=== PATIENT | female | born 1980 | race Caucasian/White ===

== ENCOUNTER 2020-04-29 17:32 | Outpatient (CLI) | payer BC, SELFPAY ==
--- NOTE | ~2020-04-29 | MM_ITS ---
EXAMINATION: MM screening [facility] BI w eduin HISTORY: Screening TECHNIQUE: Craniocaudal and mediolateral oblique 3-D tomosynthesis images were obtained and synthetic 2-D images were generated. CAD analysis was submitted and interpreted. COMPARISON: No prior mammogram is available for comparison at this institution. BREAST PARENCHYMAL COMPOSITION: The breasts are heterogeneously dense, which may obscure small masses . FINDINGS: There are bilateral asymmetries laterally in the right breast on CC view and superiorly on the left breast on MLO view. There are no suspicious calcifications. IMPRESSION: 1. Bilateral breast asymmetries. 2. Additional mammographic views and possible breast ultrasound are recommended. BI-RADS Category 0: Incomplete: Needs additional imaging evaluation. Reviewed, dictated and finalized at location A. IMPRESSION: 1. Bilateral breast asymmetries. 2. Additional mammographic views and possible breast ultrasound are recommended . BI-RADS Category 0: Incomplete: Needs additional imaging evaluation.
== END 2020-04-29 17:33 | disposition home or self-care (01) ==
LOC: ANHIMG 17:36
PROVIDERS: PCP Emergency Medicine; Visit Provider Obstetrics & Gynecology
DX: Z12.31 Encounter for screening mammogram for malignant neoplasm of breast (principal); R92.8 Other abnormal and inconclusive findings on diagnostic imaging of breast
CPT/HCPCS: 77063; 77067

== ENCOUNTER 2020-05-26 13:15 | Outpatient (CLI) | payer BC, SELFPAY ==
--- NOTE | ~2020-05-26 | MM_ITS ---
EXAMINATION: MM diagnostic [facility] BI w eduin HISTORY: Bilateral mammographic asymmetries reported on 04/29/2020 screening mammogram TECHNIQUE: Additional 3-D tomosynthesis images of both breasts were performed and synthetic 2-D image s were generated. CAD analysis was submitted and interpreted. COMPARISON: 04/29/2020 bilateral digital screening mammogram FINDINGS: No reproducible mass or architectural distortion, malignant calcification, skin thickening or retraction of either breast is evident. IMPRESSION: 1. No mammographic evidence of malignancy 2. Routine mammographic screening is recommended. BI-RADS Category 1: Negative Reviewed, dictated and finalized at location A.
== END 2020-05-26 13:16 | disposition home or self-care (01) ==
LOC: ANHIMG 13:17
PROVIDERS: PCP Emergency Medicine; Visit Provider Obstetrics & Gynecology
DX: R92.8 Other abnormal and inconclusive findings on diagnostic imaging of breast (principal)
CPT/HCPCS: 77062; 77066; G0279

== ENCOUNTER 2021-05-18 15:33 | Outpatient (CLI) | payer BC, SELFPAY ==
--- NOTE | ~2021-05-18 | MM_ITS ---
EXAMINATION: MM screening [facility] BI w ed[facility] HISTORY: Screening TECHNIQUE: Craniocaudal and mediolateral oblique 3-D tomosynthesis images were obtained and synthetic 2-D images were generated. CAD analysis was submitted and interpreted. COMPARISON: Comparison to multiple prior studies sequentially, with oldest reviewed study dated 04/29. BREAST PARENCHYMAL COMPOSITION: The breasts are heterogeneously dense, which may obscure small masses . FINDINGS: There is no evidence of suspicious mass, calcification, or architectural distortion to sugg est malignancy in either breast. There has been no suspicious interval change. IMPRESSION: 1. No mammographic evidence of malignancy. 2. Recommend routine screening mammography in one year. BI-RADS Category 1: Negative Reviewed, dictated and finalized at location A.
== END 2021-05-18 15:34 | disposition home or self-care (01) ==
LOC: ANHIMG 15:39
PROVIDERS: PCP Emergency Medicine; Visit Provider Obstetrics & Gynecology
DX: Z12.31 Encounter for screening mammogram for malignant neoplasm of breast (principal)
CPT/HCPCS: 77063; 77067

== ENCOUNTER 2022-03-12 15:51 | Emergency (ER) | payer BC, SELFPAY ==
[2022-03-12 16:03] VITALS: BP 136/99; PULSE 91; RESP 20; TEMP 37; O2SAT 98
--- NOTE | 2022-03-12 16:35 | ED.SKABFB ---
HPI - Skin/Abscess/Foreign Bdy General Chief complaint: Skin/Abscess/Foreign Body Stated complaint: rodriguez on breast Time Seen by Provider: 03/12/22 16:36 History of Present Illness HPI narrative: Elvia Muir is a 41 yo female with a PMH of anxiety, comes to [facility] with second-degree rodriguez on her breasts from 6 days ago. Blisters have since popped but is painful and she has difficulty getting granulation of her tissue because she has not kept them covered all the time. She has been using Neosporin and lidocaine patches but she is concerned that she is not taking her well enough and may be infected Related Data Home Medications Medication Instructions Recorded Confirmed norethindrone 1 mg-ethinyl 1 tablet PO DAILY 10/26/19 03/12/22 estradiol 20 mcg (24)-iron 75 mg (4) tablet (Blisovi 24 Fe) Allergies Allergy/AdvReac Type Severity Reaction Status Date / Time Estrogens Allergy Mild unknown Verified 03/12/22 16:08 Review of Systems Review of Systems: CONSTITUTIONAL: Denies fever, chills, sweats. EYES: Denies visual changes, redness, discharge. ENT: Denies rhinorrhea, congestion, sore throat, otalgia. CARDIOVASCULAR: Denies chest pain, palpitations, edema. RESPIRATORY: Denies dyspnea, wheezing, cough GASTROINTESTINAL: Denies abdominal pain, nausea, vomiting, diarrhea. GENITOURINARY: Denies dysuria, hematuria, abnormal discharge SKIN: Denies rash or itching. Has 2 large areas of secondary rodriguez on the top of each breast, NEUROLOGIC: Denies numbness, or focal weakness. PSYCHIATRIC: Denies anxiety or depression. [facility] Past Medical History Medical History (Updated 03/12/22 @ 17:01 by Laura Humphries CNP) Abnormal deposits of lipid HTN (hypertension) Hyperglycemia Family History Family History Other Family history of lung cancer Social History Social History Smoking status: Never smoker Alcohol intake: current Comments At time of signature, I agree with nursing past medical, surgical, social and family history. There is no relevant family history pertinent to the presenting complaint. Exam Narrative: GENERAL: This is a well-nourished, well-developed patient, in mild distress. HEAD: normocephalic, atraumatic. EYES: Sclera clear/white. Vision is grossly intact. EARS: External ears normal, Hearing grossly intact. NOSE: External nose normal without nasal discharge, nares without redness, no rhinorrhea. THROAT: Mucous membranes moist, NECK: Neck supple, non-tender CARDIOVASCULAR: Regular rate and rhythm without murmurs, gallops, or rubs. RESPIRATORY: Clear to not done SKIN: warm, intact with 2 areas approximately 3 x 5 of second-degree burn with no blister and newly granulating tissue NEURO: awake, alert, and oriented to person, place and time. There were no obvious focal neurologic abnormalities. Steady gait EXTREMITIES: Normal range of motion. BACK: Nontender without deformity Course Course Emergency Course: Patient comes with secondary rodriguez of her breasts from 6 days ago Discussed care with Neosporin and Telfa dressings daily Discussed protecting these areas from sun exposure Level of Care: Express Care Visit Vital Signs Vital signs: Vital Signs Temperature 98.6 F 03/12/22 16:03 Pulse Rate 91 03/12/22 16:03 Respiratory Rate 20 03/12/22 16:03 Blood Pressure 136/99 H 03/12/22 16:03 Pulse Oximetry 98 03/12/22 16:03 Oxygen Delivery Room Air 03/12/22 16:03 Temperature 98.6 F 03/12/22 16:03 Pulse Rate 91 03/12/22 16:03 Respiratory Rate 20 03/12/22 16:03 Blood Pressure 136/99 H 03/12/22 16:03 Pulse Oximetry 98 03/12/22 16:03 Oxygen Delivery Room Air 03/12/22 16:03 MDM - Skin/Abscess/Foreign Bdy Differential Diagnosis Differential diagnosis: Likely abscess of skin or subcutaneous tissue, cellulitis, contact dermatitis and
== END 2022-03-12 17:08 | disposition home or self-care (01) ==
PROVIDERS: Emergency Provider Nurse Practitioner; PCP Emergency Medicine
DX: L55.1 Sunburn of second degree (principal); I10 Essential (primary) hypertension
CPT/HCPCS: 99212; G0463

== ENCOUNTER 2022-06-29 16:31 | Outpatient (CLI) | payer BC, SELFPAY ==
--- NOTE | ~2022-06-29 | MM_ITS ---
EXAMINATION: MM screening [facility] BI w [facility] HISTORY: Screening mammogram TECHNIQUE: Craniocaudal and mediolateral oblique 3-D tomosynthesis images were obtained and synthetic 2-D images were generated. CAD analysis was submitted and interpreted. COMPARISON: 05/18/2021, 05/26/2020, 04/29/2020 BREAST PARENCHYMAL COMPOSITION: The breasts are heterogeneously dense, which may obscure small masses . FINDINGS: No suspicious mass, calcification, or architectural distortion are identified in either jorge ast to suggest malignancy. There has been no suspicious interval change. IMPRESSION: 1. No mammographic evidence of malignancy. 2. Recommend routine screening mammography in one year. BI-RADS Category 1: Negative Reviewed, dictated and finalized at location A.
== END 2022-06-29 16:32 | disposition home or self-care (01) ==
PROVIDERS: PCP Emergency Medicine; Visit Provider Obstetrics & Gynecology
DX: Z12.31 Encounter for screening mammogram for malignant neoplasm of breast (principal)
CPT/HCPCS: 77063; 77067

== ENCOUNTER 2022-08-10 01:29 | Day surgery (SDC) | payer BC, SELFPAY ==
[2022-07-28 08:26] VITALS: BMI 23.3
--- NOTE | 2022-07-28 08:32 | PC.NURSE ---
Report to the Outpatient Waiting Room, entrance under the green pavilion located off [facility], at time 1000 on date 08/10/22. Planned Procedure Time: 1200. Time changes happen often and if your time is changed the preop area will call you the afternoon before. - You and your visitor will be asked to self-screen and do not enter if you have any COVID symptoms. - Only one visitor is requested with a max of two and NO children visitors are allowed at this time. - The patient visitor may be requested to leave or wait in car when not with patient due to distancing restrictions. - A mask is optional within the hospital. Patients may have clear liquids (water, carbonated beverages, clear teas, apple juice) until 3 hours prior to surgery with a maximum of 20 ounces. - No food from midnight until time of surgery Take the following medications with a SIP of water the morning of surgery: VALIUM IF NEEDED Medications to discontinue per physician: NAPROXEN Date to take last dose: PER PT-WAS INSTRUCTED TO STOP 1 WEEK PRIOR TO SURGERY HAS NOT STARTED FOLIC ACID SUPPLEMENT - WILL WAIT UNTIL AFTER SURGERY Please no make-up, nail kazakh, hairspray, perfume, deodorant, or body powder the day of surgery. No jewelry (including any body piercings) or valuables the day of surgery, leave them at home. Please take a shower or bath the night before, or the morning of, surgery with an antibacterial soap. Wear comfortable, loose fitting clothing. - Jewelry must be removed prior to entering the operating room. Rings and piercings that are not removed may be cut off. - The hospital will not accept responsibility for valuables. - Please leave all valuables, including medications, at home the day of surgery. If you are going home after surgery, a licensed stacker driver must drive you home. - NO public transportation without another adult if you receive anesthesia. - We recommend that an adult stay with you for 24 hours following discharge. - We also recommend that you do not drive, make important decision, drink alcoholic beverages, or take any drugs that were not prescribed by your health care provider for at least 24 hours after your discharge time. Follow any additional instructions given to you from your surgeon. If you or anyone in your household have experienced Covid symptoms in the past week, please notify your surgeon or the nurse liaison at the phone number below for possible testing. Telephone instructions given to ОЛЕГ PARIKH and asked if any additional questions and then verbalized understanding. Patient advised to call surgeon office or pre surgery nurse liaison [phone] if any additional questions.
[2022-08-10] VITALS (9 sets, daily range): BP systolic 100–134; BP diastolic 62–93; PULSE 62–85; RESP 10–16; TEMP 36.2–36.6; O2SAT 100
--- NOTE | ~2022-08-10 | XR_ITS ---
EXAMINATION: XR fluoroscopy no charge DATE: 08/10/2022 13:00 ELECTRICIAN STATION ASSISTANT INDICATION: LUMBAR STENOSIS RELIEF . TECHNIQUE: 1 fluoroscopic images of the lateral lumbar spine were obtained during lumbar stenosis rel ated performed by the surgeon. I was not present in the operating room. Fluoroscopy exposure time was 0.6 seconds. Air Kerma 0.2136 mGy. DAP 0.0042 mGym2. COMPARISON: 12/09/2021. FINDINGS: Retractors overlying the posterior soft tissues. A probe identifies the space between the fourth and fifth lumbar spinous processes, tip overlying the inferior articulating facets of L4. IMPRESSION: Fluoroscopic documentation of lumbar stenosis related. Please refer to the operative note for complet e procedural details . Reviewed, dictated and finalized at location K. TRICIAN STATION ASSISTANT IMPRESSION: Fluoroscopic documentation of lumbar stenosis related. Please refer to the oper ative note for complete procedural details .
[2022-08-10] MEDS: LACTATED RINGERS 1,000 ML 30 ML IV CONT (10:59)
--- NOTE | 2022-08-10 11:53 | P.PNAN_ITS ---
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 Patient Data Age: 41 Gender: F Height: 1.68 m Weight: 63.7 kg Last Vital Signs Temp 36.5 C 08/10/22 11:02 Pulse 85 08/10/22 11:02 Resp 16 08/10/22 11:02 BP 123/89 08/10/22 11:02 Pulse Ox 100 08/10/22 11:02 O2 Del Method Room Air 08/10/22 11:02 Allergies Allergy/AdvReac Type Severity Reaction Status Date / Time Estrogens AdvReac Mild Migraine Verified 08/10/22 10:41 Home Medications Medication Instructions Recorded Confirmed Type norethindrone 1 mg-ethinyl 1 tablet PO DAILY 10/26/19 08/10/22 History estradiol 20 mcg (24)-iron 75 mg (4) tablet (Blisovi 24 Fe) naproxen 500 mg tablet See Rx Instructions .Route 05/14/22 08/10/22 Rx .COMPLEX #90 tabs diazepam 5 mg tablet 5 mg PO BID PRN anxiety #30 tabs 06/15/22 08/10/22 Rx folic acid 400 mcg tablet 0.4 mg PO DAILY #30 tabs 07/16/22 07/28/22 Rx Patient hx anesthesia problems: none Family hx anesthesia problems: none Results Review: All pre-operative results and documents have been reviewed as part of the pre- operative evaluation. [facility] Past Medical History Medical History Abnormal deposits of lipid HTN (hypertension) Hyperglycemia Family History Family History Other Family history of lung cancer Social History Social History Smoking packs per day: 0.5 Smoking cigarettes per day: 10.0 Years smoked: 10 Smoking pack-years: 5.00 Smoking status: Former smoker Tobacco type: cigarettes Smoking end date: 09/05/07 Alcohol intake: current Drinks per week: 14 Alcohol use details: WINE Substance use: never Substance use type: does not use Living arrangements: with family Spiritual care concerns: No Anes - Eval Final PreProcedure Day of Procedure 08/10/22 11:53 Patient weight: normal Heart: regular rate and rhythm Lungs: clear to auscultation Airway: Mallampati scale class II Neurological: alert and oriented Last oral intake: >/= 8 hours ASA classification: II Emergent: no Anesthetic plan: proceed Anesthesia type and monitoring: general ETT and standard monitoring Results Review: All pre-operative results and documents have been reviewed as part of the pre- operative evaluation. Informed Consent: The patient's anesthetic plan and its attendant risks and benefits were discussed with the patient/family/POA. Questions were solicited and answers provided to the satisfaction of the patient/family/POA.
--- NOTE | 2022-08-10 12:03 | WPDHPUPDATE1 ---
History and Physical Update Update Date/Time: 08/10/22 12:03 History and Physical has been reviewed, including an updated exam of the patient. There are NO changes in the patient's condition. Risks, benefits, and alternatives have been discussed and questions answered. Patient agrees to proceed with procedure.
[2022-08-10] MEDS: ceFAZolin 2 GM/D5W 50 ML 2 GM/50 ML BAG IVPB (12:47)
[2022-08-10] MEDS: LIDO 1%/EPINEPHRINE/PF 1:200,000 30 ML VIAL 10 ML XX (13:24)
--- NOTE | 2022-08-10 14:49 | SUR.PHASEI ---
1448: Simple mask removed.
[2022-08-10] MEDS: oxyCODONE HCL (*CRX) 5 MG TAB IR PO (15:21)
--- NOTE | 2022-08-31 21:05 | PM.DS ---
DS: Admitting Diagnosis Discharge Date 08/10/22 Admitting Diagnosis Right L4-5 lateral recess stenosis. DS: Discharge Diagnosis Discharge Diagnosis Plan Elvia is a 42-year-old female with back and leg pain on the right that presents for a right L4-5 hemilaminectomy. DS: Summary Hospital Course Hospital Course: Elvia was taken the operating room on the day of admission with the aforementioned operation was performed without complication. The patient was able to be discharged the same day as the operation. At the time of her discharge she was eating, ambulating, emptying her bladder and her pain was under control by mouth pain medicine. Her wounds remained clean, dry and intact. She was afebrile with stable vital signs. She was therefore allowed to be discharged home. Time Spent with Patient Time attestation: Total time spent providing and/or coordinating discharge services: Discharge Plan Discharge Patient Disposition: Home, Self-Care Discharge Instructions: INSTRUCTIONS AFTER YOUR LUMBAR LAMINECTOMY Incisions closed with: Surgical glue (let it peel off on its own). Keep the incision dry for the first three days after surgery. Never apply ointments or lotions to the incision. The incision should be checked daily. Notify the office if there is drainage, redness, or if you have fever with a temperature of over 100 degrees. After the third postop day, it is okay to shower. Let soap and water run over your incision. No soaking in a tub, hot tub, or pool for at least one month. You are encouraged to walk as much as comfortable, with assistance as needed. For example, it may be beneficial to walk short distances hourly during the waking hours and gradually increase walking during your recovery period. Fatigue can be common. Avoid any bending, heavy lifting, twisting movements. You have an punti-zz-kmu-pound lift restriction until further advised by your physician (A gallon of milk weighs eight pounds). Make frequent position changes, avoiding long periods of sitting. Try not to sit more than 30 minutes at a time. You may engage in sexual activity in two weeks as tolerated. No housework, especially vacuuming, making beds, or doing laundry until seen in the office. You may walk stairs carefully. Minimize car rides for two weeks. Driving can usually be resumed within two weeks; however, you may not drive at that time if still taking pain medications. Once you are discharged from the hospital, please call the office to set up your postop appointment. The physician may order pain medication and/or muscle relaxers. As time goes by, you should require less of these. Always take your medication as ordered, and only if needed. If you take more than prescribed, it will not be refilled early. If you feel you require narcotic medication refill, kindly give the office a 72-hour notice. No refills are given over the weekend. Anti-inflammatory meds (like Ibuprofen, Aleve, Advil, Motrin) may be used if approved by your surgeon. Over the counter Tylenol products may be used but use caution mixing Tylenol with your pain medication. The common pain pills include Acetaminophen as an ingredient, you could cause liver damage if taking too much. Tylenol and Acetaminophen are the same drug. Resume your usual diet. Constipation is a common problem postop, especially when taking narcotic pain medications. You may use any over the counter laxative, or stool softener, following the bottle directions. Use of nicotine products should be stopped completely. Smoking can slow the healing process significantly. It can also increase the chance for developing postop pneumonias and other complications. Please avoid use of all nicotine products for the health of your spine. FOR AN EMERGENCY AFTER HOURS OR ON A WEEKEND, PLEASE CALL THE MEDICAL EXCHANGE AT Call the office for: Appointment set up. Fever greater than 101 degrees. Increased p
--- NOTE | 2022-09-01 13:26 | P.OP_ITS ---
Procedure Note - Detailed Date of Procedure 09/01/22 Pre-op Diagnosis right L4-5 lateral recessed stenosis Post-op Diagnosis Same Procedure Performed Right L4-5 hemilaminectomy Surgeon Dwain Canales MD Anesthesia General Indications Elvia is 42-year-old female with a right L5 radiculopathy related L4-5 and lateral recess stenosis presents for hemilaminectomy. Description of Procedure the patient was taken to the operating room in the supine position, was sedated, intubated and placed under general anesthesia in routine fashion. She was then turned into the prone position on a Nilson frame. The area of operation on her back was examined, marked for incision, prepped and draped in routine sterile fashion. Incision was marked over the L4 and L5 spinous processes in the midline. This area was injected with 0.5% lidocaine with [id number] epinephrine. Intravenous antibiotics given prior to incision. Incision was made with a 10 blade scalpel down to the lumbodorsal fascia. A subperiosteal dissection of the muscle and soft tissue away from the spinous process lamina at L4-5 was performed with a subperiosteal elevator and Bovie cautery on the right. A verifying x-rays obtained to verify the level operation. At the L4-5 level on the right a Midas Prabhjot drill was used to perform a hemilaminectomy and medial facetectomy. Under microscopy yellow ligament was lifted and removed piecemeal using Kerrison punches. In the lateral recess a cu rved curette was used to define a plane and a lift overgrown ligament. Kerrison punches were used to remove overgrown ligament and bone in the lateral recess exposing the traversing L5 nerve root towards the foramen. Decompression in the lateral recess was confirmed by placing a dental instrument above and below the nerve root and out the foramen. The wound was then copiously irrigated with bacitracin irrigation all bleeding was stopped with bipolar and Bovie cautery and Gelfoam thrombin powder. Wound was then closed in layers with 2-0 Vicryl sutures in the lumbodorsal fascia and Glenroy's layer. 3-0 Vicryl buried interrupted sutures were placed in the dermis and the skin was closed with a running 4-0 Monocryl subcuticular stitch and dressed with Dermabond. The patient was then allowed wake up in the sitting the hybrid room in stable condition. There no immediate complications of this operation. On held Kari and knees. Blood loss was 25 cc. The patient was neurologically at her baseline postoperatively. CPT codes: 93855 Estimated Blood Loss 25 IV Fluids 1,000 Complications None Condition Stable Disposition PACU [facility] Billing Surgery - Charge Forward: Surgery Billing
== END 2022-08-10 16:06 | disposition home or self-care (01) ==
PROVIDERS: PCP Emergency Medicine; Visit Provider Neurological Surgery
PROC: (CPT 63030; principal; 2022-08-10 12:00)
DX: M48.061 Spinal stenosis, lumbar region without neurogenic claudication (principal); M43.16 Spondylolisthesis, lumbar region; Z87.891 Personal history of nicotine dependence
CPT/HCPCS: 63047; 36415; 86850; 86900; 86901; 99199; A9270; J0330; J0690; J1100; J1170; J2250; J2405; J2704; J3010; J7120

== ENCOUNTER → 2023-01-18 15:42 | Outpatient (CLI) | payer BC, SELFPAY ==
--- NOTE | ~2023-01-18 | CT_ITS ---
CT Scan of the Chest without Contrast: Clinical Indication: Smoking history, personal history of nicotine dependence Technique: Contiguous sections were acquired throughout the chest without intravenous contrast. Dose reduction technique was used on this scan by utilizing automated exposure control and iterative recon struction technique. The dose-length product (DLP) was 66.31 mGy-cm. Findings: There is no evidence of any significant mediastinal, hilar or axillary lymphadenopathy. Small calcifi ed mediastinal and right hilar lymph nodes are present. The mediastinal soft tissues appear normal. There is no evidence of pleural or pericardial effusion. Large calcified right upper lobe granuloma is present. Additional smaller calcified right lower lobe granuloma is present. No other pulmonary abnormality seen. Images through the upper abdomen reveal no abnormalities. Impression: No acute abnormality. No suspicious pulmonary nodule. Evidence of prior granulomatous disease. Reviewed, dictated and finalized at [facility]. Impression: No acute abnormality. No suspicious pulmonary nodule. Evidence of prior granulomatous disease.
== END ==
PROVIDERS: PCP Emergency Medicine; Visit Provider Emergency Medicine
DX: Z87.891 Personal history of nicotine dependence (principal)
CPT/HCPCS: 71250

== ENCOUNTER → 2023-06-21 15:46 | Outpatient (CLI) | payer BC, SELFPAY ==
--- NOTE | ~2023-06-21 | US_ITS ---
EXAMINATION: US thyroid DATE: 06/21/2023 16:01 INDICATION: Nontoxic single thyroid nodule. TECHNIQUE: Multiple ultrasound images of the thyroid were obtained. COMPARISON: None. FINDINGS: The right thyroid lobe measures 5.4 x 1.1 x 1.4 cm. The left thyroid lobe measures 4.1 x 1.4 x 1.4 c m. There is heterogeneous thyroid echogenicity. No discrete nodules identified. Normal vascular flow is present. IMPRESSION: 1. No thyroid nodule. Reviewed, dictated and finalized at location E. IMPRESSION: 1. No thyroid nodule.
== END ==
PROVIDERS: PCP Emergency Medicine; Visit Provider Emergency Medicine
DX: E04.1 Nontoxic single thyroid nodule (principal)
CPT/HCPCS: 76536

== ENCOUNTER 2023-08-09 15:45 | Outpatient (CLI) | payer BC, SELFPAY ==
--- NOTE | ~2023-08-09 | MM_ITS ---
EXAMINATION: MM screening [facility] BI w [facility] HISTORY: Screening mammogram TECHNIQUE: Craniocaudal and mediolateral oblique 3-D tomosynthesis images were obtained and synthetic 2-D images were generated. CAD analysis was submitted and interpreted. COMPARISON: 06/29/2022, 05/18/2021, 05/26/2020 BREAST PARENCHYMAL COMPOSITION: The breasts are heterogeneously dense, which may obscure small masses . FINDINGS: No suspicious mass, calcification, or architectural distortion are identified in either jorge ast to suggest malignancy. There has been no suspicious interval change. IMPRESSION: 1. No mammographic evidence of malignancy. 2. Recommend routine screening mammography in one year. BI-RADS Category 1: Negative Reviewed, dictated and finalized at location A. ET COMMISSIONER
== END 2023-08-09 15:46 | disposition home or self-care (01) ==
PROVIDERS: PCP Emergency Medicine; Visit Provider Obstetrics & Gynecology
DX: Z12.31 Encounter for screening mammogram for malignant neoplasm of breast (principal)
CPT/HCPCS: 77063; 77067

== ENCOUNTER 2024-03-09 15:44 | Outpatient (CLI) | payer BC, SELFPAY ==
--- NOTE | ~2024-03-09 | XR_ITS ---
EXAMINATION: XR wrist RT 2V DATE: 03/09/2024 16:02 INDICATION: Right wrist pain. TECHNIQUE: 2 views of right wrist were obtained. COMPARISON: None. FINDINGS: Bone alignment is normal. No fracture. There is moderate osteoarthritis of first carpometac arpal joint. IMPRESSION: 1. Moderate osteoarthritis of first carpometacarpal joint. Reviewed, dictated and finalized at location A.
--- NOTE | ~2024-03-09 | XR_ITS ---
EXAMINATION: XR hand RT 2V DATE: 03/09/2024 16:02 INDICATION: Right hand pain. TECHNIQUE: 2 views of right hand were obtained. COMPARISON: None. FINDINGS: Bone alignment is normal. No fracture. There is moderate osteoarthritis of first carpometac arpal joint. IMPRESSION: 1. Moderate osteoarthritis of first carpometacarpal joint. Reviewed, dictated and finalized at location A.
== END 2024-03-09 15:45 ==
PROVIDERS: PCP Emergency Medicine; Visit Provider Emergency Medicine
DX: M18.11 Unilateral primary osteoarthritis of first carpometacarpal joint, right hand (principal)
CPT/HCPCS: 73100; 73120

== ENCOUNTER 2024-06-16 10:01 | Outpatient (CLI) | payer BC, SELFPAY ==
--- NOTE | ~2024-06-16 | MR_ITS ---
EXAMINATION: MR lumbar spine wo con DATE: 06/16/2024 10:55 INDICATION: Spondylolisthesis, lumbar region. Low back pain. TECHNIQUE: Magnetic resonance imaging (MRI) of the lumbar spine was performed without intravenous con trast. Sequences included sagittal T2-weighted FSE, sagittal T2-weighted FS FSE, sagittal T1-weighted FSE, and axial T2-weighted FSE. COMPARISON: Lumbar spine MRI 12/09/2021 FINDINGS: There is 17 degrees dextroscoliosis of thoracolumbar spine. There is 4 mm anterolisthesis o f L4 on L5. There is focal kyphosis at L4-L5. Vertebral body heights are normal. There is moderately decreased disc height at L4-L5. The distal spinal cord signal intensity is normal. The conus medullar is is at T12-L1. The following disc levels are specifically discussed: L1-L2: The disc does not extend beyond the endplate margin. There is moderate bilateral facet joint o steoarthritis. There is no neural foraminal stenosis. There is no central canal stenosis. L2-L3: The disc does not extend beyond the endplate margin. There is mild bilateral facet joint osteo arthritis. There is no neural foraminal stenosis. There is no central canal stenosis. L3-L4: The disc does not extend beyond the endplate margin. There is severe bilateral facet joint ost eoarthritis. There is no neural foraminal stenosis. There is no central canal stenosis. L4-L5: The disc is bulging and has an annular fissure. There is severe right and moderate left facet joint osteoarthritis. There is moderate right and mild left neural foraminal stenosis. There is mild central canal stenosis. L5-S1: The disc is bulging. There is mild bilateral facet joint osteoarthritis. There is mild left ne ural foraminal stenosis. There is mild central canal stenosis. IMPRESSION: 1. Moderate spondylosis at L4-L5, stable from 12/09/2021. 2. Thoracolumbar dextroscoliosis. Reviewed, dictated and finalized at location A.
== END 2024-06-16 10:02 | disposition home or self-care (01) ==
PROVIDERS: PCP Neurological Surgery; Visit Provider Neurological Surgery
DX: M47.816 Spondylosis without myelopathy or radiculopathy, lumbar region (principal); M41.9 Scoliosis, unspecified
CPT/HCPCS: 72148

== ENCOUNTER 2024-09-06 15:45 | Outpatient (CLI) | payer BC, SELFPAY ==
--- NOTE | ~2024-09-06 | MM_ITS ---
EXAMINATION: MM screening [facility] BI w [facility] HISTORY: Screening mammogram TECHNIQUE: Craniocaudal and mediolateral oblique 3-D tomosynthesis images were obtained and synthetic 2-D images were generated. CAD analysis was submitted and interpreted. COMPARISON: 08/09/2023, 06/29/2022, 05/18/2021 BREAST PARENCHYMAL COMPOSITION:Not Dense. There are scattered areas of fibroglandular density. FINDINGS: No suspicious mass, calcification, or architectural distortion are identified in either jorge ast to suggest malignancy. There has been no suspicious interval change. IMPRESSION: No mammographic evidence of malignancy. Recommend routine screening mammography in one year. BI-RADS Category 1: Negative Reviewed, dictated and finalized at location . 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
== END 2024-09-06 15:46 | disposition home or self-care (01) ==
LOC: ANHIMG 15:46
PROVIDERS: PCP Emergency Medicine; Visit Provider Obstetrics & Gynecology
DX: Z12.31 Encounter for screening mammogram for malignant neoplasm of breast (principal)
CPT/HCPCS: 77063; 77067

== ENCOUNTER 2024-11-21 15:41 | Outpatient (CLI) | payer BC, SELFPAY ==
--- NOTE | ~2024-11-21 | XR_ITS ---
HISTORY: M79.672 - Pain in left foot COMPARISON: None TECHNIQUE: 2 views of the left foot were performed. FINDINGS: No acute fracture or dislocation is appreciated. No significant degenerative disease is noted. The base of the fifth metatarsal is intact. No calcaneal spur is noted. No significant soft tissue swelling is present. IMPRESSION: No acute fracture or dislocation. Reviewed, dictated and finalized at location A.
== END 2024-11-21 15:42 | disposition home or self-care (01) ==
PROVIDERS: PCP Emergency Medicine; Visit Provider Emergency Medicine
DX: M79.672 Pain in left foot (principal)
CPT/HCPCS: 73620

== ENCOUNTER 2025-03-01 09:48 | Emergency (ER) | payer BC, SELFPAY ==
[2025-03-01] VITALS (9 sets, daily range): BP systolic 152; BP diastolic 98; PULSE 81–111; RESP 15–21; TEMP 36.6; O2SAT 97–100
--- NOTE | 2025-03-01 10:03 | PC.NURSE ---
Pt. reports vomiting x1 month after her doctor increased her GLP-1 shot to 10. Pt. last shot x2 weeks ago. She is not taking it anymore. She is concerned that she is dehydrated d/t vomiting after any food or fluid intake. No abd. pain with palpation. Denies diarrhea or fever.
[2025-03-01 10:28] LABS: Basophils Absolute Auto 0.1 K/mm3 (0.0-0.1); Basophils Percent Auto 0.5 % (0.2-1.2); Eosinophils Absolute Auto 0.1 K/mm3 (0-0.3); Eosinophils Percent Auto 0.5 % (0-4.4); Hematocrit 37.5 % (37.0-47.0); Hemoglobin 12.7 g/dL (12.0-15.0); Immature Granulocyte Absolute 0.04 K/mm3 (0.00-0.031); Immature Granulocyte Percent A 0.4 % (0-0.5); Lymphocytes Absolute Auto 1.34 K/mm3 (0.9-3.2); Lymphocytes Percent Auto 12.9 % (18.3-44.2); Mean Corpuscular HGB Conc 33.9 g/dl (32-36); Mean Corpuscular Hemoglobin 31.8 pg (26-34); Mean Corpuscular Volume 93.8 fl (80-100); Mean Platelet Volume 10.6 fl (7.4-10.4); Monocytes Absolute Auto 0.8 K/mm3 (0.1-0.6); Monocytes Percent Auto 7.6 % (2.6-8.5); Neutrophils Absolute Auto 8.1 K/mm3 (1.3-6.7); Neutrophils Percent Auto 78.1 % (45.5-73.1); Platelet Count Result 409 k/mm3 (150-375); Red Cell Distribution Width 11.6 % (11.5-14.5); White Blood Count 10.4 K/mm3 (4.5-10.0)
--- NOTE | 2025-03-01 11:00 | ED.NAVMDI ---
HPI - Nausea/Vomiting/Diarrhea General Chief complaint: Nausea/Vomiting/Diarrhea Stated complaint: n/v after glp-1 shot Time Seen by Provider: 03/01/25 10:07 History of Present Illness HPI Narrative: Patient is a 44-year-old female who presents to the ER with complaints of nausea and decreased p.o. intake since increasing her GLP 1 dose. She reports she started taking the medication in September. Patient reports she has never had any side effects until she increased her dose to 10 mg. Now patient endorses nausea, dizziness and decreased p.o. intake. She has concerns for dehydration. Patient reports she had a small bowel movement yesterday which is not normal for her. She reports she has been urinating at least every 6 hours and denies urinary symptoms. Patient endorses a history of herniated discs at L4 and L5, otherwise denies any medical history. Related Data Home Medications ?Medication ?Instructions ?Recorded ?Confirmed ?Last Taken ?Type norethindrone 1 mg-ethinyl 1 tablet PO DAILY 10/26/19 06/27/24 08/09/22 History estradiol 20 mcg (24)-iron 75 mg (4) tablet (Blisovi 24 Fe) Allergies Allergy/AdvReac Type Severity Reaction Status Date / Time Estrogens AdvReac Mild Migraine Verified 03/01/25 10:06 Review of Systems Review of Systems: All systems reviewed & are unremarkable except as noted in HPI and below PMFSH Past Medical History Medical History Mass of finger of right hand Ganglion cyst of dorsum of right wrist Thoracic outlet syndrome Abnormal deposits of lipid Hyperglycemia HTN (hypertension) Surgical History Surgical History Status post lumbar surgery Family History Family History Other Family history of lung cancer Social History Social History Smoking packs per day: 0.5 Smoking cigarettes per day: 10.0 Years smoked: 10 Smoking pack-years: 5.00 Smoking status: Former smoker Tobacco type: cigarettes Smoking end date: 09/05/07 Alcohol intake: current Drinks per week: 14 Alcohol use details: WINE Substance use: never Substance use type: does not use Current Housing: Decline to Answer Concerned About Future Housing: Decline to Answer Difficulty Paying Gas/Electric Bills: Decline to Answer Difficulty Paying for Meds: Decline to Answer Currently Unemployed: Decline to Answer Education: Decline to Answer Difficulty w/ Childcare or Family Care: Decline to Answer Living arrangements: with family Spiritual care concerns: No Exam Narrative: GENERAL: Well appearing, well-nourished, non-toxic, in no acute distress. HEAD: Normocephalic, atraumatic. NECK: Supple. No adenopathy, no masses. RESPIRATORY: Airway patent, respirations nonlabored. Clear to auscultation bilaterally, no rales, rhonchi, wheezing. CARDIOVASCULAR: Regular rate and rhythm without murmurs, rubs, or gallops. Peripheral pulses 2+ and equal bilaterally. ABDOMINAL: Soft, nontender, nondistended, no hepatosplenomegaly. Normoactive BS. MUSCULOSKELETAL: Moves all extremities. Strength/ROM intact without gross deformities. SKIN: Warm, dry, normal color. No rashes. NEURO: A&O X3. Speech clear. Cranial nerves II-XII intact. No ataxic movements. PSYCHIATRIC: Appropriate mood and affect. Normal interaction. Course Vital Signs Vital signs: Vital Signs Temperature 36.6 C 03/01/25 09:58 Pulse Rate 111 H 03/01/25 09:58 Respiratory Rate 16 03/01/25 09:58 Blood Pressure 152/98 H 03/01/25 09:58 Pulse Oximetry 100 03/01/25 09:58 Oxygen Delivery Room Air 03/01/25 09:58 Temperature 36.6 C 03/01/25 09:58 Pulse Rate 84 03/01/25 15:30 Respiratory Rate 21 H 03/01/25 15:30 Blood Pressure 152/98 H 03/01/25 09:58 Pulse Oximetry 97 03/01/25 12:28 Oxygen Delivery Room Air 03/01/25 09:58 MDM - Nausea/Vomiting/Diarrhea MDM Narrative Medical decision making narrative: Patient is a 44-year-old female who presents to the ER with complaints of nausea and decreased p.o. intake since increasing her GLP 1 dose. She reports she started taking the medication in September. Patient reports she has never had any side effects until she increased her dose to 10 mg. Now patient endorses nausea, dizziness and decreased p.o. intake. She has concerns for dehydration. Patient reports she had a small bowel movement yesterday which is not normal for her. She reports she has been urinating at least every 6 hours and denies urinary symptoms. Patient endorses a history of herniated discs at L4 and L5, otherwise denies any medical history. Labs Ordered: CBC, CMP, ethanol, blood cultures, PTT, INR, CRP, CK, lactic acid, UA, troponin Imaging Ordered: None necessary Medications Ordered: Ceftriaxone 1 g IV, 1 L normal saline IV bolus x2, Zofran 4 mg IV, 20 mEq potassium IV, potassium chloride p.o. Results: Patient's CBC indicates a white blood cell count 10.4, red blood cell count of 4.0, platelet count is 409. Patient's CMP indicates a sodium of 130, potassium 2.1, chloride of 88, anion gap of 15, BUN of 4, creatinine of 1.15, GFR of 51, glucose 147, AST 51, an ALT of 53. Her lipase was within normal limits. Her CK was 28. Her troponin was less than 0.012. Patient's CRP was 4.0. Her urinalysis indicates a UTI. It was recommended pt be admitted to the hospital for further treatment and evaluation. Patient has chosen to refuse further care. Risks of an incomplete evaluation and treatment were discussed with the patient, including potential for or permanent disability. Patient seems to understand these risks, but still desires to refuse further care. Patient recommended to follow up with PCP in the next possible interval. Specifically, patient was told they can return to the ED at any time to resume care. She will be discharged home with a prescription for Augmentin to treat her UTI. Differential Diagnosis Differential diagnosis: Likely gastroenteritis, drug-induced nausea and vomiting and dehydration Lab Data Attestation: I reviewed the patient's lab results. 03/01/25 10:22 03/01/25 10:22 Labs: Lab Results 03/01/25 03/01/25 03/01/25 Range/Units 10:22 11:45 11:54 WBC 10.4 H (4.5-10.0) K/mm3 RBC 4.00 L (4.2-5.4) M/mm3 Hgb 12.7 (12.0-15.0) g/dL Hct 37.5 (37.0-47.0) % MCV 93.8 (80-100) fl MCH 31.8 (26-34) pg MCHC 33.9 (32-36) g/dl RDW 11.6 (11.5-14.5) % Plt Count 409 H (150-375) k/mm3 MPV 10.6 H (7.4-10.4) fl Immature Gran % (Auto) 0.4 (0-0.5) % Neut % (Auto) 78.1 H (45.5-73.1) % Lymph % (Auto) 12.9 L (18.3-44.2) % [place] % (Auto) 7.6 (2.6-8.5) % Eos % (Auto) 0.5 (0-4.4) % Baso % (Auto) 0.5 (0.2-1.2) % Lymph # (Auto) 1.34 (0.9-3.2) K/mm3 [place] # (Auto) 0.8 H (0.1-0.6) K/mm3 Eos # (Auto) 0.1 (0-0.3) K/mm3 Baso # (Auto) 0.1 (0.0-0.1) K/mm3 Abs Immat Gran (auto) 0.04 H (0.00-0.031) K/mm3 Absolute Neuts (auto) 8.1 H (1.3-6.7) K/mm3 Absolute Nucleated RBC 0.000 (0.0-0.012) K/mm3 Nucleated RBC % 0.0 (0.0-0.2) % Sodium 130 L (137-145) mmol/L Potassium 2.1 L* (3.4-5.0) mmol/L Chloride 88 L (98-107) mmol/L Carbon Dioxide 27 (22-30) mmol/L Anion Gap 15 H (4-12) mmol/L BUN 4 L (7-17) mg/dL Creatinine 1.15 H (0.7-1.0) mg/dL Estim Creat Clear Calc 47 ml/min Estimated GFR 51 L (59 - ) Glucose 147 H (65-110) mg/dL Calcium 9.3 (8.4-10.2) mg/dL Total Bilirubin 0.7 (0.2-1.3) mg/dL AST 51 H (14-36) U/L ALT 53 H (6-35) U/L Alkaline Phosphatase 83 (38-126) U/L Total Creatine Kinase 28 L (30-135) U/L Troponin I < 0.012 (0.000-0.034) ng/mL C-Reactive Protein 4.0 H (<1.0) mg/dL Total Protein 7.4 (6.3-8.2) g/dL Albumin 3.9 (3.5-5.1) g/dL Lipase 86 (23-300) U/L Urine Color (Yellow) Urine Appearance (Clear) Urine pH (5.0-9.0) Ur Specific [place] (1.001-1.035) Urine Protein (Negative) mg/dL Urine Glucose (UA) (Negative) mg/dL Urine Ketones (Negative) mg/dL Ur Blood (Man) (Negative) Urine Nitrate (Negative) Urine Bilirubin (Negative) Urine Urobilinogen (<2.0) mg/dL Leukocyte Esterase Rfl (Negative) LYDIA/UL Urine RBC (0-2) /hpf Urine WBC (0-3) /hpf Ur Squamous Epith Cells (Few) /hpf Urine Bacteria /hpf Urine Casts POC Urine HCG, Qual Negative (Negative) Ethyl Alcohol Pending 03/01/25 Range/Units 12:53 WBC (4.5-10.0) K/mm3 RBC (4.2-5.4) M/mm3 Hgb (12.0-15.0) g/dL Hct (37.0-47.0) % MCV (80-100) fl MCH (26-34) pg MCHC (32-36) g/dl RDW (11.5-14.5) % Plt Count (150-375) k/mm3 MPV (7.4-10.4) fl Immature Gran % (Auto) (0-0.5) % Neut % (Auto) (45.5-73.1) % Lymph % (Auto) (18.3-44.2) % Lau[place] % (Auto) (2.6-8.5) % Eos % (Auto) (0-4.4) % Baso % (Auto) (0.2-1.2) % Lymph # (Auto) (0.9-3.2) K/mm3 [place] # (Auto) (0.1-0.6) K/mm3 Eos # (Auto) (0-0.3) K/mm3 Baso # (Auto) (0.0-0.1) K/mm3 Abs Immat Gran (auto) (0.00-0.031) K/mm3 Absolute Neuts (auto) (1.3-6.7) K/mm3 Absolute Nucleated RBC (0.0-0.012) K/mm3 Nucleated RBC % (0.0-0.2) % Sodium (137-145) mmol/L Potassium (3.4-5.0) mmol/L Chloride (98-107) mmol/L Carbon Dioxide (22-30) mmol/L Anion Gap (4-12) mmol/L BUN (7-17) mg/dL Creatinine (0.7-1.0) mg/dL Estim Creat Clear Calc ml/min Estimated GFR (59 - ) Glucose (65-110) mg/dL Calcium (8.4-10.2) mg/dL Total Bilirubin (0.2-1.3) mg/dL AST (14-36) U/L ALT (6-35) U/L Alkaline Phosphatase (38-126) U/L Total Creatine Kinase (30-135) U/L Troponin I (0.000-0.034) ng/mL C-Reactive Protein (<1.0) mg/dL Total Protein (6.3-8.2) g/dL Albumin (3.5-5.1) g/dL Lipase (23-300) U/L Urine Color Yellow (Yellow) Urine Appearance Cloudy H (Clear) Urine pH 8.0 (5.0-9.0) Ur Specific [place] 1.009 (1.001-1.035) Urine Protein Trace (Negative) mg/dL Urine Glucose (UA) Negative (Negative) mg/dL Urine Ketones Trace H (Negative) mg/dL Ur Blood (Man) Negative (Negative) Urine Nitrate Negative (Negative) Urine Bilirubin Negative (Negative) Urine Urobilinogen 1.0 (<2.0) mg/dL Leukocyte Esterase Rfl 3+ H (Negative) LYDIA/UL Urine RBC 3-5 H (0-2) /hpf Urine WBC >100 H (0-3) /hpf Ur Squamous Epith Cells Many H (Few) /hpf Urine Bacteria 2+ H /hpf Urine Casts 3-5 POC Urine HCG, Qual (Negative) Ethyl Alcohol Discharge Plan Discharge Clinical Impression: Acute hypokalemia, Acute dehydration, Urinary tract infection, Acute hyponatremia Patient Disposition: Left Against Medical Advice Condition: Guarded Prognosis Patient Language: Macanese Prescriptions: No Action norethindrone-e.estradiol-iron [Blisovi 24 Fe] 1 mg-20 mcg (24)/75 mg (4) tablet 1 tablet PO DAILY fluticasone propionate 50 mcg/actuation spray,suspension See Rx Instructions .ROUTE .COMPLEX Qty: 48 0RF Dose Instruction: SHAKE LIQUID AND USE 2 SPRAYS IN EACH NOSTRIL EVERY 12 HOURS Rx Instructions: SHAKE LIQUID AND USE 2 SPRAYS IN EACH NOSTRIL EVERY 12 HOURS hydrochlorothiazide 12.5 mg capsule See Rx Instructions .ROUTE .COMPLEX Qty: 180 3RF Dose Instruction: TAKE 2 CAPSULES BY MOUTH EVERY DAY Rx Instructions: TAKE 2 CAPSULES BY MOUTH EVERY DAY diazepam 5 mg tablet 5 mg PO BID PRN (Reason: anxiety) Qty: 30 2RF naproxen 500 mg tablet See Rx Instructions .ROUTE .COMPLEX Qty: 30 2RF Dose Instruction: TAKE 1 TABLET BY MOUTH DAILY Rx Instructions: TAKE 1 TABLET BY MOUTH DAILY ondansetron HCl 4 mg tablet 4 mg PO Q6H PRN (Reason: nausea and vomiting) Qty: 30 0RF Zepbound 7.5 mg/0.5 mL pen injector 7.5 mg subcut WEEKLY Qty: 2 0RF Follow-up/Referrals: Satya Fournier MD [Primary Care Provider] -
[2025-03-01 11:18] LABS: Alanine Aminotransferase 53 U/L (6-35); Albumin Level 3.9 g/dL (3.5-5.1); Alkaline Phosphatase 83 U/L (38-126); Aspartate Amino Transferase 51 U/L (14-36); Calcium 9.3 mg/dL (8.4-10.2); Carbon Dioxide 27 mmol/L (22-30); Chloride 88 mmol/L (98-107); Estimated CRCL calculation 47 ml/min; Estimated Glomerular Filt Rate 51; Glucose 147 mg/dL (65-110)
[2025-03-01 11:19] LABS: Anion Gap 15 mmol/L (4-12); Bilirubin,Total 0.7 mg/dL (0.2-1.3); Blood Urea Nitrogen 4 mg/dL (7-17); Lipase 86 U/L (23-300); Potassium 2.1 mmol/L (3.4-5.0); Sodium 130 mmol/L (137-145); Total Protein 7.4 g/dL (6.3-8.2)
--- NOTE | 2025-03-01 11:24 | ECG_ITS ---
Test Date: 2025-03-01 11:34:10 Measurements Intervals [place] Rate: 95 P: 66 FL: 162 QRS: 261 QRSD: 90 T: 30 QT: 393 QTc: 496 Interpretive Statements SINUS RHYTHM RIGHT AXIS DEVIATION POSSIBLE LEFT ATRIAL ENLARGEMENT POSSIBLE RIGHT VENTRICULAR CONDUCTION DELAY [RSR (QR) IN V1/V2] ANTEROLATERAL INFARCT, AGE INDETERMINATE INFERIOR INFARCT, AGE INDETERMINATE ABNORMAL ECG No previous ECG available for comparison Electronically Signed On 03-01-2025 12:08:39 CDT by Case Deng D.O.
[2025-03-01] MEDS: SODIUM CHLORIDE 0.9% IV 1,000 ML 999 ML IV CONT ×2 (11:46→14:45)
[2025-03-01 11:56] LABS: BEDSIDEPREGUCG Negative (Negative)
[2025-03-01] MEDS: KCL 20 MEQ/D5/0.45% SOD CHL 1,000 ML 125 ML IV CONT (12:00)
[2025-03-01 12:42] LABS: Troponin I < 0.012 ng/mL (0.000-0.034)
[2025-03-01 13:03] LABS: Add Urine Microscopic? YES; Appearance Urine Cloudy (Clear); Bacteria Urine 2+ /hpf; Bilirubin Urine Negative (Negative); Blood Urine Negative (Negative); Color Urine Yellow (Yellow); Glucose Urine UA Negative (Negative); Ketones Urine Trace mg/dL (Negative); Leukocyte Esterase Ur 3+ LEU/UL (Negative); Nitrate Urine Negative (Negative); Protein Urine Trace mg/dL (Negative); Specific Grav Ur 1.009 (1.001-1.035); Squamous Epithelial Cell Urine Many /hpf (Few); WBC Urine >100 /hpf (0-3)
[2025-03-01] MEDS: POTASSIUM CHLORIDE 20 MEQ ER TABLET 40 MEQ PO (14:54)
[2025-03-01] MEDS: AMOXICILLIN/CLAVULANATE K 875-125 MG TAB 1 TABLET PO (14:54)
--- NOTE | 2025-03-01 14:59 | PC.NURSE ---
Pt refused blood stick for Blood cultures and additional blood work to be drawn at this time.
--- NOTE | 2025-03-01 15:15 | PC.NURSE ---
Called lab at [facility], aware of additional blood add ons.
[2025-03-01 15:29] LABS: Creatine Kinase 28 U/L (30-135)
[2025-03-01 15:43] LABS: Ethanol < 10 mg/dL (<10)
== END 2025-03-01 16:03 | disposition left against medical advice (07) ==
PROVIDERS: Emergency Provider Registered Nurse; PCP Emergency Medicine
DX: E87.6 Hypokalemia (principal); E86.0 Dehydration; N39.0 Urinary tract infection, site not specified; E87.1 Hypo-osmolality and hyponatremia; I10 Essential (primary) hypertension; Z87.891 Personal history of nicotine dependence
CPT/HCPCS: 36415; 80053; 81001; 81025; 82077; 82550; 83690; 84484; 85025; 86140; 93005; 96361; 96365; 96366; 96368; 99284; A9270; J0696; J3480; J7030

== ENCOUNTER 2025-03-19 13:09 | Inpatient (IN) | payer BC, SELFPAY ==
[2025-03-19] VITALS (7 sets, daily range): BP systolic 109–149; BP diastolic 76–112; PULSE 87–108; RESP 16–20; TEMP 36.1; O2SAT 99–100; BMI 19.8
--- NOTE | ~2025-03-19 | MR_ITS ---
MRI of the brain Clinical History: Short-term memory issues, confusion Technique: Axial and sagittal T1-weighted images were acquired. These were followed by axial T2-weigh noemi, diffusion weighted, gradient, and FLAIR images. Following intravenous administration of 11 cc Mu ltiHance gadolinium, T1-weighted fat-sat imaging was performed in the axial, coronal, and sagittal pl anes. Findings: There is no acute infarct, intracranial hemorrhage or mass lesion. No significant signal ab normality seen in the brain parenchyma. Ventricles and subarachnoid spaces are mildly dilated. Orbits are unremarkable. Paranasal sinuses and mastoid air cells are clear. Major intracranial flow voids are intact. Sagittal midline structures are intact. No abnormal postcontrast enhancement identified. IMPRESSION: Mild generalized atrophy, otherwise unremarkable exam. Reviewed, dictated and finalized at [facility].
--- NOTE | ~2025-03-19 | XR_ITS ---
XR chest 2V Ordering provider: Tiago Gomez MD History: 44 years Female with . weakness . Comparison: None. FINDINGS: MEDIASTINUM: The cardiac silhouette is not enlarged. LUNGS: No infiltrates, effusions or pneumothorax. Calcified granuloma in the right midzone with calci fication in the right hilum. OTHER: No free air under the diaphragm. IMPRESSION: No acute cardiopulmonary pathology Reviewed, dictated and finalized at location A.
--- NOTE | ~2025-03-19 | MR_ITS ---
MRI of the cervical spine Clinical History: Weakness Technique: Axial T2-weighted and gradient images, and sagittal T1-weighted, T2-weighted, and STIR gabriela ges were acquired. Following intravenous administration of 11 cc MultiHance gadolinium, T1-weighted f at-sat imaging was performed in the axial and sagittal planes. Findings: There is no fracture or subluxation of the cervical spine. Vertebral bodies maintain alignm ent. No bone marrow signal abnormality no disc bulge or herniation seen at the cervical spine. No spi nal canal stenosis or cord compression identified. No neural foraminal narrowing evident. No abnormal signal seen in the spinal cord. Paravertebral soft tissues are unremarkable. No abnormal postcontrast enhancement seen. Impression: Normal exam. Reviewed, dictated and finalized at location . Impression: Normal exam.
--- NOTE | ~2025-03-19 | MR_ITS ---
MRI of the thoracic spine Clinical History: Weakness Technique: Axial T2-weighted and gradient images, and sagittal T1-weighted, T2-weighted, and STIR gabriela ges were acquired. Following intravenous administration of 11 cc MultiHance gadolinium, T1-weighted f at-sat imaging was performed in the axial and sagittal planes. Findings: There is no fracture or subluxation of the thoracic spine. Vertebral bodies maintain normal height and line. No bone marrow signal reality seen. No disc bulge or herniation seen at any thoracic level. No spinal canal stenosis, cord compression, o r neural foraminal narrowing seen in the thoracic spine. No abnormal signal seen in the spinal cord. No epidural mass or collection. Paravertebral soft tissues are unremarkable. No abnormal postcontrast enhancement. IMPRESSION: Normal exam. Reviewed, dictated and finalized at location . IMPRESSION: Normal exam.
--- NOTE | ~2025-03-19 | MR_ITS ---
MRI of the lumbar spine Clinical History: Weakness Technique: Axial T2-weighted and gradient images, and sagittal T1-weighted, T2-weighted, and STIR gabriela ges were acquired. Following intravenous administration of 11 cc MultiHance gadolinium, T1-weighted f at-sat imaging was performed in the axial and sagittal planes. Findings: There is no fracture the lumbar spine. There is 6 mm anterolisthesis of L4 over L5. Bone ma rrow signals are unremarkable. At L1-L2, L2-L3, L3-L4, there is no disc bulge or herniation. There are mild to moderate facet joint degenerative changes at these levels. No spinal canal stenosis or neural foraminal narrowing at these levels. At L4-L5, there is moderate degenerative distended. There is mild diffuse disc bulge with severe face t arthropathy. No central canal stenosis. There is moderate to advanced right neural foraminal narrow ing. Left neural foramen preserved. At L5-S1, there is minimal disc bulge. No spinal canal stenosis or neural foraminal narrowing. Paravertebral soft tissues are unremarkable. No abnormal postcontrast enhancement. Impression: Moderate degenerative spondylosis at L4-L5, with right neural foraminal narrowing and 6 mm anterolist hesis at this level. Reviewed, dictated and finalized at location . Impression: Moderate degenerative spondylosis at L4-L5, with right neural foraminal narrowi ng and 6 mm anterolisthesis at this level.
--- OUTSIDE RECORDS SUMMARY | 2025-03-19 13:17 | XMS_ITS | Data Portability ---
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 period more managable. bought a [employer] [facility] on [facility]. 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 no clear evidence of abnormalities today. will do a trial of some overactive bladder meds as she gets up at least 3 times per night and voids over 8 times a day currently. Will add some estrogen cream to perineal area yo see if a possible recurring tear may be the cause of the dyspareunia/ skin pain with urination. Not available 04/30/2024 17:27:48 Plan of Treatment Reminders Order Date Submit Date Provider Last Modified By Organization Details Last Modified Time Details Appointments ANNUAL 30 2024 03:30P M Moises Braden MD Not available Not available Not available Lab urinalysi s, dipstick 2023 024 In-Office Order, Internal Use Only DO Not Attach Compendium DO Not Attach Compendium, Do Not Delete/merge, [id number] 04/30/2024 16:21:06 cytology report, thin prep, smear or scraping, cervical or vaginal 2023 024 [facility], [address], [address], [place], [address], 05/09/2024 07:15:03 cytology report, thin prep, smear or scraping, cervical or vaginal 2022 023 [facility], [address], [address], [place], [address], 04/26/2023 16:13:33 cytology report, thin prep, smear or scraping, cervical or vaginal 2021 022 [facility], [address], [address], [place], [address], 04/16/2022 16:11:57 cytology report, thin prep, smear or scraping, cervical or vaginal 2020 021 [facility], [address], [address], [place], [address], 04/08/2021 16:12:56 unlisted lab - igp, rfx aptima HPV ascu 2019 020 [facility], [address], [address], [place], [address], 04/07/2020 16:11:00 Referral None recorded. Procedures None recorded. Surgeries None recorded. Imaging MAMMO, screening , digital, bilateral 2023 024 [facility], [address], [place], [address], 07/16/2024 15:13:11 MAMMO, screening , digital, bilateral 2022 023 [facility], [address] [place] [address] [address], [place], [address], 05/13/2023 12:19:06 MAMMO, screening , digital, bilateral 2021 022 [facility], [address] [place] [address] [address], [place], [address], 04/27/2022 09:43:04 MAMMO, screening , digital, bilateral 2020 021 [facility], [address] [place] [address] [address], [place], [address], 04/22/2021 09:32:32 MAMMO, screening , digital, bilateral 2019 020 [facility] Not available 05/02/2020 09:40:57 Medication Orders estradiol 0.01% (0.1 mg/gram) vaginal cream 2023 024 [id number], [address] [place], [address], 04/30/2024 17:27:51 oxybutyni n chloride ER 10 mg tablet,ex tended release 24 hr 2023 024 [facility]25[facility], [address] [place], [address], 05/28/2024 13:44:17 Blisovi 24 Fe 1 mg-20 mcg (24)/75 mg (4) tablet 2023 024 [facility]25[facility], [address] [place], [address], 04/30/2024 16:21:07 Blisovi 24 Fe 1 mg-20 mcg (24)/75 mg (4) tablet 2022 023 [facility], [address] [place], [address], 04/21/2023 16:34:48 Blisovi 24 Fe 1 mg-20 mcg (24)/75 mg (4) tablet 2021 022 [facility] [address] [place], [address], 04/12/2022 17:12:31 Blisovi 24 Fe 1 mg-20 mcg (24)/75 mg (4) tablet 2019 020 [facility], [address] [place], [address], 04/03/2020 16:46:02 Patient TargetsNo targets recorded. Patient Instructions Encounter Date Encounter Id Patient Instructions Last Modified By Organization Details Last Modified Time 04/03/2020 [id number] learning about breast cancer screening er Not available 04/03/2020 16:44:46 04/06/2021 [id number] learning about breast cancer screening gturner Not available 04/06/2021 16:39:49 04/12/2022 [id number] learning about breast cancer screening er Not available 04/12/2022 17:01:43 04/21/2023 [id number] learning about breast cancer screening gter Not available 04/21/2023 16:34:46 04/30/2024 [id number] learning about breast cancer screening gter Not available 04/30/2024 16:21:03 Reason for Referral None Reported. Results Created Date Observation Date Name Description Value Unit Range Abnormal Flag Note LastModifiedBy Organization Detail LastModifiedTime 04/03/20 20 04/07/2020 pap, IG + refle x HR HPV diagnosis: Commen t NEGAT MIKE FOR INTRA EPITH ELIAL LESIO N OR JAISON LEAL . Not Available [facility] ([facility]) [address], [place], [address], 04/07/2020 16:11:00 04/03/20 20 04/07/2020 pap, IG + refle x HR HPV specimen adequacy: Jaycee murillo Satis facto ry for evalu ation . Endoc ervic al and/o r squam ous metap lasti c cells (endo cervi mary compo nent) are prese nt. Not Available [facility] ([facility]) [address] [place], [address], 04/07/2020 16:11:00 04/03/20 20 04/07/2020 pap, IG + refle x HR HPV clinician provided ICD10: Jaycee murillo Z01.4 19 Not Available [facility] ([facility]) [address] [place], [address], 04/07/2020 16:11:00 04/03/20 20 04/07/2020 pap, IG + refle x HR HPV performed by: Jaycee Field in, Cytot suni murillo (ASCP ) Not Available [facility] ([facility]) [address] [place], [address], 04/07/2020 16:11:00 04/03/20 20 04/07/2020 pap, IG + refle x HR HPV . . Not Available [facility] ([facility]) [address] [place], [address], 04/07/2020 16:11:00 04/03/20 20 04/07/2020 pap, IG + refle x HR HPV note: Jaycee murillo The Pap smear is a scree sorin test desig mary to aid in the detec tion of rudy ligna nt and malig nant condi tions of the uteri ne cervi x. It is not a diagn ostic proce dure and shoul d not be used as the sole means of detec ting cervi mary cance r. Both false -posi tive and false -nega tive repor ts do occur . Not Available [facility] ([facility]) [address] [place], [address], 04/07/2020 16:11:00 04/03/20 20 04/07/2020 pap, IG + refle x HR HPV test methodology: Commen t This liqui d based ThinP rep(R ) pap test was taylor hernandez with the use of an image guide becky valente. Not Available [facility] ([facility]) [address], [place], [address], 04/07/2020 16:11:00 04/03/20 20 04/07/2020 pap, IG + refle x HR HPV . Commen t The HPV DNA refle x crite nimisha were not met with this speci men resul t there fore, no HPV testi ng was perfo rmed. Not Available [facility] ([facility]) [address], [place], [address], 04/07/2020 16:11:00 04/06/20 21 04/08/2021 IGP, RFX APTIM A HPV ASCU diagnosis: Commen t NEGAT MIKE FOR INTRA EPITH ELIAL AR August OR JAISON LEAL . Not Available [facility] ([facility]) [address], [place], [address], 04/08/2021 16:12:56 04/06/20 21 04/08/2021 IGP, RFX APTIM A HPV ASCU specimen adequacy: Commen t Satis facto ry for evalu ation . Endoc ervic al and/o r squam ous metap lasti c cells (endo cervi mary compo nent) are prese nt. Not Available [facility] ([facility]) [address], [place], [address], 04/08/2021 16:12:56 04/06/20 21 04/08/2021 IGP, RFX APTIM A HPV ASCU clinician provided ICD10: Commnilson t Z01.4 19 Not Available [facility] ([facility]) [address] [place], [address], 04/08/2021 16:12:56 04/06/20 21 04/08/2021 IGP, RFX APTIM A HPV ASCU performed by: Adrián Sy (ASCP ) Not Available [facility] ([facility]) [address] [place], [address], 04/08/2021 16:12:56 04/06/20 21 04/08/2021 IGP, RFX APTIM A HPV ASCU . . Not Available [facility] ([facility]) [address] [place], [address], 04/08/2021 16:12:56 04/06/20 21 04/08/2021 IGP, RFX APTIM A HPV ASCU note: Jaycee murillo The Pap smear is a scree sorin test desig mary to aid in the detec tion of rudy ligna nt and malig nant condi tions of the uteri ne cervi x. It is not a diagn ostic proce dure and shoul d not be used as the sole means of detec ting cervi mary cance r. Both false -posi tive and false -nega tive repor ts do occur . Not Available [facility] ([facility]) [address] [place], [address], 04/08/2021 16:12:56 04/06/20 21 04/08/2021 IGP, RFX APTIM A HPV ASCU test methodology: Jaycee murillo This liqui d based ThinP rep(R ) pap test was scree mary with the use of an image guide d syste m. Not Available [facility] ([facility]) [address] [place], [address], 04/08/2021 16:12:56 04/06/20 21 04/08/2021 IGP, RFX APTIM A HPV ASCU . Jaycee murillo The HPV DNA refle x crite nimisha were not met with this speci men resul t there fore, no HPV testi ng was perfo rmed. Not Available [facility] ([facility]) [address], [place], [address], 04/08/2021 16:12:56 04/12/20 22 04/15/2022 IGP, RFX APTIM A HPV ASCU diagnosis: Jaycee murillo abnormal EPITH ELIAL CELL ABNOR MALIT Y. ATYPI MARY SQUAM OUS CELLS OF UNDET ERMIN ED SIGNI FICAN CE (ASC- US). Not Available [facility] ([facility]) [address], [place], [address], 04/16/2022 16:11:57 04/12/20 22 04/15/2022 IGP, RFX APTIM A HPV ASCU specimen adequacy: Jaycee murillo Satis facto ry for evalu ation . Endoc ervic al and/o r squam ous metap lasti c cells (endo cervi mary compo nent) are prese nt. Not Available [facility] ([facility]) [address], [place], [address], 04/16/2022 16:11:57 04/12/20 22 04/15/2022 IGP, RFX APTIM A HPV ASCU clinician provided ICD10: Jaycee murillo Z01.4 19 Not Available [facility] ([facility]) [address] [place], [address], 04/16/2022 16:11:57 04/12/20 22 04/15/2022 IGP, RFX APTIM A HPV ASCU performed by: Jaycee Lee eh, Cytot echno logis t (ASCP ) Not Available [facility] ([facility]) [address] [place], [address], 04/16/2022 16:11:57 04/12/20 22 04/15/2022 IGP, RFX APTIM A HPV ASCU electronical ly signed by: Jaycee Toney MD, Patho logis t Not Available [facility] ([facility]) [address], [place], [address], 04/16/2022 16:11:57 04/12/20 22 04/15/2022 IGP, RFX APTIM A HPV ASCU . . Not Available [facility] ([facility]) [address], [place], [address], 04/16/2022 16:11:57 04/12/20 22 04/15/2022 IGP, RFX APTIM A HPV ASCU pathologist provided ICD10: Jaycee t R87.6 10 Not Available [facility] ([facility]) [address], [place], [address], 04/16/2022 16:11:57 04/12/20 22 04/15/2022 IGP, RFX APTIM A HPV ASCU note: Commen t The Pap smear is a scree sorin test deswashington mary to aid in the detec tion of rudy ligna nt and malig nant condi tions of the uteri ne cervi x. It is not a diagn ostic proce dure and shoul d not be used as the sole means of detec ting cervi mary cance r. Both false -posi tive and false -nega tive repor ts do occur . Not Available [facility] ([facility]) [address], [place], [address], 04/16/2022 16:11:57 04/12/20 22 04/15/2022 IGP, RFX APTIM A HPV ASCU test methodology: Commen t This liqui d based ThinP rep(R ) pap test was scree mary with the use of an image guide becky valente. Not Available [facility] ([facility]) [address], [place], [address], 04/16/2022 16:11:57 04/12/20 22 04/15/2022 IGP, RFX APTIM A HPV ASCU . Commen t See below for HPV testi ng resul ts. Not Available [facility] ([facility]) [address], [place], [address], 04/16/2022 16:11:57 04/12/20 22 04/16/2022 IGP, RFX APTIM A HPV ASCU HPV aptima Negati ve negati ve This nucle ic acid ampli ficat ion test detec ts fourt een high- risk HPV types (16,1 8,31, 33,35 ,39,4 5,51, 52,56 ,58,5 9,66, 68) witho ut diffe renti ation . Not Available [facility] ([facility]) [address] [facility], [place], [address], 04/16/2022 16:11:57 04/21/20 23 04/26/2023 IGP, RFX APTIM A HPV ASCU diagnosis: Commen t NEGAT MIKE FOR INTRA EPITH ELIAL AR August OR JAISON LEAL . Not Available [facility] ([facility]) [address] [facility], [place], [address], 04/26/2023 16:13:33 04/21/20 23 04/26/2023 IGP, RFX APTIM A HPV ASCU specimen adequacy: Commen t Satis facto ry for evalu ation . Endoc ervic al and/o r squam ous metap lasti c cells (endo cervi mary compo nent) are prese nt. Not Available [facility] ([facility]) [address] [facility], [place], [address], 04/26/2023 16:13:33 04/21/20 23 04/26/2023 IGP, RFX APTIM A HPV ASCU clinician provided ICD10: Commen t Z01.4 19 Not Available [facility] ([facility]) [address], [place], [address], 04/26/2023 16:13:33 04/21/20 23 04/26/2023 IGP, RFX APTIM A HPV ASCU performed by: Jaycee ambrocio Cytochidi murillo (ASCP ) Not Available [facility] ([facility]) [address] [place], [address], 04/26/2023 16:13:33 04/21/20 23 04/26/2023 IGP, RFX APTIM A HPV ASCU . . Not Available [facility] ([facility]) [address] [facility], [place], [address], 04/26/2023 16:13:33 04/21/20 23 04/26/2023 IGP, RFX APTIM A HPV ASCU note: Jaycee murillo The Pap smear is a scree sorin test desig mary to aid in the detec tion of rudy ligna nt and malig nant condi tions of the uteri ne cervi x. It is not a diagn ostic proce dure and shoul d not be used as the sole means of detec ting cervi mary cance r. Both false -posi tive and false -nega tive repor ts do occur . Not Available [facility] ([facility]) [address] [place], [address], 04/26/2023 16:13:33 04/21/20 23 04/26/2023 IGP, RFX APTIM A HPV ASCU test methodology: Jaycee murillo This liqui d based ThinP rep(R ) pap test was scree mary with the use of an image guide d syste m. Not Available [facility] ([facility]) [address] [place], [address], 04/26/2023 16:13:33 04/21/20 23 04/26/2023 IGP, RFX APTIM A HPV ASCU . Jaycee murillo The HPV DNA refle x crite nimisha were not met with this speci men resul t there fore, no HPV testi ng was perfo rmed. Not Available [facility] ([facility]) [address] [place], [address], 04/26/2023 16:13:33 04/30/20 24 05/04/2024 IGP, RFX APTIM A HPV ASCU diagnosis: JAYCEE Murillo abnormal EPITH ELIAL CELL ABNOR MALIT Y. ATYPI MARY SQUAM OUS CELLS OF UNDET ERMIN ED SIGNI FICAN CE (ASC- US). Not Available [facility] ([facility]) [address] [facility], [place], [address], 05/09/2024 07:15:03 04/30/20 24 05/04/2024 IGP, RFX APTIM A HPV ASCU specimen adequacy: JAYCEE Murillo Satis facto ry for evalu ation . Endoc ervic al and/o r squam ous metap lasti c cells (endo cervi mary compo nent) are prese nt. Not Available [facility] ([facility]) [address] [place], [address], 05/09/2024 07:15:03 04/30/20 24 05/04/2024 IGP, RFX APTIM A HPV ASCU clinician provided ICD10: JAYCEE Murillo Z01.4 19 Not Available [facility] ([facility]) [address] [facility], [place], [address], 05/09/2024 07:15:03 04/30/20 24 05/04/2024 IGP, RFX APTIM A HPV ASCU performed by: JAYCEE Del Valle ams, Cytot suni arguelles t (ASCP ) Not Available [facility] ([facility]) [address] [place], [address], 05/09/2024 07:15:03 04/30/20 24 05/04/2024 IGP, RFX APTIM A HPV ASCU electronical ly signed by: JAYCEE Toney MD, Patho logis t Not Available [facility] ([facility]) [address] [place], [address], 05/09/2024 07:15:03 04/30/20 24 05/04/2024 IGP, RFX APTIM A HPV ASCU . . Not Available [facility] ([facility]) [address] [place], [address], 05/09/2024 07:15:03 04/30/20 24 05/04/2024 IGP, RFX APTIM A HPV ASCU pathologist provided ICD10: JAYCEE Murillo R87.6 10 Not Available [facility] ([facility]) [address] [address] [facility], [place], [address], 05/09/2024 07:15:03 04/30/20 24 05/04/2024 IGP, RFX APTIM A HPV ASCU note: JAYCEE T The Pap smear is a scree sorin test desig mary to aid in the detec tion of rudy ligna nt and malig nant condi tions of the uteri ne cervi x. It is not a diagn ostic proce dure and shoul d not be used as the sole means of detec ting cervi mary cance r. Both false -posi tive and false -nega tive repor ts do occur . Not Available [facility] ([facility]) [address] [place], [address], 05/09/2024 07:15:03 04/30/20 24 05/04/2024 IGP, RFX APTIM A HPV ASCU test methodology: JAYCEE T This liqui d based ThinP rep(R ) pap test was scree mray with the use of an image guide d systshoaib m. Not Available [facility] ([facility]) [address] [place], [address], 05/09/2024 07:15:03 04/30/20 24 05/04/2024 IGP, RFX APTIM A HPV ASCU . JAYCEE T See below for HPV testi ng resul ts. Not Available [facility] ([facility]) [address] [place], [address], 05/09/2024 07:15:03 04/30/20 24 05/08/2024 HPV APTIM A HPV aptima Negati ve negati ve This nucle ic acid ampli ficat ion test detec ts fourt een high- risk HPV types (16,1 8,31, 33,35 ,39,4 5,51, 52,56 ,58,5 9,66, 68) witho ut diffe renti ation . Not Available [facility] ([facility]) [address] [address] [facility], [place], [address], 05/09/2024 07:15:04 04/30/20 24 04/30/2024 urina lysis , dipst ick Leukocytes Negati ve Not Available In-Office Order Internal Use Only DO Not Attach Compendium DO Not Attach Compendium, Do Not Delete/merge, 04/30/2024 16:16:42 04/30/2004/30/2024 urina lysis , dipst ick Nitrite negati ve Not Available In-Office Order Internal Use Only DO Not Attach Compendium DO Not Attach Compendium, Do Not Delete/merge, 04/30/2024 16:16:42 04/30/20 24 04/30/2024 urina lysis , dipst ick Urobilinogen .2 Not Available In-Of fice Order Internal Use Only DO Not Attach Compendium DO Not Attach Compendium, Do Not Delete/merge, 04/30/2024 16:16:42 04/30/20 24 04/30/2024 urina lysis , dipst ick Protein Negati ve Not Available In-Office Order Internal Use Only DO Not Attach Compendium DO Not Attach Compendium, Do Not Delete/merge, 04/30/2024 16:16:42 04/30/20 24 04/30/2024 urina lysis , dipst ick pH 5.5 Not Available In-Office Order Internal Use Only DO Not Attach Compendium DO Not Attach Compendium, Do Not Delete/merge, 04/30/2024 16:16:42 04/30/2004/30/2024 urina lysis , dipst ick Blood Negati ve Not Available In-Office Order Internal Use Only DO Not Attach Compendium DO Not Attach Compendium, Do Not Delete/merge, [facility] 04/30/2024 16:16:42 04/30/20 24 04/30/2024 urina lysis , dipst ick Specific [place] 1.025 Not Available In-Off ice Order Internal Use Only DO Not Attach Compendium DO Not Attach Compendium, Do Not Delete/merge, [facility] 04/30/2024 16:16:42 04/30/20 24 04/30/2024 urina lysis , dipst ick Ketone Negati ve Not Available In-Office Order Internal Use Only DO Not Attach Compendium DO Not Attach Compendium, Do Not Delete/merge, [facility] 04/30/2024 16:16:42 04/30/20 24 04/30/2024 urina lysis , dipst ick Bilirubin Negati ve Not Available In-Office Order Internal Use Only DO Not Attach Compendium DO Not Attach Compendium, Do Not Delete/merge, [facility] 04/30/2024 16:16:42 04/30/20 24 04/30/2024 urina lysis , dipst ick Glucose Negati ve Not Available In-Office Order Internal Use Only DO Not Attach Compendium DO Not Attach Compendium, Do Not Delete/merge, [facility] 04/30/2024 16:16:42 05/01/20 20 04/29/2020 MAMMO , scree sorin, digit al, bilat eral No observ ation record ed. arr Not Available 2019 10:18:11 05/26/20 20 05/26/2020 MAMMO , scree sorin, digit al, bilat eral No observ ation record ed. [address], [address], 05/26/2020 16:30:35 06/04/20 20 05/26/2020 MAMMO , diagn ostic , digit al, bilat eral No observ ation record ed. [facility] ([facility]mitting) [address] [place] [address], [id number], 06/04/2020 16:41:53 05/19/20 21 05/18/2021 MAMMO , scree sorin, digit al, bilat eral No observ ation record ed. [facility] [address], [place], [address], 05/19/2021 10:59:06 06/30/20 22 06/29/2022 MAMMO , scree sorin, digit al, bilat eral No observ ation record ed. [facility] [address], [place], [address], 06/30/2022 17:19:38 08/11/20 23 08/09/2023 MAMMO , scree sorin, digit al, bilat eral No observ ation record ed. [facility] [address], [place], [address], 08/25/2023 16:11:57 Result Notes None recorded. Problems No Known Problems Procedures Surgical History Date Name Laterality Status Provider Name and Address Organization Details Recorded Time 4 Date of Last Pap Smear completed Lashell Coreas RN [facility] 05/09/2024 09:34:44 3 Most Recent Mammogram completed PRABHA Roca [facility] 08/11/2023 15:02:15 Imaging Results None recorded. Procedure Notes None recorded. Medical Equipment None Reported. Allergies No known drug allergies Medications Name Sig Start Date Stop Date Status Note LastModified by Organization Details LastModified Time clindamycin HCl 300 mg capsule 04/03 completed Not Available Not Available Not Available oxybutynin chloride ER 10 mg tablet,exte nded release 24 hr TAKE 1 TABLET BY MOUTH EVERY DAY 05/28 completed per pt case Not Available Not Available Not Available azithromyci n 250 mg tablet 04/21 completed Not Available Not Available Not Available Lidocaine Viscous 2 % mucosal solution 04/03 completed Not Available Not Available Not Available fluconazole 150 mg tablet TAKE 1 TABLET BY MOUTH active Not Available Not Available No t Available hydrocodone 5 mg-acetamin ophen 325 mg tablet TAKE 1 TABLET BY MOUTH EVERY 6 HOURS NEEDED FOR PAIN active Not Available Not Available No t Available meloxicam 15 mg tablet TAKE 1 TABLET BY MOUTH DAILY FOR 15 DAYS active Not Available Not Available No t Available penicillin V potassium 500 mg tablet 04/03 completed Not Available Not Available Not Available valacyclovi r 500 mg tablet TAKE 1 TABLET BY MOUTH TWICE A DAY FOR 5 DAYS active Not Available Not Available No t Available folic acid 400 mcg tablet TAKE 1 TABLET BY MOUTH DAILY active Not Available Not Available No t Available sulfamethox azole 800 mg-trimetho prim 160 mg tablet 04/03 completed Not Available Not Available Not Available Microgestin FE 20 (28) 1 mg-20 mcg (21)/75 mg (7) tablet TAKE 1 TABLET BY MOUTH EVERY DAY 04/03 completed Not Available Not Available Not Available amoxicillin 875 mg tablet TAKE 1 TABLET BY MOUTH TWICE DAILY active Not Available Not Available No t Available cephalexin 500 mg capsule 04/03 completed Not Available Not Available Not Available hydrochloro thiazide 12.5 mg capsule TAKE 2 CAPSULES BY MOUTH EVERY DAY active Not Available Not Available No t Available gabapentin 300 mg capsule TAKE 1 CAPSULE BY MOUTH IN THE EVENING active Not Available Not Available No t Available sertraline 25 mg tablet 04/03 completed Not Available Not Available Not Available gabapentin 100 mg capsule 04/03 completed Not Available Not Available Not Available estradiol 0.01% (0.1 mg/gram) vaginal cream INSERT 1 G BY VAGINAL ROUTE. active Not Available Not Available No t Available methylpredn isolone 4 mg tablets in a dose pack 04/03 completed Not Available Not Available Not Available cefdinir 300 mg capsule 04/03 completed Not Available Not Available Not Available fluticasone propionate 50 mcg/actuati on nasal spray,suspe nsion SHAKE LIQUID AND USE 2 SPRAYS IN EACH NOSTRIL EVERY 12 HOURS active Not Available Not Available No t Available naproxen 500 mg tablet TAKE 1 TABLET BY MOUTH DAILY active Not Available Not Available No t Available diazepam 5 mg tablet TAKE 1 TABLET BY MOUTH TWICE DAILY NEEDED FOR ANXIETY active Not Available Not Available No t Available Microgestin 20 (21) 1 mg-20 mcg tablet 04/03 completed Not Available Not Available Not Available nitrofurant oin monohydrate /macrocryst als 100 mg capsule TAKE 1 CAPSULE BY MOUTH EVERY 12 HOURS FOR 7 DAYS active Not Available Not Available No t Available duloxetine 30 mg capsule,del ayed release 04/03 completed Not Available Not Available Not Available duloxetine 60 mg capsule,del ayed release 04/03 completed Not Available Not Available Not Available Virtussin AC 10 mg-100 mg/5 mL oral liquid 04/03 completed Not Available Not Available Not Available Blisovi 24 Fe 1 mg-20 mcg (24)/75 mg (4) tablet TAKE 1 TABLET BY MOUTH EVERY DAY *START A NEW PACK ON DAY 25 OF CYCLE EACH MONTH* 2023 active Not Available Not Available Not Avai lable Flucelvax Quad (PF) 60 mcg (15 mcg x 4)/0.5 mL IM syringe 04/03 completed Not Available Not Available Not Available ID NOW COVID-19 Test Kit DIRECTED active Not Available Not Available No t Available COVID-19 At-Home Test kit FOLLOW INSTRUCTI ONS INCLUDED WITH THE PACKAGE. active Not Available Not Available No t Available Vitals Date Recorded Body weight Systolic And Diastolic Provider Name and Address Organization Details Last Updated DateTime 04/03/2020 85586.63 g 122/74 mm[Hg] PRABHA Roca [facility] 04/03/2020 16:31:10 Date Recorded Body weight Systolic And Diastolic Provider Name and Address Organization Details Last Updated DateTime 04/06/2021 38458.14 g 118/70 mm[Hg] Marlin Devlin Jeannine [facility] 04/06/2021 16:35:17 Date Recorded Body height Body mass index (BMI) Body weight Systolic And Diastolic Provider Name and Address Organization Details Last Updated DateTime 04/12/2022 167.64 cm 23.6 kg/m2 64671.63 g 114/70 mm[Hg] Marlin Devlin Jeannine [facility] 04/12/2022 16:53:44 Date Recorded Body height Body mass index (BMI) Body weight Systolic And Diastolic Provider Name and Address Organization Details Last Updated DateTime 04/21/2023 167.64 cm 24.5 kg/m2 26962.04 g 134/90 mm[Hg] Marlin Devlin [facility] 04/21/2023 16:26:17 Date Recorded Body height Body mass index (BMI) Body weight Systolic And Diastolic Provider Name and Address Organization Details Last Updated DateTime 04/30/2024 167.64 cm 26.1 kg/m2 37233.96 g 129/88 mm[Hg] PRABHA Roca [place] [facility] 04/30/2024 16:15:12 Social History Question Answer Notes LastModified by Organizat ion Details LastModified Time Tobacco Smoking Status Former Smoker Quit 2008 PRABHA Roca null, [place] - [facility] 04/12/2022 16:55:50 In The 14 Days Before Symptom Onset, Have You Had Close Contact With A Laboratory-confir med COVID-19 While That Case Was Ill? No Information not available 04/12/2022 In The 14 Days Before Symptom Onset, Have You Had Close Contact With A Person Who Is Under Investigation For COVID-19 While That Person Was Ill? No Information not available 04/12/2022 Have You Been To An Area Known To Be High Risk For COVID-19? No Information not available 04/12/2022 What Was The Date Of Your Most Recent Tobacco Screening? 04/30/2024 Information not available 04/30/2024 How Many Children Do You Have? 0 [id number] Information not available 07/08/2020 What Is Your Current Pack Years? [id number] ars Information not available 04/12/2022 What Is Your Relationship Status? [id number] Information not available 07/08/2020 At What Age Did You Start Smoking Tobacco? 17 Information not available 04/12/2022 Has Tobacco Cessation Counseling Been Provided? No Information not available 04/12/2022 How Many Years Have You Smoked Tobacco? 11 Information not available 04/12/2022 Sex: Female Functional Status Question Answer Note LastModified by Organization D etails LastModified Time Do you or have you ever used any other forms of tobacco or nicotine? No Information not available 04/06/2021 Mental Status None recorded. Family History Nothing Reported. Medical History No medical history recorded. Gynecological History Statement/Question Response Abnormal Pap Yes Sexually Active? N Menses Monthly N STIs/STDs Y Date of Last Pap Smear 04/30/2024 Sexual Problems? N Current Control Method BCPs Most Recent Mammogram 08/09/2023 LMP Definite Obstetrics History GPAL:G 0 P 0 0 0 0 Immunizations Vaccine Type Date Status Note Provider Nam shoaib and Address Organization Details Recorded Time Influenza, MDCK, quadrivalent, PF 9 completed Marlin Devlin RMA [place], [place] [facility] 04/21/2023 16:18:20 COVID-19, mRNA, LNP-S, PF, 30 mcg/0.3 mL dose 1 completed Marlin Devlin [place] [facility] 04/21/2023 16:18:20 COVID-19, mRNA, LNP-S, PF, 30 mcg/0.3 mL dose 1 completed Marlin Devlin [place] [facility] 04/21/2023 16:18:20 COVID-19, mRNA, LNP-S, PF, 30 mcg/0.3 mL dose 1 completed Marlin Devlin [place] [facility] 04/21/2023 16:18:20 COVID-19, mRNA, LNP-S, PF, 30 mcg/0.3 mL dose, sarabjit-sucrose 2 completed Marlin Devlin [place] [facility] 04/21/2023 16:18:20 COVID-19, mRNA, LNP-S, bivalent, PF, 30 mcg/0.3 mL dose 2 completed Marlin Delvin [place] [facility] 04/21/2023 16:18:21 Tdap 1 completed Marlin Devlin [place] [facility] 04/21/2023 16:18:21 Influenza, split virus, trivalent, preservative 3 completed Marlin Devlin [place] [facility] 04/21/2023 16:18:21 Influenza, split virus, quadrivalent, PF 2 completed Marlin Devlin [place] [facility] 04/21/2023 16:18:21 Influenza, split virus, quadrivalent, PF 0 completed Marlin Devlin, RMA null, [facility] 04/21/2023 16:18:21 Influenza, split virus, quadrivalent, PF 1 completed Marlin Devlin RMA null, [place] [facility] 04/21/2023 16:18:21 Past Encounters Encounter ID Performer Location Encounter Start Date Encounter Closed Date Diagnosis/Indication Diagnosis SNOMED-CT Code Diagnosis ICD10 Code Diagnosis Note [id number] MD Arnoldo Lauren ([place] [address]) [address] [facility] [place] [address] 12/12/2014 16:16:27 12/12/2014 17:49:00 Gynecologic examination [id number] MD Arnoldo Lauren ([place] [address]) [address] [facility] [place] [address] 12/16/2015 16:28:40 12/17/2015 10:26:51 Gynecologic examination 60092650 Z01.617 [id number] MD Arnoldo Lauren ([place] [address]) [address] [facility] [place] [address] 12/21/2016 16:26:54 12/22/2016 14:52:14 Gynecologic examination 73490238 Z01.737 [id number] MD Arnoldo Lauren ([place] [address]) [address] [facility] [place] [address] 04/18/2017 16:40:21 04/19/2017 10:41:34 Irregular periods 77421880 N92.6 [id number] MD Arnoldo Lauren ([place] [address]) [address] [facility] [place] [address] 12/22/2017 16:36:22 12/23/2017 13:01:57 Gynecologic examination 81400703 Z01.744 [id number] MD Arnoldo Lauren 14 OB [address] [facility] [place] [address] 12/28/2018 16:16:37 12/29/2018 09:45:59 Gynecologic examination 49069900 Z01.936 [id number] MD Arnoldo Lauren 14 OB [address] [facility] [place] [address] 04/03/2020 16:15:05 04/04/2020 11:11:52 Gynecologic examination 18703810 Z01.419 Screening for malignant neoplasm of breast 405301938 Z12.39 Contracept ion care management 317154838 Z30.9 [id number] MD Arnoldo Lauren 14 OB [address] [facility] [place] [address] 04/06/2021 16:12:11 04/07/2021 07:16:51 Gynecologic examination 42748577 Z01.419 Screening for malignant neoplasm of breast 487760412 Z12.39 [id number] MD Arnoldo Lauren 14 OB [address] [facility] [place] [address] 04/12/2022 16:13:00 04/13/2022 07:44:38 Gynecologic examination 72098570 Z01.419 Screening for malignant neoplasm of breast 043093656 Z12.39 Contracept ion care management 964518586 Z30.9 [id number] MD Arnoldo Lauren 14 OB [address] [facility] [place] [address] 04/21/2023 16:04:58 04/26/2023 14:40:54 Contraception care management 242802100 Z30.9 Gynecologi c examination 76823587 Z01.419 Screening for malignant neoplasm of breast 416901160 Z12.39 [id number] MD Arnoldo Lauren 14 OB [address] [facility] [place] [address] 04/30/2024 15:56:41 05/01/2024 11:24:32 Contraception care management 275850138 Z30.9 At [facility] risk of urinary tract infection 272425668 Z91.89 Gynecologi c examination 56366257 Z01.419 Screening for malignant neoplasm of breast 565873839 Z12.39 Overactive urinary bladder 712989429 N32.81 Dyspareunia 73689836 N94 .10 Health Concerns Section Related Observation LastModified by Organization Detai ls LastModified Time None Recorded Concern Status LastModified by Organization Details LastModified Time None Recorded Advance Directives Directive None Recorded Payers Insurance Date Sequence Insurance Name Policy Number Policy Shukla Covered Member ID Shukla Member ID Guarantor Name 03/31/2023 1 [place] [id number] Elvia Kramer Wood [id number] Elvia Muir 09/03/2024 1 [place] [id number] Elvia Muir [id number] Elvia Muir Notes Date Note Type Note Provider Name and Address Organization Details Recorded Time 04/03/2020 text/html Annual GYNReport ed bypatient.Menstrual cycle:Normal menses Urinary symptoms:No hematuria; No incontinence Vulva:No genital lesion Vagina:Normal vaginal discharge Breast:No breast pain; No breast lump; No nipple discharge Current Contraception:Oral contraceptives Sexual complaints:No sexual complaints; No pain during intercourse; Normal libido Menopausal Symptoms:No menopausal symptoms; Normal vaginal lubrication Psychological symptoms:No depression; No anxiety; No PMDD Moises Braden MD Attn: [address] [place] [id number] [place] [address] 04/03/2020 16:46:14 04/06/2021 text/html Annual GYNReport ed bypatient.Menstrual cycle:Normal menses Urinary symptoms:No hematuria; No incontinence Vulva:No genital lesion Vagina:Normal vaginal discharge Breast:No breast pain; No breast lump; No nipple discharge Current Contraception:Oral contraceptives Sexual complaints:No sexual complaints; No pain during intercourse; Normal libido Menopausal Symptoms:No menopausal symptoms; Normal vaginal lubrication Psychological symptoms:No depression; No anxiety; No PMDD Moises Braden MD Attn: [address] [place], [address], [facility] 04/06/2021 16:49:56 04/12/2022 text/html Annual GYNReport ed bypatient.Menstrual cycle:no period with continuous pills Urinary symptoms:No hematuria; No incontinence Vulva:No genital lesion Vagina:Normal vaginal discharge Breast:No breast pain; No breast lump; No nipple discharge Current Contraception:Oral contraceptives Sexual complaints:No sexual complaints; No pain during intercourse; Normal libido Menopausal Symptoms:No menopausal symptoms; Normal vaginal lubrication Psychological symptoms:No depression; No anxiety; No PMDD Moises Braden MD Attn: [address] [place], [address], [facility] 04/12/2022 17:13:12 04/21/2023 text/html Annual GYNReport ed bypatient.Menstrual cycle:no period with continuous pills Urinary symptoms:No hematuria; No incontinence Vulva:No genital lesion Vagina:Normal vaginal discharge Breast:No breast pain; No breast lump; No nipple discharge Current Contraception:Oral contraceptives Sexual complaints:No sexual complaints; No pain during intercourse; Normal libido Menopausal Symptoms:No menopausal symptoms; Normal vaginal lubrication Psychological symptoms:No depression; No anxiety; No PMDD L4-L5 back surgery since we saw her last, worked great!doing well with OCPs [employer] last year was a hit![place] this year, I recommended Maddi Braden MD Attn: [address] [place], [address], [facility] 04/21/2023 16:49:12 04/30/2024 text/html Annual GYNReport ed bypatient.Menstrual cycle:no period with continuous pills Urinary symptoms:No hematuria; No incontinence Vulva:No genital lesion Vagina:Normal vaginal discharge Breast:No breast pain; No breast lump; No nipple discharge Current Contraception:Oral contraceptives Sexual complaints:No sexual complaints; No pain during intercourse; Normal libido Menopausal Symptoms:No menopausal symptoms; Normal vaginal lubrication Psychological symptoms:No depression; No anxiety; No PMDD Here with today. Long talk centered around several points: 1) she estimates she has takenan AZO pill more or less daily for 20 years because of UTI symptoms.( urgency, and pain near urethra when voiding) Urine completely negative in office today. 2) pain with intercourse. Near clitoral mckee/urethra with initial penetration.long time of [poor lubrication / libido issues On OCPs, discussed pros and cons in the perimenopausal time frame. ( have regulated and shrunk her periods nicely, was worried could inhibit her libido.) Moises Braden MD Attn: [address] [place], [address], [facility] 04/30/2024 17:28:14 OBGyn Episode No OBEpisode recorded.
--- OUTSIDE RECORDS SUMMARY | 2025-03-19 13:17 | XMS_ITS | Encounter Summary ---
Author Organization [facility] Address [address] [place] [address] Care Team Providers Care Pyrotechnist Name Role Phone Satya Fournier MD Primary Care Provider [phone] Encounter Details Date Type Department Care Team (Late st Contact Info) Description 03/18/2025 Results Follow-Up [facility] [place] [address] Shelly Toney FNP [address] [place] [address] VITAMIN B1 THIAMINE Social History Tobacco Use Types Packs/Day Years Used Date Smoking Tobacco: Never Smokeless Tobacco: Never Alcohol Use Standard Drinks/Week Comments Yes 0 (1 standard drink = 0.6 oz pur e alcohol) Comments No Sex and Gender Information Value Date Recorded Sex Assigned at Female 03/12/2025 3:36 PM CDT Legal Sex Female 3:29 PM CDT Gender Identity Not on file Sexual Orientation Not on file documented as of this encounter Plan of Treatment Not on file documented as of this encounter Visit Diagnoses Not on filedocumented in this encounter Care Teams Pyrotechnist Relationship Specialty Start Date End Date Satya Fournier MD [address] [place] [address] PCP - General INTERNAL MEDICINE 03/12/25 documented as of this encounter
--- OUTSIDE RECORDS SUMMARY | 2025-03-19 13:17 | XMS_ITS | Clinical Summary ---
Author Organization [facility] Address [address] [place] [address] Phone Care Team Providers Care Coin Purse Assembler Name Role Phone Satya Fournier MD Primary Care Provider [phone] Allergies No known active allergies Medications naproxen (NAPROSYN) 500 MG Tablet Take 500 mg by mouth 2 times daily as needed. 0 07/04/2019 Active BLISOVI 24 FE 1-20 MG-MCG(24) Tablet Take 1 Tab by mouth daily. 07/28/2019 Active Active Problems Problem Noted Date Diagnosed Date Foraminal stenosis of lumbar region 07/24/2019 Lumbar facet arthropathy 07/24/2019 Lumbar radiculopathy 07/24/2019 Social History Tobacco Use Types Packs/Day Years Used Date Smoking Tobacco: Never Assessed Comments Unknown Sex and Gender Information Value Date Recorded Sex Assigned at Not on file Legal Sex Female 4:14 PM BLUEPRINT TRIMMER Gender Identity Not on file Sexual Orientation Not on file Last Filed Vital Signs Vital Sign Reading Time Taken Comments Blood Pressure 142/95 10/08/2019 3:30 PM BLUEPRINT TRIMMER Pulse 98 10/08/2019 3:30 PM BLUEPRINT TRIMMER Temperature 36.8 C (98.3 F) 10/08/2019 3:30 PM BLUEPRINT TRIMMER Respiratory Rate - - Oxygen Saturation 98% 10/08/2019 3:30 PM BLUEPRINT TRIMMER Inhaled Oxygen Concentration - - Weight - - Height - - Body Mass Index - - Plan of Treatment Health Maintenance Due Date Last Done Comments Hepatitis C Virus (HCV) Screening 1979 TdaP Immunization 1979 Hepatitis B Immunization (1 of 3 - 19+ 3-dose series) 1998 Pap Smear 2000 Cervical Cancer Screening (CCS) 2009 HPV/Cotest 2009 Discussion re Starting/Frequency of Mammograms 2019 Influenza Immunization (#1) 05/06/202405/06, 07/27/2013 SARS-COV-2 Immunization ( season) 2024 06/06/2021, 11/21/2020, 10/31/2020 Colonoscopy 2024 Colorectal Cancer Screening 2024 Respiratory Syncytial Virus (RSV) Immunization (Adult) (1 - 1-dose 75+ series) 2054 Meningococcal Immunization (ACWY) Aged Out No longer eligible b ased on patient's age to complete this topic Pneumococcal Immunization Combined Aged Out No longer eligible b ased on patient's age to complete this topic Rotavirus Immunization Aged Out No lo nger eligible based on patient's age to complete this topic Insurance [place] [address] Care Teams Coin Purse Assembler Relationship Specialty Start Date End Date Satya Fournier MD [address] [place] [address] PCP - General Internal Medicine 07/11/19
--- OUTSIDE RECORDS SUMMARY | 2025-03-19 13:17 | XMS_ITS | Clinical Summary ---
Author Organization [facility] Address [address] [place] [id number] Care Team Providers Care Ornamental Bronze Worker Name Role Phone Satya Fournier MD Primary Care Provider [phone] Allergies No known active allergies Medications potassium chloride CR (K-TAB) 20 MEQ tablet Take 1 tablet (20 mEq total) by mouth daily for 4 days. 4 tablet 03/12/2025 Encounters Date Type Department Care Team Description 03/18/2025 Results Follow-Up [facility] [place] [address] Shelly Toney FNP VITAMIN B1 THIAMINE 03/12/2025 4:05 PM CDT - 03/12/2025 6:53 PM CDT Emergency [facility] [place] [address] Joseph Fulton PA Generalized Weakness Discharge Disposition: Home or Self Care (Routine Discharge) 03/12/2025 Travel from Last 3 Months Social History Tobacco Use Types Packs/Day Years Used Date Smoking Tobacco: Never Smokeless Tobacco: Never Tobacco Cessation:Counseling Given: Not Answered Alcohol Use Standard Drinks/Week Comments Yes 0 (1 standard drink = 0.6 oz pur e alcohol) Comments No Sex and Gender Information Value Date Recorded Sex Assigned at Female 03/12/2025 3:36 PM CDT Legal Sex Female 3:29 PM CDT Gender Identity Not on file Sexual Orientation Not on file Last Filed Vital Signs Vital Sign Reading Time Taken Comments Blood Pressure 131/99 03/12/2025 6:39 PM CDT Pulse 95 03/12/2025 6:39 PM CDT Temperature 36.6 C (97.8 F) 03/12/2025 3:39 PM CDT Respiratory Rate 18 03/12/2025 6:39 PM CDT Oxygen Saturation 100% 03/12/2025 6:39 PM CDT Inhaled Oxygen Concentration - - Weight 51.3 kg (113 lb) 03/12/2025 3:39 PM CDT Height 167.6 cm (5' 6) 03/12/2025 3:39 PM CDT Body Mass Index 18.24 03/12/2025 3:39 PM CDT Plan of Treatment Health Maintenance Due Date Last Done Comments Cervical Cancer Screening Pap Smear (Age 30 to 64) Every 3 Years 1979 Colorectal Cancer Screening Colonoscopy (10 Years) 1979 Annual Physical 1982 Hepatitis C 1997 Hepatitis B Vaccines (1 of 3 - 19+ 3-dose series) 1998 Cervical Cancer Screening Pap with HPV Testing (Age 30 to 64) Every 5 Years 2009 Cervical Cancer Screening with HPV 2009 Mammogram Screening 2019 DTaP, Tdap and Td Vaccines (2 - Td or Tdap) 05/20/2031 05/20/2021 COVID-19 Vaccine Completed 05/09/2024, , 05/29/2022, Additional history exists HPV Vaccines Aged Out No longer eligi ble based on patient's age to complete this topic Meningococcal B Vaccine Aged Out No l onger eligible based on patient's age to complete this topic Meningococcal Vaccine Aged Out No fernanda chris eligible based on patient's age to complete this topic Pneumococcal Vaccine: Pediatrics (0 to 5 Years) and At-Risk Patients (6 to 49 Years) Aged Out No longer eligible based on patient's age to complete this topic RSV Immunizations Under 20 Months Aged Out No longer eligible based on patient's age to complete this topic Procedures Procedure Name Priority Date/Time Associated Diagnosis Comments ECG 12-LEAD STAT 03/12/2025 4:34 PM CDT MAGNESIUM Routine 03/12/2025 4:17 PM CDT VITAMIN B1 THIAMINE STAT 03/12/2025 4 :17 PM CDT ETHANOL STAT 03/12/2025 4:17 PM CDT COMPREHENSIVE METABOLIC PANEL STAT 03/12/2025 4:17 PM CDT CBC W/DIFF AUTOMATED STAT 03/12/2025 4:17 PM CDT DRUG SCREEN RAPID STAT 03/12/2025 4:0 1 PM CDT URINALYSIS, AUTO, COMPLETE STAT 03/12/2025 4:01 PM CDT POCT GLUCOSE - DOCKED DEVICE Routine 03/12/2025 3:39 PM CDT from Last 3 Months Results * ECG 12 lead (03/12/2025 4:34 PM CDT) 03/12/2025 4:34 PM CDT Narrative [facility] RAD - 03/13/2025 8:23 AM CDT [place] [address] Test Date: 2025-03-12 Pat Name: PAOLA PARIKH Department: 41 Room: [facility] 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: Female 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 : 1980 Requested By: JOSEPH FULTON Order Number: [id number] Reading MD: Charlie Steven Measurements Intervals [place] Rate: 104 P: 71 IN: 170 QRS: 261 QRSD: 77 T: 71 QT: 342 QTc: 451 Interpretive Statements SINUS TACHYCARDIA POSSIBLE RIGHT VENTRICULAR HYPERTROPHY [SOME/ALL OF: PROMINENT R IN V1, LATE TRANSITION, RAD, KIRIT, SSS] INFERIOR MYOCARDIAL INFARCTION , PROBABLY OLD [40+ ms Q WAVE AND/OR ST/T ABNORMALITY IN II/aVF] ANTEROSEPTAL MYOCARDIAL INFARCTION , PROBABLY OLD [40+ ms Q WAVE IN V1-V4] No previous ECG available for comparison Procedure Note Charlie Steven MD - 03/13/[address] Test Date: 2025-03-12 Pat Name: PAOLA PARIKH Department: 41 Room: [facility] 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: Female 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: [phone] : 1980 Requested By: JOSEPH FULTON Order Number: [id number] Reading MD: Charlie Steven Measurements Intervals [place] Rate: 104 P: 71 IN: 170 QRS: 261 QRSD: 77 T: 71 QT: 342 QTc: 451 Interpretive Statements SINUS TACHYCARDIA POSSIBLE RIGHT VENTRICULAR HYPERTROPHY [SOME/ALL OF: PROMINENT R IN V1,LATE TRANSITION, RAD, KIRIT, SSS] INFERIOR MYOCARDIAL INFARCTION , PROBABLY OLD [40+ ms Q WAVE AND/OR ST/T ABNORMALITY IN II/aVF] ANTEROSEPTAL MYOCARDIAL INFARCTION , PROBABLY OLD [40+ ms Q WAVE INV1-V4] No previous ECG available for comparison us Joseph TOWNSEND ECG ORDERABLES Final Resu lt [facility] RAD * (ABNORMAL) COMPREHENSIVE METABOLIC PANEL (03/12/2025 4:17 PM CDT) GLUCOSE 148(H) 70 - 99 MG/DL 03/12/2025 5:15 PM CDT [facility] BUN 3(L) 7 - 18 MG/DL 03/12/2025 5:15 PM CDT [facility] CREATININE S/P/B 1.02 0.55 - 1.02 MG/DL 03/12/2025 5:15 PM CDT [facility] SODIUM S/P/B 135(L) 136 - 145 MMOL/L 03/12/2025 5:15 PM CDT [facility] POTASSIUM S/P/B 3.0(LL) 3.5 - 5.1 MMOL/L 03/12/2025 5:15 PM CDT [facility] Comment: Critical Result(s) Called at: 17:13:58 on 03/12/2025 by: CARMEN HARRISON to and read back by:freeman zazueta CHLORIDE S/P/B 102 97 - 115 MMOL/L 03/12/2025 5:15 PM CDT [facility] CO2 23.4 21 - 32 MMOL/L 03/12/2025 5:15 PM CDT [facility] CALCIUM S/P/B 9.3 8.5 - 10.1 MG/DL 03/12/2025 5:15 PM CDT [facility] BILIRUBIN TOTAL S/P/B 0.4 0.2 - 1.2 MG/DL 03/12/2025 5:15 PM CDT [facility] Comment: THIS ASSAY IS NOT RECOMMENDED FOR PATIENTS UNDERGOING TREATMENT WITH ELTROMBOPAG DUE TO THE POTENTIAL FOR FALSELY ELEVATED RESULTS. TOTAL PROTEIN S/P/B 7.4 6.4 - 8.2 G/DL 03/12/2025 5:15 PM CDT [facility] ALBUMIN S/P/B 3.2(L) 3.4 - 5.0 G/DL 03/12/2025 5:15 PM CDT [facility] AST 26 15 - 37 U/L 03/12/2025 5:15 PM CDT [facility] ALT 30 14 - 55 U/L 03/12/2025 5:15 PM CDT [facility] ALKALINE PHOSPHATASE S/P/B 88 50 - 136 U/L 03/12/2025 5:15 PM CDT [facility] ANION GAP 9.6 2 - 10 MMOL/L 03/12/2025 5:15 PM CDT [facility] BUN CREATININE RATIO 2.9(L) 6 - 26 03/12/2025 5:15 PM CDT [facility] A/G RATIO 0.8(L) 1.0 - 2.0 RATIO 03/12/2025 5:15 PM CDT [facility] GFR ESTIMATE 69(L) >90 ML/MIN/1.7 3 M2 03/12/2025 5:15 PM CDT [facility] Comment: NOTE: eGFR is not calculated for patients <18 years of age or gender unknown. This is an estimated GFR calculation using the new CKD EPI creatinine equation without race and so does not require a correction factor for race. This estimated GFR should not be used for calculating drug doses. 03/12/2025 4:17 PM CDT us [facility] Final Resu lt [facility] [address] [place] [address], * (ABNORMAL) CBC W/DIFF AUTOMATED (03/12/2025 4:17 PM CDT) WBC 5.95 4.5 - 11.0 x10'3/uL 03/12/2025 4:47 PM CDT [facility] RBC 3.85(L) 4.20 - 5.40 x10'6/uL 03/12/2025 4:47 PM CDT [facility] HGB 12.5 12.0 - 16.0 G/DL 03/12/2025 4:47 PM CDT [facility] HCT 35.8(L) 38.0 - 48.0 % 03/12/2025 4:47 PM CDT [facility] MCV 93.0 81.0 - 99.0 FL 03/12/2025 4:47 PM CDT [facility] MCH 32.5(H) 27.0 - 31.0 PG 03/12/2025 4:47 PM CDT [facility] MCHC 34.9 32.0 - 36.0 G/DL 03/12/2025 4:47 PM CDT [facility] RDW 12.4 11.5 - 14.5 % 03/12/2025 4:47 PM CDT [facility] PLT 548(H) 130 - 400 x10'3/uL 03/12/2025 4:47 PM CDT [facility] MPV 9.5 9.3 - 12.2 FL 03/12/2025 4:47 PM CDT [facility] DIFFERENTIAL TYPE AUTOMATED DIFFERENTIAL 03/12/2025 4:47 PM CDT [facility] NEUTROPHILS % 62.9 % 03/12/2025 4:47 PM CDT [facility] LYMPHOCYTES % 30.4 % 03/12/2025 4:47 PM CDT [facility] MONOCYTES % 4.9 % 03/12/2025 4:47 PM CDT [facility] EOSINOPHILS 0.7 % 03/12/2025 4:47 PM CDT [facility] BASOPHILS 0.8 % 03/12/2025 4:47 PM CDT [facility] IMMATURE GRANS % 0.3 % 03/12/20 4:47 PM CDT [facility] ABS. NEUTROPHILS 3.74 1.80 - 7.70 x10'3/uL 03/12/2025 4:47 PM CDT [facility] ABS. LYMPHOCYTES 1.81 1.00 - 4.80 x10'3/uL 03/12/2025 4:47 PM CDT [facility] ABS. MONOCYTES 0.29 0.24 - 0.86 x10'3/uL 03/12/2025 4:47 PM CDT [facility] ABS. EOSINOPHILS 0.04 0.04 - 0.36 x10'3/uL 03/12/2025 4:47 PM CDT [facility] ABS. BASOPHILS 0.05 0.01 - 0.08 x10'3/uL 03/12/2025 4:47 PM CDT [facility] ABS. IMMATURE GRANULOCYTES 0.02 0.00 - 0.49 x10'3/uL 03/12/2025 4:47 PM CDT [facility] 03/12/2025 4:17 PM CDT [facility] Final Resu lt [facility] [address] [place] [address], * (ABNORMAL) VITAMIN B1 THIAMINE (03/12/2025 4:17 PM CDT) VITAMIN B1 S/P/B <6(L) 8 - 30 nmol/L 03/18/2025 2:51 PM CDT [facility] Comment: Vitamin supplementation within 24 hours prior to blood draw may affect the accuracy of the results. This test was developed and its analytical performance characteristics have been determined by [employer] [place], [place]. It has not been cleared or approved by the U.S. Food and Drug Administration. This assay has been validated pursuant to the CLIA regulations and is used for clinical purposes. Test Performed by [facility] [place], [address] [place], [place] Maximino Clark M.D., Ph.D., Director of Laboratories , CLIA [id number] 03/12/2025 4:17 PM CDT [facility] Final Resu lt [facility] [address] [place] [address], [place] [phone] * MAGNESIUM (03/12/2025 4:17 PM CDT) MAGNESIUM 1.8 1.8 - 2.4 MG/DL 03/12/2025 5:55 PM CDT [facility] 03/12/2025 4:17 PM CDT [facility] Final Resu lt Performing Organization Address City/[facility]/ZIP Co de Phone Number [facility] [address] [place] [address], [place] [phone] * (ABNORMAL) ETHANOL (03/12/2025 4:17 PM CDT) ALCOHOL S/P/B 0.244(H) <0.003 G/DL 03/12/2025 5:15 PM CDT [facility] 03/12/2025 4:17 PM CDT [facility] Final Resu lt Performing Organization Address City/[facility]/ZIP Co de Phone Number [facility] [address] [place] [address], [place] [phone] * DRUG SCREEN RAPID (03/12/2025 4:01 PM CDT) AMPHETAMINE (U) NEGATIVE NEGATIVE 4:28 PM CDT [facility] BARBITURATES SCREEN (U) NEGATIVE NEGATIVE 03/12/2025 4:28 PM CDT [facility] BENZODIAZEPINES SCREEN (U) NEGATIVE NEGATIVE 03/12/2025 4:28 PM CDT [facility] CANNABINOIDS SCREEN (U) NEGATIVE NEGATIVE 03/12/2025 4:28 PM CDT [facility] COCAINE METABOLITES (U) NEGATIVE NEGATIVE 03/12/2025 4:28 PM CDT [facility] METHADONE (U) NEGATIVE NEGATIVE 03/12/2025 4:28 PM CDT [facility] OPIATE SCREEN (U) NEGATIVE NEGATIVE 025 4:28 PM CDT [facility] PHENCYCLIDINE PCP (U) NEGATIVE NEGATIVE 03/12/2025 4:28 PM CDT [facility] Comment: NOTE: RESULTS OF THIS DRUG SCREEN SHOULD BE USED FOR MEDICAL PURPOSES ONLY AND NOT FOR LEGAL OR EMPLOYMENT PURPOSES. POSITIVE RESULTS ARE NOT CONFIRMED. MEDICATIONS CONTAINING EPHEDRINE MAY CAUSE FALSE POSITIVE AMPHETAMINE CALL [phone], LAB, TO REQUEST CONFIRMATION TESTING. IF CREATININE IS <40 mg/dL. RECOLLECTION IS SUGGESTED. AMPHETAMINE- 500 NG/ML BARBITURATE- 200 NG/ML BENZODIAZEPINES- 200 NG/ML THC- 50 NG/ML COCAINE- 150 NG/ML METHADONE- 300 NG/ML OPIATE- 300 MG/ML PCP- 25 NG/ML CREATININE (U) 47.6 28 - 217 MG/DL 03/12/2025 4:28 PM CDT [facility] URINE SPECIMEN / Unknown 03/12/2025 4:01 PM CDT us Joseph TOWNSEND URINE ORDERABLES Final Res ult [facility] [address] [place] [address], [place] [phone] * URINALYSIS, AUTO, COMPLETE (03/12/2025 4:01 PM CDT) SPECIMEN TYPE URINE CLEAN CATCH 03/12/2025 4:02 PM CDT [facility] COLOR (U) LIGHT YELLOW 03/12/2025 4:20 PM CDT [facility] TRANSPARENCY CLEAR 03/12/2025 4:20 PM CDT [facility] SPECIFIC GRAVITY (U) 1.005 1.001 - 1.030 03/12/2025 4:20 PM CDT [facility] U PH 6.0 5.0 - 9.0 03/12/2025 4:20 PM CDT [facility] LEUKOCYTES (U) NEGATIVE NEGATIVE 03/12/2025 4:20 PM CDT [facility] NITRITES NEGATIVE NEGATIVE 03/12/2025 4:20 PM CDT [facility] PROTEIN RANDOM (U) NEGATIVE <30 MG/DL 03/12/2025 4:20 PM CDT [facility] GLUCOSE (U) NORMAL NORMAL MG/DL 03/12/2025 4:20 PM CDT [facility] KETONES MG/DL (U) NEGATIVE NEGATIVE MG/DL 03/12/2025 4:20 PM CDT [facility] UROBILINOGEN NORMAL NORMAL MG/DL 03/12/2025 4:20 PM CDT [facility] BILIRUBIN (U) NEGATIVE NEGATIVE MG/DL 03/12/2025 4:20 PM CDT [facility] BLOOD (U) NEGATIVE NEGATIVE 03/12/2025 4:20 PM CDT [facility] WBC/HPF 1 <6 /HPF 03/12/2025 4:20 PM CDT [facility] RBC/HPF <1 <6 /HPF 03/12/2025 4:20 PM CDT [facility] SQUAMOUS EPITHELIALS RARE /HPF 03/12/2025 4:20 PM CDT [facility] URINE SPECIMEN OBTAINED BY CLEAN CATCH PROCEDURE / Unknown 03/12/2025 4:01 PM CDT Joseph TOWNSEND URINE ORDERABLES Final Res ult Performing Organization Address City/[facility]/ZIP Co de Phone Number [facility] [address] [place] [address], [place] [phone] * (ABNORMAL) POCT glucose (03/12/2025 3:39 PM CDT) [facility] Signature GLUCOSE POC 136(H) 70 - 99 mg/dL 03/12/2025 3:40 PM CDT [facility] 03/12/2025 3:39 PM CDT Attending Physician Emergency MD POCT ORDERABLES - DEVICE Final Result Performing Organization Address City/[facility] Co de Phone Number [facility] [address] [place] [address], [place] [phone] from Last 3 Months Insurance [facility] Care Teams Ornamental Bronze Worker Relationship Specialty Start Date End Date Satya Fournier MD [address] [place] [address] PCP - General INTERNAL MEDICINE 03/12/25
--- NOTE | 2025-03-19 13:51 | ECG_ITS ---
Test Date: 2025-03-19 14:02:15 Measurements Intervals [place] Rate: 96 P: 45 RI: 148 QRS: -89 QRSD: 89 T: 29 QT: 366 QTc: 465 Interpretive Statements SINUS RHYTHM INFERIOR MYOCARDIAL INFARCTION , PROBABLY OLD [40+ ms Q WAVE AND/OR ST/T ABNORMALITY IN II/aVF] ANTEROSEPTAL MYOCARDIAL INFARCTION , PROBABLY OLD [40+ ms Q WAVE IN V1-V4] Compared to ECG 03/01/2025 11:34:10 Myocardial infarct finding still present Electronically Signed On 03-20-2025 12:31:44 CDT by Jone Martins M.D.
--- OUTSIDE RECORDS SUMMARY | 2025-03-19 14:17 | XMS_ITS | Encounter Summary ---
Author Organization [facility] Address [address] [place] [id number] Care Team Providers Care Manager Material Name Role Phone Satya Fournier MD Primary Care Provider [phone] Encounter Details Date Type Department Care Team (Late st Contact Info) Description 03/18/2025 Results Follow-Up [facility] [place] [address] Shelly Toney FNP [address] [place] [address] VITAMIN B1 THIAMINE Social History Tobacco Use [...] on filedocumented in this encounter Care Teams Manager Material Relationship Specialty Start Date End Date Satya Fournier MD [address] [place] [address] PCP - General INTERNAL MEDICINE 03/12/25 documented as of this encounter
--- OUTSIDE RECORDS SUMMARY | 2025-03-19 14:17 | XMS_ITS | Clinical Summary ---
Author Organization [facility] Address [address] [place] [id number] Care Team Providers Care Mid Level Java Developer Name Role Phone Satya Fournier MD Primary Care Provider [phone] Allergies No known active allergies Medications potassium chloride CR (K-TAB) 20 MEQ tablet Take 1 tablet (20 mEq total) by mouth daily for 4 days. 4 tablet 03/12/2025 Encounters Date Type Department Care Team Description 03/18/2025 Results Follow-Up [facility] [place] [address] Shelly Toney FNP VITAMIN B1 THIAMINE 03/12/2025 4:05 PM CDT - 03/12/2025 6:[address] 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 ([facility] RAD * (ABNORMAL) COMPREHENSIVE METABOLIC PANEL (03/12/2025 4:17 PM CDT) GLUCOSE 148(H) 70 - 99 MG/DL 03/12/2025 5:15 PM CDT [facility] BUN 3(L) 7 - 18 MG/DL 03/12/2025 5:15 PM CDT [facility] CREATININE S/P/B 1.02 0.55 - 1.02 MG/DL 03/12/2025 5:15 PM CDT [facility] SODIUM S/P/B 135(L) 136 - 145 MMOL/L 03/12/2025 5:15 PM CDT [facility] POTASSIUM S/P/B 3.0(LL) 3.5 - 5.1 MMOL/L 03/12/2025 5:15 PM CDT [facility] Comment: Critical Result(s) Called at: 17:13:58 on 03/12/2025 by: CARMEN HARRISON to and read back by:freeman zazueta CHLORIDE S/P/B 102 97 - 115 MMOL/L 03/12/2025 5:15 PM CDT [facility] CO2 23.4 21 - 32 MMOL/L 03/12/2025 5:15 PM CDT [facility] CALCIUM S/P/B 9.3 8.5 - 10.1 MG/DL 03/12/2025 5:15 PM CDT [facility] BILIRUBIN TOTAL S/P/B 0.4 0.2 - 1.2 MG/DL 03/12/2025 5:15 PM CDT [facility] Comment: THIS ASSAY IS NOT RECOMMENDED FOR PATIENTS UNDERGOING TREATMENT WITH ELTROMBOPAG DUE TO THE POTENTIAL FOR FALSELY ELEVATED RESULTS. TOTAL PROTEIN S/P/B 7.4 6.4 - 8.2 G/DL 03/12/2025 5:15 PM CDT [facility] ALBUMIN S/P/B 3.2(L) 3.4 - 5.0 G/DL 03/12/2025 5:15 PM CDT [facility] AST 26 15 - 37 U/L 03/12/2025 5:15 PM CDT [facility] ALT 30 14 - 55 U/L 03/12/2025 5:15 PM CDT [facility] ALKALINE PHOSPHATASE S/P/B 88 50 - 136 U/L 03/12/2025 5:15 PM CDT [facility] ANION GAP 9.6 2 - 10 MMOL/L 03/12/2025 5:15 PM CDT [facility] BUN CREATININE RATIO 2.9(L) 6 - 26 03/12/2025 5:15 PM CDT [facility] A/G RATIO 0.8(L) 1.0 - 2.0 RATIO 03/12/2025 5:15 PM CDT [facility] GFR ESTIMATE 69(L) >90 ML/MIN/1.7 3 M2 03/12/2025 5:15 PM CDT [facility] Comment: NOTE: eGFR is [...] us [facility] Final Resu lt [facility] [address] [place] [address], * (ABNORMAL) CBC W/DIFF AUTOMATED (03/12/2025 4:17 PM CDT) WBC 5.95 4.5 - 11.0 x10'3/uL 03/12/2025 4:47 PM CDT [facility] RBC 3.85(L) 4.20 - 5.40 x10'6/uL 03/12/2025 4:47 PM CDT [facility] HGB 12.5 12.0 - 16.0 G/DL 03/12/2025 4:47 PM CDT [facility] HCT 35.8(L) 38.0 - 48.0 % 03/12/2025 4:47 PM CDT [facility] MCV 93.0 81.0 - 99.0 FL 03/12/2025 4:47 PM CDT [facility] MCH 32.5(H) 27.0 - 31.0 PG 03/12/2025 4:47 PM CDT [facility] MCHC 34.9 32.0 - 36.0 G/DL 03/12/2025 4:47 PM CDT [facility] RDW 12.4 11.5 - 14.5 % 03/12/2025 4:47 PM CDT [facility] PLT 548(H) 130 - 400 x10'3/uL 03/12/2025 4:47 PM CDT [facility] MPV 9.5 9.3 - 12.2 FL 03/12/2025 4:47 PM CDT [facility] DIFFERENTIAL TYPE AUTOMATED DIFFERENTIAL 03/12/2025 4:47 PM CDT [facility] NEUTROPHILS % 62.9 % 03/12/2025 4:47 PM CDT [facility] LYMPHOCYTES % 30.4 % 03/12/2025 4:47 PM CDT [facility] MONOCYTES % 4.9 % 03/12/2025 4:47 PM CDT [facility] EOSINOPHILS 0.7 % 03/12/2025 4:47 PM CDT [facility] BASOPHILS 0.8 % 03/12/2025 4:47 PM CDT [facility] IMMATURE GRANS % 0.3 % 03/12/20 4:47 PM CDT [facility] ABS. NEUTROPHILS 3.74 1.80 - 7.70 x10'3/uL 03/12/2025 4:47 PM CDT [facility] ABS. LYMPHOCYTES 1.81 1.00 - 4.80 x10'3/uL 03/12/2025 4:47 PM CDT [facility] ABS. MONOCYTES 0.29 0.24 - 0.86 x10'3/uL 03/12/2025 4:47 PM CDT [facility] ABS. EOSINOPHILS 0.04 0.04 - 0.36 x10'3/uL 03/12/2025 4:47 PM CDT [facility] ABS. BASOPHILS 0.05 0.01 - 0.08 x10'3/uL 03/12/2025 4:47 PM CDT [facility] ABS. IMMATURE GRANULOCYTES 0.02 0.00 - 0.49 x10'3/uL 03/12/2025 4:47 PM CDT [facility] 03/12/2025 4:17 PM CDT [facility] Final Resu lt [facility] [address] [place] [address], * (ABNORMAL) VITAMIN B1 THIAMINE (03/12/2025 4:17 PM CDT) VITAMIN B1 S/P/B <6(L) 8 - 30 nmol/L 03/18/2025 2:51 PM CDT [facility] Comment: Vitamin supplementation within 24 hours prior to blood draw may affect the accuracy of the results. This test was developed and its analytical performance characteristics have been determined by [employer] [place], [place]. It has not been cleared or approved by the U.S. Food and Drug Administration. This assay has been validated pursuant to the CLIA regulations and is used for clinical purposes. Test Performed by [facility], [employer] [address] [place], [address] [place], [place] Maximino Clark M.D., Ph.D., Director of Laboratories , CLIA [id number] 03/12/2025 4:17 PM CDT [facility] Final Resu lt [facility] [address] [place] [address], [place] [phone] * MAGNESIUM (03/12/2025 4:17 PM CDT) MAGNESIUM 1.8 1.8 - 2.4 MG/DL 03/12/2025 5:55 PM CDT [facility] 03/12/2025 4:17 PM CDT Joseph [facility] Final Resu lt Performing Organization Address City/[facility]/ZIP Co de Phone Number [facility] [address] [place] [address], [place] [phone] * (ABNORMAL) ETHANOL (03/12/2025 4:17 PM CDT) ALCOHOL S/P/B 0.244(H) <0.003 G/DL 03/12/2025 5:15 PM CDT [facility] 03/12/2025 4:17 PM CDT Joseph [facility] Final Resu lt Performing Organization Address City/[facility]/ZIP Co de Phone Number [facility] [address] [place] [address], [place] [phone] * DRUG SCREEN RAPID (03/12/2025 4:01 PM CDT) AMPHETAMINE (U) NEGATIVE NEGATIVE 4:28 PM CDT [facility] BARBITURATES SCREEN (U) NEGATIVE NEGATIVE 03/12/2025 4:28 PM CDT [facility] BENZODIAZEPINES SCREEN (U) NEGATIVE NEGATIVE 03/12/2025 4:28 PM CDT [facility] CANNABINOIDS SCREEN (U) NEGATIVE NEGATIVE 03/12/2025 4:28 PM CDT [facility] COCAINE METABOLITES (U) NEGATIVE NEGATIVE 03/12/2025 4:28 PM CDT [facility] METHADONE (U) NEGATIVE NEGATIVE 03/12/2025 4:28 PM CDT [facility] OPIATE SCREEN (U) NEGATIVE NEGATIVE 025 4:28 PM CDT [facility] PHENCYCLIDINE PCP (U) NEGATIVE NEGATIVE 03/12/2025 4:28 PM CDT [facility] Comment: NOTE: RESULTS OF THIS DRUG SCREEN SHOULD BE USED FOR MEDICAL PURPOSES ONLY AND NOT FOR LEGAL OR EMPLOYMENT PURPOSES. POSITIVE RESULTS ARE NOT CONFIRMED. MEDICATIONS CONTAINING EPHEDRINE MAY CAUSE FALSE POSITIVE AMPHETAMINE CALL [phone], LAB, TO REQUEST CONFIRMATION TESTING. IF CREATININE IS <40 mg/dL. RECOLLECTION IS SUGGESTED. AMPHETAMINE- 500 NG/ML BARBITURATE- 200 NG/ML BENZODIAZEPINES- 200 NG/ML THC- 50 NG/ML COCAINE- 150 NG/ML METHADONE- 300 NG/ML OPIATE- 300 MG/ML PCP- 25 NG/ML CREATININE (U) 47.6 28 - 217 MG/DL 03/12/2025 4:28 PM CDT [facility] URINE SPECIMEN / Unknown 03/12/2025 4:01 PM CDT us Joseph TOWNSEND URINE ORDERABLES Final Res ult [facility] [address] [place] [address], [place] [phone] * URINALYSIS, AUTO, COMPLETE (03/12/2025 4:01 PM CDT) SPECIMEN TYPE URINE CLEAN CATCH 03/12/2025 4:02 PM CDT [facility] COLOR (U) LIGHT YELLOW 03/12/2025 4:20 PM CDT [facility] TRANSPARENCY CLEAR 03/12/2025 4:20 PM CDT [facility] SPECIFIC GRAVITY (U) 1.005 1.001 - 1.030 03/12/2025 4:20 PM CDT [facility] U PH 6.0 5.0 - 9.0 03/12/2025 4:20 PM CDT [facility] LEUKOCYTES (U) NEGATIVE NEGATIVE 03/12/2025 4:20 PM CDT [facility] NITRITES NEGATIVE NEGATIVE 03/12/2025 4:20 PM CDT [facility] PROTEIN RANDOM (U) NEGATIVE <30 MG/DL 03/12/2025 4:20 PM CDT [facility] GLUCOSE (U) NORMAL NORMAL MG/DL 03/12/2025 4:20 PM CDT [facility] KETONES MG/DL (U) NEGATIVE NEGATIVE MG/DL 03/12/2025 4:20 PM CDT [facility] UROBILINOGEN NORMAL NORMAL MG/DL 03/12/2025 4:20 PM CDT [facility] BILIRUBIN (U) NEGATIVE NEGATIVE MG/DL 03/12/2025 4:20 PM CDT [facility] BLOOD (U) NEGATIVE NEGATIVE 03/12/2025 4:20 PM CDT [facility] WBC/HPF 1 <6 /HPF 03/12/2025 4:20 PM CDT [facility] RBC/HPF <1 <6 /HPF 03/12/2025 4:20 PM CDT [facility] SQUAMOUS EPITHELIALS RARE /HPF 03/12/2025 4:20 PM CDT [facility] URINE SPECIMEN OBTAINED BY CLEAN CATCH PROCEDURE / Unknown 03/12/2025 4:01 PM CDT Joseph TOWNSEND URINE ORDERABLES Final Res ult Performing Organization Address City/[facility]/ZIP Co de Phone Number [facility] [address] [place] [address], [place] [phone] * (ABNORMAL) POCT glucose (03/12/2025 3:39 PM CDT) [facility] Signature GLUCOSE POC 136(H) 70 - 99 mg/dL 03/12/2025 3:40 PM CDT [facility] 03/12/2025 3:39 PM CDT Attending Physician Emergency MD POCT ORDERABLES - DEVICE Final Result Performing Organization Address City/[facility] Co de Phone Number [facility] [address] [place] [address], [place] [phone] from Last 3 Months Insurance [facility] Care Teams 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
--- OUTSIDE RECORDS SUMMARY | 2025-03-19 14:17 | XMS_ITS | Clinical Summary ---
Author Organization [facility] Address [address] [place] [address] Phone Care Team Providers Care Chip Person Name Role Phone Satya Fournier MD Primary Care Provider [phone] Allergies No known active allergies Medications naproxen [...] on file Legal Sex Female 4:14 PM DIRECTOR NETWORK DEVELOPMENT Gender Identity Not on file Sexual Orientation Not on file Last Filed Vital Signs Vital Sign Reading Time Taken Comments Blood Pressure 142/95 10/08/2019 3:30 PM DIRECTOR NETWORK DEVELOPMENT Pulse 98 10/08/2019 3:30 PM DIRECTOR NETWORK DEVELOPMENT Temperature 36.8 C (98.3 F) 10/08/2019 3:30 PM DIRECTOR NETWORK DEVELOPMENT Respiratory Rate - - Oxygen Saturation 98% 10/08/2019 3:30 PM DIRECTOR NETWORK DEVELOPMENT Inhaled Oxygen Concentration - - Weight - [...] patient's age to complete this topic [place] [address] [place] [address] Care Teams Chip Person Relationship Specialty Start Date End Date Satya Fournier MD [address] [place] [address] PCP - General Internal Medicine 07/11/19
[2025-03-19 14:23] LABS: Hematocrit 30.3 % (37.0-47.0); Hemoglobin 9.7 g/dL (12.0-15.0); Immature Granulocyte Percent A 0.5 % (0-0.5); Lymphocytes Absolute Auto 1.65 K/mm3 (0.9-3.2); Mean Corpuscular HGB Conc 32.0 g/dl (32-36); Mean Corpuscular Hemoglobin 32.0 pg (26-34); Mean Corpuscular Volume 100.0 fl (80-100); Nucleated Red Blood Cells Absolute Auto 0.000 K/mm3 (0.0-0.012); Nucleated Red Blood Cells Perc 0.0 % (0.0-0.2); Platelet Count Result 344 k/mm3 (150-375); Red Blood Count 3.03 M/mm3 (4.2-5.4); White Blood Count 11.5 K/mm3 (4.5-10.0)
--- NOTE | 2025-03-19 14:33 | ED_ITS ---
HPI - General Adult General Chief complaint: Weakness Stated complaint: Weakness, multiple medical Time Seen by Provider: 03/19/25 13:50 History of Present Illness HPI narrative: Patient is a 44-year-old female who presents ER with weakness. Progressive over last 2 months especially over last month. She has had multiple falls. No LOC. Has stopped her semaglutide that had been causing her without hypokalemia. No fevers or chills. No chest pain. Recently had a loose stool but was not having daily diarrhea. Unable to see her PCP until next month. Patient reports weight loss of 45 lb over last couple months. Related Data Home Medications ?Medication ?Instructions ?Recorded ?Confirmed ?Last Taken ?Type norethindrone 1 mg-ethinyl 1 tablet PO DAILY 10/26/19 06/27/24 08/09/22 History estradiol 20 mcg (24)-iron 75 mg (4) tablet (Blisovi 24 Fe) Allergies Allergy/AdvReac Type Severity Reaction Status Date / Time Estrogens AdvReac Mild Migraine Verified 03/01/25 10:06 Review of Systems 2 Review of Systems: All systems reviewed & are unremarkable except as noted in HPI and below Constitutional: Constitutional: Reports no additional constitutional complaints ENT: Reports system reviewed and no additional complaints, except as documented Cardiovascular: Cardiovascular: Reports no additional cardiovascular complaints Respiratory: Respiratory: Reports no additional respiratory complaints Gastrointestinal: Gastrointestinal: Reports no additional gastrointestinal complaints Musculoskeletal: Musculoskeletal: Reports no additional musculoskeletal complaints [facility] Past Medical History Medical History Anxiety Mass of finger of right hand Ganglion cyst of dorsum of right wrist Thoracic outlet syndrome Abnormal deposits of lipid Hyperglycemia HTN (hypertension) Surgical History Surgical History History of tonsillectomy Status post lumbar surgery Family History Family History Other Family history of lung cancer Social History Social History Smoking packs per day: 0.5 Smoking cigarettes per day: 10.0 Years smoked: 10 Smoking pack-years: 5.00 Smoking status: Former smoker Tobacco type: cigarettes Smoking end date: 09/05/07 Alcohol intake: current Drinks per week: 14 Alcohol use details: WINE Substance use: never Substance use type: does not use Current Housing: Decline to Answer Concerned About Future Housing: Decline to Answer Difficulty Paying Gas/Electric Bills: Decline to Answer Difficulty Paying for Meds: Decline to Answer Currently Unemployed: Decline to Answer Education: Decline to Answer Difficulty w/ Childcare or Family Care: Decline to Answer Living arrangements: with family Spiritual care concerns: No Exam 2 Narrative: GENERAL: Well-appearing, well-nourished, and in no acute distress. HEAD: Normocephalic, atraumatic. ENT: Mucous membranes moist. CHEST: Clear to auscultation. No respiratory distress. HEART: Regular rate and rhythm. Normal peripheral pulses. ABDOMEN: Soft, nontender, nondistended. Hemoccult-positive stool without gross blood. EXTREMITIES: Normal range of motion. No edema. SKIN: Warm, dry, no rash. Bruising of the knees bilaterally as well as right antecubital fossa. NEURO: Alert and oriented x3. PSYCH: Normal mood and affect. Course Course Emergency Course: 1709: Patient with anemia, 3 point drop in the last 3 weeks. Hemoccult positive. reports she has had darker stools and he has been having to help her due to her profound weakness. Plaque positive. Discussed with GI. Admit with clear liquids and NPO at midnight. Endoscopy for further evaluation. Discussed gastric ulceration versus malignancy versus hemorrhagic gastritis. Accepted by the hospitalist service. Vital Signs Vital signs: Vital Signs Pulse Rate 108 H 03/19/25 13:12 Respiratory Rate 16 03/19/25 13:12 Blood Pressure 109/81 03/19/25 13:12 Pulse Oximetry 100 03/19/25 13:12 Pulse Rate 96 03/19/25 18:30 Respiratory Rate 16 03/19/25 18:30 Blood Pressure 137/108 H 03/19/25 18:30 Pulse Oximetry 99 03/19/25 18:30 Oxygen Delivery Room Air 03/19/25 16:30 Medical Decision Making Vital Signs Vital Signs: Vital Signs Pulse Rate 108 H 03/19/25 13:12 Respiratory Rate 16 03/19/25 13:12 Blood Pressure 109/81 03/19/25 13:12 Pulse Oximetry 100 03/19/25 13:12 Pulse Rate 96 03/19/25 18:30 Respiratory Rate 16 03/19/25 18:30 Blood Pressure 137/108 H 03/19/25 18:30 Pulse Oximetry 99 03/19/25 18:30 Oxygen Delivery Room Air 03/19/25 16:30 Lab Data 03/19/25 14:14 03/19/25 14:14 Labs: Lab Results 03/19/25 03/19/25 03/19/25 Range/Units 14:14 14:48 16:24 WBC 11.5 H (4.5-10.0) K/mm3 RBC 3.03 L (4.2-5.4) M/mm3 Hgb 9.7 L D (12.0-15.0) g/dL Hct 30.3 L (37.0-47.0) % MCV 100.0 (80-100) fl MCH 32.0 (26-34) pg MCHC 32.0 (32-36) g/dl RDW 13.4 (11.5-14.5) % Plt Count 344 (150-375) k/mm3 MPV 9.7 (7.4-10.4) fl Immature Gran % (Auto) 0.5 (0-0.5) % Neut % (Auto) 77.8 H (45.5-73.1) % Lymph % (Auto) 14.4 L (18.3-44.2) % [place] % (Auto) 5.3 (2.6-8.5) % Eos % (Auto) 1.7 (0-4.4) % Baso % (Auto) 0.3 (0.2-1.2) % Lymph # (Auto) 1.65 (0.9-3.2) K/mm3 [place] # (Auto) 0.6 (0.1-0.6) K/mm3 Eos # (Auto) 0.2 (0-0.3) K/mm3 Baso # (Auto) 0.0 (0.0-0.1) K/mm3 Abs Immat Gran (auto) 0.06 H (0.00-0.031) K/mm3 Absolute Neuts (auto) 8.9 H (1.3-6.7) K/mm3 Absolute Nucleated RBC 0.000 (0.0-0.012) K/mm3 Nucleated RBC % 0.0 (0.0-0.2) % Sodium 135 L (137-145) mmol/L Potassium 3.7 (3.4-5.0) mmol/L Chloride 105 (98-107) mmol/L Carbon Dioxide 18 L (22-30) mmol/L Anion Gap 12 (4-12) mmol/L BUN 8 (7-17) mg/dL Creatinine 0.95 (0.7-1.0) mg/dL Estim Creat Clear Calc Not Reportable Estimated GFR > 60 (59 - ) Glucose 93 (65-110) mg/dL Calcium 8.7 (8.4-10.2) mg/dL Magnesium 1.3 L (1.6-2.3) mg/dL Total Bilirubin 0.6 (0.2-1.3) mg/dL AST 36 (14-36) U/L ALT 20 (6-35) U/L Alkaline Phosphatase 56 (38-126) U/L Ammonia < 9 L (9-30) umol/L Troponin I < 0.012 (0.000-0.034) ng/mL Total Protein 7.0 (6.3-8.2) g/dL Albumin 3.4 L (3.5-5.1) g/dL Urine Color Yellow (Yellow) Urine Appearance Clear (Clear) Urine pH 6.5 (5.0-9.0) Ur Specific [place] 1.009 (1.001-1.035) Urine Protein Negative (Negative) mg/dL Urine Glucose (UA) Negative (Negative) mg/dL Urine Ketones Negative (Negative) mg/dL Ur Blood (Man) Negative (Negative) Urine Nitrate Negative (Negative) Urine Bilirubin Negative (Negative) Urine Urobilinogen 0.2 (<2.0) mg/dL Leukocyte Esterase Rfl Negative (Negative) LYDIA/UL Ethyl Alcohol < 10 (<10) mg/dL Imaging Data Radiologist's impression: ITS Impressions Chest X-Ray 03/19/25 14:37 IMPRESSION: No acute cardiopulmonary pathology Discharge Plan Discharge Clinical Impression: Anemia, Occult blood positive stool Patient Disposition: Still a Patient Condition: Stable Patient Language: Romansh Prescriptions: No Action norethindrone-e.estradiol-iron [Blisovi 24 Fe] 1 mg-20 mcg (24)/75 mg (4) tablet 1 tablet PO DAILY amoxicillin-pot clavulanate 875-125 mg tablet 1 tablet PO Q12H Qty: 14 0RF fluticasone propionate 50 mcg/actuation spray,suspension See Rx Instructions .ROUTE .COMPLEX Qty: 48 0RF Dose Instruction: SHAKE LIQUID AND USE 2 SPRAYS IN EACH NOSTRIL EVERY 12 HOURS Rx Instructions: SHAKE LIQUID AND USE 2 SPRAYS IN EACH NOSTRIL EVERY 12 HOURS hydrochlorothiazide 12.5 mg capsule See Rx Instructions .ROUTE .COMPLEX Qty: 180 3RF Dose Instruction: TAKE 2 CAPSULES BY MOUTH EVERY DAY Rx Instructions: TAKE 2 CAPSULES BY MOUTH EVERY DAY diazepam 5 mg tablet 5 mg PO BID PRN (Reason: anxiety) Qty: 30 2RF naproxen 500 mg tablet See Rx Instructions .ROUTE .COMPLEX Qty: 30 2RF Dose Instruction: TAKE 1 TABLET BY MOUTH DAILY Rx Instructions: TAKE 1 TABLET BY MOUTH DAILY ondansetron HCl 4 mg tablet 4 mg PO Q6H PRN (Reason: nausea and vomiting) Qty: 30 0RF Zepbound 7.5 mg/0.5 mL pen injector 7.5 mg subcut WEEKLY Qty: 2 0RF Follow-up/Referrals: Satya Fournier MD [Primary Care Provider] -
[2025-03-19 15:15] LABS: Ammonia < 9 umol/L (9-30)
[2025-03-19 15:27] LABS: Alanine Aminotransferase 20 U/L (6-35); Albumin Level 3.4 g/dL (3.5-5.1); Alkaline Phosphatase 56 U/L (38-126); Anion Gap 12 mmol/L (4-12); Aspartate Amino Transferase 36 U/L (14-36); Bilirubin,Total 0.6 mg/dL (0.2-1.3); Blood Urea Nitrogen 8 mg/dL (7-17); Calcium 8.7 mg/dL (8.4-10.2); Carbon Dioxide 18 mmol/L (22-30); Chloride 105 mmol/L (98-107); Estimated Glomerular Filt Rate > 60; Glucose 93 mg/dL (65-110); Magnesium 1.3 mg/dL (1.6-2.3); Potassium 3.7 mmol/L (3.4-5.0); Sodium 135 mmol/L (137-145); Total Protein 7.0 g/dL (6.3-8.2)
[2025-03-19 15:37] LABS: Troponin I < 0.012 ng/mL (0.000-0.034)
[2025-03-19] MEDS: MAGNESIUM SULF 1 GM/D5W 100 ML 1 GM/100 ML BAG IVPB (15:41)
[2025-03-19] MEDS: SODIUM CHLORIDE 0.9% IV 1,000 ML 999 ML IV CONT (16:25)
[2025-03-19 16:31] LABS: Add Urine Microscopic? NO; Appearance Urine Clear (Clear); Glucose Urine UA Negative (Negative); Leukocyte Esterase Ur Negative LEU/UL (Negative); Nitrate Urine Negative (Negative); Specific Grav Ur 1.009 (1.001-1.035)
[2025-03-19] MEDS: PANTOPRAZOLE SODIUM IV 40 MG VIAL IV PUSH (17:34)
--- NOTE | 2025-03-19 17:45 | PM.IMHP ---
H&P: HPI History of Present Illness Date/Time: 03/19/25 17:45 Chief Complaint: Weakness Narrative: 44 y/o F with PMH of HTN presents here with generalized weakness. The patient presents here from home for further evaluation of generalized weakness. She reports she has been unable to ambulate and has had worsening falls in the last month. She initially believed this was precipitated by increasing her GLP1 dosing 1 month ago, it has since been discontinued around 3 weeks ago and was prescribed for weight loss. She reports this is accompanied by weight loss, partially intentional. 170 lbs -> 113 lbs. Estimates 10 of those lbs were unintentional and off her GLP1 over the last month. She denies accompanying at the fever, chills, chest pain, shortness of breath, nausea, vomiting, or constipation. She does report she has been experiencing some loose stools for at least the past 2 weeks and her stool has been darker than usual for the same amount of time. No previous colonoscopy. is also reporting increased confusion/worsening memory. States this started in the last month but has been much worse in the last 2 weeks. FH of lung cancer (maternal grandmother). ETOH use - 2-3 glasses of wine nightly, has not drank in 1 week. Initial VS at presentation: HR 108, RR 16, 109/81, and 100% on RA. ED workup showed: WBC 11.5, Hgb 9.7 (12.7 on 03/01/25), no significant electrolyte derangements, magnesium 1.3, ammonium negative, initial troponin negative, renal function within normal limits, UA unremarkable, ETOH negative. CXR showed no acute cardiopulmonary pathology. Review of Systems Review of Systems: All systems reviewed & are unremarkable except as noted in HPI and below FOR[facility]LY [facility] Past Medical History Medical History (Updated 03/19/25 @ 21:47 by Suki Gutierres APRN) Anxiety Mass of finger of right hand Ganglion cyst of dorsum of right wrist Thoracic outlet syndrome Abnormal deposits of lipid Hyperglycemia HTN (hypertension) off medications as of 03/19/25 Surgical History Surgical History History of tonsillectomy Status post lumbar surgery Family History Family History Other Family history of lung cancer Social History Social History Smoking packs per day: 0.5 Smoking cigarettes per day: 10.0 Years smoked: 10 Smoking pack-years: 5.00 Smoking status: Former smoker Tobacco type: cigarettes Smoking end date: 09/05/07 Alcohol intake: current Drinks per week: 14 Alcohol use details: WINE Substance use: never Substance use type: does not use Current Housing: Decline to Answer Concerned About Future Housing: Decline to Answer Difficulty Paying Gas/Electric Bills: Decline to Answer Difficulty Paying for Meds: Decline to Answer Currently Unemployed: Decline to Answer Education: Decline to Answer Difficulty w/ Childcare or Family Care: Decline to Answer Living arrangements: with family Spiritual care concerns: No Meds Home Medications and Allergies Home Medications ?Medication ?Instructions ?Recorded ?Confirmed ?Type norethindrone 1 mg-ethinyl 1 tablet PO DAILY 10/26/19 06/27/24 History estradiol 20 mcg (24)-iron 75 mg (4) tablet (Blisovi 24 Fe) fluticasone propionate 50 See Rx Instructions .Route 08/15/24 Rx mcg/actuation nasal .COMPLEX #48 grams spray,suspension hydrochlorothiazide 12.5 mg capsule See Rx Instructions .Route 08/27/24 Rx .COMPLEX #180 caps diazepam 5 mg tablet 5 mg PO BID PRN anxiety #30 tabs 09/13/24 Rx naproxen 500 mg tablet See Rx Instructions .Route 01/14/25 Rx .COMPLEX #30 tabs ondansetron HCl 4 mg tablet 4 mg PO Q6H PRN nausea and 02/04/25 Rx vomiting #30 tabs tirzepatide (weight loss) 7.5 7.5 mg (0.5 mL) subcut WEEKLY #2 mL 02/20/25 Rx mg/0.5 mL subcutaneous pen injector (Zepbound) amoxicillin 875 mg-potassium 1 tablet PO Q12H #14 tabs 03/01/25 Rx clavulanate 125 mg tablet Allergies Allergy/AdvReac Type Severity Reaction Status Date / Time Estrogens AdvReac Mild Migraine Verified 03/01/25 10:06 Vital Signs Vital Signs - 24 hr 03/19/25 13:12 Pulse Rate 108 H Respiratory Rate 16 Blood Pressure 109/81 Pulse Oximetry 100 Exam Const: General: comfortable and no acute distress Other: , female, nontoxic appearance HENMT: Face/Nose/Sinus: Normal nares present Mouth: Yes dry mucous membranes Eyes: General: appearance normal, both eyes and all related structures Sclera: sclerae normal Pupils: Equal, round and reactive pupils present EOM: EOMs intact bilaterally Resp: Effort & Inspection: normal respiratory effort Auscultation: clear to auscultation bilaterally Cardio: Rate: regular rate Rhythm: regular rhythm Other: S1-S2 present without murmur, rub, ectopy GI: Other: Abdomen soft, nondistended, nontender. Normoactive bowel sounds in all quadrants. Skin: General skin exam: no rashes or lesions noted Wounds: no wounds Other: Mild pallor Neuro: Speech: normal speech Motor exam (neuro): 5/5 motor strength present throughout Sensory Exam: normal sensation Other: A&O x4, forgetfulness noted Extrem: General: normal exam except as noted (Scant edema to dorsum of bilateral feet) Psych: Mental Status: mental status grossly normal Affect: normal affect Other: Fair insight and judgment, pleasant H&P: Results Labs Labs: Short CBC 03/19/25 Range/Units 14:14 WBC 11.5 H (4.5-10.0) K/mm3 Hgb 9.7 L D (12.0-15.0) g/dL Hct 30.3 L (37.0-47.0) % Plt Count 344 (150-375) k/mm3 BMP 03/19/25 14:14 Sodium 135 L Potassium 3.7 Chloride 105 Carbon Dioxide 18 L BUN 8 Creatinine 0.95 Glucose 93 Calcium 8.7 Cardiac Enzymes 03/19/25 Range/Units 14:14 Troponin I < 0.012 (0.000-0.034) ng/mL Liver Function 03/19/25 Range/Units 14:14 Total Bilirubin 0.6 (0.2-1.3) mg/dL AST 36 (14-36) U/L ALT 20 (6-35) U/L Alkaline Phosphatase 56 (38-126) U/L Albumin 3.4 L (3.5-5.1) g/dL Urine 03/19/25 Range/Units 16:24 Urine Color Yellow (Yellow) Urine Appearance Clear (Clear) Urine pH 6.5 (5.0-9.0) Ur Specific [place] 1.009 (1.001-1.035) Urine Protein Negative (Negative) mg/dL Urine Glucose (UA) Negative (Negative) mg/dL Assessment and Plan Assessment and plan (1) GI bleed: Qualifiers: GI bleed type/associated pathology: unspecified gastrointestinal hemorrhage type Qualified Code(s): K92.2 - Gastrointestinal hemorrhage, unspecified Code(s): K92.2 - Gastrointestinal hemorrhage, unspecified Status: Acute Assessment and Plan: - Hgb 9.7, previously 12.7 on 03/01/25 - hemoccult was + in the ED on 03/19 - not on anticoagulation - GI consulted, awaiting recs - trend H&H, transfuse if <7 - started on pantoprazole - monitor hemodynamic stability and telemetry (2) Memory deficit: Code(s): R41.3 - Other amnesia Status: Acute Assessment and Plan: - reviewed patient's outpatient lab work on patient's cell phone, showed B12 259 and Folate 1.1 on 03/15. - check TSH - check MRI Patient has history of moderate to heavy alcohol use, has abstained for the past week. No new herbal supplements or medications. Plan Diet: Clear liquid GI Prophylaxis: Ppi b.i.d. DVT Prophylaxis: SCDs IV fluids: 1 L bolus-> 125 mL/hour Lines/Tubes: Peripheral IV Code Status: Full code Quality VTE Prophylaxis VTE prophylaxis: mechanical ordered Hospitalist MIPS Advance Care Plan I have confirmed that the patient's Advanced Care Plan is present, code status is documented, or surrogate decision maker is listed in patient medical record.: Yes Medication Reconciliation I have utilized all available resources to obtain, update and review the patients current medications (includes all prescriptions, OTC, herbals, cannabis, and nutritional supplements).: Yes
--- NOTE | 2025-03-19 19:45 | ADMGEN ---
This patient, Elvia Muir, was admitted to Medical Room 248-. Patient/family oriented to hospital policies and general routines including ID bracelet, bed and alarms, visiting hours, pain management, procedures, bathroom and other care routines, personal items, smoking policy, room service/diet, and visiting hours. Information on how to activate the Rapid Response Team has been discussed. Patient/Family are encouraged to report perceived risks to care and to ask questions if they do not understand what they are told or what they should do.
[2025-03-19 21:59] LABS: Vitamin B12 314.0 pg/mL (239-931)
[2025-03-19 22:07] LABS: Hematocrit 26.2 % (37.0-47.0); Hemoglobin 8.5 g/dL (12.0-15.0)
[2025-03-19] MEDS: SODIUM CHLORIDE 0.9% IV 1,000 ML 125 ML IV CONT (23:43)
[2025-03-20] MEDS: diazePAM (*CRX) 5 MG TABLET PO (02:07)
[2025-03-20 02:14] LABS: Toxigenic C. Diff NEGATIVE (NEGATIVE)
[2025-03-20 02:29] LABS: Hematocrit 28.9 % (37.0-47.0); Hemoglobin 9.4 g/dL (12.0-15.0); Immature Granulocyte Percent A 0.5 % (0-0.5); Lymphocytes Absolute Auto 1.56 K/mm3 (0.9-3.2); Mean Corpuscular HGB Conc 32.5 g/dl (32-36); Mean Corpuscular Hemoglobin 32.8 pg (26-34); Mean Corpuscular Volume 100.7 fl (80-100); Nucleated Red Blood Cells Absolute Auto 0.000 K/mm3 (0.0-0.012); Nucleated Red Blood Cells Perc 0.0 % (0.0-0.2); Platelet Count Result 336 k/mm3 (150-375); Red Blood Count 2.87 M/mm3 (4.2-5.4); White Blood Count 7.4 K/mm3 (4.5-10.0)
[2025-03-20 02:51] LABS: Alanine Aminotransferase 19 U/L (6-35); Albumin Level 3.4 g/dL (3.5-5.1); Alkaline Phosphatase 60 U/L (38-126); Anion Gap 9 mmol/L (4-12); Aspartate Amino Transferase 32 U/L (14-36); Bilirubin,Total 0.6 mg/dL (0.2-1.3); Blood Urea Nitrogen 6 mg/dL (7-17); Calcium 8.3 mg/dL (8.4-10.2); Carbon Dioxide 18 mmol/L (22-30); Chloride 108 mmol/L (98-107); Estimated CRCL calculation 65 ml/min; Estimated Glomerular Filt Rate > 60; Glucose 89 mg/dL (65-110); Magnesium 1.9 mg/dL (1.6-2.3); Potassium 3.4 mmol/L (3.4-5.0); Sodium 135 mmol/L (137-145); Total Protein 6.5 g/dL (6.3-8.2)
[2025-03-20 03:18] LABS: Thyroid Stimulating Hormone Reflex 1.550 uIU/mL (0.465-4.68)
[2025-03-20 05:48] VITALS: BP 147/93; PULSE 90; RESP 20; TEMP 36.8; O2SAT 100
--- NOTE | 2025-03-20 08:23 | PM.IMPN ---
Progress Note: A&P Assessment and Plan (1) GI bleed: Qualifiers: GI bleed type/associated pathology: unspecified gastrointestinal hemorrhage type Qualified Code(s): K92.2 - Gastrointestinal hemorrhage, unspecified Code(s): K92.2 - Gastrointestinal hemorrhage, unspecified Status: Acute Assessment and Plan: - Hgb 9.7, previously 12.7 on 03/01/25 - hemoccult was + in the ED on 03/19 - not on anticoagulation - GI consulted, awaiting recs - trend H&H, transfuse if <7 - started on pantoprazole - monitor hemodynamic stability and telemetry (2) Memory deficit: Code(s): R41.3 - Other amnesia Status: Acute Assessment and Plan: - reviewed patient's outpatient lab work on patient's cell phone, showed B12 259 and Folate 1.1 on 03/15. - check TSH- 1.550 - check MRI- ordered-pending this am based on MRI result-will consider neurology consult Patient has history of moderate to heavy alcohol use, has abstained for the past week. Plan Diet: Clear liquid GI Prophylaxis: Ppi b.i.d. DVT Prophylaxis: SCDs IV fluids: 1 L bolus-> 125 mL/hour Lines/Tubes: Peripheral IV Code Status: Full code Time Spent With Patient Time with patient: 25 - 35 minutes Subjective Date/time seen: 03/20/25 08:23 Interval history: 44 y/o F with PMH of HTN presents here with generalized weakness. The patient presents here from home for further evaluation of generalized weakness. She reports she has been unable to ambulate and has had worsening falls in the last month. She initially believed this was precipitated by increasing her GLP1 dosing 1 month ago, it has since been discontinued around 3 weeks ago and was prescribed for weight loss. She reports this is accompanied by weight loss, partially intentional. 170 lbs -> 113 lbs. Estimates 10 of those lbs were unintentional and off her GLP1 over the last month. She denies accompanying at the fever, chills, chest pain, shortness of breath, nausea, vomiting, or constipation. She does report she has been experiencing some loose stools for at least the past 2 weeks and her stool has been darker than usual for the same amount of time. No previous colonoscopy. is also reporting increased confusion/worsening memory. States this started in the last month but has been much worse in the last 2 weeks. FH of lung cancer (maternal grandmother). ETOH use - 2-3 glasses of wine nightly, has not drank in 1 week. Initial VS at presentation: HR 108, RR 16, 109/81, and 100% on RA. ED workup showed: WBC 11.5, Hgb 9.7 (12.7 on 03/01/25), no significant electrolyte derangements, magnesium 1.3, ammonium negative, initial troponin negative, renal function within normal limits, UA unremarkable, ETOH negative. CXR showed no acute cardiopulmonary pathology. GI was consulted prior-awaiting recommendations. Pt is currently NPO. Reports no pain, no n/v currently. NO blood in urine/stool this am. Per nurse report, she is still very weak and had neuropathy. Review of Systems Review of Systems: All systems reviewed & are unremarkable except as noted in HPI and below Exam Const: General: comfortable and no acute distress Other: , female, nontoxic appearance HENMT: Face/Nose/Sinus: Normal nares present Mouth: Yes dry mucous membranes Eyes: General: appearance normal, both eyes and all related structures Sclera: sclerae normal Pupils: Equal, round and reactive pupils present EOM: EOMs intact bilaterally Resp: Effort & Inspection: normal respiratory effort Auscultation: clear to auscultation bilaterally Cardio: Rate: regular rate Rhythm: regular rhythm Other: S1-S2 present without murmur, rub, ectopy GI: Other: Abdomen soft, nondistended, nontender. Normoactive bowel sounds in all quadrants. Skin: General skin exam: no rashes or lesions noted Wounds: no wounds Other: Mild pallor Neuro: Cranial nerves: Yes Equal, round and reactive pupils present Speech: normal speech Motor exam (neuro): 5/5 motor strength present throughout Sensory Exam: normal sensation Other: A&O x4, forgetfulness noted Extrem: General: normal exam except as noted (Scant edema to dorsum of bilateral feet) Psych: Mental Status: mental status grossly normal Affect: normal affect Other: Fair insight and judgment, pleasant Objective Data Vital Signs Vital Signs: Vital Signs - 24 hr 03/19/25 13:12 03/19/25 16:30 03/19/25 17:00 Temperature Pulse Rate 108 H 93 94 Respiratory Rate 16 18 18 Blood Pressure 109/81 116/76 135/101 H Pulse Oximetry 100 100 100 Oxygen Delivery Room Air 03/19/25 17:30 03/19/25 18:00 03/19/25 18:30 Temperature Pulse Rate 92 90 96 Respiratory Rate 18 16 16 Blood Pressure 149/112 H 127/96 H 137/108 H Pulse Oximetry 100 100 99 Oxygen Delivery 03/19/25 20:07 03/19/25 21:00 03/20/25 05:48 Temperature 97.0 F L 98.2 F Pulse Rate 87 90 Respiratory Rate 20 20 Blood Pressure 136/91 H 147/93 H Pulse Oximetry 100 100 Oxygen Delivery Room Air Intake/Output Intake/Output: Intake & Output 03/17/25 03/18/25 03/19/25 03/20/25 23:59 23:59 23:59 23:59 Intake Total 1100 Output Total 600 Balance 1100 -600 Meds/Results Medications: Active Medications Generic Name Dose Route Start Last Admin Trade Name Freq PRN Reason Stop Dose Admin Acetaminophen 650 mg 03/19/25 20:12 Acetaminophen 325 Mg Tablet PO Q6H PRN Mild Pain (1-3) or Fever Diazepam 5 mg 03/19/25 22:21 03/20/25 02:07 Diazepam (*Crx) 5 Mg Tablet PO 5 mg BID PRN Administration anxiety Fluticasone Propionate 2 spray 03/19/25 22:21 Fluticasone Propionate 0.05% Na Spr 16 Gm Btl (*Bkc) NASAL Q12H PRN allergy symptoms Folic Acid 1 mg 03/20/25 09:00 Folic Acid 1 Mg Tablet PO DAILY TERRI Sodium Chloride 1,000 mls @ 125 mls/hr 03/19/25 17:45 03/20/25 02:02 Normal Saline Iv IV CONT Not Given .Q8H [facility] Miscellaneous Information 0 each 03/19/25 00:01 Blisovi 24 Fe Nonform Can Pt Bring From Home? XX 04/18/25 00:00 CLARIFY [facility] Non-Formulary Medication 1 tablet 03/20/25 09:00 Norethindrone-E.Estradiol-Iron [Blisovi 24 Fe] PO 04/19/25 08:59 DAILY [facility] Ondansetron HCl 4 mg 03/19/25 17:42 Ondansetron Inj 4 Mg/2 Ml Vial IV PUSH Q4H PRN Nausea Pantoprazole Sodium 40 mg 03/20/25 09:00 Pantoprazole Sodium Iv 40 Mg Vial IV PUSH Q12HR [facility] Thiamine HCl 100 mg 03/20/25 09:00 Thiamine Hcl 100 Mg Tablet PO QAM [facility] Radiology Results: ITS Impressions Chest X-Ray 03/19/25 14:37 IMPRESSION: No acute cardiopulmonary pathology Labs Labs: Laboratory Results - last 24 hr 03/19/25 03/19/25 03/19/25 14:14 14:46 14:48 WBC 11.5 H RBC 3.03 L Hgb 9.7 L D Hct 30.3 L MCV 100.0 MCH 32.0 MCHC 32.0 RDW 13.4 Plt Count 344 MPV 9.7 Immature Gran % (Auto) 0.5 Neut % (Auto) 77.8 H Lymph % (Auto) 14.4 L Giles % (Auto) 5.3 Eos % (Auto) 1.7 Baso % (Auto) 0.3 Lymph # (Auto) 1.65 Giles # (Auto) 0.6 Eos # (Auto) 0.2 Baso # (Auto) 0.0 Abs Immat Gran (auto) 0.06 H Absolute Neuts (auto) 8.9 H Absolute Nucleated RBC 0.000 Nucleated RBC % 0.0 Sodium 135 L Potassium 3.7 Chloride 105 Carbon Dioxide 18 L Anion Gap 12 BUN 8 Creatinine 0.95 Estim Creat Clear Calc Not Reportable Estimated GFR > 60 Glucose 93 Calcium 8.7 Magnesium 1.3 L Total Bilirubin 0.6 AST 36 ALT 20 Alkaline Phosphatase 56 Ammonia < 9 L Troponin I < 0.012 Total Protein 7.0 Albumin 3.4 L Vitamin B12 314.0 Folate 2.1 L TSH (Reflex) Urine Color Urine Appearance Urine pH Ur Specific [place] Urine Protein Urine Glucose (UA) Urine Ketones Ur Blood (Man) Urine Nitrate Urine Bilirubin Urine Urobilinogen Leukocyte Esterase Rfl Ethyl Alcohol < 10 C. difficile (PCR) 03/19/25 03/19/25 03/20/25 16:24 22:03 01:04 WBC RBC Hgb 8.5 L Hct 26.2 L MCV MCH MCHC RDW Plt Count MPV Immature Gran % (Auto) Neut % (Auto) Lymph % (Auto) Giles % (Auto) Eos % (Auto) Baso % (Auto) Lymph # (Auto) Giles # (Auto) Eos # (Auto) Baso # (Auto) Abs Immat Gran (auto) Absolute Neuts (auto) Absolute Nucleated RBC Nucleated RBC % Sodium Potassium Chloride Carbon Dioxide Anion Gap BUN Creatinine Estim Creat Clear Calc Estimated GFR Glucose Calcium Magnesium Total Bilirubin AST ALT Alkaline Phosphatase Ammonia Troponin I Total Protein Albumin Vitamin B12 Folate TSH (Reflex) Urine Color Yellow Urine Appearance Clear Urine pH 6.5 Ur Specific [place] 1.009 Urine Protein Negative Urine Glucose (UA) Negative Urine Ketones Negative Ur Blood (Man) Negative Urine Nitrate Negative Urine Bilirubin Negative Urine Urobilinogen 0.2 Leukocyte Esterase Rfl Negative Ethyl Alcohol C. difficile (PCR) Negative 03/20/25 02:23 WBC 7.4 RBC 2.87 L Hgb 9.4 L Hct 28.9 L MCV 100.7 H MCH 32.8 MCHC 32.5 RDW 13.7 Plt Count 336 MPV 9.5 Immature Gran % (Auto) 0.5 Neut % (Auto) 71.1 Lymph % (Auto) 21.2 Giles % (Auto) 4.8 Eos % (Auto) 2.0 Baso % (Auto) 0.4 Lymph # (Auto) 1.56 Giles # (Auto) 0.4 Eos # (Auto) 0.2 Baso # (Auto) 0.0 Abs Immat Gran (auto) 0.04 H Absolute Neuts (auto) 5.2 Absolute Nucleated RBC 0.000 Nucleated RBC % 0.0 Sodium 135 L Potassium 3.4 Chloride 108 H Carbon Dioxide 18 L Anion Gap 9 BUN 6 L Creatinine 0.84 Estim Creat Clear Calc 65 Estimated GFR > 60 Glucose 89 Calcium 8.3 L Magnesium 1.9 Total Bilirubin 0.6 AST 32 ALT 19 Alkaline Phosphatase 60 Ammonia Troponin I Total Protein 6.5 Albumin 3.4 L Vitamin B12 Folate TSH (Reflex) 1.550 Urine Color Urine Appearance Urine pH Ur Specific [place] Urine Protein Urine Glucose (UA) Urine Ketones Ur Blood (Man) Urine Nitrate Urine Bilirubin Urine Urobilinogen Leukocyte Esterase Rfl Ethyl Alcohol C. difficile (PCR) Quality VTE Prophylaxis VTE prophylaxis: mechanical ordered
[2025-03-20] MEDS: ACETAMINOPHEN 325 MG TABLET 650 MG PO ×2 (10:19→16:39)
[2025-03-20] MEDS: PANTOPRAZOLE SODIUM IV 40 MG VIAL IV PUSH ×2 (10:19→21:30)
[2025-03-20] MEDS: FOLIC ACID 1 MG TABLET PO (10:19)
[2025-03-20] MEDS: THIAMINE HCL 100 MG TABLET PO (10:19)
[2025-03-20] MEDS: SODIUM CHLORIDE 0.9% IV 1,000 ML 125 ML IV CONT ×2 (10:22→19:20)
--- NOTE | 2025-03-20 12:47 | P.CONNEU_ITS ---
Assessment and Plan Assessment and plan (1) Memory deficit: Code(s): R41.3 - Other amnesia Status: Acute (2) Occult blood positive stool: Code(s): R19.5 - Other fecal abnormalities Status: Acute (3) Neuropathy: Code(s): G62.9 - Polyneuropathy, unspecified Status: Acute (4) Myelopathy: Code(s): G95.9 - Disease of spinal cord, unspecified Status: Acute Plan 1 history of weight loss with presently stool positive for the occult blood , need the GI evaluation 2. Complains of progressive weakness of the lower extremity, benefit from the MRI of the cervical thoracic spine and lumbar spine and subsequently if necessary EMG nerve conduction studies of the lower extremity and also spinal fluid Studies. Rule out the possibility of myelopathy versus neuropathy. Consult date: 03/20/25 HPI: Elvia Muir is a 44 year old female Admitted to the hospital through the emergency room with complaints of weakness, progressive in nature, over the last 8 weeks. In addition to the complaints of recurrent falls though without becoming unconscious. Patient had been taking semaglutide which has resulted in hypokalemia so she stopped that particular medication at the time of visit to the ER she was not complaining of any generalized symptomatology such as fever or chills ,she did have a loose stool but no recurrent diarrhea, patient has lost about 45lb over the last couple of months. She is allergic to estrogens. She has ongoing history of 1. Anxiety 2. Thoracic outlet syndrome 3. Hypertension and 4. Hyper glycemia 5. History of lower back surgery 6. History of smoking pack years 5 ,with 10 years smoked but at present former smoker. 6. Currently alcohol intake with 14 drinks per week. On initial evaluation in the emergency room she was documented to have weakness of the lower extremity, her vital signs were normal, CBC was with hemoglobin of only 9.7, basic metabolic panel normal with sodium 135, mast scan was negative and alcohol level was less than 10, chest x-ray was negative his stool was positive for the occult blood, her medications included hydrochlorothiazide, diazepam p.r.n., naproxen, Zofran p.r.n., and subcu weekly injection. She also reported she has been having loose stools over the last 2 weeks and stools have been somewhat darker. At present she is being evaluated for the GI bleed, MRI of the brain has already been done which is only suggestive mild generalized atrophy, Review of Systems 2 Review of Systems: All systems reviewed & are unremarkable except as noted in HPI and below PMFSH Past Medical History Medical History Anxiety Mass of finger of right hand Ganglion cyst of dorsum of right wrist Thoracic outlet syndrome Abnormal deposits of lipid Hyperglycemia HTN (hypertension) off medications as of 03/19/25 Surgical History Surgical History History of tonsillectomy Status post lumbar surgery Family History Family History Other Family history of lung cancer Social History Social History Smoking packs per day: 0.5 Smoking cigarettes per day: 10.0 Years smoked: 10 Smoking pack-years: 5.00 Smoking status: Former smoker Tobacco type: cigarettes Smoking end date: 09/05/07 Alcohol intake: current Drinks per week: 18 Alcohol use details: WINE Substance use: never Substance use type: does not use Do You Feel Safe in your Home?: Yes Lack of Transportation: No Lack of Food: Never True Current Housing: I Have Housing Concerned About Future Housing: No Difficulty Paying Gas/Electric Bills: No Difficulty Paying for Meds: No Currently Unemployed: No Education: Decline to Answer Difficulty w/ Childcare or Family Care: No Living arrangements: with family Spiritual care concerns: No Meds Home Medications and Allergies Home Medications ?Medication ?Instructions ?Recorded ?Confirmed ?Type norethindrone 1 mg-ethinyl 1 tablet PO DAILY 10/26/19 03/19/25 History estradiol 20 mcg (24)-iron 75 mg (4) tablet (Blisovi 24 Fe) diazepam 5 mg tablet 5 mg PO BID PRN anxiety #30 tabs 09/13/24 03/19/25 Rx ondansetron HCl 4 mg tablet 4 mg PO Q6H PRN nausea and 02/04/25 03/19/25 Rx vomiting #30 tabs tirzepatide (weight loss) 7.5 7.5 mg (0.5 mL) subcut WEEKLY #2 mL 02/20/25 03/19/25 Rx mg/0.5 mL subcutaneous pen injector (Zepbound) fluticasone propionate 50 See Rx Instructions .Route 03/19/25 03/19/25 History mcg/actuation nasal .COMPLEX PRN allergy symptoms spray,suspension hydrochlorothiazide 12.5 mg capsule See Rx Instructions .Route 03/19/25 03/19/25 History .COMPLEX PRN edema naproxen 500 mg tablet See Rx Instructions .Route 03/19/25 03/19/25 History .COMPLEX PRN pain Allergies Allergy/AdvReac Type Severity Reaction Status Date / Time Estrogens AdvReac Mild Migraine Verified 03/01/25 10:06 Vital Signs Vital Signs - 24 hr 03/19/25 13:12 03/19/25 16:30 03/19/25 17:00 Temperature Pulse Rate 108 H 93 94 Respiratory Rate 16 18 18 Blood Pressure 109/81 116/76 135/101 H Pulse Oximetry 100 100 100 Oxygen Delivery Room Air 03/19/25 17:30 03/19/25 18:00 03/19/25 18:30 Temperature Pulse Rate 92 90 96 Respiratory Rate 18 16 16 Blood Pressure 149/112 H 127/96 H 137/108 H Pulse Oximetry 100 100 99 Oxygen Delivery 03/19/25 20:07 03/19/25 21:00 03/20/25 05:48 Temperature 36.1 C L 36.8 C Pulse Rate 87 90 Respiratory Rate 20 20 Blood Pressure 136/91 H 147/93 H Pulse Oximetry 100 100 Oxygen Delivery Room Air 03/20/25 10:20 Temperature Pulse Rate Respiratory Rate Blood Pressure Pulse Oximetry Oxygen Delivery Room Air Exam 2 Narrative: examination today revealed her to be awake alert cooperative somewhat anxious and nervous, his speech not dysphasic not dysarthric not dysphonic, head normocephalic with no bruit, neck supple with no cervical bruit, normal range of motions, heart regular with no murmur, lungs clear to auscultation, abdomen is soft nontender, neurologically she is awake alert oriented x3, speech not dysphasic not dysarthric not dysphonic, pupils round regular dar[place] of vision full extraocular movements full facial sensation intact face symmetrical tongue midline motor examination revealed her to have normal strength and tone in upper extremities without evidence of drift against gravity of 1 or other extremity and also with a normal tone passive movements, motor examination of the lower extremities revealed her to have complaints of weakness though she was able to lift off the bed and her deep tendon reflexes were sluggish plantar responses were downgoing. There was no evidence of ataxia or dysmetria on [id number]-finger. Results Labs 03/20/25 02:23 03/20/25 02:23 Labs: Short CBC 03/19/25 03/19/25 03/20/25 Range/Units 14:14 22:03 02:23 WBC 11.5 H 7.4 (4.5-10.0) K/mm3 Hgb 9.7 L D 8.5 L 9.4 L (12.0-15.0) g/dL Hct 30.3 L 26.2 L 28.9 L (37.0-47.0) % Plt Count 344 336 (150-375) k/mm3 BMP 03/19/25 03/20/25 14:14 02:23 Sodium 135 L 135 L Potassium 3.7 3.4 Chloride 105 108 H Carbon Dioxide 18 L 18 L BUN 8 6 L Creatinine 0.95 0.84 Glucose 93 89 Calcium 8.7 8.3 L Cardiac Enzymes 03/19/25 Range/Units 14:14 Troponin I < 0.012 (0.000-0.034) ng/mL Liver Function 03/19/25 03/20/25 Range/Units 14:14 02:23 Total Bilirubin 0.6 0.6 (0.2-1.3) mg/dL AST 36 32 (14-36) U/L ALT 20 19 (6-35) U/L Alkaline Phosphatase 56 60 (38-126) U/L Albumin 3.4 L 3.4 L (3.5-5.1) g/dL Urine 03/19/25 Range/Units 16:24 Urine Color Yellow (Yellow) Urine Appearance Clear (Clear) Urine pH 6.5 (5.0-9.0) Ur Specific [place] 1.009 (1.001-1.035) Urine Protein Negative (Negative) mg/dL Urine Glucose (UA) Negative (Negative) mg/dL
[2025-03-20 13:49] VITALS: BP 136/86; PULSE 93; RESP 14; TEMP 36.4; O2SAT 96
--- NOTE | 2025-03-20 15:35 | PHAR ---
HOME MED VERIFIED = Blisovi 24 Fe. NO RX LABEL ON UTILIZATION MANAGEMENT [employer]
[2025-03-20] MEDS: BLISOVI FE 1 EACH PO (16:38)
[2025-03-20] MEDS: BISACODYL 5 MG TABLET EC 20 MG PO (16:39)
--- NOTE | 2025-03-20 17:51 | WPDGICN ---
Assessment and Plan Assessment and plan (1) Occult blood positive stool: Code(s): R19.5 - Other fecal abnormalities Status: Acute Assessment and Plan: will proceed with egd and colonoscopy tomorrow, check for source of anemia in gi tract, also get bx for celiac (2) Acute anemia: Code(s): D64.9 - Anemia, unspecified Status: Acute Assessment and Plan: noted low folic, will replace get ferritin and iron levels (3) Low folic acid: Code(s): E53.8 - Deficiency of other specified B group vitamins Status: Acute (4) Neuropathy: Code(s): G62.9 - Polyneuropathy, unspecified Status: Acute Assessment and Plan: by neurology, pending mri lumbar (5) Fatigue: Code(s): R53.83 - Other fatigue Status: Acute (6) Weight loss: Code(s): R63.4 - Abnormal weight loss Status: Acute Assessment and Plan: needs egd and colonoscopy recently was in [facility] and had adverse effect GI Consult Note Consult date/time: 03/20/25 17:51 Reason for consult: nausea, anemia, + FOBT HPI: Elvia Muir is a 44 year old female h/o htn, anxiety admitted to hospital through the emergency room with complaints of weakness, progressive in nature, over the last 8 weeks. Also recurrent falls, she had been taking semaglutide which resulted in hypokalemia so she stopped but since with nausea and lost about 45lb over the last couple of months. She also drinks alcohol intake with 14 drinks per week. No recent scopes, blood work showed new anemia with hgb 9, low folic acid. Still with b/l leg weakness and evaluated by neurology, mri brain negative. No overt gib but had occult blood in stool in er. Review of Systems Constitutional: Constitutional: Reports lethargy Eyes: Eyes: Denies blurry vision ENT: Reports Normal hearing present Cardiovascular: Cardiovascular: Denies chest pain Respiratory: Respiratory: Denies cough Gastrointestinal: Gastrointestinal: Reports nausea Genitourinary: Genitourinary: Denies dysuria Musculoskeletal: Musculoskeletal: Denies neck pain Integumentary/Breasts: Skin/Breast: Denies rash Neurologic: Reports numbness (legs) Psychiatric: Psychiatric: Reports anxiety PMFSH Past Medical History Medical History (Updated 03/20/25 @ 17:55 by Ac Lopes MD) Weight loss Low folic acid Acute anemia Anxiety Mass of finger of right hand Ganglion cyst of dorsum of right wrist Thoracic outlet syndrome Abnormal deposits of lipid Hyperglycemia HTN (hypertension) off medications as of 03/19/25 Surgical History Surgical History History of tonsillectomy Status post lumbar surgery Family History Family History Other Family history of lung cancer Social History Social History Smoking packs per day: 0.5 Smoking cigarettes per day: 10.0 Years smoked: 10 Smoking pack-years: 5.00 Smoking status: Former smoker Tobacco type: cigarettes Smoking end date: 09/05/07 Alcohol intake: current Drinks per week: 18 Alcohol use details: WINE Substance use: never Substance use type: does not use Do You Feel Safe in your Home?: Yes Lack of Transportation: No Lack of Food: Never True Current Housing: I Have Housing Concerned About Future Housing: No Difficulty Paying Gas/Electric Bills: No Difficulty Paying for Meds: No Currently Unemployed: No Education: Decline to Answer Difficulty w/ Childcare or Family Care: No Living arrangements: with family Spiritual care concerns: No Meds Home Medications and Allergies Home Medications ?Medication ?Instructions ?Recorded ?Confirmed ?Type norethindrone 1 mg-ethinyl 1 tablet PO DAILY 10/26/19 03/19/25 History estradiol 20 mcg (24)-iron 75 mg (4) tablet (Blisovi 24 Fe) diazepam 5 mg tablet 5 mg PO BID PRN anxiety #30 tabs 09/13/24 03/19/25 Rx ondansetron HCl 4 mg tablet 4 mg PO Q6H PRN nausea and 02/04/25 03/19/25 Rx vomiting #30 tabs tirzepatide (weight loss) 7.5 7.5 mg (0.5 mL) subcut WEEKLY #2 mL 02/20/25 03/19/25 Rx mg/0.5 mL subcutaneous pen injector (Zepbound) fluticasone propionate 50 See Rx Instructions .Route 03/19/25 03/19/25 History mcg/actuation nasal .COMPLEX PRN allergy symptoms spray,suspension hydrochlorothiazide 12.5 mg capsule See Rx Instructions .Route 03/19/25 03/19/25 History .COMPLEX PRN edema naproxen 500 mg tablet See Rx Instructions .Route 03/19/25 03/19/25 History .COMPLEX PRN pain Allergies Allergy/AdvReac Type Severity Reaction Status Date / Time Estrogens AdvReac Mild Migraine Verified 03/01/25 10:06 Vital Signs Vital Signs - 24 hr 03/19/25 18:00 03/19/25 18:30 03/19/25 20:07 Temperature 97.0 F L Pulse Rate 90 96 87 Respiratory Rate 16 16 20 Blood Pressure 127/96 H 137/108 H 136/91 H Pulse Oximetry 100 99 100 Oxygen Delivery 03/19/25 21:00 03/20/25 05:48 03/20/25 10:20 Temperature 98.2 F Pulse Rate 90 Respiratory Rate 20 Blood Pressure 147/93 H Pulse Oximetry 100 Oxygen Delivery Room Air Room Air 03/20/25 13:49 Temperature 97.6 F Pulse Rate 93 Respiratory Rate 14 Blood Pressure 136/86 Pulse Oximetry 96 Oxygen Delivery Exam Const: General: comfortable and no acute distress HENMT: Face/Nose/Sinus: Normal nares present Eyes: General: appearance normal, both eyes and all related structures Neck: Neck: supple Resp: Auscultation: clear to auscultation bilaterally Cardio: Rate: regular rate Rhythm: regular rhythm GI: Inspection: non-distended GI Palp: Yes Soft to palpation and No Tenderness to palpation present (GI) Auscultation: normal bowel sounds Skin: General skin exam: normal color Neuro: Speech: normal speech Other: decreased sensation legs Extrem: General: normal to inspection Psych: Mental Status: mental status grossly normal Results Labs 03/20/25 02:23 03/20/25 02:23 Labs: Short CBC 03/19/25 03/20/25 Range/Units 22:03 02:23 WBC 7.4 (4.5-10.0) K/mm3 Hgb 8.5 L 9.4 L (12.0-15.0) g/dL Hct 26.2 L 28.9 L (37.0-47.0) % Plt Count 336 (150-375) k/mm3 BMP 03/20/25 02:23 Sodium 135 L Potassium 3.4 Chloride 108 H Carbon Dioxide 18 L BUN 6 L Creatinine 0.84 Glucose 89 Calcium 8.3 L Liver Function 03/20/25 Range/Units 02:23 Total Bilirubin 0.6 (0.2-1.3) mg/dL AST 32 (14-36) U/L ALT 19 (6-35) U/L Alkaline Phosphatase 60 (38-126) U/L Albumin 3.4 L (3.5-5.1) g/dL
[2025-03-20 22:00] VITALS: BP 138/85; PULSE 85; RESP 18; TEMP 36.1; O2SAT 100
[2025-03-21] VITALS (7 sets, daily range): BP systolic 130–151; BP diastolic 63–98; PULSE 76–90; RESP 16–26; TEMP 36.3–36.6; O2SAT 99–100
[2025-03-21] MEDS: MAGNESIUM CITRATE 300 ML BTL PO (01:21)
[2025-03-21] MEDS: ACETAMINOPHEN 325 MG TABLET 650 MG PO ×2 (01:21→16:46)
[2025-03-21] MEDS: SODIUM CHLORIDE 0.9% IV 1,000 ML 125 ML IV CONT (03:51)
[2025-03-21 07:41] LABS: Hematocrit 32.2 % (37.0-47.0); Hemoglobin 9.9 g/dL (12.0-15.0); Mean Corpuscular HGB Conc 30.7 g/dl (32-36); Mean Corpuscular Hemoglobin 32.6 pg (26-34); Mean Corpuscular Volume 105.9 fl (80-100); Platelet Count Result 433 k/mm3 (150-375); Red Blood Count 3.04 M/mm3 (4.2-5.4); White Blood Count 6.4 K/mm3 (4.5-10.0)
--- NOTE | 2025-03-21 07:53 | PM.IMPN ---
Progress Note: A&P Assessment and Plan (1) GI bleed: Qualifiers: GI bleed type/associated pathology: unspecified gastrointestinal hemorrhage type Qualified Code(s): K92.2 - Gastrointestinal hemorrhage, unspecified <Adriana Guerra APRN - Last Filed: 03/21/25 14:29> Code(s): K92.2 - Gastrointestinal hemorrhage, unspecified <Adriana Guerra APRN - Last Filed: 03/21/25 14:29> Status: Acute <Adriana uGerra DICE MANAGER - Last Filed: 03/21/25 14:29> Assessment and Plan: - Hgb 9.7, previously 12.7 on 03/01/25 - hemoccult was + in the ED on 03/19 - not on anticoagulation - GI consulted, awaiting recs - trend H&H, transfuse if <7 - started on pantoprazole - monitor hemodynamic stability and telemetry <Adriana Guerra APRN - Last Filed: 03/21/25 14:29> - Hgb 9.7, previously 12.7 on 03/01/25 - hemoccult was + in the ED on 03/19 - not on anticoagulation - GI consulted, awaiting recs - trend H&H, transfuse if <7 - started on pantoprazole - monitor hemodynamic stability and telemetry 03/21 - GI recommended and complete colonoscopy & EGD - EGD Findings: large, benign Peptic Ulcer - Colonoscopy Findings: normal - Plan: follow up in GI clinic, repeat EGD in 3 months, d/c IV pantoprazole, begin oral, regular diet, consider hematology consult - Hgb 9.9, previously 8.5 on 03/19/25 - trend H&H, transfuse if <7 - Pt has macrocytic anemia (105.9), with normal iron levels, Plt ct of 433 today - hematology consult placed <Enoch Rutherford - Last Filed: 03/21/25 13:43> (2) Memory deficit: Code(s): R41.3 - Other amnesia <Adriana Guerra APRN - Last Filed: 03/21/25 14:29> Status: Acute <Adriana Guerra DICE MANAGER - Last Filed: 03/21/25 14:29> Assessment and Plan: - reviewed patient's outpatient lab work on patient's cell phone, showed B12 259 and Folate 1.1 on 03/15. - check TSH- 1.550 - check MRI- ordered-pending this am based on MRI result-will consider neurology consult Patient has history of moderate to heavy alcohol use, has abstained for the past week. <Adriana Guerra DICE MANAGER - Last Filed: 03/21/25 14:29> - reviewed patient's outpatient lab work on patient's cell phone, showed B12 259 and Folate 1.1 on 03/15. - check TSH- 1.550 - check MRI- ordered-pending this am based on MRI result-will consider neurology consult Patient has history of moderate to heavy alcohol use, has abstained for the past week. 03/21 - Brain MRI: Mild generalized atrophy, otherwise unremarkable. - struggles with recalling medical care and timeline. - Neurology consulted and following. <Enoch Rutherford - Last Filed: 03/21/25 13:43> (3) Neuropathy: Code(s): G62.9 - Polyneuropathy, unspecified <Adriana Guerra DICE MANAGER - Last Filed: 03/21/25 14:29> Status: Acute <Adriana Guerra DICE MANAGER - Last Filed: 03/21/25 14:29> Assessment and Plan: 03/21 - progressive weakness over the last month that has worsened over the last 2 weeks. Noted several falls. Has required assistance with ambulation during admission. Notes neuropathic symptoms in her extremities. Prior history of similar symptoms following the passing of a family member that resolved. Patient unaware of her treatment at the time but does recall prior gabapentin use without complications. - consult with neurology 03/20: - possible MRI of cervical, thoracic, and lumbar spine and subsequently, if necessary, EMG nerve conduction studies and spinal fluid. Rule out possibility of myelopathy v neuropathy - Ordered gabapentin <Aaron J. Sweet, Student - Last Filed: 03/21/25 13:43> (4) Anxiety: Code(s): F41.9 - Anxiety disorder, unspecified <Adriana Guerra APRN - Last Filed: 03/21/25 14:29> Status: Acute <Adriana Guerra DICE MANAGER - Last Filed: 03/21/25 14:29> Assessment and Plan: 03/21: history of anxiety. Notes prior use of valium. Recent loss of mother. History of family member loss with episode of neuropathy symptoms that resolved. Pt unaware of treatment, if any, at that time. - ordered fluoxetine - patient aware that treatment effects will take several weeks at the earliest to notice any benefit. Discussed the need to follow up with PCP for continuation of medication and to address possible side effects. <Aaron Conte, Student - Last Filed: 03/21/25 13:43> (5) Alcohol abuse: Code(s): F10.10 - Alcohol abuse, uncomplicated <Adriana Guerra DICE MANAGER - Last Filed: 03/21/25 14:29> Status: Acute <Adriana Guerra DICE MANAGER - Last Filed: 03/21/25 14:29> Assessment and Plan: counselling completed - need to cut down and stop alcohol <Adriana Guerra APRN - Last Filed: 03/21/25 14:29> (6) Anemia: Code(s): D64.9 - Anemia, unspecified <Adriana Guerra DICE MANAGER - Last Filed: 03/21/25 14:29> Status: Acute <Adriana Guerra APRN - Last Filed: 03/21/25 14:29> Assessment and Plan: macrocytic anemia, normal iron level elevated platelets- will consult hem/oncology <Adriana Guerra APRN - Last Filed: 03/21/25 14:29> Assessment and Plan: Diet: regular diet GI Prophylaxis: Pantoprzole DVT Prophylaxis: SCDs IV fluids: 1 L bolus-> 125 mL/hour Lines/Tubes: Peripheral IV Code Status: Full code <Adriana Guerra APRN - Last Filed: 03/21/25 14:29> Time Spent With Patient Time with patient: 25 - 35 minutes <Adriana Guerra APRN - Last Filed: 03/21/25 14:29> Subjective Date/time seen: 03/21/25 07:53 <Adriana Guerra APRN - Last Filed: 03/21/25 14:29> Interval history: 44 y/o F with PMH of HTN presents here with generalized weakness. The patient presents here from home for further evaluation of generalized weakness. She reports she has been unable to ambulate and has had worsening falls in the last month. She initially believed this was precipitated by increasing her GLP1 dosing 1 month ago, it has since been discontinued around 3 weeks ago and was prescribed for weight loss. She reports this is accompanied by weight loss, partially intentional. 170 lbs -> 113 lbs. Estimates 10 of those lbs were unintentional and off her GLP1 over the last month. She denies accompanying at the fever, chills, chest pain, shortness of breath, nausea, vomiting, or constipation. She does report she has been experiencing some loose stools for at least the past 2 weeks and her stool has been darker than usual for the same amount of time. No previous colonoscopy. is also reporting increased confusion/worsening memory. States this started in the last month but has been much worse in the last 2 weeks. FH of lung cancer (maternal grandmother). ETOH use - 2-3 glasses of wine nightly, has not drank in 1 week. Initial VS at presentation: HR 108, RR 16, 109/81, and 100% on RA. ED workup showed: WBC 11.5, Hgb 9.7 (12.7 on 03/01/25), no significant electrolyte derangements, magnesium 1.3, ammonium negative, initial troponin negative, renal function within normal limits, UA unremarkable, ETOH negative. CXR showed no acute cardiopulmonary pathology. GI was consulted prior-awaiting recommendations. Pt is currently NPO. Reports no pain, no n/v currently. NO blood in urine/stool this am. Per nurse report, she is still very weak and had neuropathy. 03/21 - pt upright in bed. Still weak, but notes neuropathy symptoms are slightly better this afternoon. Pt states she has had a prior history of similar weakness & neuropathy following the passing of a family member. She has recently loss her mother. Has difficulty recalling prior symptoms and treatment of her medical care but thinks that gabapentin helped. Colonoscopy & EGD completed today. Reports no pain, N/V. She admits to anxiety, worse lately and has Valium available if needed. never was on any depression/anxiety meds. <Adriana Guerra, DICE MANAGER - Last Filed: 03/21/25 14:29> 44 y/o F with PMH of HTN presents here with generalized weakness. The patient presents here from home for further evaluation of generalized weakness. She reports she has been unable to ambulate and has had worsening falls in the last month. She initially believed this was precipitated by increasing her GLP1 dosing 1 month ago, it has since been discontinued around 3 weeks ago and was prescribed for weight loss. She reports this is accompanied by weight loss, partially intentional. 170 lbs -> 113 lbs. Estimates 10 of those lbs were unintentional and off her GLP1 over the last month. She denies accompanying at the fever, chills, chest pain, shortness of breath, nausea, vomiting, or constipation. She does report she has been experiencing some loose stools for at least the past 2 weeks and her stool has been darker than usual for the same amount of time. No previous colonoscopy. is also reporting increased confusion/worsening memory. States this started in the last month but has been much worse in the last 2 weeks. FH of lung cancer (maternal grandmother). ETOH use - 2-3 glasses of wine nightly, has not drank in 1 week. Initial VS at presentation: HR 108, RR 16, 109/81, and 100% on RA. ED workup showed: WBC 11.5, Hgb 9.7 (12.7 on 03/01/25), no significant electrolyte derangements, magnesium 1.3, ammonium negative, initial troponin negative, renal function within normal limits, UA unremarkable, ETOH negative. CXR showed no acute cardiopulmonary pathology. GI was consulted prior-awaiting recommendations. Pt is currently NPO. Reports no pain, no n/v currently. NO blood in urine/stool this am. Per nurse report, she is still very weak and had neuropathy. 03/21 - pt upright in bed. Still weak, but notes neuropathy symptoms are slightly better this afternoon. Pt states she has had a prior history of similar weakness & neuropathy following the passing of a family member. She has recently loss her mother. Has difficulty recalling prior symptoms and treatment of her medical care. Colonoscopy & EGD completed today. Reports no pain, N/V. <Aaron Conte, Student - Last Filed: 03/21/25 13:43> Review of Systems Review of Systems: All systems reviewed & are unremarkable except as noted in HPI and below <Adriana Guerra DICE MANAGER - Last Filed: 03/21/25 14:29> Exam Const: General: comfortable and no acute distress <Adriana Guerra DICE MANAGER - Last Filed: 03/21/25 14:29> Other: , female, nontoxic appearance <Adriana Guerra DICE MANAGER - Last Filed: 03/21/25 14:29> HENMT: Face/Nose/Sinus: Normal nares present <Adriana Guerra DICE MANAGER - Last Filed: 03/21/25 14:29> Mouth: Yes dry mucous membranes <Adriana Guerra DICE MANAGER - Last Filed: 03/21/25 14:29> Eyes: General: appearance normal, both eyes and all related structures <Adriana Guerra DICE MANAGER - Last Filed: 03/21/25 14:29> Sclera: sclerae normal <Adriana Guerra DICE MANAGER - Last Filed: 03/21/25 14:29> Pupils: Equal, round and reactive pupils present <Adriana Guerra DICE MANAGER - Last Filed: 03/21/25 14:29> EOM: EOMs intact bilaterally <Adriana Guerra DICE MANAGER - Last Filed: 03/21/25 14:29> Resp: Effort & Inspection: normal respiratory effort <Adriana Guerra DICE MANAGER - Last Filed: 03/21/25 14:29> Auscultation: clear to auscultation bilaterally <Adriana Guerra DICE MANAGER - Last Filed: 03/21/25 14:29> Cardio: Rate: regular rate <Adriana Guerra DICE MANAGER - Last Filed: 03/21/25 14:29> Rhythm: regular rhythm <Adriana Guerra DICE MANAGER - Last Filed: 03/21/25 14:29> Other: S1-S2 present without murmur, rub, ectopy <Adriana Guerra DICE MANAGER - Last Filed: 03/21/25 14:29> GI: Other: Abdomen soft, nondistended, nontender. Normoactive bowel sounds in all quadrants. <Adriana Caity CharlieJHONNYN - Last Filed: 03/21/25 14:29> Skin: General skin exam: no rashes or lesions noted <Adriana Guerra DICE MANAGER - Last Filed: 03/21/25 14:29> Wounds: no wounds <Adriana Guerra DICE MANAGER - Last Filed: 03/21/25 14:29> Other: Mild pallor <Adriana Guerra DICE MANAGER - Last Filed: 03/21/25 14:29> Neuro: Cranial nerves: Yes Equal, round and reactive pupils present <Adriana Guerra DICE MANAGER - Last Filed: 03/21/25 14:29> Speech: normal speech <Adriana Guerra DICE MANAGER - Last Filed: 03/21/25 14:29> Motor exam (neuro): 5/5 motor strength present throughout <Adriana Carolina Charlie DICE MANAGER - Last Filed: 03/21/25 14:29> Sensory Exam: normal sensation <Adriana Guerra DICE MANAGER - Last Filed: 03/21/25 14:29> Other: A&O x4, forgetfulness noted <Adriana Carolina Charlie DICE MANAGER - Last Filed: 03/21/25 14:29> Extrem: General: normal exam except as noted (Scant edema to dorsum of bilateral feet) <Adriana Guerra APRN - Last Filed: 03/21/25 14:29> Psych: Mental Status: mental status grossly normal <Adriana Guerra DICE MANAGER - Last Filed: 03/21/25 14:29> Affect: Anxious affect present <Adriana Guerra DICE MANAGER - Last Filed: 03/21/25 14:29> Objective Data Vital Signs Vital Signs: Vital Signs - 24 hr 03/20/25 10:20 03/20/25 13:49 03/20/25 20:00 Temperature 97.6 F Pulse Rate 93 Respiratory Rate 14 Blood Pressure 136/86 Pulse Oximetry 96 Oxygen Delivery Room Air Room Air 03/20/25 22:00 03/21/25 06:00 Temperature 96.9 F L 97.3 F L Pulse Rate 85 77 Respiratory Rate 18 18 Blood Pressure 138/85 133/81 Pulse Oximetry 100 99 Oxygen Delivery <Adriana Guerra APRN - Last Filed: 03/21/25 14:29> Intake/Output Intake/Output: Intake & Output 03/18/25 03/19/25 03/20/25 03/21/25 23:59 23:59 23:59 23:59 Intake Total 1100 2910 1000 Output Total 600 Balance 1100 2310 1000 <Adriana Guerra APRN - Last Filed: 03/21/25 14:29> Meds/Results Medications: Active Medications Generic Name Dose Route Start Last Admin Trade Name Freq PRN Reason Stop Dose Admin Acetaminophen 650 mg 03/19/25 20:12 03/21/25 01:21 Acetaminophen 325 Mg Tablet PO 650 mg Q6H PRN Administration Mild Pain (1-3) or Fever Diazepam 5 mg 03/19/25 22:21 03/20/25 02:07 Diazepam (*Crx) 5 Mg Tablet PO 5 mg BID PRN Administration anxiety Fluticasone Propionate 2 spray 03/19/25 22:21 Fluticasone Propionate 0.05% Na Spr 16 Gm Btl (*Bkc) NASAL Q12H PRN allergy symptoms Folic Acid 1 mg 03/20/25 09:00 03/20/25 10:19 Folic Acid 1 Mg Tablet PO 1 mg DAILY TERRI Administration Home Med 1 each 03/20/25 15:35 03/20/25 16:38 Home Medication-Blisovi 24 Fe PO 04/19/25 15:34 1 each DAILY TERRI Administration Sodium Chloride 1,000 mls @ 125 mls/hr 03/19/25 17:45 03/21/25 03:51 Normal Saline Iv IV CONT 125 mls/hr .Q8H TERRI Administration Ondansetron HCl 4 mg 03/19/25 17:42 Ondansetron Inj 4 Mg/2 Ml Vial IV PUSH Q4H PRN Nausea Pantoprazole Sodium 40 mg 03/20/25 09:00 03/20/25 21:30 Pantoprazole Sodium Iv 40 Mg Vial IV PUSH 40 mg Q12HR TERRI Administration Thiamine HCl 100 mg 03/20/25 09:00 03/20/25 10:19 Thiamine Hcl 100 Mg Tablet PO 100 mg QAM TERRI Administration <Adriana Guerra APRN - Last Filed: 03/21/25 14:29> Radiology Results: ITS Impressions Chest X-Ray 03/19/25 14:37 IMPRESSION: No acute cardiopulmonary pathology Brain MRI 03/20/25 11:39 IMPRESSION: Mild generalized atrophy, otherwise unremarkable exam. <Adriana Guerra APRN - Last Filed: 03/21/25 14:29> Labs Labs: Laboratory Results - last 24 hr 03/21/25 06:52 WBC 6.4 RBC 3.04 L Hgb 9.9 L Hct 32.2 L MCV 105.9 H D MCH 32.6 MCHC 30.7 L RDW 14.4 Plt Count 433 H MPV 9.6 <Adriana Guerra APRN - Last Filed: 03/21/25 14:29> Quality VTE Prophylaxis VTE prophylaxis: mechanical ordered <Adriana Guerra APRN - Last Filed: 03/21/25 14:29>
[2025-03-21 07:54] LABS: Anion Gap 9 mmol/L (4-12); Calcium 9.0 mg/dL (8.4-10.2); Carbon Dioxide 13 mmol/L (22-30); Chloride 117 mmol/L (98-107); Estimated CRCL calculation 66 ml/min; Estimated Glomerular Filt Rate > 60; Glucose 87 mg/dL (65-110); Potassium 4.1 mmol/L (3.4-5.0); Sodium 139 mmol/L (137-145)
[2025-03-21 08:02] LABS: Blood Urea Nitrogen < 2 mg/dL (7-17)
[2025-03-21 08:18] LABS: Iron 83 ug/dL (37-170)
[2025-03-21 08:35] LABS: Percent Iron Saturation 29 % (20-50)
[2025-03-21 08:53] LABS: Ferritin 281.00 ng/mL (6.24-137)
[2025-03-21] MEDS: LACTATED RINGERS 1,000 ML 150 ML IV CONT (10:29)
[2025-03-21] MEDS: SIMETHICONE ORAL SUSPENSION 20 MG/0.3 ML 30 ML BOTTLE 0.6 ML PO (10:29)
--- NOTE | 2025-03-21 11:06 | P.PNAN_ITS ---
Anes - Initial Pre Proc Eval Procedure: Operation Date: 03/21/25 14:00 Proposed Procedures p EGD & Diagnostic Colonoscopy - Dar Johnson MD Date/Time: 03/21/25 11:06 Surgeon: Sunday Sage MD Pre Op Diagnosis: occult gi bleed, anemia, generalized weakness Patient Data Age: 44 Gender: F Height: 1.68 m Weight: 55.6 kg Last Vital Signs Temp 97.7 F 03/21/25 10:32 Pulse 82 03/21/25 10:32 Resp 16 03/21/25 10:32 BP 151/98 H 03/21/25 10:32 Pulse Ox 100 03/21/25 10:32 O2 Del Method Room Air 03/21/25 10:32 Allergies Allergy/AdvReac Type Severity Reaction Status Date / Time Estrogens AdvReac Mild Migraine Verified 03/21/25 10:30 Home Medications ?Medication ?Instructions ?Recorded ?Confirmed ?Type norethindrone 1 mg-ethinyl 1 tablet PO DAILY 10/26/19 03/19/25 History estradiol 20 mcg (24)-iron 75 mg (4) tablet (Blisovi 24 Fe) diazepam 5 mg tablet 5 mg PO BID PRN anxiety #30 tabs 09/13/24 03/19/25 Rx ondansetron HCl 4 mg tablet 4 mg PO Q6H PRN nausea and 02/04/25 03/19/25 Rx vomiting #30 tabs tirzepatide (weight loss) 7.5 7.5 mg (0.5 mL) subcut WEEKLY #2 mL 02/20/25 03/19/25 Rx mg/0.5 mL subcutaneous pen injector (Zepbound) fluticasone propionate 50 See Rx Instructions .Route 03/19/25 03/19/25 History mcg/actuation nasal .COMPLEX PRN allergy symptoms spray,suspension hydrochlorothiazide 12.5 mg capsule See Rx Instructions .Route 03/19/25 03/19/25 History .COMPLEX PRN edema naproxen 500 mg tablet See Rx Instructions .Route 03/19/25 03/19/25 History .COMPLEX PRN pain Laboratory Tests 03/21/25 06:52 WBC 6.4 K/mm3 (4.5-10.0) RBC 3.04 L M/mm3 (4.2-5.4) Hgb 9.9 L g/dL (12.0-15.0) Hct 32.2 L % (37.0-47.0) MCV 105.9 H D fl (80-100) MCH 32.6 pg (26-34) MCHC 30.7 L g/dl (32-36) RDW 14.4 % (11.5-14.5) Plt Count 433 H k/mm3 (150-375) MPV 9.6 fl (7.4-10.4) Sodium 139 mmol/L (137-145) Potassium 4.1 mmol/L (3.4-5.0) Chloride 117 H mmol/L (98-107) Carbon Dioxide 13 L mmol/L (22-30) Anion Gap 9 mmol/L (4-12) BUN < 2 L mg/dL (7-17) Creatinine 0.82 mg/dL (0.7-1.0) Estim Creat Clear Calc 66 ml/min Estimated GFR > 60 (59 - ) Glucose 87 mg/dL (65-110) Calcium 9.0 mg/dL (8.4-10.2) Iron 83 ug/dL (37-170) TIBC 284 ug/dL (261-462) % Saturation 29 % (20-50) Ferritin 281.00 H ng/mL (6.24-137) Patient hx anesthesia problems: none Family hx anesthesia problems: none Results Review: All pre-operative results and documents have been reviewed as part of the pre- operative evaluation. [facility] Past Medical History Medical History Weight loss Low folic acid Acute anemia Anxiety Mass of finger of right hand Ganglion cyst of dorsum of right wrist Thoracic outlet syndrome Abnormal deposits of lipid Hyperglycemia HTN (hypertension) off medications as of 03/19/25 Surgical History Surgical History History of tonsillectomy Status post lumbar surgery Family History Family History Other Family history of lung cancer Social History Social History Smoking packs per day: 0.5 Smoking cigarettes per day: 10.0 Years smoked: 10 Smoking pack-years: 5.00 Smoking status: Former smoker Tobacco type: cigarettes Smoking end date: 09/05/07 Alcohol intake: current Drinks per week: 18 Alcohol use details: WINE Substance use: never Substance use type: does not use Do You Feel Safe in your Home?: Yes Lack of Transportation: No Lack of Food: Never True Current Housing: I Have Housing Concerned About Future Housing: No Difficulty Paying Gas/Electric Bills: No Difficulty Paying for Meds: No Currently Unemployed: No Education: Decline to Answer Difficulty w/ Childcare or Family Care: No Living arrangements: with family Spiritual care concerns: No Anes - Eval Final PreProcedure Day of Procedure 03/21/25 11:06 Patient weight: normal and thin Heart: regular rate and rhythm Lungs: clear to auscultation and normal air movement Airway: Mallampati scale class II Neurological: alert and oriented Last oral intake: >/= 8 hours ASA classification: III Emergent: no Anesthetic plan: proceed Anesthesia type and monitoring: general GIVS and standard monitoring Results Review: All pre-operative results and documents have been reviewed as part of the pre- operative evaluation. Notes reviewed. Pt w anemia, inc confusion approx 2 weeks/memory changes, now w anemia and wt loss. Of note, apparent hx of ETOH use, 3 drinks/day. Informed Consent: The patient's anesthetic plan and its attendant risks and benefits were discussed with the patient/family/POA. Questions were solicited and answers pr ovided to the satisfaction of the patient/family/POA.
--- NOTE | 2025-03-21 11:30 | S_PTH ---
PATIENT: Elvia Muir LOC: [id number] U#:[id number] AGE/SX: 44/F ROOM: 248 RE03/21/[address]: Marlene Mobley PA-C : 1980 BED: 01 DIS: 03/27/2025 SPEC #: [id number] RECD: 03/21/25 12:02 STATUS: JANA SYKES #: [id number] JOSE: 03/21/25 11:[address]: Dar Johnson DEPT: [facility] Surgical RECD BY: Alejandra Carranza ENTERED: 03/21/25 12:03 SP TYPE: Surgical OTHR DR: MD Satya Dunn MD Riaz Naseer, MD Edmundo A. Rodriguez-Frias, MD Tissues: A - Gastric Biopsy B - Gastric Biopsy C - Gastric Biopsy Procedures: Hematoxylin and Eosin Stain Gross and Microscopic Level 4 H.Pylori
--- NOTE | 2025-03-21 11:31 | SUR.OPER ---
EGD ended at 1123, colon began at 1130.
--- NOTE | 2025-03-21 11:51 | WPDGIPROGNO ---
Progress Note: A&P Assessment and Plan (1) Gastric ulcer due to nonsteroidal anti-inflammatory drug (NSAID): Code(s): K25.9 - Gastric ulcer, unspecified as acute or chronic, without hemorrhage or perforation; T39.395A - Adverse effect of other nonsteroidal anti-inflammatory drugs [NSAID], initial encounter Status: Acute Assessment and Plan: Please see EGD and colonoscopy reports. The presence of a large peptic ulcer, benign aspect, can explain some of her problems including nausea and vomiting or maybe acute drop in hemoglobin without overt bleeding. However, the patient has macrocytic anemia, with normal iron levels, which warrants a hematology consult. Her folic acid levels are borderline low. There is a history of weakness, significant alcohol intake, which should be taking into account. Plan - d/c IV Pantoprazole, switched to oral (done) - consider Hematology consult -Regular diet Subjective Date/time seen: 03/21/25 11:51 Objective Data Vital Signs Vital Signs: Vital Signs - 24 hr 03/20/25 13:49 03/20/25 20:00 03/20/25 22:00 Temperature 97.6 F 96.9 F L Pulse Rate 93 85 Respiratory Rate 14 18 Blood Pressure 136/86 138/85 Pulse Oximetry 96 100 Oxygen Delivery Room Air 03/21/25 06:00 03/21/25 08:00 03/21/25 10:32 Temperature 97.3 F L 97.7 F Pulse Rate 77 82 Respiratory Rate 18 16 Blood Pressure 133/81 151/98 H Pulse Oximetry 99 100 Oxygen Delivery Room Air Room Air Intake/Output Intake/Output: Intake & Output 03/18/25 03/19/25 03/20/25 03/21/25 23:59 23:59 23:59 23:59 Intake Total 1100 2910 1000 Output Total 600 Balance 1100 2310 1000 Meds/Results Medications: Active Medications Generic Name Dose Route Start Last Admin Trade Name Freq PRN Reason Stop Dose Admin Acetaminophen 650 mg 03/19/25 20:12 03/21/25 01:21 Acetaminophen 325 Mg Tablet PO 650 mg Q6H PRN Administration Mild Pain (1-3) or Fever Diazepam 5 mg 03/19/25 22:21 03/20/25 02:07 Diazepam (*Crx) 5 Mg Tablet PO 5 mg BID PRN Administration anxiety Fluticasone Propionate 2 spray 03/19/25 22:21 Fluticasone Propionate 0.05% Na Spr 16 Gm Btl (*Bkc) NASAL Q12H PRN allergy symptoms Folic Acid 1 mg 03/20/25 09:00 03/20/25 10:19 Folic Acid 1 Mg Tablet PO 1 mg DAILY TERRI Administration Gabapentin 100 mg 03/21/25 17:00 Gabapentin 100 Mg Capsule PO BID TERRI Home Med 1 each 03/20/25 15:35 03/20/25 16:38 Home Medication-Blisovi 24 Fe PO 04/19/25 15:34 1 each DAILY TERRI Administration Sodium Chloride 1,000 mls @ 125 mls/hr 03/19/25 17:45 03/21/25 03:51 Normal Saline Iv IV CONT 125 mls/hr .Q8H TERRI Administration Lactated Ringer's 1,000 mls @ 150 mls/hr 03/21/25 10:25 03/21/25 11:42 Lr - Lactated Ringers Iv IV CONT 150 mls/hr .Q6H40M TERRI Infusion Ondansetron HCl 4 mg 03/19/25 17:42 Ondansetron Inj 4 Mg/2 Ml Vial IV PUSH Q4H PRN Nausea Pantoprazole Sodium 40 mg 03/21/25 21:00 Pantoprazole 40 Mg Tablet PO Q12HR TERRI Simethicone 0.6 ml 03/21/25 10:25 03/21/25 10:29 Simethicone Oral Suspension 20 Mg/0.3 Ml 30 Ml Bottle PO 1.8 ml Q2H PRN Administration Gas Discomfort Thiamine HCl 100 mg 03/20/25 09:00 03/20/25 10:19 Thiamine Hcl 100 Mg Tablet PO 100 mg QAM TERRI Administration Radiology Results: ITS Impressions Chest X-Ray 03/19/25 14:37 IMPRESSION: No acute cardiopulmonary pathology Brain MRI 03/20/25 11:39 IMPRESSION: Mild generalized atrophy, otherwise unremarkable exam. Labs Labs: Laboratory Results - last 24 hr 03/21/25 06:52 WBC 6.4 RBC 3.04 L Hgb 9.9 L Hct 32.2 L MCV 105.9 H D MCH 32.6 MCHC 30.7 L RDW 14.4 Plt Count 433 H MPV 9.6 Sodium 139 Potassium 4.1 Chloride 117 H Carbon Dioxide 13 L Anion Gap 9 BUN < 2 L Creatinine 0.82 Estim Creat Clear Calc 66 Estimated GFR > 60 Glucose 87 Calcium 9.0 Iron 83 TIBC 284 % Saturation 29 Ferritin 281.00 H
[2025-03-21] MEDS: BLISOVI FE 1 EACH PO (12:25)
[2025-03-21] MEDS: THIAMINE HCL 100 MG TABLET PO (12:25)
[2025-03-21] MEDS: FOLIC ACID 1 MG TABLET PO (12:25)
[2025-03-21 12:44] LABS: HPYLORIRESULT Negative (Negative)
[2025-03-21] MEDS: GABAPENTIN 100 MG CAPSULE PO (16:47)
[2025-03-21] MEDS: PANTOPRAZOLE 40 MG TABLET PO (20:58)
[2025-03-22 04:56] VITALS: BP 133/81; PULSE 100; RESP 16; TEMP 37.1; O2SAT 99
[2025-03-22 05:51] LABS: Hematocrit 30.0 % (37.0-47.0); Hemoglobin 9.3 g/dL (12.0-15.0); Mean Corpuscular HGB Conc 31.0 g/dl (32-36); Mean Corpuscular Hemoglobin 32.5 pg (26-34); Mean Corpuscular Volume 104.9 fl (80-100); Platelet Count Result 437 k/mm3 (150-375); Red Blood Count 2.86 M/mm3 (4.2-5.4); White Blood Count 5.9 K/mm3 (4.5-10.0)
[2025-03-22 06:09] LABS: Anion Gap 6 mmol/L (4-12); Blood Urea Nitrogen 2 mg/dL (7-17); Calcium 9.2 mg/dL (8.4-10.2); Carbon Dioxide 18 mmol/L (22-30); Chloride 113 mmol/L (98-107); Estimated CRCL calculation 64 ml/min; Estimated Glomerular Filt Rate > 60; Glucose 111 mg/dL (65-110); Potassium 3.7 mmol/L (3.4-5.0); Sodium 137 mmol/L (137-145)
--- NOTE | 2025-03-22 07:22 | P.PNIM_ITS ---
Progress Note: A&P Assessment and Plan (1) GI bleed: Qualifiers: GI bleed type/associated pathology: unspecified gastrointestinal hemorrhage type Qualified Code(s): K92.2 - Gastrointestinal hemorrhage, unspecified <Adriana Guerra, PRODUCT MANAGEMENT SPECIALIST - Last Filed: 03/22/25 15:38> Code(s): K92.2 - Gastrointestinal hemorrhage, unspecified <Adriana Guerra, PRODUCT MANAGEMENT SPECIALIST - Last Filed: 03/22/25 15:38> Status: Acute <Adriana Guerra, PRODUCT MANAGEMENT SPECIALIST - Last Filed: 03/22/25 15:38> Assessment and Plan: - Hgb 9.7, previously 12.7 on 03/01/25 - hemoccult was + in the ED on 03/19 - not on anticoagulation - GI consulted, awaiting recs - trend H&H, transfuse if <7 - started on pantoprazole - monitor hemodynamic stability and telemetry 03/21 - GI recommended and complete colonoscopy & EGD - EGD Findings: large, benign Peptic Ulcer - Colonoscopy Findings: normal - Plan: follow up in GI clinic, repeat EGD in 3 months, d/c IV pantoprazole, begin oral, regular diet, consider hematology consult - Hgb 9.9, previously 8.5 on 03/19/25 - trend H&H, transfuse if <7 - Pt has macrocytic anemia (105.9), with normal iron levels, Plt ct of 433 today - hematology consult placed <Adriana Guerra, PRODUCT MANAGEMENT SPECIALIST - Last Filed: 03/22/25 15:38> - Hgb 9.7, previously 12.7 on 03/01/25 - hemoccult was + in the ED on 03/19 - not on anticoagulation - GI consulted, awaiting recs - trend H&H, transfuse if <7 - started on pantoprazole - monitor hemodynamic stability and telemetry 03/21 - GI recommended and complete colonoscopy & EGD - EGD Findings: large, benign Peptic Ulcer - Colonoscopy Findings: normal - Plan: follow up in GI clinic, repeat EGD in 3 months, d/c IV pantoprazole, begin oral, regular diet, consider hematology consult - Hgb 9.9, previously 8.5 on 03/19/25 - trend H&H, transfuse if <7 - Pt has macrocytic anemia (105.9), with normal iron levels, Plt ct of 433 today - hematology consult placed 03/22 - Hgb 9.3, continue to trend, transfuse <7 - awaiting Heme/onc consult <Aaron Conte, Student - Last Filed: 03/22/25 14:57> (2) Memory deficit: Code(s): R41.3 - Other amnesia <Adriana Guerra PRODUCT MANAGEMENT SPECIALIST - Last Filed: 03/22/25 15:38> Status: Acute <Adriana Guerra PRODUCT MANAGEMENT SPECIALIST - Last Filed: 03/22/25 15:38> Assessment and Plan: - reviewed patient's outpatient lab work on patient's cell phone, showed B12 [id number] and Folate 1.1 on 03/15. - check TSH- 1.550 - check MRI- ordered-pending this am based on MRI result-will consider neurology consult Patient has history of moderate to heavy alcohol use, has abstained for the past week. 03/21 - Brain MRI: Mild generalized atrophy, otherwise unremarkable. - struggles with recalling medical care and timeline. - Neurology consulted and following. <Adriana Gurera PRODUCT MANAGEMENT SPECIALIST - Last Filed: 03/22/25 15:38> - reviewed patient's outpatient lab work on patient's cell phone, showed B12 259 and Folate 1.1 on 03/15. - check TSH- 1.550 - check MRI- ordered-pending this am based on MRI result-will consider neurology consult Patient has history of moderate to heavy alcohol use, has abstained for the past week. 03/21 - Brain MRI: Mild generalized atrophy, otherwise unremarkable. - struggles with recalling medical care and timeline. - Neurology consulted and following. 03/22 - Neurology reassessment tomorrow - UDS ordered <Aaron Conte, Student - Last Filed: 03/22/25 14:57> (3) Neuropathy: Code(s): G62.9 - Polyneuropathy, unspecified <Adriana Guerra PRODUCT MANAGEMENT SPECIALIST - Last Filed: 03/22/25 15:38> Status: Acute <Adriana Guerra PRODUCT MANAGEMENT SPECIALIST - Last Filed: 03/22/25 15:38> Assessment and Plan: 03/21 - progressive weakness over the last month that has worsened over the last 2 weeks. Noted several falls. Has required assistance with ambulation during admission. Notes neuropathic symptoms in her extremities. Prior history of similar symptoms following the passing of a family member that resolved. Patient unaware of her treatment at the time but does recall prior gabapentin use without complications. - consult with neurology 03/20: - possible MRI of cervical, thoracic, and lumbar spine and subsequently, if necessary, EMG nerve conduction studies and spinal fluid. Rule out possibility of myelopathy v neuropathy - Ordered gabapentin <Adriana Guerra PRODUCT MANAGEMENT SPECIALIST - Last Filed: 03/22/25 15:38> 03/21 - progressive weakness over the last month that has worsened over the last 2 weeks. Noted several falls. Has required assistance with ambulation during admission. Notes neuropathic symptoms in her extremities. Prior history of similar symptoms following the passing of a family member that resolved. Patient unaware of her treatment at the time but does recall prior gabapentin use without complications. - consult with neurology 03/20: - possible MRI of cervical, thoracic, and lumbar spine and subsequently, if necessary, EMG nerve conduction studies and spinal fluid. Rule out possibility of myelopathy v neuropathy - Ordered gabapentin 03/22 - On exam today she has RT > LT LE weakness. Sensation fully intact. Lower & Upper Ext coordination normal. UE 5/5 strength bilaterally. normal CN 2-12. Babinski normal bilaterally - Lumbar MRI: Moderate degenerative spondylosis at L4-L5, with right neural foraminal narrowing and 6 mm anterolisthesis at this level - Thoracic MRI: Normal - Cervical MRI: Normal - followed by Neurology - re-evaluation tomorrow - continue gabapentin <Aaron Conte, Student - Last Filed: 03/22/25 14:57> (4) Anxiety: Code(s): F41.9 - Anxiety disorder, unspecified <Adriana Guerra PRODUCT MANAGEMENT SPECIALIST - Last Filed: 03/22/25 15:38> Status: Acute <Adriana Guerra PRODUCT MANAGEMENT SPECIALIST - Last Filed: 03/22/25 15:38> Assessment and Plan: 03/21: history of anxiety. Notes prior use of valium. Recent loss of mother. History of family member loss with episode of neuropathy symptoms that resolved. Pt unaware of treatment, if any, at that time. - ordered fluoxetine - patient aware that treatment effects will take several weeks at the earliest to notice any benefit. Discussed the need to follow up with PCP for continuation of medication and to address possible side effects. <Adriana Guerra, PRODUCT MANAGEMENT SPECIALIST - Last Filed: 03/22/25 15:38> 03/21: history of anxiety. Notes prior use of valium. Recent loss of mother. History of family member loss with episode of neuropathy symptoms that resolved. Pt unaware of treatment, if any, at that time. - ordered fluoxetine - patient aware that treatment effects will take several weeks at the earliest to notice any benefit. Discussed the need to follow up with PCP for continuation of medication and to address possible side effects. 03/22 - given more history regarding valium use. Has been taking for 15 years, originally for vertigo-like symptoms, but continued taking for anxiety. Unsure of frequency of use, but patients estimates 3-4x/week but periods where she reports not taking it for a week at a time. Discussed with her that she should reduce/limit Valium use in the future. Continue taking fluoxetine which will require follow up with PCP. <Aaron Conte, Student - Last Filed: 03/22/25 14:57> (5) Alcohol abuse: Code(s): F10.10 - Alcohol abuse, uncomplicated <Adriana Guerra PRODUCT MANAGEMENT SPECIALIST - Last Filed: 03/22/25 15:38> Status: Acute <Adriana Guerra PRODUCT MANAGEMENT SPECIALIST - Last Filed: 03/22/25 15:38> Assessment and Plan: counselling completed - need to cut down and stop alcohol <Adriana Guerra PRODUCT MANAGEMENT SPECIALIST - Last Filed: 03/22/25 15:38> counselling completed - need to cut down and stop alcohol 03/22 - repeat folate & Mg in AM of 03/23 - last drink per was 10 days ago - ETOH drawn on 03/19 was <10 <Aaron Conte, Student - Last Filed: 03/22/25 14:57> (6) Anemia: Code(s): D64.9 - Anemia, unspecified <Adriana Guerra PRODUCT MANAGEMENT SPECIALIST - Last Filed: 03/22/25 15:38> Status: Acute <Adriana Guerra PRODUCT MANAGEMENT SPECIALIST - Last Filed: 03/22/25 15:38> Assessment and Plan: macrocytic anemia, normal iron level elevated platelets- will consult hem/oncology <Adriana Guerra APRN - Last Filed: 03/22/25 15:38> Assessment and Plan: Diet: regular diet GI Prophylaxis: Pantoprzole DVT Prophylaxis: SCDs IV fluids: 1 L bolus-> 125 mL/hour Lines/Tubes: Peripheral IV Code Status: Full code <Adriana Guerra APRN - Last Filed: 03/22/25 15:38> Diet: regular diet GI Prophylaxis: Pantoprzole DVT Prophylaxis: SCDs IV fluids: 1 L bolus-> 125 mL/hour Lines/Tubes: Peripheral IV Code Status: Full code 03/22 - patient experienced burning and increase frequency. UA was unremarkable. Will treat with Pyridium and reasses prn <Aaron Conte, Student - Last Filed: 03/22/25 14:57> Time Spent With Patient Time with patient: Greater than 35 minutes <Adriana Guerra, PRODUCT MANAGEMENT SPECIALIST - Last Filed: 03/22/25 15:38> Subjective Date/time seen: 03/22/25 07:22 <Adriana Guerra, PRODUCT MANAGEMENT SPECIALIST - Last Filed: 03/22/25 15:38> Interval history: 44 y/o F with PMH of HTN presents here with generalized weakness. The patient presents here from home for further evaluation of generalized weakness. She reports she has been unable to ambulate and has had worsening falls in the last month. She initially believed this was precipitated by increasing her GLP1 dosing 1 month ago, it has since been discontinued around 3 weeks ago and was prescribed for weight loss. She reports this is accompanied by weight loss, partially intentional. 170 lbs -> 113 lbs. Estimates 10 of those lbs were unintentional and off her GLP1 over the last month. She denies accompanying at the fever, chills, chest pain, shortness of breath, nausea, vomiting, or constipation. She does report she has been experiencing some loose stools for at least the past 2 weeks and her stool has been darker than usual for the same amount of time. No previous colonoscopy. is also reporting increased confusion/worsening memory. States this started in the last month but has been much worse in the last 2 weeks. FH of lung cancer (maternal grandmother). ETOH use - 2-3 glasses of wine nightly, has not drank in 1 week. Initial VS at presentation: HR 108, RR 16, 109/81, and 100% on RA. ED workup showed: WBC 11.5, Hgb 9.7 (12.7 on 03/01/25), no significant electrolyte derangements, magnesium 1.3, ammonium negative, initial troponin negative, renal function within normal limits, UA unremarkable, ETOH negative. CXR showed no acute cardiopulmonary pathology. GI was consulted prior-awaiting recommendations. Pt is currently NPO. Reports no pain, no n/v currently. NO blood in urine/stool this am. Per nurse report, she is still very weak and had neuropathy. 03/21 - pt upright in bed. Still weak, but notes neuropathy symptoms are slightly better this afternoon. Pt states she has had a prior history of similar weakness & neuropathy following the passing of a family member. She has recently loss her mother. Has difficulty recalling prior symptoms and treatment of her medical care but thinks that gabapentin helped. Colonoscopy & EGD completed today. Reports no pain, N/V. She admits to anxiety, worse lately and has Valium available if needed. never was on any depression/anxiety meds. <Adriana HuynhXavier Guerra, PRODUCT MANAGEMENT SPECIALIST - Last Filed: 03/22/25 15:38> 44 y/o F with PMH of HTN presents here with generalized weakness. The patient presents here from home for further evaluation of generalized weakness. She reports she has been unable to ambulate and has had worsening falls in the last month. She initially believed this was precipitated by increasing her GLP1 dosing 1 month ago, it has since been discontinued around 3 weeks ago and was prescribed for weight loss. She reports this is accompanied by weight loss, partially intentional. 170 lbs -> 113 lbs. Estimates 10 of those lbs were unintentional and off her GLP1 over the last month. She denies ac companying at the fever, chills, chest pain, shortness of breath, nausea, vomiting, or constipation. She does report she has been experiencing some loose stools for at least the past 2 weeks and her stool has been darker than usual for the same amount of time. No previous colonoscopy. is also reporting increased confusion/worsening memory. States this started in the last month but has been much worse in the last 2 weeks. FH of lung cancer (maternal grandmother). ETOH use - 2-3 glasses of wine nightly, has not drank in 1 week. Initial VS at presentation: HR 108, RR 16, 109/81, and 100% on RA. ED workup showed: WBC 11.5, Hgb 9.7 (12.7 on 03/01/25), no significant electrolyte derangements, magnesium 1.3, ammonium negative, initial troponin negative, renal function within normal limits, UA unremarkable, ETOH negative. CXR showed no acute cardiopulmonary pathology. GI was consulted prior-awaiting recommendations. Pt is currently NPO. Reports no pain, no n/v currently. NO blood in urine/stool this am. Per nurse report, she is still very weak and had neuropathy. 03/21 - pt upright in bed. Still weak, but notes neuropathy symptoms are slightly better this afternoon. Pt states she has had a prior history of similar weakness & neuropathy following the passing of a family member. She has recently loss her mother. Has difficulty recalling prior symptoms and treatment of her medical care but thinks that gabapentin helped. Colonoscopy & EGD completed today. Reports no pain, N/V. She admits to anxiety, worse lately and has Valium available if needed. never was on any depression/anxiety meds. 03/22 - upright in bed on exam. neuropathy symptoms still present, but improved through out day yesterday. Denies chest pain, SOB, abdominal pain, N/V. Notes burning with urination & increase frequency. No complaints with bowel movements. Increasing frequency of assisted ambulation with staff. Feels this helps her strength & neuropathic symptoms. present for evaluation. he feels her memory has worsened since admission and she is not cognitively at baseline. <Aaron Conte, Student - Last Filed: 03/22/25 14:57> Review of Systems Review of Systems: All systems reviewed & are unremarkable except as noted in HPI and below <Adriana Guerra APRN - Last Filed: 03/22/25 15:38> Exam Const: General: comfortable and no acute distress <Adriana Guerra APRN - Last Filed: 03/22/25 15:38> Other: , female, nontoxic appearance <Adriana Guerra APRN - Last Filed: 03/22/25 15:38> HENMT: Face/Nose/Sinus: Normal nares present <Adriana Guerra PRODUCT MANAGEMENT SPECIALIST - Last Filed: 03/22/25 15:38> Mouth: Yes dry mucous membranes <Adriana Guerra APRN - Last Filed: 03/22/25 15:38> Eyes: General: appearance normal, both eyes and all related structures <Adriana Guerra APRN - Last Filed: 03/22/25 15:38> Sclera: sclerae normal <Adriana Guerra APRN - Last Filed: 03/22/25 15:38> Pupils: Equal, round and reactive pupils present <Adriana Guerra PRODUCT MANAGEMENT SPECIALIST - Last Filed: 03/22/25 15:38> EOM: EOMs intact bilaterally <Adrianabob Carolina Charlie PRODUCT MANAGEMENT SPECIALIST - Last Filed: 03/22/25 15:38> Resp: Effort & Inspection: normal respiratory effort <Adrianakarla Guerra PRODUCT MANAGEMENT SPECIALIST - Last Filed: 03/22/25 15:38> Auscultation: clear to auscultation bilaterally <Adrianabob Carolina Charlie PRODUCT MANAGEMENT SPECIALIST - Last Filed: 03/22/25 15:38> Cardio: Rate: regular rate <Adrianabob Carolina Charlie PRODUCT MANAGEMENT SPECIALIST - Last Filed: 03/22/25 15:38> Rhythm: regular rhythm <Adrianabob Carolina Charlie PRODUCT MANAGEMENT SPECIALIST - Last Filed: 03/22/25 15:38> Other: S1-S2 present without murmur, rub, ectopy <Adrianabob Carolina Charlie PRODUCT MANAGEMENT SPECIALIST - Last Filed: 03/22/25 15:38> GI: Other: Abdomen soft, nondistended, nontender. Normoactive bowel sounds in all quadrants. <Adriana HuynhXavier Charlie PRODUCT MANAGEMENT SPECIALIST - Last Filed: 03/22/25 15:38> Skin: General skin exam: no rashes or lesions noted <Adriana Carolina Charlie PRODUCT MANAGEMENT SPECIALIST - Last Filed: 03/22/25 15:38> Wounds: no wounds <Adrianabob Carolina Charlie PRODUCT MANAGEMENT SPECIALIST - Last Filed: 03/22/25 15:38> Other: Mild pallor <Adriana Carolina Charlie PRODUCT MANAGEMENT SPECIALIST - Last Filed: 03/22/25 15:38> Neuro: Cranial nerves: Yes Equal, round and reactive pupils present <Adriana Carolina Charlie PRODUCT MANAGEMENT SPECIALIST - Last Filed: 03/22/25 15:38> Speech: normal speech <Adriana Guerra APRN - Last Filed: 03/22/25 15:38> Motor exam (neuro): 5/5 motor strength present throughout <Adriana Carolina Charlie PRODUCT MANAGEMENT SPECIALIST - Last Filed: 03/22/25 15:38> Sensory Exam: normal sensation <Adriana Guerra APRN - Last Filed: 03/22/25 15:38> Other: A&O x4, forgetfulness noted <Adriana Guerra PRODUCT MANAGEMENT SPECIALIST - Last Filed: 03/22/25 15:38> Other: A&O x4, forgetfulness noted. Sensation intact. RT > LT LE weakness. UE 5/5 strength bilaterally. Lower & Upper Ext coordination normal. normal CN 2-12. Babinski normal bilaterally <Aaron Conte, Student - Last Filed: 03/22/25 14:57> Extrem: General: normal exam except as noted (Scant edema to dorsum of bilateral feet) <Adriana Guerra PRODUCT MANAGEMENT SPECIALIST - Last Filed: 03/22/25 15:38> Psych: Mental Status: mental status grossly normal <Adriana Guerra PRODUCT MANAGEMENT SPECIALIST - Last Filed: 03/22/25 15:38> Affect: normal affect and Anxious affect present <Adriana Guerra PRODUCT MANAGEMENT SPECIALIST - Last Filed: 03/22/25 15:38> Other: Fair insight and judgment, pleasant <Adriana Guerra PRODUCT MANAGEMENT SPECIALIST - Last Filed: 03/22/25 15:38> Objective Data Vital Signs Vital Signs: Vital Signs - 24 hr 03/21/25 08:00 03/21/25 10:32 03/21/25 11:44 Temperature 97.7 F Pulse Rate 82 90 Respiratory Rate 16 26 H Blood Pressure 151/98 H 130/83 Pulse Oximetry 100 100 Oxygen Delivery Room Air Room Air Nasal Cannula Oxygen Flow Rate 4 03/21/25 11:54 03/21/25 12:04 03/21/25 13:13 Temperature Pulse Rate 87 76 Respiratory Rate 22 H 17 Blood Pressure 144/89 H 131/63 Pulse Oximetry 100 100 Oxygen Delivery Nasal Cannula Room Air Room Air Oxygen Flow Rate 4 03/21/25 20:23 03/21/25 20:29 03/22/25 04:56 Temperature 97.8 F 98.7 F Pulse Rate 87 100 Respiratory Rate 16 16 Blood Pressure 145/90 H 133/81 Pulse Oximetry 100 100 99 Oxygen Delivery Room Air Oxygen Flow Rate <Adriana Guerra PRODUCT MANAGEMENT SPECIALIST - Last Filed: 03/22/25 15:38> Intake/Output Intake/Output: Intake & Output 03/19/25 03/20/25 03/21/25 03/22/25 23:59 23:59 23:59 23:59 Intake Total 1100 2910 2660 500 Output Total 600 Balance 1100 2310 2660 500 <Adriana Guerra, PRODUCT MANAGEMENT SPECIALIST - Last Filed: 03/22/25 15:38> Meds/Results Medications: Active Medications Generic Name Dose Route Start Last Admin Trade Name Freq PRN Reason Stop Dose Admin Acetaminophen 650 mg 03/19/25 20:12 03/21/25 16:46 Acetaminophen 325 Mg Tablet PO 650 mg Q6H PRN Administration Mild Pain (1-3) or Fever Diazepam 5 mg 03/19/25 22:21 03/20/25 02:07 Diazepam (*Crx) 5 Mg Tablet PO 5 mg BID PRN Administration anxiety Fluoxetine HCl 20 mg 03/22/25 09:00 Fluoxetine Hcl 20 Mg Capsule PO DAILY TERRI Fluticasone Propionate 2 spray 03/19/25 22:21 Fluticasone Propionate 0.05% Na Spr 16 Gm Btl (*Bkc) NASAL Q12H PRN allergy symptoms Folic Acid 1 mg 03/20/25 09:00 03/21/25 12:25 Folic Acid 1 Mg Tablet PO 1 mg DAILY TERRI Administration Gabapentin 100 mg 03/21/25 17:00 03/21/25 16:47 Gabapentin 100 Mg Capsule PO 100 mg BID TERRI Administration Home Med 1 each 03/20/25 15:35 03/21/25 12:25 Home Medication-[place] 24 Fe PO 04/19/25 15:34 1 each DAILY ETRRI Administration Lactated Ringer's 1,000 mls @ 150 mls/hr 03/21/25 10:25 03/21/25 20:57 Lr - Lactated Ringers Iv IV CONT Not Given .[id number] TERRI Ondansetron HCl 4 mg 03/19/25 17:42 Ondansetron Inj 4 Mg/2 Ml Vial IV PUSH Q4H PRN Nausea Pantoprazole Sodium 40 mg 03/21/25 21:00 03/21/25 20:58 Pantoprazole 40 Mg Tablet PO 40 mg Q12HR TERRI Administration Simethicone 0.6 ml 03/21/25 10:25 03/21/25 10:29 Simethicone Oral Suspension 20 Mg/0.3 Ml 30 Ml Bottle PO 1.8 ml Q2H PRN Administration Gas Discomfort Thiamine HCl 100 mg 03/20/25 09:00 03/21/25 12:25 Thiamine Hcl 100 Mg Tablet PO 100 mg QAM TERRI Administration <Adriana Guerra APRN - Last Filed: 03/22/25 15:38> Radiology Results: ITS Impressions Chest X-Ray 03/19/25 14:37 IMPRESSION: No acute cardiopulmonary pathology Brain MRI 03/20/25 11:39 IMPRESSION: Mild generalized atrophy, otherwise unremarkable exam. <Adriana Guerra APRN - Last Filed: 03/22/25 15:38> Labs Labs: Laboratory Results - last 24 hr 03/21/25 03/21/25 03/22/25 06:52 12:39 05:42 WBC 6.4 5.9 RBC 3.04 L 2.86 L Hgb 9.9 L 9.3 L Hct 32.2 L 30.0 L MCV 105.9 H D 104.9 H MCH 32.6 32.5 MCHC 30.7 L 31.0 L RDW 14.4 14.5 Plt Count 433 H 437 H MPV 9.6 9.1 Sodium 139 137 Potassium 4.1 3.7 Chloride 117 H 113 H Carbon Dioxide 13 L 18 L Anion Gap 9 6 BUN < 2 L 2 L Creatinine 0.82 0.85 Estim Creat Clear Calc 66 64 Estimated GFR > 60 > 60 Glucose 87 111 H Calcium 9.0 9.2 Iron 83 TIBC 284 % Saturation 29 Ferritin 281.00 H POC H. pylori Urease Negative <Adriana Guerra APRN - Last Filed: 03/22/25 15:38> Quality VTE Prophylaxis VTE prophylaxis: mechanical ordered <Adriana Guerra APRN - Last Filed: 03/22/25 15:38>
[2025-03-22] MEDS: FOLIC ACID 1 MG TABLET PO (09:26)
[2025-03-22] MEDS: PANTOPRAZOLE 40 MG TABLET PO ×2 (09:26→20:36)
[2025-03-22] MEDS: GABAPENTIN 100 MG CAPSULE PO ×2 (09:26→17:12)
[2025-03-22] MEDS: THIAMINE HCL 100 MG TABLET PO (09:26)
[2025-03-22] MEDS: BLISOVI FE 1 EACH PO (09:28)
[2025-03-22 11:52] LABS: Add Urine Microscopic? NO; Appearance Urine Clear (Clear); Glucose Urine UA Negative (Negative); Leukocyte Esterase Ur Negative LEU/UL (Negative); Nitrate Urine Negative (Negative); Specific Grav Ur 1.006 (1.001-1.035)
--- NOTE | 2025-03-22 12:40 | P.PNAN_ITS ---
Anes - Prog Note Post-Op Date/Time: 03/22/25 12:40 Cardiovascular status: normal Respiratory status: normal Airway patency: baseline Mental status: baseline Post-Op hydration status: normal Vital Signs: Last Vital Signs Temp 37.1 C 03/22/25 04:56 Pulse 100 03/22/25 04:56 Resp 16 03/22/25 04:56 BP 133/81 03/22/25 04:56 Pulse Ox 99 03/22/25 04:56 O2 Del Method Room Air 03/22/25 08:00 O2 Flow Rate 4 03/21/25 11:54 Pain Score (VAS): 1 I/O: Intake & Output 03/21/25 03/22/25 03/22/25 23:59 07:59 15:59 Intake Total 1340 500 240 Balance 1340 500 240 Laboratory Tests 03/22/25 05:42 03/22/25 05:42 03/21/25 03/22/25 03/22/25 12:39 05:42 11:33 WBC 5.9 RBC 2.86 L Hgb 9.3 L Hct 30.0 L MCV 104.9 H MCH 32.5 MCHC 31.0 L RDW 14.5 Plt Count 437 H MPV 9.1 Sodium 137 Potassium 3.7 Chloride 113 H Carbon Dioxide 18 L Anion Gap 6 BUN 2 L Creatinine 0.85 Estim Creat Clear Calc 64 Estimated GFR > 60 Glucose 111 H Calcium 9.2 Urine Color Yellow Urine Appearance Clear Urine pH 5.5 Ur Specific [place] 1.006 Urine Protein Negative Urine Glucose (UA) Negative Urine Ketones Negative Ur Blood (Man) Negative Urine Nitrate Negative Urine Bilirubin Negative Urine Urobilinogen 0.2 Leukocyte Esterase Rfl Negative POC H. pylori Urease Negative Post-procedural complaints: none Patient Feedback: Patient satisfied with anesthetic care.
[2025-03-22 14:00] VITALS: BP 132/91; PULSE 96; RESP 14; O2SAT 100
[2025-03-22 15:21] LABS: Cannabinoid Screen Urine Negative (Negative)
--- NOTE | 2025-03-22 15:25 | WPDONCCN ---
Assessment and Plan Assessment and plan (1) Anemia: Code(s): D64.9 - Anemia, unspecified Status: Acute Assessment and Plan: Macrocytic anemia. Patient is the 44-year-old female came into the hospital with generalized weakness. Labs showed hemoglobin of 9.7. She denies any melena hematochezia but has been having menstrual bleeding that last for about 5 days but not heavy according to patient description. EGD and colonoscopy was performed and showed chronic gastric ulcer without any bleeding. Colonoscopy came back normal. Labs showed normal iron studies but elevated ferritin. B12 level was also normal. Etiology for anemia is not found. No evidence of hemolytic anemia as well. I will order the workup that would include soluble transferrin receptor and methylmalonic acid level. Tone for bone marrow biopsy testing. I instructed her to take oral iron 65 mg once a day with vitamin-C and follow up with me in the office in next couple of weeks. I provided her my office information for follow-up. HPI Data of Consult Date/Time: 03/22/25 15:25 Requesting Physician: Sunday Sage MD Primary Care Provider: Satya Fournier MD Consult Narrative Narrative: Elvia Muir is a 44 year old female with history of hypertension, hyperglycemia and anxiety came into the hospital with generalized weakness along with tiredness and fatigue. She denies any bleeding including melena hematochezia. Her menstrual bleeding lasts for about 5 days and is not heavy. She denies any previous stomach surgery like gastric bypass. She denies being a vegetarian. She drinks alcohol on a daily basis. Labs showed hemoglobin of 9.7 out dropped to 9.3. Iron studies were normal other than elevated ferritin level. B12 level was 314. Creatinine was normal. EGD was performed on March 21 showed chronic gastric ulcer without bleeding. Colonoscopy came back normal. She took iron for 1 week duration as an outpatient then discontinued. Denies any other new complaints. Review of Systems Review of Systems: Twelve point review of system was reviewed [facility] Past Medical History Medical History (Updated 03/21/25 @ 13:16 by Aaron Conte, Student) Anxiety Weight loss Low folic acid Acute anemia Mass of finger of right hand Ganglion cyst of dorsum of right wrist Thoracic outlet syndrome Abnormal deposits of lipid Hyperglycemia HTN (hypertension) off medications as of 03/19/25 Surgical History Surgical History History of tonsillectomy Status post lumbar surgery Family History Family History Other Family history of lung cancer Social History Social History Smoking packs per day: 0.5 Smoking cigarettes per day: 10.0 Years smoked: 10 Smoking pack-years: 5.00 Smoking status: Former smoker Tobacco type: cigarettes Smoking end date: 09/05/07 Alcohol intake: current Drinks per week: 18 Alcohol use details: WINE Substance use: never Substance use type: does not use Do You Feel Safe in your Home?: Yes Lack of Transportation: No Lack of Food: Never True Current Housing: I Have Housing Concerned About Future Housing: No Difficulty Paying Gas/Electric Bills: No Difficulty Paying for Meds: No Currently Unemployed: No Education: Decline to Answer Difficulty w/ Childcare or Family Care: No Living arrangements: with family Spiritual care concerns: No Meds Home Medications and Allergies Home Medications ?Medication ?Instructions ?Recorded ?Confirmed ?Type norethindrone 1 mg-ethinyl 1 tablet PO DAILY 10/26/19 03/19/25 History estradiol 20 mcg (24)-iron 75 mg (4) tablet (Blisovi 24 Fe) diazepam 5 mg tablet 5 mg PO BID PRN anxiety #30 tabs 09/13/24 03/19/25 Rx ondansetron HCl 4 mg tablet 4 mg PO Q6H PRN nausea and 02/04/25 03/19/25 Rx vomiting #30 tabs fluticasone propionate 50 See Rx Instructions .Route 03/19/25 03/19/25 History mcg/actuation nasal .COMPLEX PRN allergy symptoms spray,suspension hydrochlorothiazide 12.5 mg capsule See Rx Instructions .Route 03/19/25 03/19/25 History .COMPLEX PRN edema naproxen 500 mg tablet See Rx Instructions .Route 03/19/25 03/19/25 History .COMPLEX PRN pain Allergies Allergy/AdvReac Type Severity Reaction Status Date / Time Estrogens AdvReac Mild Migraine Verified 03/21/25 10:30 Vital Signs Vital Signs - 24 hr 03/21/25 20:23 03/21/25 20:29 03/22/25 04:56 Temperature 36.6 C 37.1 C Pulse Rate 87 100 Respiratory Rate 16 16 Blood Pressure 145/90 H 133/81 Pulse Oximetry 100 100 99 Oxygen Delivery Room Air 03/22/25 08:00 03/22/25 14:00 Temperature Pulse Rate 96 Respiratory Rate 14 Blood Pressure 132/91 H Pulse Oximetry 100 Oxygen Delivery Room Air Exam Narrative: Lungs are clear to auscultation bilaterally Cardiovascular regular rate rhythm no murmurs Abdomen soft nontender nondistended bowel sounds are positive Extremities no edema Results Labs 03/22/25 05:42 03/22/25 05:42 Labs: Short CBC 03/22/25 Range/Units 05:42 WBC 5.9 (4.5-10.0) K/mm3 Hgb 9.3 L (12.0-15.0) g/dL Hct 30.0 L (37.0-47.0) % Plt Count 437 H (150-375) k/mm3 BMP 03/22/25 05:42 Sodium 137 Potassium 3.7 Chloride 113 H Carbon Dioxide 18 L BUN 2 L Creatinine 0.85 Glucose 111 H Calcium 9.2 Urine 03/22/25 Range/Units 11:33 Urine Color Yellow (Yellow) Urine Appearance Clear (Clear) Urine pH 5.5 (5.0-9.0) Ur Specific [place] 1.006 (1.001-1.035) Urine Protein Negative (Negative) mg/dL Urine Glucose (UA) Negative (Negative) mg/dL
--- NOTE | 2025-03-22 17:06 | WPDGIPROGNO ---
Progress Note: A&P Assessment and Plan (1) Gastric ulcer due to nonsteroidal anti-inflammatory drug (NSAID): Code(s): K25.9 - Gastric ulcer, unspecified as acute or chronic, without hemorrhage or perforation; T39.395A - Adverse effect of other nonsteroidal anti-inflammatory drugs [NSAID], initial encounter Status: Acute Assessment and Plan: probably from alcohol use and nsaid's continue ppi bid this could have caused some anemia tolerating diet she can follow-up in office in few weeks will follow only as needed (2) Occult blood positive stool: Code(s): R19.5 - Other fecal abnormalities Status: Acute Assessment and Plan: from egd findings colonoscopy completed (3) Weight loss: Code(s): R63.4 - Abnormal weight loss Status: Acute (4) Alcohol abuse: Code(s): F10.10 - Alcohol abuse, uncomplicated Status: Acute Assessment and Plan: thiamine wonder if this is causing low folic and also neuropathy she needs to stop drinking, family at bedside willing to support (5) Acute anemia: Code(s): D64.9 - Anemia, unspecified Status: Acute (6) Low folic acid: Code(s): E53.8 - Deficiency of other specified B group vitamins Status: Acute Assessment and Plan: replacing hematology on board (7) Neuropathy: Code(s): G62.9 - Polyneuropathy, unspecified Status: Acute Subjective Date/time seen: 03/22/25 17:06 Interval history: egd yesterday with non bleeding gastric ulcer, colonoscopy without bleeding still with b/l leg weakness she is doing ok Review of Systems Review of Systems: All systems reviewed & are unremarkable except as noted in HPI and below Exam Const: General: comfortable and no acute distress HENMT: Face/Nose/Sinus: Normal nares present Eyes: General: appearance normal, both eyes and all related structures Neck: Neck: supple Resp: Auscultation: clear to auscultation bilaterally Cardio: Rate: regular rate Rhythm: regular rhythm GI: Inspection: non-distended GI Palp: Yes Soft to palpation and No Tenderness to palpation present (GI) Auscultation: normal bowel sounds Skin: General skin exam: normal color Neuro: Speech: normal speech Other: decreased sensation legs Extrem: General: normal to inspection Psych: Mental Status: mental status grossly normal Objective Data Vital Signs Vital Signs: Vital Signs - 24 hr 03/21/25 20:23 03/21/25 20:29 03/22/25 04:56 Temperature 97.8 F 98.7 F Pulse Rate 87 100 Respiratory Rate 16 16 Blood Pressure 145/90 H 133/81 Pulse Oximetry 100 100 99 Oxygen Delivery Room Air 03/22/25 08:00 03/22/25 14:00 Temperature Pulse Rate 96 Respiratory Rate 14 Blood Pressure 132/91 H Pulse Oximetry 100 Oxygen Delivery Room Air Intake/Output Intake/Output: Intake & Output 03/19/25 03/20/25 03/21/25 03/22/25 23:59 23:59 23:59 23:59 Intake Total 1100 2910 2660 980 Output Total 600 Balance 1100 2310 2660 980 Meds/Results Medications: Active Medications Generic Name Dose Route Start Last Admin Trade Name Freq PRN Reason Stop Dose Admin Acetaminophen 650 mg 03/19/25 20:12 03/21/25 16:46 Acetaminophen 325 Mg Tablet PO 650 mg Q6H PRN Administration Mild Pain (1-3) or Fever Diazepam 5 mg 03/19/25 22:21 03/20/25 02:07 Diazepam (*Crx) 5 Mg Tablet PO 5 mg BID PRN Administration anxiety Fluoxetine HCl 20 mg 03/22/25 09:00 03/22/25 09:26 Fluoxetine Hcl 20 Mg Capsule PO 20 mg DAILY TERRI Administration Fluticasone Propionate 2 spray 03/19/25 22:21 Fluticasone Propionate 0.05% Na Spr 16 Gm Btl (*Bkc) NASAL Q12H PRN allergy symptoms Folic Acid 1 mg 03/20/25 09:00 03/22/25 09:26 Folic Acid 1 Mg Tablet PO 1 mg DAILY TERRI Administration Gabapentin 100 mg 03/21/25 17:00 03/22/25 09:26 Gabapentin 100 Mg Capsule PO 100 mg BID TERRI Administration Home Med 1 each 03/20/25 15:35 03/22/25 09:28 Home Medication-Blisovi 24 Fe PO 04/19/25 15:34 1 each DAILY TERRI Administration Ondansetron HCl 4 mg 03/19/25 17:42 Ondansetron Inj 4 Mg/2 Ml Vial IV PUSH Q4H PRN Nausea Pantoprazole Sodium 40 mg 03/21/25 21:00 03/22/25 09:26 Pantoprazole 40 Mg Tablet PO 40 mg Q12HR TERRI Administration Phenazopyridine HCl 200 mg 03/22/25 17:00 Phenazopyridine Hcl 100 Mg Tablet PO 03/24/25 16:59 TIDWM TERRI Simethicone 0.6 ml 03/21/25 10:25 03/21/25 10:29 Simethicone Oral Suspension 20 Mg/0.3 Ml 30 Ml Bottle PO 1.8 ml Q2H PRN Administration Gas Discomfort Thiamine HCl 100 mg 03/20/25 09:00 03/22/25 09:26 Thiamine Hcl 100 Mg Tablet PO 100 mg QAM TERRI Administration Radiology Results: ITS Impressions Chest X-Ray 03/19/25 14:37 IMPRESSION: No acute cardiopulmonary pathology Brain MRI 03/20/25 11:39 IMPRESSION: Mild generalized atrophy, otherwise unremarkable exam. Cervical Spine MRI 03/22/25 13:11 Impression: Normal exam. Thoracic Spine MRI 03/22/25 13:14 IMPRESSION: Normal exam. Lumbar Spine MRI 03/22/25 13:15 Impression: Moderate degenerative spondylosis at L4-L5, with right neural foraminal narrowing and 6 mm anterolisthesis at this level. Labs Labs: Laboratory Results - last 24 hr 03/22/25 03/22/25 05:42 11:33 WBC 5.9 RBC 2.86 L Hgb 9.3 L Hct 30.0 L MCV 104.9 H MCH 32.5 MCHC 31.0 L RDW 14.5 Plt Count 437 H MPV 9.1 Sodium 137 Potassium 3.7 Chloride 113 H Carbon Dioxide 18 L Anion Gap 6 BUN 2 L Creatinine 0.85 Estim Creat Clear Calc 64 Estimated GFR > 60 Glucose 111 H Calcium 9.2 Urine Color Yellow Urine Appearance Clear Urine pH 5.5 Ur Specific [place] 1.006 Urine Protein Negative Urine Glucose (UA) Negative Urine Ketones Negative Ur Blood (Man) Negative Urine Nitrate Negative Urine Bilirubin Negative Urine Urobilinogen 0.2 Leukocyte Esterase Rfl Negative Urine Opiates Screen Negative Urine Methadone Screen Negative Ur Barbiturates Screen Negative Ur Phencyclidine Scrn Negative Ur Amphetamine Screen Negative U Benzodiazepines Scrn Positive A Urine Cocaine Screen Negative U Cannabinoids Screen Negative
[2025-03-22] MEDS: PHENAZOPYRIDINE HCL 100 MG TABLET 200 MG PO (17:12)
[2025-03-22] MEDS: ACETAMINOPHEN 325 MG TABLET 650 MG PO (18:18)
[2025-03-22] MEDS: diazePAM (*CRX) 5 MG TABLET PO (20:39)
[2025-03-22 20:58] VITALS: BP 128/90; PULSE 90; RESP 18; TEMP 36.4; O2SAT 99
[2025-03-23 03:54] VITALS: BP 110/80; PULSE 102; RESP 16; TEMP 36.5; O2SAT 98
[2025-03-23] MEDS: ACETAMINOPHEN 325 MG TABLET 650 MG PO ×3 (04:07→17:28)
[2025-03-23 05:05] LABS: Hematocrit 29.5 % (37.0-47.0); Hemoglobin 9.3 g/dL (12.0-15.0); Mean Corpuscular HGB Conc 31.5 g/dl (32-36); Mean Corpuscular Hemoglobin 32.6 pg (26-34); Mean Corpuscular Volume 103.5 fl (80-100); Platelet Count Result 487 k/mm3 (150-375); Red Blood Count 2.85 M/mm3 (4.2-5.4); White Blood Count 5.7 K/mm3 (4.5-10.0)
[2025-03-23 05:27] LABS: Anion Gap 8 mmol/L (4-12); Blood Urea Nitrogen 3 mg/dL (7-17); Calcium 9.1 mg/dL (8.4-10.2); Carbon Dioxide 19 mmol/L (22-30); Chloride 110 mmol/L (98-107); Estimated CRCL calculation 57 ml/min; Estimated Glomerular Filt Rate > 60; Glucose 93 mg/dL (65-110); Magnesium 1.8 mg/dL (1.6-2.3); Potassium 3.6 mmol/L (3.4-5.0); Sodium 137 mmol/L (137-145)
--- NOTE | 2025-03-23 07:14 | P.DS_ITS ---
DS: Discharge Diagnosis Discharge Diagnosis (1) GI bleed: Qualifiers: GI bleed type/associated pathology: unspecified gastrointestinal hemorrhage type Qualified Code(s): K92.2 - Gastrointestinal hemorrhage, unspecified Code(s): K92.2 - Gastrointestinal hemorrhage, unspecified Status: Acute Assessment and Plan: - Hgb 9.7, previously 12.7 on 03/01/25 - hemoccult was + in the ED on 03/19 - not on anticoagulation - GI consulted, awaiting recs - trend H&H, transfuse if <7 - started on pantoprazole - monitor hemodynamic stability and telemetry 03/21 - GI recommended and complete colonoscopy & EGD - EGD Findings: large, benign Peptic Ulcer - Colonoscopy Findings: normal - Plan: follow up in GI clinic, repeat EGD in 3 months, d/c IV pantoprazole, begin oral, regular diet, consider hematology consult - Hgb 9.9, previously 8.5 on 03/19/25 - trend H&H, transfuse if <7 - Pt has macrocytic anemia (105.9), with normal iron levels, Plt ct of 433 today - hematology consult placed 03/22 - Hgb 9.3, continue to trend, transfuse <7 - awaiting Heme/onc consult (2) Memory deficit: Code(s): R41.3 - Other amnesia Status: Acute Assessment and Plan: - reviewed patient's outpatient lab work on patient's cell phone, showed B12 259 and Folate 1.1 on 03/15. - check TSH- 1.550 - check MRI- ordered-pending this am based on MRI result-will consider neurology consult Patient has history of moderate to heavy alcohol use, has abstained for the past week. 03/21 - Brain MRI: Mild generalized atrophy, otherwise unremarkable. - struggles with recalling medical care and timeline. - Neurology consulted and following. 03/22 - Neurology reassessment tomorrow - UDS ordered (3) Neuropathy: Code(s): G62.9 - Polyneuropathy, unspecified Status: Acute Assessment and Plan: 03/21 - progressive weakness over the last month that has worsened over the last 2 weeks. Noted several falls. Has required assistance with ambulation during admission. Notes neuropathic symptoms in her extremities. Prior history of similar symptoms following the passing of a family member that resolved. Patient unaware of her treatment at the time but does recall prior gabapentin use without complications. - consult with neurology 03/20: - possible MRI of cervical, thoracic, and lumbar spine and subsequently, if necessary, EMG nerve conduction studies and spinal fluid. Rule out possibility of myelopathy v neuropathy - Ordered gabapentin 03/22 - On exam today she has RT > LT LE weakness. Sensation fully intact. Lower & Upper Ext coordination normal. UE 5/5 strength bilaterally. normal CN 2-12. Babinski normal bilaterally - Lumbar MRI: Moderate degenerative spondylosis at L4-L5, with right neural foraminal narrowing and 6 mm anterolisthesis at this level - Thoracic MRI: Normal - Cervical MRI: Normal - followed by Neurology - re-evaluation tomorrow - continue gabapentin (4) Anxiety: Code(s): F41.9 - Anxiety disorder, unspecified Status: Acute Assessment and Plan: 03/21: history of anxiety. Notes prior use of valium. Recent loss of mother. History of family member loss with episode of neuropathy symptoms that resolved. Pt unaware of treatment, if any, at that time. - ordered fluoxetine - patient aware that treatment effects will take several weeks at the earliest to notice any benefit. Discussed the need to follow up with PCP for continuation of medication and to address possible side effects. 03/22 - given more history regarding valium use. Has been taking for 15 years, originally for vertigo-like symptoms, but continued taking for anxiety. Unsure of frequency of use, but patients estimates 3-4x/week but periods where she reports not taking it for a week at a time. Discussed with her that she should reduce/limit Valium use in the future. Continue taking fluoxetine which will req uire follow up with PCP. (5) Alcohol abuse: Code(s): F10.10 - Alcohol abuse, uncomplicated Status: Acute Assessment and Plan: counselling completed - need to cut down and stop alcohol 03/22 - repeat folate & Mg in AM of 03/23 - last drink per was 10 days ago - ETOH drawn on 03/19 was <10 (6) Anemia: Code(s): D64.9 - Anemia, unspecified Status: Acute Assessment and Plan: macrocytic anemia, normal iron level elevated platelets- will consult hem/oncology Plan Diet: regular diet GI Prophylaxis: Pantoprzole DVT Prophylaxis: SCDs IV fluids: 1 L bolus-> 125 mL/hour Lines/Tubes: Peripheral IV Code Status: Full code 03/22 - patient experienced burning and increase frequency. UA was unremarkable. Will treat with Pyridium and reasses prn DS: Summary Time Spent with Patient Time attestation: Total time spent providing and/or coordinating discharge services: Exam Const: General: comfortable and no acute distress Other: , female, nontoxic appearance HENMT: Face/Nose/Sinus: Normal nares present Mouth: Yes dry mucous membranes Eyes: General: appearance normal, both eyes and all related structures Sclera: sclerae normal Pupils: Equal, round and reactive pupils present EOM: EOMs intact bilaterally Resp: Effort & Inspection: normal respiratory effort Auscultation: clear to auscultation bilaterally Cardio: Rate: regular rate Rhythm: regular rhythm Other: S1-S2 present without murmur, rub, ectopy GI: Other: Abdomen soft, nondistended, nontender. Normoactive bowel sounds in all quadrants. Skin: General skin exam: no rashes or lesions noted Wounds: no wounds Other: Mild pallor Neuro: Cranial nerves: Yes Equal, round and reactive pupils present Speech: normal speech Motor exam (neuro): 5/5 motor strength present throughout Sensory Exam: normal sensation Other: A&O x4, forgetfulness noted Extrem: General: normal exam except as noted (Scant edema to dorsum of bilateral feet) Psych: Mental Status: mental status grossly normal Affect: normal affect and Anxious affect present Other: Fair insight and judgment, pleasant DS: Data Data Completed and Pending Pending studies at discharge: Pending at discharge 03/21/25 11:30 Surgical [PTH] Routine Labs on day of discharge: Labs from last 24 hours 03/23/25 03/23/25 03/22/25 04:45 04:45 16:52 WBC 5.7 RBC 2.85 L Hgb 9.3 L Hct 29.5 L Pending MCV 103.5 H MCH 32.6 MCHC 31.5 L RDW 14.9 H Plt Count 487 H MPV 9.3 Sodium 137 Potassium 3.6 Chloride 110 H Carbon Dioxide 19 L Anion Gap 8 BUN 3 L Creatinine 0.96 Estim Creat Clear Calc 57 Estimated GFR > 60 Glucose 93 Calcium 9.1 Magnesium 1.8 [place] Transferrin Receptr Pending Methylmalonic Acid Pending RBC Folate Hemolysate Pending RBC Folate Pending Urine Color Urine Appearance Urine pH Ur Specific [place] Urine Protein Urine Glucose (UA) Urine Ketones Ur Blood (Man) Urine Nitrate Urine Bilirubin Urine Urobilinogen Leukocyte Esterase Rfl Urine Opiates Screen Urine Methadone Screen Ur Barbiturates Screen Ur Phencyclidine Scrn Ur Amphetamine Screen U Benzodiazepines Scrn Urine Cocaine Screen U Cannabinoids Screen 03/22/25 11:33 WBC RBC Hgb Hct MCV MCH MCHC RDW Plt Count MPV Sodium Potassium Chloride Carbon Dioxide Anion Gap BUN Creatinine Estim Creat Clear Calc Estimated GFR Glucose Calcium Magnesium [place] Transferrin Receptr Methylmalonic Acid RBC Folate Hemolysate RBC Folate Urine Color Yellow Urine Appearance Clear Urine pH 5.5 Ur Specific [place] 1.006 Urine Protein Negative Urine Glucose (UA) Negative Urine Ketones Negative Ur Blood (Man) Negative Urine Nitrate Negative Urine Bilirubin Negative Urine Urobilinogen 0.2 Leukocyte Esterase Rfl Negative Urine Opiates Screen Negative Urine Methadone Screen Negative Ur Barbiturates Screen Negative Ur Phencyclidine Scrn Negative Ur Amphetamine Screen Negative U Benzodiazepines Scrn Positive A Urine Cocaine Screen Negative U Cannabinoids Screen Negative Discharge Plan Discharge Consulting providers: Cornelio Golden; Marcos Ty Patient Instructions: Diet for Stomach Ulcers and Gastritis (GEN) Patient Language: Slovenian Discharge Medications: No Action norethindrone-e.estradiol-iron [Blisovi 24 Fe] 1 mg-20 mcg (24)/75 mg (4) tablet 1 tablet PO DAILY hydrochlorothiazide 12.5 mg capsule See Rx Instructions .ROUTE .COMPLEX PRN (Reason: edema) Rx Instructions: TAKE 2 CAPSULES BY MOUTH EVERY DAY PRN; fluticasone propionate 50 mcg/actuation spray,suspension See Rx Instructions .ROUTE .COMPLEX PRN (Reason: allergy symptoms) Rx Instructions: SHAKE LIQUID AND USE 2 SPRAYS IN EACH NOSTRIL EVERY 12 HOURS PRN naproxen 500 mg tablet See Rx Instructions .ROUTE .COMPLEX PRN (Reason: pain) Rx Instructions: TAKE 1 TABLET BY MOUTH DAILY PRN; diazepam 5 mg tablet 5 mg PO BID PRN (Reason: anxiety) Qty: 30 2RF ondansetron HCl 4 mg tablet 4 mg PO Q6H PRN (Reason: nausea and vomiting) Qty: 30 0RF Date of admission: 03/21/25 16:10 Primary Care Provider: Satya Fournier Admitting Provider: Sunday Sage Attending physician on admission: Sunday Sage Condition: Stable Quality VTE Prophylaxis VTE prophylaxis: mechanical ordered
[2025-03-23] MEDS: BLISOVI FE 1 EACH PO (09:14)
[2025-03-23] MEDS: PHENAZOPYRIDINE HCL 100 MG TABLET 200 MG PO ×3 (09:14→17:30)
[2025-03-23] MEDS: FOLIC ACID 1 MG TABLET PO (09:14)
[2025-03-23] MEDS: GABAPENTIN 100 MG CAPSULE PO ×2 (09:14→17:30)
[2025-03-23] MEDS: PANTOPRAZOLE 40 MG TABLET PO ×2 (09:14→20:34)
[2025-03-23] MEDS: THIAMINE HCL 100 MG TABLET PO (09:14)
--- NOTE | 2025-03-23 13:49 | PM.IMPN ---
Progress Note: A&P Assessment and Plan (1) GI bleed: Qualifiers: GI bleed type/associated pathology: unspecified gastrointestinal hemorrhage type Qualified Code(s): K92.2 - Gastrointestinal hemorrhage, unspecified <Adriana Guerra, SITE DAMAGE PREVENTION TECHNICIAN - Last Filed: 03/23/25 15:34> Code(s): K92.2 - Gastrointestinal hemorrhage, unspecified <Adriana Guerra, SITE DAMAGE PREVENTION TECHNICIAN - Last Filed: 03/23/25 15:34> Status: Acute <Adriana Guerra, SITE DAMAGE PREVENTION TECHNICIAN - Last Filed: 03/23/25 15:34> Assessment and Plan: - Hgb 9.7, previously 12.7 on 03/01/25 - hemoccult was + in the ED on 03/19 - not on anticoagulation - GI consulted, awaiting recs - trend H&H, transfuse if <7 - started on pantoprazole - monitor hemodynamic stability and telemetry 03/21 - GI recommended and complete colonoscopy & EGD - EGD Findings: large, benign Peptic Ulcer - Colonoscopy Findings: normal - Plan: follow up in GI clinic, repeat EGD in 3 months, d/c IV pantoprazole, begin oral, regular diet, consider hematology consult - Hgb 9.9, previously 8.5 on 03/19/25 - trend H&H, transfuse if <7 - Pt has macrocytic anemia (105.9), with normal iron levels, Plt ct of 433 today - hematology consult placed 03/22 - Hgb 9.3, continue to trend, transfuse <7 - awaiting Heme/onc consult 03/23 - Hgb 9.3, continue to trend, transfuse <7 - Heme/Onc Consult: Etiology for anemia unknown. No evidence of hemolytic anemia. Ordered work-up to include: Methylmalonic Acid, RBC Folate Hemolysate, RBC Folate, and tone for bone marrow biopsy testing. - recommended Oral Iron 65 mg daily with Vit-C. - Follow up outpatient in a couple weeks - GI Consult: Continue PPI, avoid ETOH and NSAID, follow up in office outpatient <Adriana Guerra APRN - Last Filed: 03/23/25 15:34> - Hgb 9.7, previously 12.7 on 03/01/25 - hemoccult was + in the ED on 03/19 - not on anticoagulation - GI consulted, awaiting recs - trend H&H, transfuse if <7 - started on pantoprazole - monitor hemodynamic stability and telemetry 03/21 - GI recommended and complete colonoscopy & EGD - EGD Findings: large, benign Peptic Ulcer - Colonoscopy Findings: normal - Plan: follow up in GI clinic, repeat EGD in 3 months, d/c IV pantoprazole, begin oral, regular diet, consider hematology consult - Hgb 9.9, previously 8.5 on 03/19/25 - trend H&H, transfuse if <7 - Pt has macrocytic anemia (105.9), with normal iron levels, Plt ct of 433 today - hematology consult placed 03/22 - Hgb 9.3, continue to trend, transfuse <7 - awaiting Heme/onc consult 719 - Hgb 9.3, continue to trend, transfuse <7 - Heme/Onc Consult: Etiology for anemia unknown. No evidence of hemolytic anemia. Ordered work-up to include: Methylmalonic Acid, RBC Folate Hemolysate, RBC Folate, and tone for bone marrow biopsy testing. - recommended Oral Iron 65 mg daily with Vit-C. - Follow up outpatient in a couple weeks - GI Consult: Continue PPI, avoid ETOH and NSAID, follow up in office outpatient <Aaron Conte, Student - Last Filed: 03/23/25 15:29> (2) Memory deficit: Code(s): R41.3 - Other amnesia <Adriana Guerra SITE DAMAGE PREVENTION TECHNICIAN - Last Filed: 03/23/25 15:34> Status: Acute <Adriana Guerra, SITE DAMAGE PREVENTION TECHNICIAN - Last Filed: 03/23/25 15:34> Assessment and Plan: - reviewed patient's outpatient lab work on patient's cell phone, showed B12 259 and Folate 1.1 on 03/15. - check TSH- 1.550 - check MRI- ordered-pending this am based on MRI result-will consider neurology consult Patient has history of moderate to heavy alcohol use, has abstained for the past week. 03/21 - Brain MRI: Mild generalized atrophy, otherwise unremarkable. - struggles with recalling medical care and timeline. - Neurology consulted and following. 03/22 - Neurology reassessment tomorrow - UDS ordered <Adriana Guerra SITE DAMAGE PREVENTION TECHNICIAN - Last Filed: 03/23/25 15:34> - reviewed patient's outpatient lab work on patient's cell phone, showed B12 259 and Folate 1.1 on 03/15. - check TSH- 1.550 - check MRI- ordered-pending this am based on MRI result-will consider neurology consult Patient has history of moderate to heavy alcohol use, has abstained for the past week. 03/21 - Brain MRI: Mild generalized atrophy, otherwise unremarkable. - struggles with recalling medical care and timeline. - Neurology consulted and following. 03/22 - Neurology reassessment tomorrow - UDS ordered 03/23 - Neurology consult: recommending Rehab and outpatient EMG/NCS - UDS positive for Benzo's - Valium history. <Aaron Conte, Student - Last Filed: 03/23/25 15:29> (3) Neuropathy: Code(s): G62.9 - Polyneuropathy, unspecified <Adriana Guerra SITE DAMAGE PREVENTION TECHNICIAN - Last Filed: 03/23/25 15:34> Status: Acute <Adriana Guerra SITE DAMAGE PREVENTION TECHNICIAN - Last Filed: 03/23/25 15:34> Assessment and Plan: 03/21 - progressive weakness over the last month that has worsened over the last 2 weeks. Noted several falls. Has required assistance with ambulation during admission. Notes neuropathic symptoms in her extremities. Prior history of similar symptoms following the passing of a family member that resolved. Patient unaware of her treatment at the time but does recall prior gabapentin use without complications. - consult with neurology 03/20: - possible MRI of cervical, thoracic, and lumbar spine and subsequently, if necessary, EMG nerve conduction studies and spinal fluid. Rule out possibility of myelopathy v neuropathy - Ordered gabapentin 03/22 - On exam today she has RT > LT LE weakness. Sensation fully intact. Lower & Upper Ext coordination normal. UE 5/5 strength bilaterally. normal CN 2-12. Babinski normal bilaterally - Lumbar MRI: Moderate degenerative spondylosis at L4-L5, with right neural foraminal narrowing and 6 mm anterolisthesis at this level - Thoracic MRI: Normal - Cervical MRI: Normal - followed by Neurology - re-evaluation tomorrow - continue gabapentin 03/23 - Neurology consult: recommending Rehab and outpatient EMG/NCS - continue gabapentin - PT/OT <Adriana Guerra APRN - Last Filed: 03/23/25 15:34> 03/21 - progressive weakness over the last month that has worsened over the last 2 weeks. Noted several falls. Has required assistance with ambulation during admission. Notes neuropathic symptoms in her extremities. Prior history of similar symptoms following the passing of a family member that resolved. Patient unaware of her treatment at the time but does recall prior gabapentin use without complications. - consult with neurology 03/20: - possible MRI of cervical, thoracic, and lumbar spine and subsequently, if necessary, EMG nerve conduction studies and spinal fluid. Rule out possibility of myelopathy v neuropathy - Ordered gabapentin 03/22 - On exam today she has RT > LT LE weakness. Sensation fully intact. Lower & Upper Ext coordination normal. UE 5/5 strength bilaterally. normal CN 2-12. Babinski normal bilaterally - Lumbar MRI: Moderate degenerative spondylosis at L4-L5, with right neural foraminal narrowing and 6 mm anterolisthesis at this level - Thoracic MRI: Normal - Cervical MRI: Normal - followed by Neurology - re-evaluation tomorrow - continue gabapentin 03/23 - Neurology consult: recommending Rehab and outpatient EMG/NCS - continue gabapentin <Aaron Conte, Student - Last Filed: 03/23/25 15:29> (4) Anxiety: Code(s): F41.9 - Anxiety disorder, unspecified <Adriana Guerra APRN - Last Filed: 03/23/25 15:34> Status: Acute <Adriana Guerra APRN - Last Filed: 03/23/25 15:34> Assessment and Plan: 03/21: history of anxiety. Notes prior use of valium. Recent loss of mother. History of family member loss with episode of neuropathy symptoms that resolved. Pt unaware of treatment, if any, at that time. - ordered fluoxetine - patient aware that treatment effects will take several weeks at the earliest to notice any benefit. Discussed the need to follow up with PCP for continuation of medication and to address possible side effects. 03/22 - given more history regarding valium use. Has been taking for 15 years, originally for vertigo-like symptoms, but continued taking for anxiety. Unsure of frequency of use, but patients estimates 3-4x/week but periods where she reports not taking it for a week at a time. Discussed with her that she should reduce/limit Valium use in the future. Continue taking fluoxetine which will require follow up with PCP. <Adriana Guerra SITE DAMAGE PREVENTION TECHNICIAN - Last Filed: 03/23/25 15:34> (5) Alcohol abuse: Code(s): F10.10 - Alcohol abuse, uncomplicated <Adriana Guerra SITE DAMAGE PREVENTION TECHNICIAN - Last Filed: 03/23/25 15:34> Status: Acute <Adriana Guerra SITE DAMAGE PREVENTION TECHNICIAN - Last Filed: 03/23/25 15:34> Assessment and Plan: counselling completed - need to cut down and stop alcohol 03/22 - repeat folate & Mg in AM of 03/23 - last drink per was 10 days ago - ETOH drawn on 03/19 was <10 <Adriana Guerra SITE DAMAGE PREVENTION TECHNICIAN - Last Filed: 03/23/25 15:34> (6) Anemia: Code(s): D64.9 - Anemia, unspecified <Adriana Gurera SITE DAMAGE PREVENTION TECHNICIAN - Last Filed: 03/23/25 15:34> Status: Acute <Adriana Guerra SITE DAMAGE PREVENTION TECHNICIAN - Last Filed: 03/23/25 15:34> Assessment and Plan: macrocytic anemia, normal iron level elevated platelets- will consult hem/oncology <Adriana Guerra SITE DAMAGE PREVENTION TECHNICIAN - Last Filed: 03/23/25 15:34> macrocytic anemia, normal iron level elevated platelets- will consult hem/oncology 03/23 - Heme/Onc Consult: Etiology for anemia unknown. No evidence of hemolytic anemia. Ordered work-up to include: Methylmalonic Acid, RBC Folate Hemolysate, RBC Folate, and tone for bone marrow biopsy testing. - recommended Oral Iron 65 mg daily with Vit-C. - Follow up outpatient in a couple weeks <Enoch Rutherford - Last Filed: 03/23/25 15:29> Assessment and Plan: Diet: regular diet GI Prophylaxis: Pantoprzole DVT Prophylaxis: SCDs IV fluids: 1 L bolus-> 125 mL/hour Lines/Tubes: Peripheral IV Code Status: Full code 03/22 - patient experienced burning and increase frequency. UA was unremarkable. Will treat with Pyridium and reasses prn <Adriana Guerra APRN - Last Filed: 03/23/25 15:34> Time Spent With Patient Time with patient: 25 - 35 minutes <Adriana Guerra APRN - Last Filed: 03/23/25 15:34> Subjective Date/time seen: 03/23/25 13:49 <Adriana Guerra APRN - Last Filed: 03/23/25 15:34> Interval history: 03/23 - Upright in bed. LE strength unchanged. Neuropathy symptoms improve throughout day with activity, worse in the morning. Notes increase bilateral LE swelling. Has history of on and off pedal edema for 5 years. Will occasionally take diuretic medication prescribed by PCP per patient. Increased activity today. Denies burning calf pain or redness, chest pain, SOB, N/V, abdominal pain, and abnormalities with urination and bowel movements. <Enoch Rutherford - Last Filed: 03/23/25 15:29> Review of Systems Review of Systems: All systems reviewed & are unremarkable except as noted in HPI and below <Adriana Guerra APRN - Last Filed: 03/23/25 15:34> Exam Const: General: comfortable and no acute distress <Adriana Caity Charlie SITE DAMAGE PREVENTION TECHNICIAN - Last Filed: 03/23/25 15:34> Other: , female, nontoxic appearance <Adriana Guerra SITE DAMAGE PREVENTION TECHNICIAN - Last Filed: 03/23/25 15:34> HENMT: Face/Nose/Sinus: Normal nares present <Adriana Carolina Charlie SITE DAMAGE PREVENTION TECHNICIAN - Last Filed: 03/23/25 15:34> Mouth: Yes dry mucous membranes <Adriana Caity Charlie SITE DAMAGE PREVENTION TECHNICIAN - Last Filed: 03/23/25 15:34> Eyes: General: appearance normal, both eyes and all related structures <Adriana Guerra SITE DAMAGE PREVENTION TECHNICIAN - Last Filed: 03/23/25 15:34> Sclera: sclerae normal <Adrianabob Carolina Charlie SITE DAMAGE PREVENTION TECHNICIAN - Last Filed: 03/23/25 15:34> Pupils: Equal, round and reactive pupils present <Adriana Guerra SITE DAMAGE PREVENTION TECHNICIAN - Last Filed: 03/23/25 15:34> EOM: EOMs intact bilaterally <Adrianabob Carolina Charlie SITE DAMAGE PREVENTION TECHNICIAN - Last Filed: 03/23/25 15:34> Resp: Effort & Inspection: normal respiratory effort <Adriana Carolina Charlie SITE DAMAGE PREVENTION TECHNICIAN - Last Filed: 03/23/25 15:34> Auscultation: clear to auscultation bilaterally <Adrianabob Carolina Charlie SITE DAMAGE PREVENTION TECHNICIAN - Last Filed: 03/23/25 15:34> Cardio: Rate: regular rate <Adriana Carolina Charlie SITE DAMAGE PREVENTION TECHNICIAN - Last Filed: 03/23/25 15:34> Rhythm: regular rhythm <Adriana Carolina Charlie SITE DAMAGE PREVENTION TECHNICIAN - Last Filed: 03/23/25 15:34> Other: S1-S2 present without murmur, rub, ectopy <Adriana Guerra SITE DAMAGE PREVENTION TECHNICIAN - Last Filed: 03/23/25 15:34> GI: Other: Abdomen soft, nondistended, nontender. Normoactive bowel sounds in all quadrants. <Adriana Guerra SITE DAMAGE PREVENTION TECHNICIAN - Last Filed: 03/23/25 15:34> Skin: General skin exam: no rashes or lesions noted <Adriana Guerra SITE DAMAGE PREVENTION TECHNICIAN - Last Filed: 03/23/25 15:34> Wounds: no wounds <Adriana Guerra SITE DAMAGE PREVENTION TECHNICIAN - Last Filed: 03/23/25 15:34> Other: Mild pallor <Adriana Guerra SITE DAMAGE PREVENTION TECHNICIAN - Last Filed: 03/23/25 15:34> Neuro: Cranial nerves: Yes Equal, round and reactive pupils present <Adriana Guerra SITE DAMAGE PREVENTION TECHNICIAN - Last Filed: 03/23/25 15:34> Speech: normal speech <Adriana Guerra SITE DAMAGE PREVENTION TECHNICIAN - Last Filed: 03/23/25 15:34> Motor exam (neuro): 5/5 motor strength present throughout <Adriana Guerra SITE DAMAGE PREVENTION TECHNICIAN - Last Filed: 03/23/25 15:34> Sensory Exam: normal sensation <Adriana Guerra SITE DAMAGE PREVENTION TECHNICIAN - Last Filed: 03/23/25 15:34> Other: A&O x4, forgetfulness noted <Adriana Guerra SITE DAMAGE PREVENTION TECHNICIAN - Last Filed: 03/23/25 15:34> Extrem: General: normal exam except as noted (Scant edema to dorsum of bilateral feet) <Adriana Guerra SITE DAMAGE PREVENTION TECHNICIAN - Last Filed: 03/23/25 15:34> Psych: Mental Status: mental status grossly normal <Adriana Guerra SITE DAMAGE PREVENTION TECHNICIAN - Last Filed: 03/23/25 15:34> Affect: normal affect and Anxious affect present <Adriana Guerra APRN - Last Filed: 03/23/25 15:34> Other: Fair insight and judgment, pleasant <Adriana Guerra SITE DAMAGE PREVENTION TECHNICIAN - Last Filed: 03/23/25 15:34> Objective Data Vital Signs Vital Signs: Vital Signs - 24 hr 03/22/25 14:00 03/22/25 20:00 03/22/25 20:58 Temperature 97.6 F Pulse Rate 96 90 Respiratory Rate 14 18 Blood Pressure 132/91 H 128/90 Pulse Oximetry 100 99 Oxygen Delivery Room Air 03/23/25 03:54 03/23/25 11:27 Temperature 97.7 F Pulse Rate 102 H Respiratory Rate 16 Blood Pressure 110/80 Pulse Oximetry 98 Oxygen Delivery Room Air <Adriana T. Charlie, SITE DAMAGE PREVENTION TECHNICIAN - Last Filed: 03/23/25 15:34> Intake/Output Intake/Output: Intake & Output 03/20/25 03/21/25 03/22/25 03/23/25 23:59 23:59 23:59 23:59 Intake Total 2910 2660 1670 500 Output Total 600 Balance 2310 2660 1670 500 <Adriana Guerra, SITE DAMAGE PREVENTION TECHNICIAN - Last Filed: 03/23/25 15:34> Meds/Results Medications: Active Medications Generic Name Dose Route Start Last Admin Trade Name Freq PRN Reason Stop Dose Admin Acetaminophen 650 mg 03/19/25 20:12 03/23/25 09:51 Acetaminophen 325 Mg Tablet PO 650 mg Q6H PRN Administration Mild Pain (1-3) or Fever Diazepam 5 mg 03/19/25 22:21 03/22/25 20:39 Diazepam (*Crx) 5 Mg Tablet PO 5 mg BID PRN Administration anxiety Fluoxetine HCl 20 mg 03/22/25 09:00 03/23/25 09:14 Fluoxetine Hcl 20 Mg Capsule PO 20 mg DAILY TERRI Administration Fluticasone Propionate 2 spray 03/19/25 22:21 Fluticasone Propionate 0.05% Na Spr 16 Gm Btl (*Bkc) NASAL Q12H PRN allergy symptoms Folic Acid 1 mg 03/20/25 09:00 03/23/25 09:14 Folic Acid 1 Mg Tablet PO 1 mg DAILY TERRI Administration Gabapentin 100 mg 03/21/25 17:00 03/23/25 09:14 Gabapentin 100 Mg Capsule PO 100 mg BID TERRI Administration Home Med 1 each 03/20/25 15:35 03/23/25 09:14 Home Medication-Blisovi 24 Fe PO 04/19/25 15:34 1 each DAILY TERRI Administration Ondansetron HCl 4 mg 03/19/25 17:42 Ondansetron Inj 4 Mg/2 Ml Vial IV PUSH Q4H PRN Nausea Pantoprazole Sodium 40 mg 03/21/25 21:00 03/23/25 09:14 Pantoprazole 40 Mg Tablet PO 40 mg Q12HR TERRI Administration Phenazopyridine HCl 200 mg 03/22/25 17:00 03/23/25 12:57 Phenazopyridine Hcl 100 Mg Tablet PO 03/24/25 16:59 200 mg TIDWM TERRI Administration Simethicone 0.6 ml 03/21/25 10:25 03/21/25 10:29 Simethicone Oral Suspension 20 Mg/0.3 Ml 30 Ml Bottle PO 1.8 ml Q2H PRN Administration Gas Discomfort Thiamine HCl 100 mg 03/20/25 09:00 03/23/25 09:14 Thiamine Hcl 100 Mg Tablet PO 100 mg QAM TERRI Administration <Adriana Guerra SITE DAMAGE PREVENTION TECHNICIAN - Last Filed: 03/23/25 15:34> Radiology Results: ITS Impressions Chest X-Ray 03/19/25 14:37 IMPRESSION: No acute cardiopulmonary pathology Brain MRI 03/20/25 11:39 IMPRESSION: Mild generalized atrophy, otherwise unremarkable exam. Cervical Spine MRI 03/22/25 13:11 Impression: Normal exam. Thoracic Spine MRI 03/22/25 13:14 IMPRESSION: Normal exam. Lumbar Spine MRI 03/22/25 13:15 Impression: Moderate degenerative spondylosis at L4-L5, with right neural foraminal narrowing and 6 mm anterolisthesis at this level. <Adriana Guerra, SITE DAMAGE PREVENTION TECHNICIAN - Last Filed: 03/23/25 15:34> Labs Labs: Laboratory Results - last 24 hr 03/22/25 03/23/25 11:33 04:45 WBC 5.7 RBC 2.85 L Hgb 9.3 L Hct 29.5 L MCV 103.5 H MCH 32.6 MCHC 31.5 L RDW 14.9 H Plt Count 487 H MPV 9.3 Sodium 137 Potassium 3.6 Chloride 110 H Carbon Dioxide 19 L Anion Gap 8 BUN 3 L Creatinine 0.96 Estim Creat Clear Calc 57 Estimated GFR > 60 Glucose 93 Calcium 9.1 Magnesium 1.8 Urine Opiates Screen Negative Urine Methadone Screen Negative Ur Barbiturates Screen Negative Ur Phencyclidine Scrn Negative Ur Amphetamine Screen Negative U Benzodiazepines Scrn Positive A Urine Cocaine Screen Negative U Cannabinoids Screen Negative <Adriana Guerra, SITE DAMAGE PREVENTION TECHNICIAN - Last Filed: 03/23/25 15:34> Quality VTE Prophylaxis VTE prophylaxis: mechanical ordered <Adriana Guerra SITE DAMAGE PREVENTION TECHNICIAN - Last Filed: 03/23/25 15:34>
[2025-03-23 14:00] VITALS: BP 142/88; PULSE 89; RESP 16; TEMP 36.6; O2SAT 99
[2025-03-23 23:45] VITALS: BP 127/88; PULSE 90; RESP 16; TEMP 36.8; O2SAT 97
[2025-03-24] MEDS: ACETAMINOPHEN 325 MG TABLET 650 MG PO ×4 (01:25→20:58)
[2025-03-24 04:58] LABS: Hematocrit 31.5 % (37.0-47.0); Hemoglobin 10.1 g/dL (12.0-15.0); Mean Corpuscular HGB Conc 32.1 g/dl (32-36); Mean Corpuscular Hemoglobin 32.7 pg (26-34); Mean Corpuscular Volume 101.9 fl (80-100); Platelet Count Result 613 k/mm3 (150-375); Red Blood Count 3.09 M/mm3 (4.2-5.4); White Blood Count 6.4 K/mm3 (4.5-10.0)
[2025-03-24 05:02] VITALS: BP 124/87; PULSE 100; RESP 16; TEMP 36.7; O2SAT 97
[2025-03-24 05:28] LABS: Anion Gap 9 mmol/L (4-12); Blood Urea Nitrogen 4 mg/dL (7-17); Calcium 9.1 mg/dL (8.4-10.2); Carbon Dioxide 16 mmol/L (22-30); Chloride 112 mmol/L (98-107); Estimated CRCL calculation 66 ml/min; Estimated Glomerular Filt Rate > 60; Glucose 96 mg/dL (65-110); Potassium 4.2 mmol/L (3.4-5.0); Sodium 137 mmol/L (137-145)
--- NOTE | 2025-03-24 06:40 | PC.NURSE ---
PT CONTINUES TO SET BED ALARM OFF. I WAS INFORMED BY BOTH THE RN JOCE AND DESHAWN JEFFERSON THAT PT SAID SHE WOULD CONTINUE TO SET THE BED ALARM OFF IF IT IS NOT TURNED OFF. PT IS CURRENTLY DEPENDANT ON A WALKER FOR MOBILITY AND HAS UNSTEADY GAIT. I ENTERED THE ROOM DUE TO THE BED ALARM GOING OFF AGAIN AND EDUCATED PT ON IMPORTANCE OF HAVING THE BED ALARM ON. PT BECAME AGITATED AND STARTED CURSING AT ME. I ASKED THE PT TO PLEASE NOT USE THAT LANGUAGE WITH ME WE ARE JUST FOLLOWING HOSPITAL POLICY. SHE STATED THAT OTHER TIMES SHES BEEN IN THE HOSPITAL SHE DID NOT HAVE A BED ALARM. I THEN EXPLAINED TO HER THAT EVERY HOSPITAL STAY IS DIFFERENT AND THIS TIME THE BED ALARM IS NECESSARY.
--- NOTE | 2025-03-24 07:06 | PC.NURSE ---
Patient requested her bed alarm to be set off which I explained the reason for the bed alarm to be on and patient told me that she will deliberately keep standing up to set it off every 15 minutes which she has been doing since 0500am.Charge nurse attempted to talk to the patient and patient states she will want to leave the hospital AMA.
--- NOTE | 2025-03-24 07:41 | PM.IMPN ---
Progress Note: A&P Assessment and Plan (1) GI bleed: Qualifiers: GI bleed type/associated pathology: unspecified gastrointestinal hemorrhage type Qualified Code(s): K92.2 - Gastrointestinal hemorrhage, unspecified <Adriana Guerra, GENERAL RO[address] SUPERVISOR - Last Filed: 03/24/25 12:36> Code(s): K92.2 - Gastrointestinal hemorrhage, unspecified <Adriana Guerra, GENER[employer] [address] SUPERVISOR - Last Filed: 03/24/25 12:36> Status: Acute <Adriana Guerra, GENER[employer] [address] SUPERVISOR - Last Filed: 03/24/25 12:36> Assessment and Plan: - Hgb 9.7, previously 12.7 on 03/01/25 - hemoccult was + in the ED on 03/19 - not on anticoagulation - GI consulted, awaiting recs - trend H&H, transfuse if <7 - started on pantoprazole - monitor hemodynamic stability and telemetry 03/21 - GI recommended and complete colonoscopy & EGD - EGD Findings: large, benign Peptic Ulcer - Colonoscopy Findings: normal - Plan: follow up in GI clinic, repeat EGD in 3 months, d/c IV pantoprazole, begin oral, regular diet, consider hematology consult - Hgb 9.9, previously 8.5 on 03/19/25 - trend H&H, transfuse if <7 - Pt has macrocytic anemia (105.9), with normal iron levels, Plt ct of 433 today - hematology consult placed 03/22 - Hgb 9.3, continue to trend, transfuse <7 - awaiting Heme/onc consult 03/23 - Hgb 9.3, continue to trend, transfuse <7 - Heme/Onc Consult: Etiology for anemia unknown. No evidence of hemolytic anemia. Ordered work-up to include: Methylmalonic Acid, RBC Folate Hemolysate, RBC Folate, and tone for bone marrow biopsy testing. - recommended Oral Iron 65 mg daily with Vit-C. - Follow up outpatient in a couple weeks - GI Consult: Continue PPI, avoid ETOH and NSAID, follow up in office outpatient <Adriana Guerra APRN - Last Filed: 03/24/25 12:36> - Hgb 9.7, previously 12.7 on 03/01/25 - hemoccult was + in the ED on 03/19 - not on anticoagulation - GI consulted, awaiting recs - trend H&H, transfuse if <7 - started on pantoprazole - monitor hemodynamic stability and telemetry 03/21 - GI recommended and complete colonoscopy & EGD - EGD Findings: large, benign Peptic Ulcer - Colonoscopy Findings: normal - Plan: follow up in GI clinic, repeat EGD in 3 months, d/c IV pantoprazole, begin oral, regular diet, consider hematology consult - Hgb 9.9, previously 8.5 on 03/19/25 - trend H&H, transfuse if <7 - Pt has macrocytic anemia (105.9), with normal iron levels, Plt ct of 433 today - hematology consult placed 03/22 - Hgb 9.3, continue to trend, transfuse <7 - awaiting Heme/onc consult 03/23 - Hgb 9.3, continue to trend, transfuse <7 - Heme/Onc Consult: Etiology for anemia unknown. No evidence of hemolytic anemia. Ordered work-up to include: Methylmalonic Acid, RBC Folate Hemolysate, RBC Folate, and tone for bone marrow biopsy testing. - recommended Oral Iron 65 mg daily with Vit-C. - Follow up outpatient in a couple weeks - GI Consult: Continue PPI, avoid ETOH and NSAID, follow up in office outpatient 03/24 - H/H 10.1/31.5, continue to trend, transfuse <7 - Heme/Onc consult: Plan stated above on 03/23/25. See Elevated platelet count below for further detail. - GI recommendations:Continue PPI, avoid ETOH and NSAID, follow up in office outpatient <Aaron Conte, Student - Last Filed: 03/24/25 08:58> (2) Memory deficit: Code(s): R41.3 - Other amnesia <Adriana Guerra APRN - Last Filed: 03/24/25 12:36> Status: Acute <Adriana Guerra [address] SUPERVISOR - Last Filed: 03/24/25 12:36> Assessment and Plan: - reviewed patient's outpatient lab work on patient's cell phone, showed B12 [id number] and Folate 1.1 on 03/15. - check TSH- 1.550 - check MRI- ordered-pending this am based on MRI result-will consider neurology consult Patient has history of moderate to heavy alcohol use, has abstained for the past week. 03/21 - Brain MRI: Mild generalized atrophy, otherwise unremarkable. - struggles with recalling medical care and timeline. - Neurology consulted and following. 03/22 - Neurology reassessment tomorrow - UDS ordered 03/23 - Neurology consult: recommending Rehab and outpatient EMG/NCS - UDS positive for Benzo's - Valium history. <Adriana Guerra APRN - Last Filed: 03/24/25 12:36> - reviewed patient's outpatient lab work on patient's cell phone, showed B12 259 and Folate 1.1 on 03/15. - check TSH- 1.550 - check MRI- ordered-pending this am based on MRI result-will consider neurology consult Patient has history of moderate to heavy alcohol use, has abstained for the past week. 03/21 - Brain MRI: Mild generalized atrophy, otherwise unremarkable. - struggles with recalling medical care and timeline. - Neurology consulted and following. 03/22 - Neurology reassessment tomorrow - UDS ordered 03/23 - Neurology consult: recommending Rehab and outpatient EMG/NCS - UDS positive for Benzo's - Valium history. 03/24 - Neurology evaluated patient yesterday. consult note currently unavailable. Informed nursing staff they recommended Rehab placement and outpatient EMG/NCS - Psychiatry consult placed <Aaron Conte, Student - Last Filed: 03/24/25 08:58> (3) Neuropathy: Code(s): G62.9 - Polyneuropathy, unspecified <Adriana Guerra APRN - Last Filed: 03/24/25 12:36> Status: Acute <Adriana Guerra APRN - Last Filed: 03/24/25 12:36> Assessment and Plan: 03/21 - progressive weakness over the last month that has worsened over the last 2 weeks. Noted several falls. Has required assistance with ambulation during admission. Notes neuropathic symptoms in her extremities. Prior history of similar symptoms following the passing of a family member that resolved. Patient unaware of her treatment at the time but does recall prior gabapentin use without complications. - consult with neurology 03/20: - possible MRI of cervical, thoracic, and lumbar spine and subsequently, if necessary, EMG nerve conduction studies and spinal fluid. Rule out possibility of myelopathy v neuropathy - Ordered gabapentin 03/22 - On exam today she has RT > LT LE weakness. Sensation fully intact. Lower & Upper Ext coordination normal. UE 5/5 strength bilaterally. normal CN 2-12. Babinski normal bilaterally - Lumbar MRI: Moderate degenerative spondylosis at L4-L5, with right neural foraminal narrowing and 6 mm anterolisthesis at this level - Thoracic MRI: Normal - Cervical MRI: Normal - followed by Neurology - re-evaluation tomorrow - continue gabapentin 03/23 - Neurology consult: recommending Rehab and outpatient EMG/NCS - continue gabapentin - PT/OT <Adriana Guerra, GLORIA - Last Filed: 03/24/25 12:36> 03/21 - progressive weakness over the last month that has worsened over the last 2 weeks. Noted several falls. Has required assistance with ambulation during admission. Notes neuropathic symptoms in her extremities. Prior history of similar symptoms following the passing of a family member that resolved. Patient unaware of her treatment at the time but does recall prior gabapentin use without complications. - consult with neurology 03/20: - possible MRI of cervical, thoracic, and lumbar spine and subsequently, if necessary, EMG nerve conduction studies and spinal fluid. Rule out possibility of myelopathy v neuropathy - Ordered gabapentin 03/22 - On exam today she has RT > LT LE weakness. Sensation fully intact. Lower & Upper Ext coordination normal. UE 5/5 strength bilaterally. normal CN 2-12. Babinski normal bilaterally - Lumbar MRI: Moderate degenerative spondylosis at L4-L5, with right neural foraminal narrowing and 6 mm anterolisthesis at this level - Thoracic MRI: Normal - Cervical MRI: Normal - followed by Neurology - re-evaluation tomorrow - continue gabapentin 03/23 - Neurology consult: recommending Rehab and outpatient EMG/NCS - continue gabapentin - PT/OT 03/24 - Symptoms unchanged - Neurology consult: recommending Rehab and outpatient EMG/NCS - continue gabapentin - OT note from 03/23: Pt requiring increased assist from her baseline with ADLs, transfers, and functional mobility due to deficits with safety awareness, impulsivity, weakness, and decreased balance. Skilled OT indicated to maximize functional safety and independence with ADLs. <Aaron Conte, Student - Last Filed: 03/24/25 08:58> (4) Anxiety: Code(s): F41.9 - Anxiety disorder, unspecified <Adriana Guerra APRN - Last Filed: 03/24/25 12:36> Status: Acute <Adriana Guerra APRN - Last Filed: 03/24/25 12:36> Assessment and Plan: 03/21: history of anxiety. Notes prior use of valium. Recent loss of mother. History of family member loss with episode of neuropathy symptoms that resolved. Pt unaware of treatment, if any, at that time. - ordered fluoxetine - patient aware that treatment effects will take several weeks at the earliest to notice any benefit. Discussed the need to follow up with PCP for continuation of medication and to address possible side effects. 03/22 - given more history regarding valium use. Has been taking for 15 years, originally for vertigo-like symptoms, but continued taking for anxiety. Unsure of frequency of use, but patients estimates 3-4x/week but periods where she reports not taking it for a week at a time. Discussed with her that she should reduce/limit Valium use in the future. Continue taking fluoxetine which will require follow up with PCP. continue Prozac - Psychiatry consult placed <Adriana Guerra, GENERAL [address] SUPERVISOR - Last Filed: 03/24/25 12:36> (5) Alcohol abuse: Code(s): F10.10 - Alcohol abuse, uncomplicated <Adriana Guerra, GENER[employer] [address] SUPERVISOR - Last Filed: 03/24/25 12:36> Status: Acute <Adriana Guerra, GENER[address] SUPERVISOR - Last Filed: 03/24/25 12:36> Assessment and Plan: counselling completed - need to cut down and stop alcohol 03/22 - repeat folate & Mg in AM of 03/23 - last drink per was 10 days ago - ETOH drawn on 03/19 was <10 <Adriana Guerra, GENERAL [address] SUPERVISOR - Last Filed: 03/24/25 12:36> (6) Anemia: Code(s): D64.9 - Anemia, unspecified <Adriana Guerra, GENER[address] SUPERVISOR - Last Filed: 03/24/25 12:36> Status: Acute <Adriana Guerra, GENER[address] SUPERVISOR - Last Filed: 03/24/25 12:36> Assessment and Plan: macrocytic anemia, normal iron level elevated platelets- will consult hem/oncology 03/23 - Heme/Onc Consult: Etiology for anemia unknown. No evidence of hemolytic anemia. Ordered work-up to include: Methylmalonic Acid, RBC Folate Hemolysate, RBC Folate, and tone for bone marrow biopsy testing. - recommended Oral Iron 65 mg daily with Vit-C. - Follow up outpatient in a couple weeks <Adriana Guerra APRN - Last Filed: 03/24/25 12:36> macrocytic anemia, normal iron level elevated platelets- will consult hem/oncology 03/23 - Heme/Onc Consult: Etiology for anemia unknown. No evidence of hemolytic anemia. Ordered work-up to include: Methylmalonic Acid, RBC Folate Hemolysate, RBC Folate, and tone for bone marrow biopsy testing. - recommended Oral Iron 65 mg daily with Vit-C. - Follow up outpatient in a couple weeks 03/24 - H/H 10.1/31.5, continue to trend, transfuse <7 - Heme/Onc recommendation/plan unchanged <Aaron Conte, Student - Last Filed: 03/24/25 08:58> (7) Elevated platelet count: Code(s): R79.89 - Other specified abnormal findings of blood chemistry <Adriana Guerra APRN - Last Filed: 03/24/25 12:36> Status: Acute <Adriana Guerra [address] SUPERVISOR - Last Filed: 03/24/25 12:36> Assessment and Plan: Patient initially admitted with concerns for GI bleed. Colonoscopy & EGD completed and identified benign peptic ulcer which may have contributed to blood in stool. At admission, patients platelet count was 344. It has since risen to 613 today. Below are her daily plt. counts. Heme/onc consulted on 03/21/25 for rising platelet count and macrocytic anemia. Consult note states: Etiology for anemia unknown. No evidence of hemolytic anemia. Ordered work-up to include: Methylmalonic Acid, RBC Folate Hemolysate, RBC Folate, and tone for bone marrow biopsy testing. Recommend daily iron (65 mg) with vitamin C & outpatient follow-up. 03/19/25 - 344 03/20 - 03/21 hem/oncology onboard- appreciate recommendation differentials: RADHA vs acute bleed vs malignancy vs infection vsother will continue iron and vit C supplements as advised per hem/onc close f/u with DR Ty as an outpt. <Adriana Guerra, GENERAL [address] SUPERVISOR - Last Filed: 03/24/25 12:36> Patient initially admitted with concerns for GI bleed. Colonoscopy & EGD completed and identified benign peptic ulcer which may have contributed to blood in stool. At admission, patients platelet count was 344. It has since risen to 613 today. Below are her daily plt. counts. Heme/onc consulted on 03/21/25 for rising platelet count and macrocytic anemia. Consult note states: Etiology for anemia unknown. No evidence of hemolytic anemia. Ordered work-up to include: Methylmalonic Acid, RBC Folate Hemolysate, RBC Folate, and tone for bone marrow biopsy testing. Recommend daily iron (65 mg) with vitamin C & outpatient follow-up. 03/19/25 - 344 03/20 <Aaron Conte, Student - Last Filed: 03/24/25 08:58> (8) Lower extremity edema: Code(s): R60.0 - Localized edema <Adriana Guerra, GENER[address] SUPERVISOR - Last Filed: 03/24/25 12:36> Status: Acute <Adriana Guerra [address] SUPERVISOR - Last Filed: 03/24/25 12:36> Assessment and Plan: 03/23 - Increase in lower extremity edema bilaterally. Has history of on and off pedal edema for 5 years per patient and . Will occasionally take diuretic medication prescribed by PCP per patient. Increased activity today and yesterday. Denies burning calf pain or redness. Negative Homans sign upon evaluation. Denies PMHx and FMHx of CHF. States she has Mitral Valve Prolapse but unaware of last echo (if completed), not currently symptomatic or taking medications. Does not have a front office secretary, follows with PCP. Has also mentioned that she may be changing her PCP. - Stockinettes placed 03/24 - lower leg with improvement. RT lower leg unchanged. Patient states she has been using stockinette but they are not on at the time of exam. - continue stockinettes - ordered lasix 20 mg IV push - Ordered Echocardiogram as unsure if and when it was completed <Adriana Guerra APRN - Last Filed: 03/24/25 12:36> 03/23 - Increase in lower extremity edema bilaterally. Has history of on and off pedal edema for 5 years per patient and . Will occasionally take diuretic medication prescribed by PCP per patient. Increased activity today and yesterday. Denies burning calf pain or redness. Negative Homans sign upon evaluation. Denies PMHx and FMHx of CHF. States she has Mitral Valve Prolapse but unaware of last echo (if completed), not currently symptomatic or taking medications. Does not have a front office secretary, follows with PCP. Has also mentioned that she may be changing her PCP. - Stockinettes placed 03/24 - lower leg with improvement. RT lower leg unchanged. Patient states she has been using stockinette but they are not on at the time of exam. - continue stockinettes - ordered 20 mg IV push - Ordered Echocardiogram <Aaron Conte, Student - Last Filed: 03/24/25 08:58> (9) Mitral valve prolapse: Code(s): I34.1 - Nonrheumatic mitral (valve) prolapse <Adriana Guerra APRN - Last Filed: 03/24/25 12:36> Status: Acute <Adriana Guerra APRN - Last Filed: 03/24/25 12:36> Assessment and Plan: 03/23 - patient states she has history of mitral valve prolapse. Date of last echo unknown. Does not have a cardiology. Is followed by PCP. currently not taking any medications. 03/24 - confirmed details above. Current increase in LE edema with intermittent history over the last 5 years with intermittent use of HCTZ (per ) for diuresis control. Continues to denies chest pain and dyspnea. notes dyspnea prior to ED arrival for a couple days, but not since admission. - Ordered Echocardiogram to assess MVP and/or other cardiac contributing factors to LE edema. <Aaron Conte, Student - Last Filed: 03/24/25 08:58> Assessment and Plan: Diet: regular diet GI Prophylaxis: Pantoprzole DVT Prophylaxis: SCDs IV fluids: 1 L bolus-> 125 mL/hour Lines/Tubes: Peripheral IV Code Status: Full code 03/22 - patient experienced burning and increase frequency. UA was unremarkable. Will treat with Pyridium and reasses prn <Adriana Guerra, GENER[address] SUPERVISOR - Last Filed: 03/24/25 12:36> Time Spent With Patient Time with patient: Greater than 35 minutes <Adriana Guerra [address] SUPERVISOR - Last Filed: 03/24/25 12:36> Subjective Date/time seen: 03/24/25 07:41 <Adriana Guerra [address] SUPERVISOR - Last Filed: 03/24/25 12:36> Interval history: 03/23 - Upright in bed. LE strength unchanged. Neuropathy symptoms improve throughout day with activity, worse in the morning. Notes increase bilateral LE swelling. Has history of on and off pedal edema for 5 years. Will occasionally take diuretic medication prescribed by PCP per patient. Increased activity today. Denies burning calf pain or redness, chest pain, SOB, N/V, abdominal pain, and abnormalities with urination and bowel movements. <Adriana Guerra [address] SUPERVISOR - Last Filed: 03/24/25 12:36> 03/23 - Upright in bed. LE strength unchanged. Neuropathy symptoms improve throughout day with activity, worse in the morning. Notes increase bilateral LE swelling. Has history of on and off pedal edema for 5 years. Will occasionally take diuretic medication prescribed by PCP per patient. Increased activity today. Denies burning calf pain or redness, chest pain, SOB, N/V, abdominal pain, and abnormalities with urination and bowel movements. 03/24 - pt upright in bed upon evaluation today. LT LE swelling slightly improved, RT LE remains the same. Denies chest pain, SOB, N/V, abdominal pain, and urinary or bowel movement abnormalities. This morning, pt told nursing staff she wanted to get up on her own and that she wanted the bed alarm off. Nursing staff explained why it could not be turned off and that it was for her safety. Pt said she would deliberately keep standing up to set it off every 15 minutes which she did from 0500am to time of evaluation (07:30am). Charge nurse spoke with pt. Pt informed them and us that she would like to leave AMA. We discussed risks involved with this, her need for rehab placement, and her need for follow-up with Hematology, especially given that her platelets keep rising. Will discuss this again with patient when arrives. <Aaron Conte, Student - Last Filed: 03/24/25 08:58> Review of Systems Review of Systems: All systems reviewed & are unremarkable except as noted in HPI and below <Adriana Guerra, GENERAL [address] SUPERVISOR - Last Filed: 03/24/25 12:36> Exam Const: Other: , female, nontoxic appearance <Adriana Guerra [address] SUPERVISOR - Last Filed: 03/24/25 12:36> Cardio: Other: S1-S2 present without murmur, rub, ectopy <Adriana Guerra [address] SUPERVISOR - Last Filed: 03/24/25 12:36> GI: Other: Abdomen soft, nondistended, nontender. Normoactive bowel sounds in all quadrants. <dAriana Guerra [address] SUPERVISOR - Last Filed: 03/24/25 12:36> Skin: Other: Mild pallor <Adriana Guerra APRN - Last Filed: 03/24/25 12:36> Neuro: Other: A&O x4, forgetfulness noted <Adriana Guerra [address] SUPERVISOR - Last Filed: 03/24/25 12:36> Psych: Other: Fair insight and judgment, pleasant <Adriana Guerra [address] SUPERVISOR - Last Filed: 03/24/25 12:36> Objective Data Vital Signs Vital Signs: Vital Signs - 24 hr 03/23/25 08:00 03/23/25 11:27 03/23/25 14:00 Temperature 98 F Pulse Rate 89 Respiratory Rate 16 Blood Pressure 142/88 H Pulse Oximetry 99 Oxygen Delivery Room Air Room Air 03/23/25 20:00 03/23/25 23:45 03/24/25 05:02 Temperature 98.2 F 98.0 F Pulse Rate 90 100 Respiratory Rate 16 16 Blood Pressure 127/88 124/87 Pulse Oximetry 97 97 Oxygen Delivery Room Air <Adriana Guerra, GENER[address] SUPERVISOR - Last Filed: 03/24/25 12:36> Intake/Output Intake/Output: Intake & Output 03/21/25 03/22/25 03/23/25 03/24/25 23:59 23:59 23:59 23:59 Intake Total 2660 1670 980 400 Balance 2660 1670 980 400 <Adriana Guerra, GENER[address] SUPERVISOR - Last Filed: 03/24/25 12:36> Meds/Results Medications: Active Medications Generic Name Dose Route Start Last Admin Trade Name Freq PRN Reason Stop Dose Admin Acetaminophen 650 mg 03/19/25 20:12 03/24/25 01:25 Acetaminophen 325 Mg Tablet PO 650 mg Q6H PRN Administration Mild Pain (1-3) or Fever Ascorbic Acid 125 mg 03/24/25 09:00 Ascorbic Acid 125 Mg Tablet PO QAM TERRI Diazepam 5 mg 03/19/25 22:21 03/22/25 20:39 Diazepam (*Crx) 5 Mg Tablet PO 5 mg BID PRN Administration anxiety Fluoxetine HCl 20 mg 03/22/25 09:00 03/23/25 09:14 Fluoxetine Hcl 20 Mg Capsule PO 20 mg DAILY TERRI Administration Fluticasone Propionate 2 spray 03/19/25 22:21 Fluticasone Propionate 0.05% Na Spr 16 Gm Btl (*Bkc) NASAL Q12H PRN allergy symptoms Folic Acid 1 mg 03/20/25 09:00 03/23/25 09:14 Folic Acid 1 Mg Tablet PO 1 mg DAILY TERRI Administration Gabapentin 100 mg 03/21/25 17:00 03/23/25 17:30 Gabapentin 100 Mg Capsule PO 100 mg BID TERRI Administration Home Med 1 each 03/20/25 15:35 03/23/25 09:14 Home Medication-Blisovi 24 Fe PO 04/19/25 15:34 1 each DAILY TERRI Administration Ondansetron HCl 4 mg 03/19/25 17:42 Ondansetron Inj 4 Mg/2 Ml Vial IV PUSH Q4H PRN Nausea Pantoprazole Sodium 40 mg 03/21/25 21:00 03/23/25 20:34 Pantoprazole 40 Mg Tablet PO 40 mg Q12HR TERRI Administration Phenazopyridine HCl 200 mg 03/22/25 17:00 03/23/25 17:30 Phenazopyridine Hcl 100 Mg Tablet PO 03/24/25 16:59 200 mg TIDWM TERRI Administration Polysaccharide Iron Complex 150 mg 03/24/25 08:00 Polysaccharide Iron Complex 150 Mg Capsule PO DAILY@0800 TERRI Simethicone 0.6 ml 03/21/25 10:25 03/21/25 10:29 Simethicone Oral Suspension 20 Mg/0.3 Ml 30 Ml Bottle PO 1.8 ml Q2H PRN Administration Gas Discomfort Thiamine HCl 100 mg 03/20/25 09:00 03/23/25 09:14 Thiamine Hcl 100 Mg Tablet PO 100 mg QAM TERRI Administration <Adriana Guerra, GENER[address] SUPERVISOR - Last Filed: 03/24/25 12:36> Radiology Results: ITS Impressions Chest X-Ray 03/19/25 14:37 IMPRESSION: No acute cardiopulmonary pathology Brain MRI 03/20/25 11:39 IMPRESSION: Mild generalized atrophy, otherwise unremarkable exam. Cervical Spine MRI 03/22/25 13:11 Impression: Normal exam. Thoracic Spine MRI 03/22/25 13:14 IMPRESSION: Normal exam. Lumbar Spine MRI 03/22/25 13:15 Impression: Moderate degenerative spondylosis at L4-L5, with right neural foraminal narrowing and 6 mm anterolisthesis at this level. <Adriana Guerra, GENERAL [address] SUPERVISOR - Last Filed: 03/24/25 12:36> Labs Labs: Laboratory Results - last 24 hr 03/24/25 04:51 WBC 6.4 RBC 3.09 L Hgb 10.1 L Hct 31.5 L MCV 101.9 H MCH 32.7 MCHC 32.1 RDW 15.2 H Plt Count 613 H MPV 9.1 Sodium 137 Potassium 4.2 Chloride 112 H Carbon Dioxide 16 L Anion Gap 9 BUN 4 L Creatinine 0.83 Estim Creat Clear Calc 66 Estimated GFR > 60 Glucose 96 Calcium 9.1 <Adriana Guerra APRN - Last Filed: 03/24/25 12:36> Quality VTE Prophylaxis VTE prophylaxis: mechanical ordered <Adriana Guerra APRN - Last Filed: 03/24/25 12:36>
--- NOTE | 2025-03-24 09:15 | WPDNEUROPN ---
Progress Note: A&P Assessment and Plan (1) Alcohol abuse: Code(s): F10.10 - Alcohol abuse, uncomplicated Status: Acute (2) Neuropathy: Code(s): G62.9 - Polyneuropathy, unspecified Status: Acute (3) Anemia: Code(s): D64.9 - Anemia, unspecified Status: Acute Plan 1. Neuropathy with gait dysfunction. Patient will benefit from ongoing rehab because of the gait dysfunction and in the meantime she can be scheduled for the EMG nerve conduction study of the upper and lower extremities as an outpatient. She had the MRI of the brain and spinal axis which revealed no evidence of myelopathy or his space-occupying lesion. All these findings have been discussed explain to her and her . Her MCV is definitely increased B12 and folate level are pending. All these preventive measures are necessary to avoid involvement of the spinal cord. Subjective Date/time seen: 03/24/25 09:15 Interval history: Seen initially on 03/20 for the ongoing complaint of memory dysfunction, though she was admitted with the possibility of myelopathy versus neuropathy because of the progressive weakness of the lower extremities since she has been in the hospital has been seen by the assistant head cashier for stool positive for the occult blood for which she underwent endoscopic per seizures. she was documented to be anemic and her initial exam was consistent with neuropathy, she has been documented to have gastric ulcer and is being treated accordingly has also being seen by the office equipment technician for macrocytic anemia, her iron studies have been normal with elevated ferritin and B12 level was also normal considering the anemia further workup was suggested by the oncologist office equipment technician including soluble transferrin receptor and methylmalonic acid level she was also started on oral iron once a day along with vitamin-C in addition to instruction for the follow-up with office equipment technician. Neurologist was asked to follow her discussed the MRI results. MRI of the brain revealed mild but generalized atrophy, because her initial exam was consistent with the numbness of the lower extremities MRI of the cervical spine, thoracic spine, and lumbar spine were ordered all those studies were not significant. Considering the persistence of the numb numbness and gait dysfunction she was advised to go through the rehab while she is being treated medically but she required the further explanation which was provided in front of his that she will benefit from the ongoing physical therapy at least for the next 1 week which can be provided the rehab center otherwise she will come back to the ER. Her EMG nerve conduction study to be done as an outpatient thorough discussion was made in front of her . Exam Narrative: Awake alert cooperative in no obvious acute distress, head normocephalic with no cranial bruit, ear nose throat examination normal, neck supple with no cervical bruit no thyromegaly no lymphadenopathy, heart regular with no murmur, lungs clear to auscultation with no rhonchi or crepitations, abdomen is soft nontender with normal bowel sounds, neurologically she is awake alert oriented x3, his speech is not dysphasic not dysarthric not dysphonic, pupils round regular, feels the vision of full, extraocular movements are full with no nystagmus, facial sensation intact, face symmetrical, tongue in the midline, no fasciculation of the tongue, motor examination revealed her to have normal strength in upper and lower extremities proximally and distally with no evidence of abnormal tones active or passive, deep tendon reflexes are 1+ symmetrical ankle jerks are absent plantar responses are downgoing she had decreased sensation distally in both lower extremities. Objective Data Vital Signs Vital Signs: Vital Signs - 24 hr 03/23/25 11:27 03/23/25 14:00 03/23/25 20:00 Temperature 36.6 C Pulse Rate 89 Respiratory Rate 16 Blood Pressure 142/88 H Pulse Oximetry 99 Oxygen Delivery Room Air Room Air 03/23/25 23:45 03/24/25 05:02 Temperature 36.8 C 36.7 C Pulse Rate 90 100 Respiratory Rate 16 16 Blood Pressure 127/88 124/87 Pulse Oximetry 97 97 Oxygen Delivery Intake/Output Intake/Output: Intake & Output 03/21/25 03/22/25 03/23/25 03/24/25 23:59 23:59 23:59 23:59 Intake Total 2660 1670 980 400 Balance 2660 1670 980 400 Meds/Results Medications: Active Medications Generic Name Dose Route Start Last Admin Trade Name Freq PRN Reason Stop Dose Admin Acetaminophen 650 mg 03/19/25 20:12 03/24/25 01:25 Acetaminophen 325 Mg Tablet PO 650 mg Q6H PRN Administration Mild Pain (1-3) or Fever Ascorbic Acid 125 mg 03/24/25 09:00 Ascorbic Acid 125 Mg Tablet PO [facility] Diazepam 5 mg 03/19/25 22:21 03/22/25 20:39 Diazepam (*Crx) 5 Mg Tablet PO 5 mg BID PRN Administration anxiety Fluoxetine HCl 20 mg 03/22/25 09:00 03/23/25 09:14 Fluoxetine Hcl 20 Mg Capsule PO 20 mg DAILY TERRI Administration Fluticasone Propionate 2 spray 03/19/25 22:21 Fluticasone Propionate 0.05% Na Spr 16 Gm Btl (*Bkc) NASAL Q12H PRN allergy symptoms Folic Acid 1 mg 03/20/25 09:00 03/23/25 09:14 Folic Acid 1 Mg Tablet PO 1 mg DAILY TERRI Administration Gabapentin 100 mg 03/21/25 17:00 03/23/25 17:30 Gabapentin 100 Mg Capsule PO 100 mg BID TERRI Administration Home Med 1 each 03/20/25 15:35 03/23/25 09:14 Home Medication-Blisovi 24 Fe PO 04/19/25 15:34 1 each DAILY TERRI Administration Ondansetron HCl 4 mg 03/19/25 17:42 Ondansetron Inj 4 Mg/2 Ml Vial IV PUSH Q4H PRN Nausea Pantoprazole Sodium 40 mg 03/21/25 21:00 03/23/25 20:34 Pantoprazole 40 Mg Tablet PO 40 mg Q12HR TERRI Administration Perflutren Lipid Microsphere 0 ml 03/24/25 09:01 Perflutren Lipid Microspheres 1.5 Ml Vial Diluted To 10 Ml Total Volume IV PUSH 03/27/25 09:02 ONCE PRN adequate visualization Protocol Phenazopyridine HCl 200 mg 03/22/25 17:00 03/23/25 17:30 Phenazopyridine Hcl 100 Mg Tablet PO 03/24/25 16:59 200 mg TIDWM TERRI Administration Polysaccharide Iron Complex 150 mg 03/24/25 08:00 Polysaccharide Iron Complex 150 Mg Capsule PO DAILY@0800 TERRI Simethicone 0.6 ml 03/21/25 10:25 03/21/25 10:29 Simethicone Oral Suspension 20 Mg/0.3 Ml 30 Ml Bottle PO 1.8 ml Q2H PRN Administration Gas Discomfort Thiamine HCl 100 mg 03/20/25 09:00 03/23/25 09:14 Thiamine Hcl 100 Mg Tablet PO 100 mg QAM TERRI Administration Radiology Results: ITS Impressions Chest X-Ray 03/19/25 14:37 IMPRESSION: No acute cardiopulmonary pathology Brain MRI 03/20/25 11:39 IMPRESSION: Mild generalized atrophy, otherwise unremarkable exam. Cervical Spine MRI 03/22/25 13:11 Impression: Normal exam. Thoracic Spine MRI 03/22/25 13:14 IMPRESSION: Normal exam. Lumbar Spine MRI 03/22/25 13:15 Impression: Moderate degenerative spondylosis at L4-L5, with right neural foraminal narrowing and 6 mm anterolisthesis at this level. Labs Labs: Laboratory Results - last 24 hr 03/24/25 04:51 WBC 6.4 RBC 3.09 L Hgb 10.1 L Hct 31.5 L MCV 101.9 H MCH 32.7 MCHC 32.1 RDW 15.2 H Plt Count 613 H MPV 9.1 Sodium 137 Potassium 4.2 Chloride 112 H Carbon Dioxide 16 L Anion Gap 9 BUN 4 L Creatinine 0.83 Estim Creat Clear Calc 66 Estimated GFR > 60 Glucose 96 Calcium 9.1
[2025-03-24] MEDS: ASCORBIC ACID 125 MG TABLET PO (09:34)
[2025-03-24] MEDS: GABAPENTIN 100 MG CAPSULE PO ×2 (09:34→17:09)
[2025-03-24] MEDS: PANTOPRAZOLE 40 MG TABLET PO ×2 (09:34→20:51)
[2025-03-24] MEDS: diazePAM (*CRX) 5 MG TABLET PO ×2 (09:34→20:51)
[2025-03-24] MEDS: FOLIC ACID 1 MG TABLET PO (09:34)
[2025-03-24] MEDS: THIAMINE HCL 100 MG TABLET PO (09:34)
[2025-03-24] MEDS: BLISOVI FE 1 EACH PO (09:35)
[2025-03-24] MEDS: PHENAZOPYRIDINE HCL 100 MG TABLET 200 MG PO ×2 (09:35→12:56)
[2025-03-24] MEDS: FUROSEMIDE INJ 40 MG/4 ML VIAL 20 MG IV PUSH (09:44)
--- NOTE | 2025-03-24 13:06 | WPDCNPSYCH ---
Assessment and Plan Assessment and plan (1) Alcohol-induced major neurocognitive disorder, amnestic confabulatory type, with moderate or severe use disorder: Code(s): F10.26 - Alcohol dependence with alcohol-induced persisting amnestic disorder Status: Acute Assessment and Plan: individual with a >20-year history of daily alcohol use, referred for psychiatric evaluation due to significant short-term memory impairment, confusion, and repeated falls. Patient reports increasing forgetfulness, difficulty with word-finding, and losing track of tasks. Collateral history suggests progressive cognitive decline over the past year. Insight into deficits appears limited. No current complaints of depression or hallucinations reported; however, patient has poor recall of recent events and inconsistently reports alcohol use. 44-year-old with likely Major Neurocognitive Disorder due to Alcohol Use, presenting with early-onset cognitive decline. Cognitive testing and history are consistent with significant impairment in memory, visuospatial skills, and executive function. MRI demonstrates mild generalized cerebral atrophy. Daily alcohol use for over two decades raises concern for Korsakoff?s syndrome and alcohol-related dementia, particularly in the setting of impaired recall and poor insight. Frequent falls suggest possible cerebellar involvement or executive motor dysfunction. AUDIT score of 6 may underestimate use due to poor insight or cognitive distortion. (2) Anxiety: Code(s): F41.9 - Anxiety disorder, unspecified Status: Acute Assessment and Plan: JAYSON-7 score 2. patient reports that she does have anxiety plan: - continue fluoxetine (Prozac) 20 mg PO daily - encouraged initiation of individual therapy - continue couples therapy with - follow up with psychiatric care provider after discharge. Plan continue FLUOXETINE 20 mg daily po. Thiamine replacement: Initiate or continue thiamine 100 mg PO/IV daily to prevent/treat Wernicke-Korsakoff syndrome. Substance use treatment referral: Despite low AUDIT score, patient has long history of high-risk use. Consider motivational interviewing, outpatient rehab, or inpatient detox depending on readiness. Fall risk evaluation: Recommend physical therapy, gait evaluation, and environmental safety assessment. Psychiatric follow-up: For ongoing monitoring of cognitive, mood, and behavioral symptoms; rule out concurrent depressive symptoms or psychosis. Consider imaging review with neurology to assess for signs of cerebellar degeneration or focal atrophy patterns. Caregiver support/education: If available, involve family in planning and monitoring due to poor insight and safety concerns. follow up with psychiatric care provider for AUD and anxiety. HPI Data of Consult Date/Time: 03/24/25 13:06 Requesting Physician: Sunday Sage MD Primary Care Provider: Satya Fournier MD Consult Narrative Narrative: Elvia Muir is a 44 year old female with history of alcohol use disorder History of Present Illness: Patient reports recent hospitalization due to persistent vomiting for 6 weeks while on weight loss medication (Zepbound or Wegovy), which resulted in a peptic ulcer and dropping hemoglobin levels and was diagnosed with an ulcer. Patient states she suddenly developed neuropathy and had difficulty walking. Her mother 3 months ago ( reports that her mother over a year ago), which has been emotionally challenging (became tearful during assessment). Her reports she has been experiencing weakness, falling frequently, and cognitive changes including forgetfulness and confusion. He states she was unresponsive for 10-15 seconds after a fall on March 05, which prompted an ER visit. The patient acknowledges daily alcohol consumption, typically wine, 3 or more full glasses of wine nightly. Patient recently completed a 14-day period of sobriety but has since resumed drinking. Patient denies any diagnosed psychiatric conditions beyond learning disabilities and anxiety, for which she takes Valium as needed. She was started on fluoxetine 20 mg daily 3 days ago. The patient describes having no energy, feeling low,. She states she has always struggled with forgetfulness but acknowledges answering more questions than usual and finding things very confusing lately. Her corroborates significant cognitive changes, noting incorrect responses to questions about recent events and daily activities. Social History: Daily alcohol consumption, primarily wine. Patient reports 2-3 glasses per night starting at 3:30 PM, but indicates 3+ drinks nightly. Drinking pattern since twenties. Recent 14-day period of sobriety. Some college education, complete high school. Currently , history of previous divorce. Mother recently passed over a year ago, but patient reports it was 3 months ago. Previous counseling after first divorce and for relationship issues. Recent counseling session with alcohol scalp specialist. Family History: Mother: of pulmonary fibrosis 2 years ago Uncle: a few years ago Review of Systems Neurologic: Reports confusion, Reports frequent falls (recent falls), Reports memory loss and Reports weakness Psychiatric: Psychiatric: Reports anxiety, Reports irritability, Reports memory loss and Reports mood swings (emotional lability.) Comments: forgetful PMFSH Past Medical History Medical History (Updated 03/24/25 @ 13:26 by Gennaro Gant, GLORIA) Anxiety Weight loss Low folic acid Acute anemia Mass of finger of right hand Ganglion cyst of dorsum of right wrist Thoracic outlet syndrome Abnormal deposits of lipid Hyperglycemia HTN (hypertension) off medications as of 03/19/25 Surgical History Surgical History History of tonsillectomy Status post lumbar surgery Family History Family History (Updated 03/24/25 @ 13:15 by Gennaro Gant, [employer]) Other Family history of lung cancer Pulmonary fibrosis Social History Social History Smoking packs per day: 0.5 Smoking cigarettes per day: 10.0 Years smoked: 10 Smoking pack-years: 5.00 Smoking status: Former smoker Tobacco type: cigarettes Smoking end date: 09/05/07 Alcohol intake: current Drinks per week: 18 Alcohol use details: WINE Substance use: never Substance use type: does not use Do You Feel Safe in your Home?: Yes Lack of Transportation: No Lack of Food: Never True Current Housing: I Have Housing Concerned About Future Housing: No Difficulty Paying Gas/Electric Bills: No Difficulty Paying for Meds: No Currently Unemployed: No Education: Decline to Answer Difficulty w/ Childcare or Family Care: No Living arrangements: with family Spiritual care concerns: No Meds Home Medications and Allergies Home Medications ?Medication ?Instructions ?Recorded ?Confirmed ?Type norethindrone 1 mg-ethinyl 1 tablet PO DAILY 10/26/19 03/19/25 History estradiol 20 mcg (24)-iron 75 mg (4) tablet (Blisovi 24 Fe) diazepam 5 mg tablet 5 mg PO BID PRN anxiety #30 tabs 09/13/24 03/19/25 Rx ondansetron HCl 4 mg tablet 4 mg PO Q6H PRN nausea and 02/04/25 03/19/25 Rx vomiting #30 tabs fluticasone propionate 50 See Rx Instructions .Route 03/19/25 03/19/25 History mcg/actuation nasal .COMPLEX PRN allergy symptoms spray,suspension hydrochlorothiazide 12.5 mg capsule See Rx Instructions .Route 03/19/25 03/19/25 History .COMPLEX PRN edema naproxen 500 mg tablet See Rx Instructions .Route 03/19/25 03/19/25 History .COMPLEX PRN pain Allergies Allergy/AdvReac Type Severity Reaction Status Date / Time Estrogens AdvReac Mild Migraine Verified 03/21/25 10:30 Vital Signs Vital Signs - 24 hr 03/23/25 14:00 03/23/25 20:00 03/23/25 23:45 Temperature 98 F 98.2 F Pulse Rate 89 90 Respiratory Rate 16 16 Blood Pressure 142/88 H 127/88 Pulse Oximetry 99 97 Oxygen Delivery Room Air 03/24/25 05:02 Temperature 98.0 F Pulse Rate 100 Respiratory Rate 16 Blood Pressure 124/87 Pulse Oximetry 97 Oxygen Delivery Exam Psych: Mental Status: other Speech and movement: Normal speech and movement present Affect: Labile affect present Attitude: Guarded attititude/behavior present Thought process: Tangential thought process present Thought content: Yes Normal thought content present Insight: Poor insight present (Psych) Judgement: Poor judgement present (Psych) Other: Mental Status Examination: - Behavior: Cooperative with examination. - Speech: Patient reports difficulty answering questions and states I've been having to answer more questions than I've ever had to in the past. Stuff gets very confusing to me because I've never had to answer so many questions. - Mood: Patient states I've had my good days and my bad days when discussing coping with mother's . - Thought Process: Some evidence of tangential thinking and difficulty staying on topic. - Cognition: Disoriented to year (stated 2025 when current year is 2024). Able to spell WORLD forwards and backwards. Difficulty with serial 7s subtraction. Impaired immediate recall (unable to remember any of 5 objects after brief delay). Impaired calculation abilities. Named 15 animals in one minute. Clock drawing test completed with some difficulty unable to draw the numbers on the clock face correctly, wrote time correclty. Oriented to place (knew she was in the hospital) and day of the week (Tuesday). - Insight: Limited insight into alcohol use. When discussing drinking habits, patient initially minimized amount consumed but gradually acknowledged higher quantities when questioned further. - Judgment: Impaired judgment evidenced by continued alcohol use despite medical complications. when asked, if you found a piece of mail in front of a mailbox what would you do? patient responded i would walk past it Rating Scales: - Mental Status Examination: - Orientation: Patient stated incorrect year (2025) - Memory: Unable to recall 5 objects - Calculation: able to calculate 20 + 3. unable to subtract 100-23. - Animal naming test: Completed appropriately - Clock drawing test: fanny the clock incorrectly, wrote time correctly. Guy depression inventory score: 7 SLUMS examination: 12- sever impairment JAYSON-7: 2 audit: interview version: 6 Results Labs 03/24/25 04:51 03/24/25 04:51 Labs: Short CBC 03/24/25 Range/Units 04:51 WBC 6.4 (4.5-10.0) K/mm3 Hgb 10.1 L (12.0-15.0) g/dL Hct 31.5 L (37.0-47.0) % Plt Count 613 H (150-375) k/mm3 [facility] 03/24/25 04:51 Sodium 137 Potassium 4.2 Chloride 112 H Carbon Dioxide 16 L BUN 4 L Creatinine 0.83 Glucose 96 Calcium 9.1
[2025-03-24 13:34] VITALS: BP 116/87; PULSE 103; RESP 16; TEMP 36.6; O2SAT 98
[2025-03-24 20:33] VITALS: BP 141/88; PULSE 96; RESP 18; TEMP 36.8; O2SAT 95
[2025-03-24 20:34] VITALS: O2SAT 99
[2025-03-25 04:51] VITALS: BP 145/90; PULSE 97; RESP 20; TEMP 36.9; O2SAT 96
[2025-03-25 05:22] LABS: Hematocrit 29.2 % (37.0-47.0); Hemoglobin 9.5 g/dL (12.0-15.0); Mean Corpuscular HGB Conc 32.5 g/dl (32-36); Mean Corpuscular Hemoglobin 33.0 pg (26-34); Mean Corpuscular Volume 101.4 fl (80-100); Platelet Count Result 589 k/mm3 (150-375); Red Blood Count 2.88 M/mm3 (4.2-5.4); White Blood Count 7.2 K/mm3 (4.5-10.0)
[2025-03-25 05:48] LABS: Anion Gap 6 mmol/L (4-12); Blood Urea Nitrogen 6 mg/dL (7-17); Calcium 8.9 mg/dL (8.4-10.2); Carbon Dioxide 21 mmol/L (22-30); Chloride 107 mmol/L (98-107); Estimated CRCL calculation 67 ml/min; Estimated Glomerular Filt Rate > 60; Glucose 95 mg/dL (65-110); Potassium 3.5 mmol/L (3.4-5.0); Sodium 134 mmol/L (137-145)
[2025-03-25] MEDS: ACETAMINOPHEN 325 MG TABLET 650 MG PO ×3 (05:48→21:33)
--- NOTE | 2025-03-25 07:16 | P.DS_ITS ---
DS: Discharge Diagnosis Discharge Diagnosis (1) GI bleed: Qualifiers: GI bleed type/associated pathology: unspecified gastrointestinal hemorrhage type Qualified Code(s): K92.2 - Gastrointestinal hemorrhage, unspecified Code(s): K92.2 - Gastrointestinal hemorrhage, unspecified Status: Acute Assessment and Plan: - Hgb 9.7, previously 12.7 on 03/01/25 - hemoccult was + in the ED on 03/19 - not on anticoagulation - GI consulted, awaiting recs - trend H&H, transfuse if <7 - started on pantoprazole - monitor hemodynamic stability and telemetry 03/21 - GI recommended and complete colonoscopy & EGD - EGD Findings: large, benign Peptic Ulcer - Colonoscopy Findings: normal - Plan: follow up in GI clinic, repeat EGD in 3 months, d/c IV pantoprazole, begin oral, regular diet, consider hematology consult - Hgb 9.9, previously 8.5 on 03/19/25 - trend H&H, transfuse if <7 - Pt has macrocytic anemia (105.9), with normal iron levels, Plt ct of 433 today - hematology consult placed 03/22 - Hgb 9.3, continue to trend, transfuse <7 - awaiting Heme/onc consult 03/23 - Hgb 9.3, continue to trend, transfuse <7 - Heme/Onc Consult: Etiology for anemia unknown. No evidence of hemolytic anemia. Ordered work-up to include: Methylmalonic Acid, RBC Folate Hemolysate, RBC Folate, and tone for bone marrow biopsy testing. - recommended Oral Iron 65 mg daily with Vit-C. - Follow up outpatient in a couple weeks - GI Consult: Continue PPI, avoid ETOH and NSAID, follow up in office outpatient 03/24 - H/H 10.1/31.5, continue to trend, transfuse <7 - Heme/Onc consult: Plan stated above on 03/23/25. See Elevated platelet count below for further detail. - GI recommendations:Continue PPI, avoid ETOH and NSAID, follow up in office outpatient (2) Memory deficit: Code(s): R41.3 - Other amnesia Status: Acute Assessment and Plan: - reviewed patient's outpatient lab work on patient's cell phone, showed B12 [id number] and Folate 1.1 on 03/15. - check TSH- 1.550 - check MRI- ordered-pending this am based on MRI result-will consider neurology consult Patient has history of moderate to heavy alcohol use, has abstained for the past week. 03/21 - Brain MRI: Mild generalized atrophy, otherwise unremarkable. - struggles with recalling medical care and timeline. - Neurology consulted and following. 03/22 - Neurology reassessment tomorrow - UDS ordered 03/23 - Neurology consult: recommending Rehab and outpatient EMG/NCS - UDS positive for Benzo's - Valium history. 03/24 - Neurology evaluated patient yesterday. consult note currently unavailable. Informed nursing staff they recommended Rehab placement and outpatient EMG/NCS - Psychiatry consult placed (3) Neuropathy: Code(s): G62.9 - Polyneuropathy, unspecified Status: Acute Assessment and Plan: 03/21 - progressive weakness over the last month that has worsened over the last 2 weeks. Noted several falls. Has required assistance with ambulation during admission. Notes neuropathic symptoms in her extremities. Prior history of similar symptoms following the passing of a family member that resolved. Patient unaware of her treatment at the time but does recall prior gabapentin use without complications. - consult with neurology 03/20: - possible MRI of cervical, thoracic, and lumbar spine and subsequently, if necessary, EMG nerve conduction studies and spinal fluid. Rule out possibility of myelopathy v neuropathy - Ordered gabapentin 03/22 - On exam today she has RT > LT LE weakness. Sensation fully intact. Lower & Upper Ext coordination normal. UE 5/5 strength bilaterally. normal CN 2-12. Babinski normal bilaterally - Lumbar MRI: Moderate degenerative spondylosis at L4-L5, with right neural foraminal narrowing and 6 mm anterolisthesis at this level - Thoracic MRI: Normal - Cervical MRI: Normal - followed by Neurology - re-evaluation tomorrow - continue gabapentin 03/23 - Neurology consult: recommending Rehab and outpatient EMG/NCS - continue gabapentin - PT/OT 03/24 - Symptoms unchanged - Neurology consult: recommending Rehab and outpatient EMG/NCS - continue gabapentin - OT note from 03/23: Pt requiring increased assist from her baseline with ADLs, transfers, and functional mobility due to deficits with safety awareness, impulsivity, weakness, and decreased balance. Skilled OT indicated to maximize functional safety and independence with ADLs. (4) Anxiety: Code(s): F41.9 - Anxiety disorder, unspecified Status: Acute Assessment and Plan: 03/21: history of anxiety. Notes prior use of valium. Recent loss of mother. History of family member loss with episode of neuropathy symptoms that resolved. Pt unaware of treatment, if any, at that time. - ordered fluoxetine - patient aware that treatment effects will take several weeks at the earliest to notice any benefit. Discussed the need to follow up with PCP for continuation of medication and to address possible side effects. 03/22 - given more history regarding valium use. Has been taking for 15 years, originally for vertigo-like symptoms, but continued taking for anxiety. Unsure of frequency of use, but patients estimates 3-4x/week but periods where she reports not taking it for a week at a time. Discussed with her that she should reduce/limit Valium use in the future. Continue taking fluoxetine which will require follow up with PCP. continue Prozac - Psychiatry consult placed (5) Alcohol abuse: Code(s): F10.10 - Alcohol abuse, uncomplicated Status: Acute Assessment and Plan: counselling completed - need to cut down and stop alcohol 03/22 - repeat folate & Mg in AM of 03/23 - last drink per was 10 days ago - ETOH drawn on 03/19 was <10 (6) Anemia: Code(s): D64.9 - Anemia, unspecified Status: Acute Assessment and Plan: macrocytic anemia, normal iron level elevated platelets- will consult hem/oncology 03/23 - Heme/Onc Consult: Etiology for anemia unknown. No evidence of hemolytic anemia. Ordered work-up to include: Methylmalonic Acid, RBC Folate Hemolysate, RBC Folate, and tone for bone marrow biopsy testing. - recommended Oral Iron 65 mg daily with Vit-C. - Follow up outpatient in a couple weeks 03/24 - H/H 10.1/31.5, continue to trend, transfuse <7 - Heme/Onc recommendation/plan unchanged (7) Elevated platelet count: Code(s): R79.89 - Other specified abnormal findings of blood chemistry Status: Acute Assessment and Plan: Patient initially admitted with concerns for GI bleed. Colonoscopy & EGD completed and identified benign peptic ulcer which may have contributed to blood in stool. At admission, patients platelet count was 344. It has since risen to 613 today. Below are her daily plt. counts. Heme/onc consulted on 03/21/25 for rising platelet count and macrocytic anemia. Consult note states: Etiology for anemia unknown. No evidence of hemolytic anemia. Ordered work-up to include: Methylmalonic Acid, RBC Folate Hemolysate, RBC Folate, and tone for bone marrow biopsy testing. Recommend daily iron (65 mg) with vitamin C & outpatient follow- up. 03/19/25 - 344 03/20 - 336 03/21 - 433 03/22 - 437 03/23 - 487 03/24 - 613 hem/oncology onboard- appreciate recommendation differentials: RADHA vs acute bleed vs malignancy vs infection vsother will continue iron and vit C supplements as advised per hem/onc close f/u with DR Ty as an outpt. (8) Lower extremity edema: Code(s): R60.0 - Localized edema Status: Acute Assessment and Plan: 03/23 - Increase in lower extremity edema bilaterally. Has history of on and off pedal edema for 5 years per patient and . Will occasionally take diuretic medication prescribed by PCP per patient. Increased activity today and yesterday. Denies burning calf pain or redness. Negative Homans sign upon evaluation. Denies PMHx and FMHx of CHF. States she has Mitral Valve Prolapse but unaware of last echo (if completed), not currently symptomatic or taking medications. 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 Has also mentioned that she may be changing her PCP. - Stockinettes placed 03/24 - LT lower leg with improvement. RT lower leg unchanged. Patient states she has been using stockinette but they are not on at the time of exam. - continue stockinettes - ordered lasix 20 mg IV push - Ordered Echocardiogram as unsure if and when it was completed (9) Mitral valve prolapse: Code(s): I34.1 - Nonrheumatic mitral (valve) prolapse Status: Acute Assessment and Plan: 03/23 - patient states she has history of mitral valve prolapse. Date of last echo unknown. Does not have a cardiology. Is followed by PCP. currently not taking any medications. 03/24 - confirmed details above. Current increase in LE edema with intermittent history over the last 5 years with intermittent use of HCTZ (per ) for diuresis control. Continues to denies chest pain and dyspnea. notes dyspnea prior to ED arrival for a couple days, but not since admission. - Ordered Echocardiogram to assess MVP and/or other cardiac contributing factors to LE edema. Plan Diet: regular diet GI Prophylaxis: Pantoprzole DVT Prophylaxis: SCDs IV fluids: 1 L bolus-> 125 mL/hour Lines/Tubes: Peripheral IV Code Status: Full code 03/22 - patient experienced burning and increase frequency. UA was unremarkable. Will treat with Pyridium and reasses prn DS: Summary Time Spent with Patient Time attestation: Total time spent providing and/or coordinating discharge services: Exam Const: Other: , female, nontoxic appearance Cardio: Other: S1-S2 present without murmur, rub, ectopy GI: Other: Abdomen soft, nondistended, nontender. Normoactive bowel sounds in all quadrants. Skin: Other: Mild pallor Neuro: Other: A&O x4, forgetfulness noted Psych: Other: Fair insight and judgment, pleasant DS: Data Data Completed and Pending Pending studies at discharge: Pending at discharge 03/21/25 11:30 Surgical [PTH] Routine Labs on day of discharge: Labs from last 24 hours 03/25/25 04:54 WBC 7.2 RBC 2.88 L Hgb 9.5 L Hct 29.2 L MCV 101.4 H MCH 33.0 MCHC 32.5 RDW 14.8 H Plt Count 589 H MPV 9.3 Sodium 134 L Potassium 3.5 Chloride 107 Carbon Dioxide 21 L Anion Gap 6 BUN 6 L Creatinine 0.81 Estim Creat Clear Calc 67 Estimated GFR > 60 Glucose 95 Calcium 8.9 Discharge Plan Discharge Consulting providers: Cornelio Golden; Marcos Ty; Dexter Thompson Patient Instructions: Diet for Stomach Ulcers and Gastritis (GEN) Patient Language: Estonian Discharge Medications: No Action norethindrone-e.estradiol-iron [[place]is[place] 24 Fe] 1 mg-20 mcg (24)/75 mg (4) tablet 1 tablet PO DAILY hydrochlorothiazide 12.5 mg capsule See Rx Instructions .ROUTE .COMPLEX PRN (Reason: edema) Rx Instructions: TAKE 2 CAPSULES BY MOUTH EVERY DAY PRN; fluticasone propionate 50 mcg/actuation spray,suspension See Rx Instructions .ROUTE .COMPLEX PRN (Reason: allergy symptoms) Rx Instructions: SHAKE LIQUID AND USE 2 SPRAYS IN EACH NOSTRIL EVERY 12 HOURS PRN naproxen 500 mg tablet See Rx Instructions .ROUTE .COMPLEX PRN (Reason: pain) Rx Instructions: TAKE 1 TABLET BY MOUTH DAILY PRN; diazepam 5 mg tablet 5 mg PO BID PRN (Reason: anxiety) Qty: 30 2RF ondansetron HCl 4 mg tablet 4 mg PO Q6H PRN (Reason: nausea and vomiting) Qty: 30 0RF Date of admission: 03/21/25 16:10 Primary Care Provider: Satya Fournier Admitting Provider: Sunday Sage Attending physician on admission: Sunday Sage Condition: Stable Quality VTE Prophylaxis VTE prophylaxis: mechanical ordered
[2025-03-25] MEDS: FOLIC ACID 1 MG TABLET PO (08:34)
[2025-03-25] MEDS: ASCORBIC ACID 125 MG TABLET PO (08:34)
[2025-03-25] MEDS: THIAMINE HCL 100 MG TABLET PO (08:34)
[2025-03-25] MEDS: PANTOPRAZOLE 40 MG TABLET PO ×2 (08:34→21:34)
[2025-03-25] MEDS: GABAPENTIN 100 MG CAPSULE PO ×2 (08:34→17:22)
[2025-03-25] MEDS: BLISOVI FE 1 EACH PO (08:37)
--- NOTE | 2025-03-25 09:02 | ECHO_ITS ---
Patient Info Name: Elvia Muir Age: 44 years : 1980 Gender: Female Ht: 66 in Wt: 122 lbs BSA: 1.60 m2 HR: 97 bpm BP: 145 / 90 mmHg Technical Quality: Good Exam Date: 03/25/2025 11:07 AM Patient Status: I Admit Date: 03/21/2025 Exam Type: CA echo dop color flow w con Complete two-dimensional, color flow and Doppler transthoracic echocardiogram is performed with contrast to opacify the left ventricle and to improve the deliniation of the left ventricle endocardial borders. Staff Referring Physician: Cornelio Golden MD Business Development Analyst: Jazzy Harry Attending Provider: Sunday Sage Contrast/Agitated Saline Contrast/Ag. Saline: Definity Amount: 2.00 ml Administered By: Jazzy Harry Existing IV Access: Yes IV Access Condition: patent with no signs of infiltration Summary 1. There is normal biventricular size and systolic function. 2. There are no significant valvular abnormalities. Left Ventricle The left ventricle is normal in size and systolic function. The left ventricular ejection fraction is visually estimated to be 65-70%. There are no regional wall motion abnormalities. Right Ventricle The right ventricle is normal in size and systolic function. Left Atria The left atrium is normal size. Right Atria The right atrium is normal size. Atrial Septum The atrial septum is grossly intact. Aortic Valve The aortic valve is trileaflet and opens well. There is no aortic regurgitation. Pulmonic Valve The pulmonic valve is grossly normal. There is no pulmonic valve regurgitation. Mitral Valve The mitral valve leaflets are sclerotic. There is trace mitral regurgitation. Tricuspid Valve The tricuspid valve is normal. There is trace tricuspid regurgitation. Pericardium/Pleural There is trace amount of pericardial effusion. Inferior Vena Cava Normal inferior vena cava with <50% collapse upon inspiration consistent with elevated right atrial pressure, 8 mmHg. Aorta The aortic root at the level of the sinus of Valsalva measures 3.3 cm in diameter. Left Ventricular Outflow Tract Name Value Normal LVOT 2D LVOT Diameter 2.0 cm LVOT Doppler LVOT Peak Velocity 81 cm/s LVOT Peak Gradient 3 mmHg LVOT Mean Gradient 2 mmHg LVOT VTI 16 cm LVOT VTI/AV VTI Ratio 0.8 LVOT Stroke Volume 48 ml LVOT CO 2.0 l/min LVOT CI 1.2 l/min/m2 Pulmonic Valve Name Value Normal PV Doppler PV Peak Velocity 96 cm/s PV Peak Gradient 4 mmHg Mitral Valve Name Value Normal MV Diastolic Function MV E Peak Velocity 79 cm/s MV A Peak Velocity 66 cm/s MV E/A 1.2 MV Decel Time (PW) 183 ms MV Annular TDI MV E/e' (Septal) 8.6 MV E/e' (Lateral) 9.6 MV E/e' (Average) 9.1 Tricuspid Valve Name Value Normal TV Regurgitation Doppler TR Peak Velocity 252 cm/s TR Peak Gradient 24 mmHg Estimated PAP/RSVP RA Pressure 8 mmHg <=5 PA Systolic Pressure 33 mmHg <36 RV Systolic Pressure 33 mmHg <36 TV Annular TDI TV Lateral Daniela s' Velocity 10.6 cm/s >=9.5 Aortic Valve Name Value Normal AV Doppler AV Peak Velocity 96 cm/s AV Peak Gradient 4 mmHg AV Mean Gradient 2 mmHg AV VTI 19 cm AV Area (Cont Eq VTI) 2.5 cm2 >=3.0 AV Area (Cont Eq Catarino) 2.6 cm2 AV DI (Catarino) 0.85 AV Regurgitation 2D LVOT Area 3.0 cm2 Ventricles Name Value Normal LV Dimensions 2D/MM IVS Diastolic Thickness (2D) 1.0 cm 0.6-1.0 LVID Diastole (2D) 3.9 cm 3.8-5.2 LVIW Diastolic Thickness (2D) 1.0 cm 0.6-0.9 LVID Systole (2D) 2.8 cm 2.2-3.5 LVOT Diameter 2.0 cm LV Mass (2D Cubed) 127.54 g 67.00-162.00 LV Mass Index (2D Cubed) 80 g/m2 43-95 Relative Wall Thickness (2D) 0.52 <=0.42 LV Fractional Shortening/Ejection Fraction 2D/MM LV Fractional Shortening (2D) 30 % 27-45 LV EF (2D Teichholz) 58 % LV Diastolic Volume (4C MOD) 72 ml LV EF (4C MOD) 66 % LV Diastolic Volume (2C MOD) 88 ml LV EF (2C MOD) 68 % LV Diastolic Volume (BP MOD) 83 ml 46-106 LV Diastolic Volume Index (BP MOD) 52 ml/m2 29-61 LV Systolic Volume (BP MOD) 27 ml 14-42 LV Systolic Volume Index (BP MOD) 17 ml/m2 8-24 LV EF (BP MOD) 67 % 54-74 LV Diastolic Length (4C) 8.0 cm LV Systolic Length (4C) 6.2 cm LV Stroke Volume (4C MOD) 48 ml Atria Name Value Normal LA Dimensions LA Volume (4C A-L) 28 ml LA Volume (BP A-L) 35 ml RA Dimensions RA Systolic Major Caldwell Length (4C) 5.2 cm 2.2-2.8 RA Area (4C) 12.9 cm2 <=18.0 Report Signatures
[2025-03-25] MEDS: PERFLUTREN LIPID MICROSPHERES 1.5 ML VIAL DILUTED TO 10 ML TOTAL VOLUME IV PUSH (11:55)
--- NOTE | 2025-03-25 12:22 | IVDEFINITY ---
Prior to administration of IV Definity the patient was educated on the risks and benefits of the imaging enhancing agent including potential adverse side effects. The patient verbalized understanding. Allergies were verified. No exclusion criteria were identified and at least one of the following inclusion criteria were met: 1) physician request, 2) patient technically difficult to image (per the [place] [employer] guidelines of two or more segments not discernable within the apical view), or 3) questionable left ventricular function. ?
[2025-03-25 13:46] VITALS: BP 141/95; PULSE 97; RESP 16; TEMP 36.7; O2SAT 100
[2025-03-25 14:08] LABS: Hematocrit 30.7 % (34.0-46.6)
--- NOTE | 2025-03-25 15:23 | P.PNIM_ITS ---
Progress Note: A&P Assessment and Plan (1) GI bleed: Qualifiers: GI bleed type/associated pathology: unspecified gastrointestinal hemorrhage type Qualified Code(s): K92.2 - Gastrointestinal hemorrhage, unspecified <Adriana Guerra, MEDICAL STENOGRAPHER - Last Filed: 03/25/25 15:42> Code(s): K92.2 - Gastrointestinal hemorrhage, unspecified <Adriana Guerra, MEDICAL STENOGRAPHER - Last Filed: 03/25/25 15:42> Status: Acute <Adriana Guerra, MEDICAL STENOGRAPHER - Last Filed: 03/25/25 15:42> Assessment and Plan: - Hgb 9.7, previously 12.7 on 03/01/25 - hemoccult was + in the ED on 03/19 - not on anticoagulation - GI consulted, awaiting recs - trend H&H, transfuse if <7 - started on pantoprazole - monitor hemodynamic stability and telemetry 03/21 - GI recommended and complete colonoscopy & EGD - EGD Findings: large, benign Peptic Ulcer - Colonoscopy Findings: normal - Plan: follow up in GI clinic, repeat EGD in 3 months, d/c IV pantoprazole, begin oral, regular diet, consider hematology consult - Hgb 9.9, previously 8.5 on 03/19/25 - trend H&H, transfuse if <7 - Pt has macrocytic anemia (105.9), with normal iron levels, Plt ct of 433 today - hematology consult placed 03/22 - Hgb 9.3, continue to trend, transfuse <7 - awaiting Heme/onc consult 03/23 - Hgb 9.3, continue to trend, transfuse <7 - Heme/Onc Consult: Etiology for anemia unknown. No evidence of hemolytic anemia. Ordered work-up to include: Methylmalonic Acid, RBC Folate Hemolysate, RBC Folate, and tone for bone marrow biopsy testing. - recommended Oral Iron 65 mg daily with Vit-C. - Follow up outpatient in a couple weeks - GI Consult: Continue PPI, avoid ETOH and NSAID, follow up in office outpatient 03/24 - H/H 10.1/31.5, continue to trend, transfuse <7 - Heme/Onc consult: Plan stated above on 03/23/25. See Elevated platelet count below for further detail. - GI recommendations:Continue PPI, avoid ETOH and NSAID, follow up in office outpatient <Adriana Guerra APRN - Last Filed: 03/25/25 15:42> - Hgb 9.7, previously 12.7 on 03/01/25 - hemoccult was + in the ED on 03/19 - not on anticoagulation - GI consulted, awaiting recs - trend H&H, transfuse if <7 - started on pantoprazole - monitor hemodynamic stability and telemetry 03/21 - GI recommended and complete colonoscopy & EGD - EGD Findings: large, benign Peptic Ulcer - Colonoscopy Findings: normal - Plan: follow up in GI clinic, repeat EGD in 3 months, d/c IV pantoprazole, begin oral, regular diet, consider hematology consult - Hgb 9.9, previously 8.5 on 03/19/25 - trend H&H, transfuse if <7 - Pt has macrocytic anemia (105.9), with normal iron levels, Plt ct of 433 today - hematology consult placed 03/22 - Hgb 9.3, continue to trend, transfuse <7 - awaiting Heme/onc consult 03/23 - Hgb 9.3, continue to trend, transfuse <7 - Heme/Onc Consult: Etiology for anemia unknown. No evidence of hemolytic anemia. Ordered work-up to include: Methylmalonic Acid, RBC Folate Hemolysate, RBC Folate, and tone for bone marrow biopsy testing. - recommended Oral Iron 65 mg daily with Vit-C. - Follow up outpatient in a couple weeks - GI Consult: Continue PPI, avoid ETOH and NSAID, follow up in office outpatient 03/24 - H/H 10.1/31.5, continue to trend, transfuse <7 - Heme/Onc consult: Plan stated above on 03/23/25. See Elevated platelet count below for further detail. - GI recommendations:Continue PPI, avoid ETOH and NSAID, follow up in office outpatient 03/25 - H/H 9.5/29.2, continue to trend, transfuse <7 <Aaron Conte, Student - Last Filed: 03/25/25 15:38> (2) Memory deficit: Code(s): R41.3 - Other amnesia <Adriana Guerra, MEDICAL STENOGRAPHER - Last Filed: 03/25/25 15:42> Status: Acute <Adriana Guerra MEDICAL STENOGRAPHER - Last Filed: 03/25/25 15:42> Assessment and Plan: - reviewed patient's outpatient lab work on patient's cell phone, showed B12 259 and Folate 1.1 on 03/15. - check TSH- 1.550 - check MRI- ordered-pending this am based on MRI result-will consider neurology consult Patient has history of moderate to heavy alcohol use, has abstained for the past week. 03/21 - Brain MRI: Mild generalized atrophy, otherwise unremarkable. - struggles with recalling medical care and timeline. - Neurology consulted and following. 03/22 - Neurology reassessment tomorrow - UDS ordered 03/23 - Neurology consult: recommending Rehab and outpatient EMG/NCS - UDS positive for Benzo's - Valium history. 03/24 - Neurology evaluated patient yesterday. consult note currently unavailable. Informed nursing staff they recommended Rehab placement and outpatient EMG/NCS - Psychiatry consult placed <Adriana Guerra APRN - Last Filed: 03/25/25 15:42> - reviewed patient's outpatient lab work on patient's cell phone, showed B12 259 and Folate 1.1 on 03/15. - check TSH- 1.550 - check MRI- ordered-pending this am based on MRI result-will consider neurology consult Patient has history of moderate to heavy alcohol use, has abstained for the past week. 03/21 - Brain MRI: Mild generalized atrophy, otherwise unremarkable. - struggles with recalling medical care and timeline. - Neurology consulted and following. 03/22 - Neurology reassessment tomorrow - UDS ordered 03/23 - Neurology consult: recommending Rehab and outpatient EMG/NCS - UDS positive for Benzo's - Valium history. 03/24 - Neurology evaluated patient yesterday. consult note currently unavailable. 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 Cognitive testing and history are consistent with significant impairment in memory, visuospatial skills, and executive function. MRI demonstrates mild generalized cerebral atrophy. Daily alcohol use for over two decades raises concern for Korsakoff?s syndrome and alcohol-related dementia, particularly in the setting of impaired recall and poor insight. Frequent falls suggest possible cerebellar involvement or executive motor dysfunction. AUDIT score of 6 may underestimate use due to poor insight or cognitive distortion. Continue fluoxetine 20mg PO Daily and thiamine replacement, encourage individual therapy, continue couples therapy, & follow up with psychiatric care after discharge, Recommend physical therapy, gait evaluation, and environmental safety assessment. <Aaron Conte, Student - Last Filed: 03/25/25 15:38> (3) Neuropathy: Code(s): G62.9 - Polyneuropathy, unspecified <Adriana Guerra APRN - Last Filed: 03/25/25 15:42> Status: Acute <Adriana Guerra APRN - Last Filed: 03/25/25 15:42> Assessment and Plan: 03/21 - progressive weakness over the last month that has worsened over the last 2 weeks. Noted several falls. Has required assistance with ambulation during admission. Notes neuropathic symptoms in her extremities. Prior history of similar symptoms following the passing of a family member that resolved. Patient unaware of her treatment at the time but does recall prior gabapentin use without complications. - consult with neurology 03/20: - possible MRI of cervical, thoracic, and lumbar spine and subsequently, if necessary, EMG nerve conduction studies and spinal fluid. Rule out possibility of myelopathy v neuropathy - Ordered gabapentin 03/22 - On exam today she has RT > LT LE weakness. Sensation fully intact. Lower & Upper Ext coordination normal. UE 5/5 strength bilaterally. normal CN 2-12. Babinski normal bilaterally - Lumbar MRI: Moderate degenerative spondylosis at L4-L5, with right neural foraminal narrowing and 6 mm anterolisthesis at this level - Thoracic MRI: Normal - Cervical MRI: Normal - followed by Neurology - re-evaluation tomorrow - continue gabapentin 03/23 - Neurology consult: recommending Rehab and outpatient EMG/NCS - continue gabapentin - PT/OT 03/24 - Symptoms unchanged - Neurology consult: recommending Rehab and outpatient EMG/NCS - continue gabapentin - OT note from 03/23: Pt requiring increased assist from her baseline with ADLs, transfers, and functional mobility due to deficits with safety awareness, impulsivity, weakness, and decreased balance. Skilled OT indicated to maximize functional safety and independence with ADLs. <Adriana Guerra APRN - Last Filed: 03/25/25 15:42> (4) Anxiety: Code(s): F41.9 - Anxiety disorder, unspecified <Adriana Guerra APRN - Last Filed: 03/25/25 15:42> Status: Acute <Adriana Guerra APRN - Last Filed: 03/25/25 15:42> Assessment and Plan: 03/21: history of anxiety. Notes prior use of valium. Recent loss of mother. History of family member loss with episode of neuropathy symptoms that resolved. Pt unaware of treatment, if any, at that time. - ordered fluoxetine - patient aware that treatment effects will take several weeks at the earliest to notice any benefit. Discussed the need to follow up with PCP for continuation of medication and to address possible side effects. 03/22 - given more history regarding valium use. Has been taking for 15 years, originally for vertigo-like symptoms, but continued taking for anxiety. Unsure of frequency of use, but patients estimates 3-4x/week but periods where she reports not taking it for a week at a time. Discussed with her that she should reduce/limit Valium use in the future. Continue taking fluoxetine which will require follow up with PCP. continue Prozac - Psychiatry consult placed 03/25 - Psychiatry recommended continue prozac tolerating med well-continue <Adriana Guerra, MEDICAL STENOGRAPHER - Last Filed: 03/25/25 15:42> 03/21: history of anxiety. Notes prior use of valium. Recent loss of mother. History of family member loss with episode of neuropathy symptoms that resolved. Pt unaware of treatment, if any, at that time. - ordered fluoxetine - patient aware that treatment effects will take several weeks at the earliest to notice any benefit. Discussed the need to follow up with PCP for continuation of medication and to address possible side effects. 03/22 - given more history regarding valium use. Has been taking for 15 years, originally for vertigo-like symptoms, but continued taking for anxiety. Unsure of frequency of use, but patients estimates 3-4x/week but periods where she reports not taking it for a week at a time. Discussed with her that she should reduce/limit Valium use in the future. Continue taking fluoxetine which will require follow up with PCP. continue Prozac - Psychiatry consult placed 03/25 - Psychiatry recommended continue prozac <Aaron Conte, Student - Last Filed: 03/25/25 15:38> (5) Alcohol abuse: Code(s): F10.10 - Alcohol abuse, uncomplicated <Adriana Guerra MEDICAL STENOGRAPHER - Last Filed: 03/25/25 15:42> Status: Acute <Adriana Guerra MEDICAL STENOGRAPHER - Last Filed: 03/25/25 15:42> Assessment and Plan: counselling completed - need to cut down and stop alcohol 03/22 - repeat folate & Mg in AM of 03/23 - last drink per was 10 days ago - ETOH drawn on 03/19 was <10 <Adriana Guerra, MEDICAL STENOGRAPHER - Last Filed: 03/25/25 15:42> (6) Anemia: Code(s): D64.9 - Anemia, unspecified <Adriana Guerra MEDICAL STENOGRAPHER - Last Filed: 03/25/25 15:42> Status: Acute <Adriana Guerra, MEDICAL STENOGRAPHER - Last Filed: 03/25/25 15:42> Assessment and Plan: macrocytic anemia, normal iron level elevated platelets- will consult hem/oncology 03/23 - Heme/Onc Consult: Etiology for anemia unknown. No evidence of hemolytic anemia. Ordered work-up to include: Methylmalonic Acid, RBC Folate Hemolysate, RBC Folate, and tone for bone marrow biopsy testing. - recommended Oral Iron 65 mg daily with Vit-C. - Follow up outpatient in a couple weeks 20 - H/H 10.131.5, continue to trend, transfuse <7 - Heme/Onc recommendation/plan unchanged <Adriana Guerra MEDICAL STENOGRAPHER - Last Filed: 03/25/25 15:42> macrocytic anemia, normal iron level elevated platelets- will consult hem/oncology 03/23 - Heme/Onc Consult: Etiology for anemia unknown. No evidence of hemolytic anemia. Ordered work-up to include: Methylmalonic Acid, RBC Folate Hemolysate, RBC Folate, and tone for bone marrow biopsy testing. - recommended Oral Iron 65 mg daily with Vit-C. - Follow up outpatient in a couple weeks 720 - H/H 10.31.5, continue to trend, transfuse <7 - Heme/Onc recommendation/plan unchanged 03/25 - H/H 9.5/29.2, continue to trend, transfuse <7 <Aaron Conte, Student - Last Filed: 03/25/25 15:38> (7) Elevated platelet count: Code(s): R79.89 - Other specified abnormal findings of blood chemistry <Adriana Guerra, MEDICAL STENOGRAPHER - Last Filed: 03/25/25 15:42> Status: Acute <Adriana Guerra MEDICAL STENOGRAPHER - Last Filed: 03/25/25 15:42> Assessment and Plan: Patient initially admitted with concerns for GI bleed. Colonoscopy & EGD completed and identified benign peptic ulcer which may have contributed to blood in stool. At admission, patients platelet count was 344. It has since risen to 613 today. Below are her daily plt. counts. Heme/onc consulted on 03/21/25 for rising platelet count and macrocytic anemia. Consult note states: Etiology for anemia unknown. No evidence of hemolytic anemia. Ordered work-up to include: Methylmalonic Acid, RBC Folate Hemolysate, RBC Folate, and tone for bone marrow biopsy testing. Recommend daily iron (65 mg) with vitamin C & outpatient follow- up. 03/19/25 - 03/20 hem/oncology onboard- appreciate recommendation differentials: RADHA vs acute bleed vs malignancy vs infection vsother will continue iron and vit C supplements as advised per hem/onc close f/u with DR Ty as an outpt. <Adriana Guerra APRN - Last Filed: 03/25/25 15:42> Patient initially admitted with concerns for GI bleed. Colonoscopy & EGD completed and identified benign peptic ulcer which may have contributed to blood in stool. At admission, patients platelet count was 344. It has since risen to 613 today. Below are her daily plt. counts. Heme/onc consulted on 03/21/25 for rising platelet count and macrocytic anemia. Consult note states: Etiology for anemia unknown. No evidence of hemolytic anemia. Ordered work-up to include: Methylmalonic Acid, RBC Folate Hemolysate, RBC Folate, and tone for bone marrow biopsy testing. Recommend daily iron (65 mg) with vitamin C & outpatient follow- up. 03/19/25 - 03/20 hem/oncology onboard- appreciate recommendation differentials: RADHA vs acute bleed vs malignancy vs infection vsother will continue iron and vit C supplements as advised per hem/onc close f/u with DR Ty as an outpt. 03/25 - Plt ct 589 <Aaron Conte, Student - Last Filed: 03/25/25 15:38> (8) Lower extremity edema: Code(s): R60.0 - Localized edema <Adriana Guerra APRN - Last Filed: 03/25/25 15:42> Status: Acute <Ardiana Guerra MEDICAL STENOGRAPHER - Last Filed: 03/25/25 15:42> Assessment and Plan: 03/23 - Increase in lower extremity edema bilaterally. Has history of on and off pedal edema for 5 years per patient and . Will occasionally take diuretic medication prescribed by PCP per patient. Increased activity today and yesterday. Denies burning calf pain or redness. Negative Homans sign upon evaluation. Denies PMHx and FMHx of CHF. States she has Mitral Valve Prolapse but unaware of last echo (if completed), not currently symptomatic or taking medications. Does not have a farm agent, follows with PCP. Has also mentioned that she may be changing her PCP. - Stockinettes placed 03/24 - LT lower leg with improvement. RT lower leg unchanged. Patient states she has been using stockinette but they are not on at the time of exam. - continue stockinettes - ordered lasix 20 mg IV push - Ordered Echocardiogram as unsure if and when it was completed <Adriana Guerra, MEDICAL STENOGRAPHER - Last Filed: 03/25/25 15:42> 03/23 - Increase in lower extremity edema bilaterally. Has history of on and off pedal edema for 5 years per patient and . Will occasionally take diuretic medication prescribed by PCP per patient. Increased activity today and yesterday. Denies burning calf pain or redness. Negative Homans sign upon evaluation. Denies PMHx and FMHx of CHF. States she has Mitral Valve Prolapse but unaware of last echo (if completed), not currently symptomatic or taking medications. Does not have a farm agent, follows with PCP. Has also mentioned that she may be changing her PCP. - Stockinettes placed 03/24 - LT lower leg with improvement. RT lower leg unchanged. Patient states she has been using stockinette but they are not on at the time of exam. - continue stockinettes - ordered lasix 20 mg IV push - Ordered Echocardiogram as unsure if and when it was completed 03/25 - Patient note LE edema unchaged. Some improvement noted on exam. - Patient has learned how to turn off bed alarm and is a Fall risk. For safety concerns, will re-evaluate edema tomorrow and determine if repeating diuretic is needed. - Continue stockinettes. <Aaron Conte, Student - Last Filed: 03/25/25 15:38> (9) Mitral valve prolapse: Code(s): I34.1 - Nonrheumatic mitral (valve) prolapse <Adriana Guerra APRN - Last Filed: 03/25/25 15:42> Status: Acute <Adriana Guerra MEDICAL STENOGRAPHER - Last Filed: 03/25/25 15:42> Assessment and Plan: 03/23 - patient states she has history of mitral valve prolapse. Date of last echo unknown. Does not have a cardiology. Is followed by PCP. currently not taking any medications. 03/24 - confirmed details above. Current increase in LE edema with intermittent history over the last 5 years with intermittent use of HCTZ (per ) for diuresis control. Continues to denies chest pain and dyspnea. notes dyspnea prior to ED arrival for a couple days, but not since admission. - Ordered Echocardiogram to assess MVP and/or other cardiac contributing factors to LE edema. <Adriana Guerra APRN - Last Filed: 03/25/25 15:42> 03/23 - patient states she has history of mitral valve prolapse. Date of last echo unknown. Does not have a cardiology. Is followed by PCP. currently not taking any medications. 03/24 - confirmed details above. Current increase in LE edema with intermittent history over the last 5 years with intermittent use of HCTZ (per ) for diuresis control. Continues to denies chest pain and dyspnea. notes dyspnea prior to ED arrival for a couple days, but not since admission. - Ordered Echocardiogram to assess MVP and/or other cardiac contributing factors to LE edema. 03/25 - Echo completed today by Cardiology. Summary includes: normal biventricular size and systolic function and no significant valvular abnormalities. Does note trace mitral & tricuspid regurgitation. No mention of Mitral Valve prolapse. <Aaron Conte, Student - Last Filed: 03/25/25 15:38> Assessment and Plan: Diet: regular diet GI Prophylaxis: Pantoprzole DVT Prophylaxis: SCDs IV fluids: 1 L bolus-> 125 mL/hour Lines/Tubes: Peripheral IV Code Status: Full code 03/22 - patient experienced burning and increase frequency. UA was unremarkable. Will treat with Pyridium and reasses prn <Adriana Guerra APRN - Last Filed: 03/25/25 15:42> Time Spent With Patient Time with patient: 25 - 35 minutes <Adriana Guerra MEDICAL STENOGRAPHER - Last Filed: 03/25/25 15:42> Subjective Date/time seen: 03/25/25 15:23 <Adriana Guerra MEDICAL STENOGRAPHER - Last Filed: 03/25/25 15:42> Interval history: Seen initially on 03/20 for the ongoing complaint of memory dysfunction, though she was admitted with the possibility of myelopathy versus neuropathy because of the progressive weakness of the lower extremities since she has been in the hospital has been seen by the managing editor for stool positive for the occult blood for which she underwent endoscopic per seizures. she was documented to be anemic and her initial exam was consistent with neuropathy, she has been documented to have gastric ulcer and is being treated accordingly has also being seen by the flow manager for macrocytic anemia, her iron studies have been normal with elevated ferritin and B12 level was also normal considering the anemia further workup was suggested by the oncologist flow manager including soluble transferrin receptor and methylmalonic acid level she was also started on oral iron once a day along with vitamin-C in addition to instruction for the follow-up with flow manager. Neurologist was asked to follow her discussed the MRI results. MRI of the brain revealed mild but generalized atrophy, because her initial exam was consistent with the numbness of the lower extremities MRI of the cervical spine, thoracic spine, and lumbar spine were ordered all those studies were not significant. Considering the persistence of the numb numbness and gait dysfunction she was advised to go through the rehab while she is being treated medically but she required the further explanation which was provided in front of his that she will benefit from the ongoing physical therapy at least for the next 1 week which can be provided the rehab center otherwise she will come back to the ER. Her EMG nerve conduction study to be done as an outpatient thorough discussion was made in front of her . <Adriana Guerra, MEDICAL STENOGRAPHER - Last Filed: 03/25/25 15:42> 03/23 - Upright in bed. LE strength unchanged. Neuropathy symptoms improve throughout day with activity, worse in the morning. Notes increase bilateral LE swelling. Has history of on and off pedal edema for 5 years. Will occasionally take diuretic medication prescribed by PCP per patient. Increased activity today. Denies burning calf pain or redness, chest pain, SOB, N/V, abdominal pain, and abnormalities with urination and bowel movements. 03/24 - pt upright in bed upon evaluation today. LT LE swelling slightly improved, RT LE remains the same. Denies chest pain, SOB, N/V, abdominal pain, and urinary or bowel movement abnormalities. This morning, pt told nursing staff she wanted to get up on her own and that she wanted the bed alarm off. Nursing staff explained why it could not be turned off and that it was for her safety. Pt said she would deliberately keep standing up to set it off every 15 minutes which she did from 0500am to time of evaluation (07:30am). Charge nurse spoke with pt. Pt informed them and us that she would like to leave AMA. We discussed risks involved with this, her need for rehab placement, and her need for follow- up with Hematology, especially given that her platelets keep rising. Will discuss this again with patient when arrives. 03/25 - up right in bed upon exam resting. Denies chest pain and shortness of breath. Neuropathy symptoms unchanged. She notes swelling feels the same. Awaiting for rehab placement. <Aaron Conte, Student - Last Filed: 03/25/25 15:38> Review of Systems Review of Systems: All systems reviewed & are unremarkable except as noted in HPI and below <Adriana Guerra, MEDICAL STENOGRAPHER - Last Filed: 03/25/25 15:42> Exam Const: Other: , female, nontoxic appearance <Adriana Guerra MEDICAL STENOGRAPHER - Last Filed: 03/25/25 15:42> Cardio: Other: S1-S2 present without murmur, rub, ectopy <Adriana Guerra MEDICAL STENOGRAPHER - Last Filed: 03/25/25 15:42> GI: Other: Abdomen soft, nondistended, nontender. Normoactive bowel sounds in all quadrants. <Adriana Guerra MEDICAL STENOGRAPHER - Last Filed: 03/25/25 15:42> Skin: Other: Mild pallor <Adriana Guerra MEDICAL STENOGRAPHER - Last Filed: 03/25/25 15:42> Neuro: Other: A&O x4, forgetfulness noted <Adriana Guerra MEDICAL STENOGRAPHER - Last Filed: 03/25/25 15:42> Psych: Other: Fair insight and judgment, pleasant <Adriana Guerra MEDICAL STENOGRAPHER - Last Filed: 03/25/25 15:42> Objective Data Vital Signs Vital Signs: Vital Signs - 24 hr 03/24/25 20:00 03/24/25 20:33 03/24/25 20:34 Temperature 98.3 F Pulse Rate 96 Respiratory Rate 18 Blood Pressure 141/88 H Pulse Oximetry 95 99 Oxygen Delivery Room Air Room Air 03/25/25 04:51 03/25/25 08:00 03/25/25 13:46 Temperature 98.4 F 98.1 F Pulse Rate 97 97 Respiratory Rate 20 16 Blood Pressure 145/90 H 141/95 H Pulse Oximetry 96 100 Oxygen Delivery Room Air <Adriana Guerra, MEDICAL STENOGRAPHER - Last Filed: 03/25/25 15:42> Intake/Output Intake/Output: Intake & Output 03/22/25 03/23/25 03/24/25 03/25/25 23:59 23:59 23:59 23:59 Intake Total 1491 598 6732 820 Balance 9852 617 6430 820 <Adriana Guerra, MEDICAL STENOGRAPHER - Last Filed: 03/25/25 15:42> Meds/Results Medications: Active Medications Generic Name Dose Route Start Last Admin Trade Name Freq PRN Reason Stop Dose Admin Acetaminophen 650 mg 03/19/25 20:12 03/25/25 11:19 Acetaminophen 325 Mg Tablet PO 650 mg Q6H PRN Administration Mild Pain (1-3) or Fever Ascorbic Acid 125 mg 03/24/25 09:00 03/25/25 08:34 Ascorbic Acid 125 Mg Tablet PO 125 mg QAM TERRI Administration Diazepam 5 mg 03/19/25 22:21 03/24/25 20:51 Diazepam (*Crx) 5 Mg Tablet PO 5 mg BID PRN Administration anxiety Fluoxetine HCl 20 mg 03/22/25 09:00 03/25/25 08:34 Fluoxetine Hcl 20 Mg Capsule PO 20 mg DAILY TERRI Administration Fluticasone Propionate 2 spray 03/19/25 22:21 Fluticasone Propionate 0.05% Na Spr 16 Gm Btl (*Bkc) NASAL Q12H PRN allergy symptoms Folic Acid 1 mg 03/20/25 09:00 03/25/25 08:34 Folic Acid 1 Mg Tablet PO 1 mg DAILY TERRI Administration Gabapentin 100 mg 03/21/25 17:00 03/25/25 08:34 Gabapentin 100 Mg Capsule PO 100 mg BID TERRI Administration Home Med 1 each 03/20/25 15:35 03/25/25 08:37 Home Medication-Blisovi 24 Fe PO 04/19/25 15:34 1 each DAILY TERRI Administration Ondansetron HCl 4 mg 03/19/25 17:42 Ondansetron Inj 4 Mg/2 Ml Vial IV PUSH Q4H PRN Nausea Pantoprazole Sodium 40 mg 03/21/25 21:00 03/25/25 08:34 Pantoprazole 40 Mg Tablet PO 40 mg Q12HR TERRI Administration Polysaccharide Iron Complex 150 mg 03/24/25 08:00 03/25/25 08:34 Polysaccharide Iron Complex 150 Mg Capsule PO 150 mg DAILY@0800 TERRI Administration Simethicone 0.6 ml 03/21/25 10:25 03/21/25 10:29 Simethicone Oral Suspension 20 Mg/0.3 Ml 30 Ml Bottle PO 1.8 ml Q2H PRN Administration Gas Discomfort Thiamine HCl 100 mg 03/20/25 09:00 03/25/25 08:34 Thiamine Hcl 100 Mg Tablet PO 100 mg QAM TERRI Administration <Adriana Guerra APRN - Last Filed: 03/25/25 15:42> Radiology Results: ITS Impressions Chest X-Ray 03/19/25 14:37 IMPRESSION: No acute cardiopulmonary pathology Brain MRI 03/20/25 11:39 IMPRESSION: Mild generalized atrophy, otherwise unremarkable exam. Cervical Spine MRI 03/22/25 13:11 Impression: Normal exam. Thoracic Spine MRI 03/22/25 13:14 IMPRESSION: Normal exam. Lumbar Spine MRI 03/22/25 13:15 Impression: Moderate degenerative spondylosis at L4-L5, with right neural foraminal narrowing and 6 mm anterolisthesis at this level. <Adriana Guerra MEDICAL STENOGRAPHER - Last Filed: 03/25/25 15:42> Labs Labs: Laboratory Results - last 24 hr 03/23/25 03/25/25 04:45 04:54 WBC 7.2 RBC 2.88 L Hgb 9.5 L Hct 30.7 L 29.2 L MCV 101.4 H MCH 33.0 MCHC 32.5 RDW 14.8 H Plt Count 589 H MPV 9.3 Sodium 134 L Potassium 3.5 Chloride 107 Carbon Dioxide 21 L Anion Gap 6 BUN 6 L Creatinine 0.81 Estim Creat Clear Calc 67 Estimated GFR > 60 Glucose 95 Calcium 8.9 RBC Folate Hemolysate RBC Folate <Adriana Guerra APRN - Last Filed: 03/25/25 15:42> Quality VTE Prophylaxis VTE prophylaxis: mechanical ordered <Adriana Guerra APRN - Last Filed: 03/25/25 15:42>
[2025-03-25 20:06] VITALS: BP 138/100; PULSE 97; RESP 20; TEMP 36.8; O2SAT 96
[2025-03-25] MEDS: diazePAM (*CRX) 5 MG TABLET PO (21:33)
[2025-03-26 04:53] LABS: Hematocrit 31.0 % (37.0-47.0); Hemoglobin 9.9 g/dL (12.0-15.0); Mean Corpuscular HGB Conc 31.9 g/dl (32-36); Mean Corpuscular Hemoglobin 32.8 pg (26-34); Mean Corpuscular Volume 102.6 fl (80-100); Platelet Count Result 626 k/mm3 (150-375); Red Blood Count 3.02 M/mm3 (4.2-5.4); White Blood Count 7.8 K/mm3 (4.5-10.0)
[2025-03-26 04:58] VITALS: BP 139/85; PULSE 92; RESP 20; TEMP 37; O2SAT 98
[2025-03-26 05:23] LABS: Anion Gap 6 mmol/L (4-12); Blood Urea Nitrogen 7 mg/dL (7-17); Calcium 9.2 mg/dL (8.4-10.2); Carbon Dioxide 24 mmol/L (22-30); Chloride 104 mmol/L (98-107); Estimated CRCL calculation 61 ml/min; Estimated Glomerular Filt Rate > 60; Glucose 93 mg/dL (65-110); Potassium 3.7 mmol/L (3.4-5.0); Sodium 134 mmol/L (137-145)
--- NOTE | 2025-03-26 07:20 | PM.DS ---
DS: Admitting Diagnosis Admitting Diagnosis <Aaron Conte, Student - Last Filed: 03/26/25 14:26> DS: Discharge Diagnosis Discharge Diagnosis (1) GI bleed: Qualifiers: GI bleed type/associated pathology: unspecified gastrointestinal hemorrhage type Qualified Code(s): K92.2 - Gastrointestinal hemorrhage, unspecified <Adriana Guerra, CERTIFIED PROSTHETIST/ORTHOTIST - Last Filed: 03/26/25 07:21> Code(s): K92.2 - Gastrointestinal hemorrhage, unspecified <Adriana Guerra, CERTIFIED PROSTHETIST/ORTHOTIST - Last Filed: 03/26/25 07:21> Status: Acute <Adriana Guerra, CERTIFIED PROSTHETIST/ORTHOTIST - Last Filed: 03/26/25 07:21> Assessment and Plan: - Hgb 9.7, previously 12.7 on 03/01/25 - hemoccult was + in the ED on 03/19 - not on anticoagulation - GI consulted, awaiting recs - trend H&H, transfuse if <7 - started on pantoprazole - monitor hemodynamic stability and telemetry 03/21 - GI recommended and complete colonoscopy & EGD - EGD Findings: large, benign Peptic Ulcer - Colonoscopy Findings: normal - Plan: follow up in GI clinic, repeat EGD in 3 months, d/c IV pantoprazole, begin oral, regular diet, consider hematology consult - Hgb 9.9, previously 8.5 on 03/19/25 - trend H&H, transfuse if <7 - Pt has macrocytic anemia (105.9), with normal iron levels, Plt ct of 433 today - hematology consult placed 03/22 - Hgb 9.3, continue to trend, transfuse <7 - awaiting Heme/onc consult 03/23 - Hgb 9.3, continue to trend, transfuse <7 - Heme/Onc Consult: Etiology for anemia unknown. No evidence of hemolytic anemia. Ordered work-up to include: Methylmalonic Acid, RBC Folate Hemolysate, RBC Folate, and tone for bone marrow biopsy testing. - recommended Oral Iron 65 mg daily with Vit-C. - Follow up outpatient in a couple weeks - GI Consult: Continue PPI, avoid ETOH and NSAID, follow up in office outpatient 03/24 - H/H 10.1/31.5, continue to trend, transfuse <7 - Heme/Onc consult: Plan stated above on 03/23/25. See Elevated platelet count below for further detail. - GI recommendations:Continue PPI, avoid ETOH and NSAID, follow up in office outpatient 03/25 - H/H 9.5/29.2, continue to trend, transfuse <7 <Adriana Guerra APRN - Last Filed: 03/26/25 07:21> (2) Memory deficit: Code(s): R41.3 - Other amnesia <Adriana Guerra CERTIFIED PROSTHETIST/ORTHOTIST - Last Filed: 03/26/25 07:21> Status: Acute <Adriana Guerra CERTIFIED PROSTHETIST/ORTHOTIST - Last Filed: 03/26/25 07:21> Assessment and Plan: - reviewed patient's outpatient lab work on patient's cell phone, showed B12 259 and Folate 1.1 on 03/15. - check TSH- 1.550 - check MRI- ordered-pending this am based on MRI result-will consider neurology consult Patient has history of moderate to heavy alcohol use, has abstained for the past week. 03/21 - Brain MRI: Mild generalized atrophy, otherwise unremarkable. - struggles with recalling medical care and timeline. - Neurology consulted and following. 03/22 - Neurology reassessment tomorrow - UDS ordered 03/23 - Neurology consult: recommending Rehab and outpatient EMG/NCS - UDS positive for Benzo's - Valium history. 03/24 - Neurology evaluated patient yesterday. consult note currently unavailable. 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 Cognitive testing and history are consistent with significant impairment in memory, visuospatial skills, and executive function. MRI demonstrates mild generalized cerebral atrophy. Daily alcohol use for over two decades raises concern for Korsakoff?s syndrome and alcohol-related dementia, particularly in the setting of impaired recall and poor insight. Frequent falls suggest possible cerebellar involvement or executive motor dysfunction. AUDIT score of 6 may underestimate use due to poor insight or cognitive distortion. Continue fluoxetine 20mg PO Daily and thiamine replacement, encourage individual therapy, continue couples therapy, & follow up with psychiatric care after discharge, Recommend physical therapy, gait evaluation, and environmental safety assessment. <Adriana Guerra APRN - Last Filed: 03/26/25 07:21> (3) Neuropathy: Code(s): G62.9 - Polyneuropathy, unspecified <Adriana Guerra APRN - Last Filed: 03/26/25 07:21> Status: Acute <Adriana Guerra APRN - Last Filed: 03/26/25 07:21> Assessment and Plan: 03/21 - progressive weakness over the last month that has worsened over the last 2 weeks. Noted several falls. Has required assistance with ambulation during admission. Notes neuropathic symptoms in her extremities. Prior history of similar symptoms following the passing of a family member that resolved. Patient unaware of her treatment at the time but does recall prior gabapentin use without complications. - consult with neurology 03/20: - possible MRI of cervical, thoracic, and lumbar spine and subsequently, if necessary, EMG nerve conduction studies and spinal fluid. Rule out possibility of myelopathy v neuropathy - Ordered gabapentin 03/22 - On exam today she has RT > LT LE weakness. Sensation fully intact. Lower & Upper Ext coordination normal. UE 5/5 strength bilaterally. normal CN 2-12. Babinski normal bilaterally - Lumbar MRI: Moderate degenerative spondylosis at L4-L5, with right neural foraminal narrowing and 6 mm anterolisthesis at this level - Thoracic MRI: Normal - Cervical MRI: Normal - followed by Neurology - re-evaluation tomorrow - continue gabapentin 03/23 - Neurology consult: recommending Rehab and outpatient EMG/NCS - continue gabapentin - PT/OT 03/24 - Symptoms unchanged - Neurology consult: recommending Rehab and outpatient EMG/NCS - continue gabapentin - OT note from 03/23: Pt requiring increased assist from her baseline with ADLs, transfers, and functional mobility due to deficits with safety awareness, impulsivity, weakness, and decreased balance. Skilled OT indicated to maximize functional safety and independence with ADLs. <Adriana Guerra APRN - Last Filed: 03/26/25 07:21> (4) Anxiety: Code(s): F41.9 - Anxiety disorder, unspecified <Adriana Guerra, CERTIFIED PROSTHETIST/ORTHOTIST - Last Filed: 03/26/25 07:21> Status: Acute <Adriana Guerra, CERTIFIED PROSTHETIST/ORTHOTIST - Last Filed: 03/26/25 07:21> Assessment and Plan: 03/21: history of anxiety. Notes prior use of valium. Recent loss of mother. History of family member loss with episode of neuropathy symptoms that resolved. Pt unaware of treatment, if any, at that time. - ordered fluoxetine - patient aware that treatment effects will take several weeks at the earliest to notice any benefit. Discussed the need to follow up with PCP for continuation of medication and to address possible side effects. 03/22 - given more history regarding valium use. Has been taking for 15 years, originally for vertigo-like symptoms, but continued taking for anxiety. Unsure of frequency of use, but patients estimates 3-4x/week but periods where she reports not taking it for a week at a time. Discussed with her that she should reduce/limit Valium use in the future. Continue taking fluoxetine which will require follow up with PCP. continue Prozac - Psychiatry consult placed 03/25 - Psychiatry recommended continue prozac tolerating med well-continue <Adriana Guerra, CERTIFIED PROSTHETIST/ORTHOTIST - Last Filed: 03/26/25 07:21> (5) Alcohol abuse: Code(s): F10.10 - Alcohol abuse, uncomplicated <Adriana Guerra, CERTIFIED PROSTHETIST/ORTHOTIST - Last Filed: 03/26/25 07:21> Status: Acute <Adriana Guerra, CERTIFIED PROSTHETIST/ORTHOTIST - Last Filed: 03/26/25 07:21> Assessment and Plan: counselling completed - need to cut down and stop alcohol 03/22 - repeat folate & Mg in AM of 03/23 - last drink per was 10 days ago - ETOH drawn on 03/19 was <10 <Adriana Guerra CERTIFIED PROSTHETIST/ORTHOTIST - Last Filed: 03/26/25 07:21> (6) Anemia: Code(s): D64.9 - Anemia, unspecified <Adriana Guerra CERTIFIED PROSTHETIST/ORTHOTIST - Last Filed: 03/26/25 07:21> Status: Acute <Adriana Guerra CERTIFIED PROSTHETIST/ORTHOTIST - Last Filed: 03/26/25 07:21> Assessment and Plan: macrocytic anemia, normal iron level elevated platelets- will consult hem/oncology 03/23 - Heme/Onc Consult: Etiology for anemia unknown. No evidence of hemolytic anemia. Ordered work-up to include: Methylmalonic Acid, RBC Folate Hemolysate, RBC Folate, and tone for bone marrow biopsy testing. - recommended Oral Iron 65 mg daily with Vit-C. - Follow up outpatient in a couple weeks 03/24 - H/H 10.1/31.5, continue to trend, transfuse <7 - Heme/Onc recommendation/plan unchanged 03/25 - H/H 9.5/29.2, continue to trend, transfuse <7 <Adriana Guerra CERTIFIED PROSTHETIST/ORTHOTIST - Last Filed: 03/26/25 07:21> (7) Elevated platelet count: Code(s): R79.89 - Other specified abnormal findings of blood chemistry <Adriana Guerra CERTIFIED PROSTHETIST/ORTHOTIST - Last Filed: 03/26/25 07:21> Status: Acute <Adriana Guerra, CERTIFIED PROSTHETIST/ORTHOTIST - Last Filed: 03/26/25 07:21> Assessment and Plan: Patient initially admitted with concerns for GI bleed. Colonoscopy & EGD completed and identified benign peptic ulcer which may have contributed to blood in stool. At admission, patients platelet count was 344. It has since risen to 613 today. Below are her daily plt. counts. Heme/onc consulted on 03/21/25 for rising platelet count and macrocytic anemia. Consult note states: Etiology for anemia unknown. No evidence of hemolytic anemia. Ordered work-up to include: Methylmalonic Acid, RBC Folate Hemolysate, RBC Folate, and tone for bone marrow biopsy testing. Recommend daily iron (65 mg) with vitamin C & outpatient follow-up. 03/19/25 - 344 03/20 - 336 03/21 - 433 03/22 - 437 03/23 - 487 03/24 - 613 hem/oncology onboard- appreciate recommendation differentials: RADHA vs acute bleed vs malignancy vs infection vsother will continue iron and vit C supplements as advised per hem/onc close f/u with DR Ty as an outpt. 03/25 - Plt ct 589 <Adriana Guerra, CERTIFIED PROSTHETIST/ORTHOTIST - Last Filed: 03/26/25 07:21> (8) Lower extremity edema: Code(s): R60.0 - Localized edema <Adriana Guerra, CERTIFIED PROSTHETIST/ORTHOTIST - Last Filed: 03/26/25 07:21> Status: Acute <Adriana Guerra, CERTIFIED PROSTHETIST/ORTHOTIST - Last Filed: 03/26/25 07:21> Assessment and Plan: 03/23 - Increase in lower extremity edema bilaterally. Has history of on and off pedal edema for 5 years per patient and . Will occasionally take diuretic medication prescribed by PCP per patient. Increased activity today and yesterday. Denies burning calf pain or redness. Negative Homans sign upon evaluation. Denies PMHx and FMHx of CHF. States she has Mitral Valve Prolapse but unaware of last echo (if completed), not currently symptomatic or taking medications. Does not have a cloth picker, follows with PCP. Has also mentioned that she may be changing her PCP. - Stockinettes placed 03/24 - LT lower leg with improvement. RT lower leg unchanged. Patient states she has been using stockinette but they are not on at the time of exam. - continue stockinettes - ordered lasix 20 mg IV push - Ordered Echocardiogram as unsure if and when it was completed 03/25 - Patient note LE edema unchaged. Some improvement noted on exam. - Patient has learned how to turn off bed alarm and is a Fall risk. For safety concerns, will re-evaluate edema tomorrow and determine if repeating diuretic is needed. - Continue stockinettes. <Adriana Guerra APRN - Last Filed: 03/26/25 07:21> (9) Mitral valve prolapse: Code(s): I34.1 - Nonrheumatic mitral (valve) prolapse <Adriana Guerra CERTIFIED PROSTHETIST/ORTHOTIST - Last Filed: 03/26/25 07:21> Status: Acute <Adriana Guerra APRN - Last Filed: 03/26/25 07:21> Assessment and Plan: 03/23 - patient states she has history of mitral valve prolapse. Date of last echo unknown. Does not have a cardiology. Is followed by PCP. currently not taking any medications. 03/24 - confirmed details above. Current increase in LE edema with intermittent history over the last 5 years with intermittent use of HCTZ (per ) for diuresis control. Continues to denies chest pain and dyspnea. notes dyspnea prior to ED arrival for a couple days, but not since admission. - Ordered Echocardiogram to assess MVP and/or other cardiac contributing factors to LE edema. 03/25 - Echo completed today by Cardiology. Summary includes: normal biventricular size and systolic function and no significant valvular abnormalities. Does note trace mitral & tricuspid regurgitation. No mention of Mitral Valve prolapse. <Adriana Guerra, CERTIFIED PROSTHETIST/ORTHOTIST - Last Filed: 03/26/25 07:21> Assessment and Plan: Diet: regular diet GI Prophylaxis: Pantoprzole DVT Prophylaxis: SCDs IV fluids: 1 L bolus-> 125 mL/hour Lines/Tubes: Peripheral IV Code Status: Full code 03/22 - patient experienced burning and increase frequency. UA was unremarkable. Will treat with Pyridium and reasses prn <Adriana Guerra, CERTIFIED PROSTHETIST/ORTHOTIST - Last Filed: 03/26/25 07:21> DS: Summary Hospital Course Hospital Course: 44 y/o F with past medical history of hypertension, anxiety, and mitral valve prolapse presented on 03/19/25 with bloody stool & generalized weakness that has progressively worsened over the last month, and more specifically the last 2 weeks. Recently stopped taking a GLP1 over a month ago for weight loss. Patient lost over 55 lbs. ETOH use of 2-3 glasses of wine per night. Endorses increase in frequency of falls and difficulty with memory/confusion. In the ED patient was tachycardic. Labs showed WBC 11.5, Hgb 9.7 (12.7 on 03/01/25), no significant electrolyte derangements, magnesium 1.3, ammonium negative, initial troponin negative, renal function within normal limits, UA unremarkable, ETOH negative. CXR showed no acute cardiopulmonary pathology. Recent lab work also showed B12 259 and Folate 1.1 on 03/15. While admitted, several services were consulted. Edema was noted to Gastroenterology recommended an EGD and colonoscopy which found a large, benign Peptic ulcer which may contributed to bleeding. They recommended follow-up outpatient in the GI clinic, possible repeat EGD in 3 months, regular diet, and continuation of Pantoprazole which was started on 03/21/25. Hemoglobin was also monitored during admission and has remained stable (9.9 on 03/26). Neurology was consulted due to memory/confusion and neuropathic symptoms. Brain, Cervical, thoracic, and lumbar MRI's did not reveal any evidence of myelopathy or space-occupying lesions. They recommended further follow-up as outpatient and EMG testing to determine possible cause of neuropathy. Additionally they recommended further physical therapy and would benefit from a rehab center. Hematology/Oncology was consulted due to macrocytic anemia and elevated platelet count. Platelet count increased up to 626 (03/26/25) during your admission. They order a work up that would include soluble transferrin receptor and methylmalonic acid level. recommended follow-up outpatient to discuss potential bone marrow biopsy testing pending initial findings. Patient was instructed to begin oral iron 65 mg with vitamin-C daily. Patient was given contact information for their office. Psychiatry was consulted due to history of anxiety, continue grieving from family loss, and mental deficits/confusion. Evaluation determined likely Major Neurocognitive Disorder due to Alcohol use. Recommended continue taking fluoxetine (Prozac) 20 mg PO daily and Thiamine 100 mg PO. Encouraged individual therapy as well as continuing couples therapy with . Recommended follow up with psychiatric care upon discharge, substance use treatment referral, and continue physical therapy for gait and environmental safety assessment. <Aaron Conte, Student - Last Filed: 03/26/25 14:26> Time Spent with Patient Time attestation: Total time spent providing and/or coordinating discharge services: <Adriana Guerra APRN - Last Filed: 03/26/25 07:21> Exam Const: Other: , female, nontoxic appearance <Adriana Guerra APRN - Last Filed: 03/26/25 07:21> Cardio: Other: S1-S2 present without murmur, rub, ectopy <Adriana Guerra APRN - Last Filed: 03/26/25 07:21> GI: Other: Abdomen soft, nondistended, nontender. Normoactive bowel sounds in all quadrants. <Adriana Guerra APRN - Last Filed: 03/26/25 07:21> Skin: Other: Mild pallor <Adriana Guerra APRN - Last Filed: 03/26/25 07:21> Neuro: Other: A&O x4, forgetfulness noted <Adriana Guerra APRN - Last Filed: 03/26/25 07:21> Psych: Other: Fair insight and judgment, pleasant <Adriana Guerra APRN - Last Filed: 03/26/25 07:21> DS: Data Data Completed and Pending Completed studies during hospitalization: Pending at discharge 03/21/25 11:30 Surgical [PTH] Routine <Adriana Guerra CERTIFIED PROSTHETIST/ORTHOTIST - Last Filed: 03/26/25 07:21> Labs on day of discharge: Labs from last 24 hours 03/26/25 03/25/25 03/23/25 04:32 04:54 04:45 WBC 7.8 RBC 3.02 L Hgb 9.9 L Hct 31.0 L Pending 30.7 L MCV 102.6 H MCH 32.8 MCHC 31.9 L RDW 15.4 H Plt Count 626 H MPV 9.2 Sodium 134 L Potassium 3.7 Chloride 104 Carbon Dioxide 24 Anion Gap 6 BUN 7 Creatinine 0.89 Estim Creat Clear Calc 61 Estimated GFR > 60 Glucose 93 Calcium 9.2 RBC Folate Hemolysate Pending RBC Folate Pending <Adriana Guerra, CERTIFIED PROSTHETIST/ORTHOTIST - Last Filed: 03/26/25 07:21> Discharge Plan Discharge Consulting providers: Cornelio Golden; Marcos Ty; Dexter Thompson <Adriana Guerra APRN - Last Filed: 03/26/25 07:21> Patient Instructions: Diet for Stomach Ulcers and Gastritis (GEN) <Adriana Guerra APRN - Last Filed: 03/26/25 07:21> Patient Language: Macanese <Adriana Guerra CERTIFIED PROSTHETIST/ORTHOTIST - Last Filed: 03/26/25 07:21> Discharge Medications: No Action norethindrone-e.estradiol-iron [Blisovi 24 Fe] 1 mg-20 mcg (24)/75 mg (4) tablet 1 tablet PO DAILY hydrochlorothiazide 12.5 mg capsule See Rx Instructions .ROUTE .COMPLEX PRN (Reason: edema) Rx Instructions: TAKE 2 CAPSULES BY MOUTH EVERY DAY PRN; fluticasone propionate 50 mcg/actuation spray,suspension See Rx Instructions .ROUTE .COMPLEX PRN (Reason: allergy symptoms) Rx Instructions: SHAKE LIQUID AND USE 2 SPRAYS IN EACH NOSTRIL EVERY 12 HOURS PRN naproxen 500 mg tablet See Rx Instructions .ROUTE .COMPLEX PRN (Reason: pain) Rx Instructions: TAKE 1 TABLET BY MOUTH DAILY PRN; diazepam 5 mg tablet 5 mg PO BID PRN (Reason: anxiety) Qty: 30 2RF ondansetron HCl 4 mg tablet 4 mg PO Q6H PRN (Reason: nausea and vomiting) Qty: 30 0RF <Adriana Guerra APRN - Last Filed: 03/26/25 07:21> Date of admission: 03/21/25 16:10 <Adriana Guerra CERTIFIED PROSTHETIST/ORTHOTIST - Last Filed: 03/26/25 07:21> Primary Care Provider: Satya Fournier <Adriana Guerra APRN - Last Filed: 03/26/25 07:21> Admitting Provider: Sunday Sage <Adriana Guerra CERTIFIED PROSTHETIST/ORTHOTIST - Last Filed: 03/26/25 07:21> Attending physician on admission: Sunday Sage <Adriana Guerra APRN - Last Filed: 03/26/25 07:21> Condition: Stable <Adriana Guerra APRN - Last Filed: 03/26/25 07:21> Quality VTE Prophylaxis VTE prophylaxis: mechanical ordered <Adriana Guerra APRN - Last Filed: 03/26/25 07:21>
[2025-03-26 08:01] LABS: Add Urine Microscopic? YES; Appearance Urine Clear (Clear); Glucose Urine UA Negative (Negative); Leukocyte Esterase Ur Trace LEU/UL (Negative); Nitrate Urine Negative (Negative); Non Pathogenic Casts 0-2; Specific Grav Ur 1.009 (1.001-1.035)
[2025-03-26] MEDS: FOLIC ACID 1 MG TABLET PO (08:19)
[2025-03-26] MEDS: PANTOPRAZOLE 40 MG TABLET PO ×2 (08:19→20:12)
[2025-03-26] MEDS: GABAPENTIN 100 MG CAPSULE PO ×2 (08:19→17:20)
[2025-03-26] MEDS: THIAMINE HCL 100 MG TABLET PO (08:19)
[2025-03-26] MEDS: FUROSEMIDE INJ 40 MG/4 ML VIAL 20 MG IV PUSH (08:19)
[2025-03-26] MEDS: ASCORBIC ACID 125 MG TABLET PO (08:19)
[2025-03-26] MEDS: BLISOVI FE 1 EACH PO (08:20)
[2025-03-26] MEDS: diazePAM (*CRX) 5 MG TABLET PO (08:23)
--- NOTE | 2025-03-26 10:37 | PCNWS ---
Weekly nutritional screen. Patient is tolerating current diet with adequate intake. No weight loss reported. No nutritional needs at this time.
[2025-03-26 11:47] VITALS: BP 100/66; PULSE 92; RESP 16; O2SAT 98
[2025-03-26] MEDS: SODIUM CHLORIDE 0.9% IV 500 ML 999 ML IV CONT (11:55)
[2025-03-26] MEDS: ACETAMINOPHEN 325 MG TABLET 650 MG PO (13:21)
[2025-03-26 13:30] VITALS: BP 130/85
--- NOTE | 2025-03-26 13:57 | PM.IMPN ---
Progress Note: A&P Assessment and Plan (1) GI bleed: Qualifiers: GI bleed type/associated pathology: unspecified gastrointestinal hemorrhage type Qualified Code(s): K92.2 - Gastrointestinal hemorrhage, unspecified <Adriana Guerra, CELLULAR PHONE REPAIRER - Last Filed: 03/26/25 15:32> Code(s): K92.2 - Gastrointestinal hemorrhage, unspecified <Adriana Guerra, CELLULAR PHONE REPAIRER - Last Filed: 03/26/25 15:32> Status: Acute <Adriana Guerra, CELLULAR PHONE REPAIRER - Last Filed: 03/26/25 15:32> Assessment and Plan: - Hgb 9.7, previously 12.7 on 03/01/25 - hemoccult was + in the ED on 03/19 - not on anticoagulation - GI consulted, awaiting recs - trend H&H, transfuse if <7 - started on pantoprazole - monitor hemodynamic stability and telemetry 03/21 - GI recommended and complete colonoscopy & EGD - EGD Findings: large, benign Peptic Ulcer - Colonoscopy Findings: normal - Plan: follow up in GI clinic, repeat EGD in 3 months, d/c IV pantoprazole, begin oral, regular diet, consider hematology consult - Hgb 9.9, previously 8.5 on 03/19/25 - trend H&H, transfuse if <7 - Pt has macrocytic anemia (105.9), with normal iron levels, Plt ct of 433 today - hematology consult placed 03/22 - Hgb 9.3, continue to trend, transfuse <7 - awaiting Heme/onc consult 03/23 - Hgb 9.3, continue to trend, transfuse <7 - Heme/Onc Consult: Etiology for anemia unknown. No evidence of hemolytic anemia. Ordered work-up to include: Methylmalonic Acid, RBC Folate Hemolysate, RBC Folate, and tone for bone marrow biopsy testing. - recommended Oral Iron 65 mg daily with Vit-C. - Follow up outpatient in a couple weeks - GI Consult: Continue PPI, avoid ETOH and NSAID, follow up in office outpatient 03/24 - H/H 10.1/31.5, continue to trend, transfuse <7 - Heme/Onc consult: Plan stated above on 03/23/25. See Elevated platelet count below for further detail. - GI recommendations:Continue PPI, avoid ETOH and NSAID, follow up in office outpatient 03/25 - H/H 9.5/29.2, continue to trend, transfuse <7 <Adriana Guerra, CELLULAR PHONE REPAIRER - Last Filed: 03/26/25 15:32> - Hgb 9.7, previously 12.7 on 03/01/25 - hemoccult was + in the ED on 03/19 - not on anticoagulation - GI consulted, awaiting recs - trend H&H, transfuse if <7 - started on pantoprazole - monitor hemodynamic stability and telemetry 03/21 - GI recommended and complete colonoscopy & EGD - EGD Findings: large, benign Peptic Ulcer - Colonoscopy Findings: normal - Plan: follow up in GI clinic, repeat EGD in 3 months, d/c IV pantoprazole, begin oral, regular diet, consider hematology consult - Hgb 9.9, previously 8.5 on 03/19/25 - trend H&H, transfuse if <7 - Pt has macrocytic anemia (105.9), with normal iron levels, Plt ct of 433 today - hematology consult placed 03/22 - Hgb 9.3, continue to trend, transfuse <7 - awaiting Heme/onc consult 03/23 - Hgb 9.3, continue to trend, transfuse <7 - Heme/Onc Consult: Etiology for anemia unknown. No evidence of hemolytic anemia. Ordered work-up to include: Methylmalonic Acid, RBC Folate Hemolysate, RBC Folate, and tone for bone marrow biopsy testing. - recommended Oral Iron 65 mg daily with Vit-C. - Follow up outpatient in a couple weeks - GI Consult: Continue PPI, avoid ETOH and NSAID, follow up in office outpatient 20 - H/H 10.1/31.5, continue to trend, transfuse <7 - Heme/Onc consult: Plan stated above on 03/23/25. See Elevated platelet count below for further detail. - GI recommendations:Continue PPI, avoid ETOH and NSAID, follow up in office outpatient 03/25 - H/H 9.5/29.2, continue to trend, transfuse <7 03/26 - H/H 9.931, continue to trend, transfuse <7 - no blood in stools <Aaron Conte, Student - Last Filed: 03/26/25 14:27> (2) Memory deficit: Code(s): R41.3 - Other amnesia <Adriana Guerra APRN - Last Filed: 03/26/25 15:32> Status: Acute <Adriana Guerra APRN - Last Filed: 03/26/25 15:32> Assessment and Plan: - reviewed patient's outpatient lab work on patient's cell phone, showed B12 259 and Folate 1.1 on 03/15. - check TSH- 1.550 - check MRI- ordered-pending this am based on MRI result-will consider neurology consult Patient has history of moderate to heavy alcohol use, has abstained for the past week. 03/21 - Brain MRI: Mild generalized atrophy, otherwise unremarkable. - struggles with recalling medical care and timeline. - Neurology consulted and following. 03/22 - Neurology reassessment tomorrow - UDS ordered 03/23 - Neurology consult: recommending Rehab and outpatient EMG/NCS - UDS positive for Benzo's - Valium history. 03/24 - Neurology evaluated patient yesterday. consult note currently unavailable. 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 Cognitive testing and history are consistent with significant impairment in memory, visuospatial skills, and executive function. MRI demonstrates mild generalized cerebral atrophy. Daily alcohol use for over two decades raises concern for Korsakoff?s syndrome and alcohol-related dementia, particularly in the setting of impaired recall and poor insight. Frequent falls suggest possible cerebellar involvement or executive motor dysfunction. AUDIT score of 6 may underestimate use due to poor insight or cognitive distortion. Continue fluoxetine 20mg PO Daily and thiamine replacement, encourage individual therapy, continue couples therapy, & follow up with psychiatric care after discharge, Recommend physical therapy, gait evaluation, and environmental safety assessment. <Adriana Guerra, CELLULAR PHONE REPAIRER - Last Filed: 03/26/25 15:32> - reviewed patient's outpatient lab work on patient's cell phone, showed B12 259 and Folate 1.1 on 03/15. - check TSH- 1.550 - check MRI- ordered-pending this am based on MRI result-will consider neurology consult Patient has history of moderate to heavy alcohol use, has abstained for the past week. 03/21 - Brain MRI: Mild generalized atrophy, otherwise unremarkable. - struggles with recalling medical care and timeline. - Neurology consulted and following. 03/22 - Neurology reassessment tomorrow - UDS ordered 03/23 - Neurology consult: recommending Rehab and outpatient EMG/NCS - UDS positive for Benzo's - Valium history. 03/24 - Neurology evaluated patient yesterday. consult note currently unavailable. 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 Cognitive testing and history are consistent with significant impairment in memory, visuospatial skills, and executive function. MRI demonstrates mild generalized cerebral atrophy. Daily alcohol use for over two decades raises concern for Korsakoff?s syndrome and alcohol-related dementia, particularly in the setting of impaired recall and poor insight. Frequent falls suggest possible cerebellar involvement or executive motor dysfunction. AUDIT score of 6 may underestimate use due to poor insight or cognitive distortion. Continue fluoxetine 20mg PO Daily and thiamine replacement, encourage individual therapy, continue couples therapy, & follow up with psychiatric care after discharge, Recommend physical therapy, gait evaluation, and environmental safety assessment. 03/26 - Neurology & psychiatric consults unchanged. See recommendations above. <Aaron Conte, Student - Last Filed: 03/26/25 14:27> (3) Neuropathy: Code(s): G62.9 - Polyneuropathy, unspecified <Adriana Guerra CELLULAR PHONE REPAIRER - Last Filed: 03/26/25 15:32> Status: Acute <Adriana Guerra CELLULAR PHONE REPAIRER - Last Filed: 03/26/25 15:32> Assessment and Plan: 03/21 - progressive weakness over the last month that has worsened over the last 2 weeks. Noted several falls. Has required assistance with ambulation during admission. Notes neuropathic symptoms in her extremities. Prior history of similar symptoms following the passing of a family member that resolved. Patient unaware of her treatment at the time but does recall prior gabapentin use without complications. - consult with neurology 03/20: - possible MRI of cervical, thoracic, and lumbar spine and subsequently, if necessary, EMG nerve conduction studies and spinal fluid. Rule out possibility of myelopathy v neuropathy - Ordered gabapentin 03/22 - On exam today she has RT > LT LE weakness. Sensation fully intact. Lower & Upper Ext coordination normal. UE 5/5 strength bilaterally. normal CN 2-12. Babinski normal bilaterally - Lumbar MRI: Moderate degenerative spondylosis at L4-L5, with right neural foraminal narrowing and 6 mm anterolisthesis at this level - Thoracic MRI: Normal - Cervical MRI: Normal - followed by Neurology - re-evaluation tomorrow - continue gabapentin 03/23 - Neurology consult: recommending Rehab and outpatient EMG/NCS - continue gabapentin - PT/OT 03/24 - Symptoms unchanged - Neurology consult: recommending Rehab and outpatient EMG/NCS - continue gabapentin - OT note from 03/23: Pt requiring increased assist from her baseline with ADLs, transfers, and functional mobility due to deficits with safety awareness, impulsivity, weakness, and decreased balance. Skilled OT indicated to maximize functional safety and independence with ADLs. <Adriana Guerra, CELLULAR PHONE REPAIRER - Last Filed: 03/26/25 15:32> 03/21 - progressive weakness over the last month that has worsened over the last 2 weeks. Noted several falls. Has required assistance with ambulation during admission. Notes neuropathic symptoms in her extremities. Prior history of similar symptoms following the passing of a family member that resolved. Patient unaware of her treatment at the time but does recall prior gabapentin use without complications. - consult with neurology 03/20: - possible MRI of cervical, thoracic, and lumbar spine and subsequently, if necessary, EMG nerve conduction studies and spinal fluid. Rule out possibility of myelopathy v neuropathy - Ordered gabapentin 03/22 - On exam today she has RT > LT LE weakness. Sensation fully intact. Lower & Upper Ext coordination normal. UE 5/5 strength bilaterally. normal CN 2-12. Babinski normal bilaterally - Lumbar MRI: Moderate degenerative spondylosis at L4-L5, with right neural foraminal narrowing and 6 mm anterolisthesis at this level - Thoracic MRI: Normal - Cervical MRI: Normal - followed by Neurology - re-evaluation tomorrow - continue gabapentin 03/23 - Neurology consult: recommending Rehab and outpatient EMG/NCS - continue gabapentin - PT/OT 03/24 - Symptoms unchanged - Neurology consult: recommending Rehab and outpatient EMG/NCS - continue gabapentin - OT note from 03/23: Pt requiring increased assist from her baseline with ADLs, transfers, and functional mobility due to deficits with safety awareness, impulsivity, weakness, and decreased balance. Skilled OT indicated to maximize functional safety and independence with ADLs. 03/26 - symptoms unchanged - OT notes from 03/25 & 03/26: unable to stand or ambulate with genu recurvatum. Knee pain with standing. Low endurance & requires rest. on 03/26, Patient had episode of hypotension (57/29) after feeling unwell following transfer. Complained of headache, ear bussing, and neck pain with blurred vision (per nursing note). Rapid response called & patient returned to bed. - following 03/26 OT session, treated with 500 ml bolus. Symptoms resolved, BP returned to 100/66 - PT from 03/26: Increased gait distance to 140 ft with w/w. declined 2nd gait in hallway d/t LE soreness. Continue to improve LE strength & gait. - continue gabapentin - Neurology recommendations unchaged. <Aaron Conte, Student - Last Filed: 03/26/25 14:27> (4) Anxiety: Code(s): F41.9 - Anxiety disorder, unspecified <Adriana Guerra, CELLULAR PHONE REPAIRER - Last Filed: 03/26/25 15:32> Status: Acute <Adriana Guerra, CELLULAR PHONE REPAIRER - Last Filed: 03/26/25 15:32> Assessment and Plan: 03/21: history of anxiety. Notes prior use of valium. Recent loss of mother. History of family member loss with episode of neuropathy symptoms that resolved. Pt unaware of treatment, if any, at that time. - ordered fluoxetine - patient aware that treatment effects will take several weeks at the earliest to notice any benefit. Discussed the need to follow up with PCP for continuation of medication and to address possible side effects. 03/22 - given more history regarding valium use. Has been taking for 15 years, originally for vertigo-like symptoms, but continued taking for anxiety. Unsure of frequency of use, but patients estimates 3-4x/week but periods where she reports not taking it for a week at a time. Discussed with her that she should reduce/limit Valium use in the future. Continue taking fluoxetine which will require follow up with PCP. continue Prozac - Psychiatry consult placed 03/25 - Psychiatry recommended continue prozac tolerating med well-continue <Adriana Guerra, CELLULAR PHONE REPAIRER - Last Filed: 03/26/25 15:32> 03/21: history of anxiety. Notes prior use of valium. Recent loss of mother. History of family member loss with episode of neuropathy symptoms that resolved. Pt unaware of treatment, if any, at that time. - ordered fluoxetine - patient aware that treatment effects will take several weeks at the earliest to notice any benefit. Discussed the need to follow up with PCP for continuation of medication and to address possible side effects. 03/22 - given more history regarding valium use. Has been taking for 15 years, originally for vertigo-like symptoms, but continued taking for anxiety. Unsure of frequency of use, but patients estimates 3-4x/week but periods where she reports not taking it for a week at a time. Discussed with her that she should reduce/limit Valium use in the future. Continue taking fluoxetine which will require follow up with PCP. continue Prozac - Psychiatry consult placed 03/25 - Psychiatry recommended continue prozac, individual therapy, & couples therapy tolerating med well-continue <Aaron Conte, Student - Last Filed: 03/26/25 14:27> (5) Alcohol abuse: Code(s): F10.10 - Alcohol abuse, uncomplicated <Adriana Guerra CELLULAR PHONE REPAIRER - Last Filed: 03/26/25 15:32> Status: Acute <Adriana Guerra CELLULAR PHONE REPAIRER - Last Filed: 03/26/25 15:32> Assessment and Plan: counselling completed - need to cut down and stop alcohol 03/22 - repeat folate & Mg in AM of 03/23 - last drink per was 10 days ago - ETOH drawn on 03/19 was <10 <Adriana Guerra CELLULAR PHONE REPAIRER - Last Filed: 03/26/25 15:32> counselling completed - need to cut down and stop alcohol 03/22 - repeat folate & Mg in AM of 03/23 - last drink per was 10 days ago - ETOH drawn on 03/19 was <10 03/26 - psychiatry consult: 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 Recommended substance use treatment referral & thiamine supplement daily to prevent/treat Wernicke-Korsakoff syndrome. Daily alcohol use for over two decades raises concern for Korsakoff?s syndrome and alcohol-related dementia, particularly in the setting of impaired recall and poor insight. Frequent falls suggest possible cerebellar involvement or executive motor dysfunction. AUDIT score of 6 may underestimate use due to poor insight or cognitive distortion. See Memory deficit for further psychiatric consult recommendations. <Aaron Conte, Student - Last Filed: 03/26/25 14:27> (6) Anemia: Code(s): D64.9 - Anemia, unspecified <Adriana Guerra APRN - Last Filed: 03/26/25 15:32> Status: Acute <Adriana Guerra CELLULAR PHONE REPAIRER - Last Filed: 03/26/25 15:32> Assessment and Plan: macrocytic anemia, normal iron level elevated platelets- will consult hem/oncology 03/23 - Heme/Onc Consult: Etiology for anemia unknown. No evidence of hemolytic anemia. Ordered work-up to include: Methylmalonic Acid, RBC Folate Hemolysate, RBC Folate, and tone for bone marrow biopsy testing. - recommended Oral Iron 65 mg daily with Vit-C. - Follow up outpatient in a couple weeks 20 - H/H 10.1/31.5, continue to trend, transfuse <7 - Heme/Onc recommendation/plan unchanged 03/25 - H/H 9.5/29.2, continue to trend, transfuse <7 <Adriana Guerra APRN - Last Filed: 03/26/25 15:32> macrocytic anemia, normal iron level elevated platelets- will consult hem/oncology 03/23 - Heme/Onc Consult: Etiology for anemia unknown. No evidence of hemolytic anemia. Ordered work-up to include: Methylmalonic Acid, RBC Folate Hemolysate, RBC Folate, and tone for bone marrow biopsy testing. - recommended Oral Iron 65 mg daily with Vit-C. - Follow up outpatient in a couple weeks 03/24 - H/H 10.1/31.5, continue to trend, transfuse <7 - Heme/Onc recommendation/plan unchanged 03/25 - H/H 9.5/29.2, continue to trend, transfuse <7 03/26 - H/H 9.31, continue to trend, transfuse <7 <Aaron Conte, Student - Last Filed: 03/26/25 14:27> (7) Elevated platelet count: Code(s): R79.89 - Other specified abnormal findings of blood chemistry <Adriana Guerra APRN - Last Filed: 03/26/25 15:32> Status: Acute <Adriana Guerra APRN - Last Filed: 03/26/25 15:32> Assessment and Plan: Patient initially admitted with concerns for GI bleed. Colonoscopy & EGD completed and identified benign peptic ulcer which may have contributed to blood in stool. At admission, patients platelet count was 344. It has since risen to 613 today. Below are her daily plt. counts. Heme/onc consulted on 03/21/25 for rising platelet count and macrocytic anemia. Consult note states: Etiology for anemia unknown. No evidence of hemolytic anemia. Ordered work-up to include: Methylmalonic Acid, RBC Folate Hemolysate, RBC Folate, and tone for bone marrow biopsy testing. Recommend daily iron (65 mg) with vitamin C & outpatient follow-up. 03/19/25 - 344 03/20 hem/oncology onboard- appreciate recommendation differentials: RADHA vs acute bleed vs malignancy vs infection vsother will continue iron and vit C supplements as advised per hem/onc close f/u with DR Ty as an outpt. 03/25 - Plt ct 589 03/26 - Plt ct 626- hem/onc on board <Adriana Guerra, CELLULAR PHONE REPAIRER - Last Filed: 03/26/25 15:32> Patient initially admitted with concerns for GI bleed. Colonoscopy & EGD completed and identified benign peptic ulcer which may have contributed to blood in stool. At admission, patients platelet count was 344. It has since risen to 613 today. Below are her daily plt. counts. Heme/onc consulted on 03/21/25 for rising platelet count and macrocytic anemia. Consult note states: Etiology for anemia unknown. No evidence of hemolytic anemia. Ordered work-up to include: Methylmalonic Acid, RBC Folate Hemolysate, RBC Folate, and tone for bone marrow biopsy testing. Recommend daily iron (65 mg) with vitamin C & outpatient follow-up. 03/19/25 - 03/20 hem/oncology onboard- appreciate recommendation differentials: RADHA vs acute bleed vs malignancy vs infection vsother will continue iron and vit C supplements as advised per hem/onc close f/u with DR Ty as an outpt. 03/25 - Plt ct 589 03/26 - Plt ct 626 <Aaron Conte, Student - Last Filed: 03/26/25 14:27> (8) Lower extremity edema: Code(s): R60.0 - Localized edema <Adriana Guerra CELLULAR PHONE REPAIRER - Last Filed: 03/26/25 15:32> Status: Acute <Adriana Guerra CELLULAR PHONE REPAIRER - Last Filed: 03/26/25 15:32> Assessment and Plan: 03/23 - Increase in lower extremity edema bilaterally. Has history of on and off pedal edema for 5 years per patient and . Will occasionally take diuretic medication prescribed by PCP per patient. Increased activity today and yesterday. Denies burning calf pain or redness. Negative Homans sign upon evaluation. Denies PMHx and FMHx of CHF. States she has Mitral Valve Prolapse but unaware of last echo (if completed), not currently symptomatic or taking medications. Does not have a client retention specialist, follows with PCP. Has also mentioned that she may be changing her PCP. - Stockinettes placed 03/24 - LT lower leg with improvement. RT lower leg unchanged. Patient states she has been using stockinette but they are not on at the time of exam. - continue stockinettes - ordered lasix 20 mg IV push - Ordered Echocardiogram as unsure if and when it was completed 03/25 - Patient note LE edema unchaged. Some improvement noted on exam. - Patient has learned how to turn off bed alarm and is a Fall risk. For safety concerns, will re-evaluate edema tomorrow and determine if repeating diuretic is needed. - Continue stockinettes. 03/26 - some improvement noted on exam compared to yesterday. Patient feels swelling is unchanged. - ordered lasix 20 mg IV push x one - continue rufinottes, elevation <Adriana Guerra APRN - Last Filed: 03/26/25 15:32> 03/23 - Increase in lower extremity edema bilaterally. Has history of on and off pedal edema for 5 years per patient and . Will occasionally take diuretic medication prescribed by PCP per patient. Increased activity today and yesterday. Denies burning calf pain or redness. Negative Homans sign upon evaluation. Denies PMHx and FMHx of CHF. States she has Mitral Valve Prolapse but unaware of last echo (if completed), not currently symptomatic or taking medications. Does not have a client retention specialist, follows with PCP. Has also mentioned that she may be changing her PCP. - Stockinettes placed 03/24 - LT lower leg with improvement. RT lower leg unchanged. Patient states she has been using stockinette but they are not on at the time of exam. - continue stockinettes - ordered lasix 20 mg IV push - Ordered Echocardiogram as unsure if and when it was completed 03/25 - Patient note LE edema unchaged. Some improvement noted on exam. - Patient has learned how to turn off bed alarm and is a Fall risk. For safety concerns, will re-evaluate edema tomorrow and determine if repeating diuretic is needed. - Continue stockinettes. 03/26 - some improvement noted on exam compared to yesterday. Patient feels swelling is unchanged. - ordered lasix 20 mg IV push - continue stockinettes <Aaron Conte, Student - Last Filed: 03/26/25 14:27> (9) Mitral valve prolapse: Code(s): I34.1 - Nonrheumatic mitral (valve) prolapse <Adriana Guerra APRN - Last Filed: 03/26/25 15:32> Status: Acute <Adriana Guerra APRN - Last Filed: 03/26/25 15:32> Assessment and Plan: 03/23 - patient states she has history of mitral valve prolapse. Date of last echo unknown. Does not have a cardiology. Is followed by PCP. currently not taking any medications. 03/24 - confirmed details above. Current increase in LE edema with intermittent history over the last 5 years with intermittent use of HCTZ (per ) for diuresis control. Continues to denies chest pain and dyspnea. notes dyspnea prior to ED arrival for a couple days, but not since admission. - Ordered Echocardiogram to assess MVP and/or other cardiac contributing factors to LE edema. 03/25 - Echo completed today by Cardiology. Summary includes: normal biventricular size and systolic function and no significant valvular abnormalities. Does note trace mitral & tricuspid regurgitation. No mention of Mitral Valve prolapse. <Adriana Guerra APRN - Last Filed: 03/26/25 15:32> Assessment and Plan: Diet: regular diet GI Prophylaxis: Pantoprzole DVT Prophylaxis: SCDs IV fluids: 1 L bolus-> 125 mL/hour Lines/Tubes: Peripheral IV Code Status: Full code 03/22 - patient experienced burning and increase frequency. UA was unremarkable. Will treat with Pyridium and reasses prn <Adriana Guerra APRN - Last Filed: 03/26/25 15:32> Diet: regular diet GI Prophylaxis: Pantoprazole DVT Prophylaxis: SCDs IV fluids: 1 L bolus-> 125 mL/hour Lines/Tubes: Peripheral IV Code Status: Full code 03/22 - patient experienced burning and increase frequency. UA was unremarkable. Will treat with Pyridium and reasses prn 03/26 - Patient experiencing burning & increase frequency over night. UA unremarkable. reasess prn. <Aaron Conte, Student - Last Filed: 03/26/25 14:27> Time Spent With Patient Time with patient: Greater than 35 minutes <Adriana Guerra, CELLULAR PHONE REPAIRER - Last Filed: 03/26/25 15:32> Subjective Date/time seen: 03/26/25 13:57 <Adriana Guerra, CELLULAR PHONE REPAIRER - Last Filed: 03/26/25 15:32> Interval history: 03/23 - Upright in bed. LE strength unchanged. Neuropathy symptoms improve throughout day with activity, worse in the morning. Notes increase bilateral LE swelling. Has history of on and off pedal edema for 5 years. Will occasionally take diuretic medication prescribed by PCP per patient. Increased activity today. Denies burning calf pain or redness, chest pain, SOB, N/V, abdominal pain, and abnormalities with urination and bowel movements. 03/24 - pt upright in bed upon evaluation today. LT LE swelling slightly improved, RT LE remains the same. Denies chest pain, SOB, N/V, abdominal pain, and urinary or bowel movement abnormalities. This morning, pt told nursing staff she wanted to get up on her own and that she wanted the bed alarm off. Nursing staff explained why it could not be turned off and that it was for her safety. Pt said she would deliberately keep standing up to set it off every 15 minutes which she did from 0500am to time of evaluation (07:30am). Charge nurse spoke with pt. Pt informed them and us that she would like to leave AMA. We discussed risks involved with this, her need for rehab placement, and her need for follow-up with Hematology, especially given that her platelets keep rising. Will discuss this again with patient when arrives. 03/25 - up right in bed upon exam resting. Denies chest pain and shortness of breath. Neuropathy symptoms unchanged. She notes swelling feels the same. Awaiting for rehab placement. 03/26 - pt seated, resting in bed upon exam. Denies chest pain, abdominal pain, shortness of breath. Neuropathy symptoms unchanged. Notes some improvements in ambulation. Swelling feels the same to her as yesterday. - 11:47am - rapid response called following patient feeling dizzy, double vision, headache, ear bussing, and neck pain during OT after a transfer. BP was checked at 57/29. Patient was sat down, and vision improved. Glucose was 103. 50 ml Bolus was given. BP was 100/66 shortly after. -Below is patients hospital course through 03/25: 44 y/o F with past medical history of hypertension, anxiety, and mitral valve prolapse presented on 03/19/25 with bloody stool & generalized weakness that has progressively worsened over the last month, and more specifically the last 2 weeks. Recently stopped taking a GLP1 over a month ago for weight loss. Patient lost over 55 lbs. ETOH use of 2-3 glasses of wine per night. Endorses increase in frequency of falls and difficulty with memory/confusion. In the ED patient was tachycardic. Labs showed WBC 11.5, Hgb 9.7 (12.7 on 03/01/25), no significant electrolyte derangements, magnesium 1.3, ammonium negative, initial troponin negative, renal function within normal limits, UA unremarkable, ETOH negative. CXR showed no acute cardiopulmonary pathology. Recent lab work also showed B12 259 and Folate 1.1 on 03/15. While admitted, several services were consulted. Edema was noted to Gastroenterology recommended an EGD and colonoscopy which found a large, benign Peptic ulcer which may contributed to bleeding. They recommended follow-up outpatient in the GI clinic, possible repeat EGD in 3 months, regular diet, and continuation of Pantoprazole which was started on 03/21/25. Hemoglobin was also monitored during admission and has remained stable (9.9 on 03/26). Neurology was consulted due to memory/confusion and neuropathic symptoms. Brain, Cervical, thoracic, and lumbar MRI's did not reveal any evidence of myelopathy or space-occupying lesions. They recommended further follow-up as outpatient and EMG testing to determine possible cause of neuropathy. Additionally they recommended further physical therapy and would benefit from a rehab center. Hematology/Oncology was consulted due to macrocytic anemia and elevated platelet count. Platelet count increased up to 626 (03/26/25) during your admission. They order a work up that would include soluble transferrin receptor and methylmalonic acid level. recommended follow-up outpatient to discuss potential bone marrow biopsy testing pending initial findings. Patient was instructed to begin oral iron 65 mg with vitamin-C daily. Patient was given contact information for their office. Psychiatry was consulted due to history of anxiety, continue grieving from family loss, and mental deficits/confusion. Evaluation determined likely Major Neurocognitive Disorder due to Alcohol use. Recommended continue taking fluoxetine (Prozac) 20 mg PO daily and Thiamine 100 mg PO. Encouraged individual therapy as well as continuing couples therapy with . Recommended follow up with psychiatric care upon discharge, substance use treatment referral, and continue physical therapy for gait and environmental safety assessment. <Adriana Guerra, CELLULAR PHONE REPAIRER - Last Filed: 03/26/25 15:32> 03/23 - Upright in bed. LE strength unchanged. Neuropathy symptoms improve throughout day with activity, worse in the morning. Notes increase bilateral LE swelling. Has history of on and off pedal edema for 5 years. Will occasionally take diuretic medication prescribed by PCP per patient. Increased activity today. Denies burning calf pain or redness, chest pain, SOB, N/V, abdominal pain, and abnormalities with urination and bowel movements. 03/24 - pt upright in bed upon evaluation today. LT LE swelling slightly improved, RT LE remains the same. Denies chest pain, SOB, N/V, abdominal pain, and urinary or bowel movement abnormalities. This morning, pt told nursing staff she wanted to get up on her own and that she wanted the bed alarm off. Nursing staff explained why it could not be turned off and that it was for her safety. Pt said she would deliberately keep standing up to set it off every 15 minutes which she did from 0500am to time of evaluation (07:30am). Charge nurse spoke with pt. Pt informed them and us that she would like to leave AMA. We discussed risks involved with this, her need for rehab placement, and her need for follow-up with Hematology, especially given that her platelets keep rising. Will discuss this again with patient when arrives. 03/25 - up right in bed upon exam resting. Denies chest pain and shortness of breath. Neuropathy symptoms unchanged. She notes swelling feels the same. Awaiting for rehab placement. 03/26 - pt seated, resting in bed upon exam. Denies chest pain, abdominal pain, shortness of breath. Neuropathy symptoms unchanged. Notes some improvements in ambulation. Swelling feels the same to her as yesterday. - 11:47am - rapid response called following patient feeling dizzy, double vision, headache, ear bussing, and neck pain during OT after a transfer. BP was checked at 57/29. Patient was sat down, and vision improved. Glucose was 103. 50 ml Bolus was given. BP was 100/66 shortly after. -Below is patients hospital course through 03/25: 44 y/o F with past medical history of hypertension, anxiety, and mitral valve prolapse presented on 03/19/25 with bloody stool & generalized weakness that has progressively worsened over the last month, and more specifically the last 2 weeks. Recently stopped taking a GLP1 over a month ago for weight loss. Patient lost over 55 lbs. ETOH use of 2-3 glasses of wine per night. Endorses increase in frequency of falls and difficulty with memory/confusion. In the ED patient was tachycardic. Labs showed WBC 11.5, Hgb 9.7 (12.7 on 03/01/25), no significant electrolyte derangements, magnesium 1.3, ammonium negative, initial troponin negative, renal function within normal limits, UA unremarkable, ETOH negative. CXR showed no acute cardiopulmonary pathology. Recent lab work also showed B12 259 and Folate 1.1 on 03/15. While admitted, several services were consulted. Edema was noted to Gastroenterology recommended an EGD and colonoscopy which found a large, benign Peptic ulcer which may contributed to bleeding. They recommended follow-up outpatient in the GI clinic, possible repeat EGD in 3 months, regular diet, and continuation of Pantoprazole which was started on 03/21/25. Hemoglobin was also monitored during admission and has remained stable (9.9 on 03/26). Neurology was consulted due to memory/confusion and neuropathic symptoms. Brain, Cervical, thoracic, and lumbar MRI's did not reveal any evidence of myelopathy or space-occupying lesions. They recommended further follow-up as outpatient and EMG testing to determine possible cause of neuropathy. Additionally they recommended further physical therapy and would benefit from a rehab center. Hematology/Oncology was consulted due to macrocytic anemia and elevated platelet count. Platelet count increased up to 626 (03/26/25) during your admission. They order a work up that would include soluble transferrin receptor and methylmalonic acid level. recommended follow-up outpatient to discuss potential bone marrow biopsy testing pending initial findings. Patient was instructed to begin oral iron 65 mg with vitamin-C daily. Patient was given contact information for their office. Psychiatry was consulted due to history of anxiety, continue grieving from family loss, and mental deficits/confusion. Evaluation determined likely Major Neurocognitive Disorder due to Alcohol use. Recommended continue taking fluoxetine (Prozac) 20 mg PO daily and Thiamine 100 mg PO. Encouraged individual therapy as well as continuing couples therapy with . Recommended follow up with psychiatric care upon discharge, substance use treatment referral, and continue physical therapy for gait and environmental safety assessment. <Aaron Conte, Student - Last Filed: 03/26/25 14:27> Review of Systems Review of Systems: All systems reviewed & are unremarkable except as noted in HPI and below <Adriana Guerra APRN - Last Filed: 03/26/25 15:32> Exam Const: Other: , female, nontoxic appearance <Adriana Guerra APRN - Last Filed: 03/26/25 15:32> Cardio: Other: S1-S2 present without murmur, rub, ectopy <Adriana Guerra APRN - Last Filed: 03/26/25 15:32> GI: Other: Abdomen soft, nondistended, nontender. Normoactive bowel sounds in all quadrants. <Adriana Guerra APRN - Last Filed: 03/26/25 15:32> Skin: Other: Mild pallor <Adriana Guerra APRN - Last Filed: 03/26/25 15:32> Neuro: Other: A&O x4, forgetfulness noted <Adriana Guerra APRN - Last Filed: 03/26/25 15:32> Psych: Other: Fair insight and judgment, pleasant <Adriana Guerra APRN - Last Filed: 03/26/25 15:32> Objective Data Vital Signs Vital Signs: Vital Signs - 24 hr 03/25/25 20:00 03/25/25 20:06 03/26/25 04:58 Temperature 98.2 F 98.6 F Pulse Rate 97 92 Respiratory Rate 20 20 Blood Pressure 138/100 H 139/85 Pulse Oximetry 96 98 Oxygen Delivery Room Air 03/26/25 08:00 03/26/25 11:47 Temperature Pulse Rate 92 Respiratory Rate 16 Blood Pressure 100/66 Pulse Oximetry 98 Oxygen Delivery Room Air Room Air <Adriana Guerra, CELLULAR PHONE REPAIRER - Last Filed: 03/26/25 15:32> Intake/Output Intake/Output: Intake & Output 03/23/25 03/24/25 03/25/25 03/26/25 23:59 23:59 23:59 23:59 Intake Total 980 1570 1410 540 Balance 980 1570 1410 540 <Adriana Guerra, CELLULAR PHONE REPAIRER - Last Filed: 03/26/25 15:32> Meds/Results Medications: Active Medications Generic Name Dose Route Start Last Admin Trade Name Freq PRN Reason Stop Dose Admin Acetaminophen 650 mg 03/19/25 20:12 03/26/25 13:21 Acetaminophen 325 Mg Tablet PO 650 mg Q6H PRN Administration Mild Pain (1-3) or Fever Ascorbic Acid 125 mg 03/24/25 09:00 03/26/25 08:19 Ascorbic Acid 125 Mg Tablet PO 125 mg QAM TERRI Administration Diazepam 5 mg 03/19/25 22:21 03/26/25 08:23 Diazepam (*Crx) 5 Mg Tablet PO 5 mg BID PRN Administration anxiety Fluoxetine HCl 20 mg 03/22/25 09:00 03/26/25 08:19 Fluoxetine Hcl 20 Mg Capsule PO 20 mg DAILY TERRI Administration Fluticasone Propionate 2 spray 03/19/25 22:21 Fluticasone Propionate 0.05% Na Spr 16 Gm Btl (*Bkc) NASAL Q12H PRN allergy symptoms Folic Acid 1 mg 03/20/25 09:00 03/26/25 08:19 Folic Acid 1 Mg Tablet PO 1 mg DAILY TERRI Administration Gabapentin 100 mg 03/21/25 17:00 03/26/25 08:19 Gabapentin 100 Mg Capsule PO 100 mg BID TERRI Administration Home Med 1 each 03/20/25 15:35 03/26/25 08:20 Home Medication-[place] 24 Fe PO 04/19/25 15:34 1 each DAILY TERRI Administration Ondansetron HCl 4 mg 03/19/25 17:42 Ondansetron Inj 4 Mg/2 Ml Vial IV PUSH Q4H PRN Nausea Pantoprazole Sodium 40 mg 03/21/25 21:00 03/26/25 08:19 Pantoprazole 40 Mg Tablet PO 40 mg Q12HR TERRI Administration Polysaccharide Iron Complex 150 mg 03/24/25 08:00 03/26/25 08:19 Polysaccharide Iron Complex 150 Mg Capsule PO 150 mg DAILY@0800 TERRI Administration Simethicone 0.6 ml 03/21/25 10:25 03/21/25 10:29 Simethicone Oral Suspension 20 Mg/0.3 Ml 30 Ml Bottle PO 1.8 ml Q2H PRN Administration Gas Discomfort Thiamine HCl 100 mg 03/20/25 09:00 03/26/25 08:19 Thiamine Hcl 100 Mg Tablet PO 100 mg QAM TERRI Administration <Adriana Guerra, CELLULAR PHONE REPAIRER - Last Filed: 03/26/25 15:32> Radiology Results: ITS Impressions Chest X-Ray 03/19/25 14:37 IMPRESSION: No acute cardiopulmonary pathology Brain MRI 03/20/25 11:39 IMPRESSION: Mild generalized atrophy, otherwise unremarkable exam. Cervical Spine MRI 03/22/25 13:11 Impression: Normal exam. Thoracic Spine MRI 03/22/25 13:14 IMPRESSION: Normal exam. Lumbar Spine MRI 03/22/25 13:15 Impression: Moderate degenerative spondylosis at L4-L5, with right neural foraminal narrowing and 6 mm anterolisthesis at this level. <Adriana Guerra, CELLULAR PHONE REPAIRER - Last Filed: 03/26/25 15:32> Labs Labs: Laboratory Results - last 24 hr 03/23/25 03/26/25 03/26/25 04:45 04:32 07:50 WBC 7.8 RBC 3.02 L Hgb 9.9 L Hct 30.7 L 31.0 L MCV 102.6 H MCH 32.8 MCHC 31.9 L RDW 15.4 H Plt Count 626 H MPV 9.2 Sodium 134 L Potassium 3.7 Chloride 104 Carbon Dioxide 24 Anion Gap 6 BUN 7 Creatinine 0.89 Estim Creat Clear Calc 61 Estimated GFR > 60 Glucose 93 POC Capillary Glucose Calcium 9.2 RBC Folate Hemolysate RBC Folate Urine Color Yellow Urine Appearance Clear Urine pH 7.5 Ur Specific [place] 1.009 Urine Protein Negative Urine Glucose (UA) Negative Urine Ketones Negative Ur Blood (Man) Negative Urine Nitrate Negative Urine Bilirubin Negative Urine Urobilinogen 1.0 Leukocyte Esterase Rfl Trace H Urine RBC 0-2 Urine WBC 0-5 Ur Squamous Epith Cells None seen Urine Bacteria None seen Urine Casts 0-2 03/26/25 11:44 WBC RBC Hgb Hct MCV MCH MCHC RDW Plt Count MPV Sodium Potassium Chloride Carbon Dioxide Anion Gap BUN Creatinine Estim Creat Clear Calc Estimated GFR Glucose POC Capillary Glucose 103 Calcium RBC Folate Hemolysate RBC Folate Urine Color Urine Appearance Urine pH Ur Specific [place] Urine Protein Urine Glucose (UA) Urine Ketones Ur Blood (Man) Urine Nitrate Urine Bilirubin Urine Urobilinogen Leukocyte Esterase Rfl Urine RBC Urine WBC Ur Squamous Epith Cells Urine Bacteria Urine Casts <Adriana Guerra APRN - Last Filed: 03/26/25 15:32> Quality VTE Prophylaxis VTE prophylaxis: mechanical ordered <Adriana Guerra APRN - Last Filed: 03/26/25 15:32>
[2025-03-26 14:00] VITALS: BP 105/88; PULSE 100; RESP 19; TEMP 36.5; O2SAT 99
[2025-03-26 14:08] LABS: Folate, Hemolysate 247.0 ng/mL (Not Estab.)
[2025-03-26 21:33] VITALS: BP 148/78; PULSE 102; RESP 18; TEMP 36.6; O2SAT 100
[2025-03-27] MEDS: diazePAM (*CRX) 5 MG TABLET PO (01:40)
[2025-03-27 05:12] LABS: Anion Gap 6 mmol/L (4-12); Blood Urea Nitrogen 5 mg/dL (7-17); Calcium 9.4 mg/dL (8.4-10.2); Carbon Dioxide 22 mmol/L (22-30); Chloride 107 mmol/L (98-107); Estimated CRCL calculation 68 ml/min; Estimated Glomerular Filt Rate > 60; Glucose 89 mg/dL (65-110); Potassium 3.8 mmol/L (3.4-5.0); Sodium 135 mmol/L (137-145)
[2025-03-27 05:17] VITALS: BP 153/90; PULSE 100; RESP 20; TEMP 36.7; O2SAT 99
[2025-03-27] MEDS: PANTOPRAZOLE 40 MG TABLET PO (08:37)
[2025-03-27] MEDS: FOLIC ACID 1 MG TABLET PO (08:37)
[2025-03-27] MEDS: GABAPENTIN 100 MG CAPSULE PO (08:37)
[2025-03-27] MEDS: THIAMINE HCL 100 MG TABLET PO (08:37)
[2025-03-27] MEDS: ASCORBIC ACID 125 MG TABLET PO (08:37)
[2025-03-27] MEDS: BLISOVI FE 1 EACH PO (08:38)
[2025-03-27] MEDS: ACETAMINOPHEN 325 MG TABLET 650 MG PO (08:42)
[2025-03-27] MEDS: FLUTICASONE PROPIONATE 0.05% NA SPR 16 GM BTL (*BKC) 2 SPRAY NASAL (08:45)
--- NOTE | 2025-03-27 08:51 | PCPTNOTE ---
Attempted to see [facility] for PT, however patient declined PT. Patient reported she needed more time to wake up before working with [facility].
--- NOTE | 2025-03-27 12:30 | P.DS_ITS ---
DS: Admitting Diagnosis Discharge Date 03/27/2025 Admitting Diagnosis GI bleed Memory deficit Neuropathy Anxiety Alcohol abuse Anemia Elevated platelet count Lower extremity edema DS: Discharge Diagnosis Discharge Diagnosis (1) GI bleed: Qualifiers: GI bleed type/associated pathology: unspecified gastrointestinal hemorrhage type Qualified Code(s): K92.2 - Gastrointestinal hemorrhage, unspecified Code(s): K92.2 - Gastrointestinal hemorrhage, unspecified Status: Acute (2) Memory deficit: Code(s): R41.3 - Other amnesia Status: Acute (3) Neuropathy: Code(s): G62.9 - Polyneuropathy, unspecified Status: Acute (4) Anxiety: Code(s): F41.9 - Anxiety disorder, unspecified Status: Acute (5) Alcohol abuse: Code(s): F10.10 - Alcohol abuse, uncomplicated Status: Acute (6) Anemia: Code(s): D64.9 - Anemia, unspecified Status: Acute (7) Elevated platelet count: Code(s): R79.89 - Other specified abnormal findings of blood chemistry Status: Acute (8) Lower extremity edema: Code(s): R60.0 - Localized edema Status: Acute DS: Summary Hospital Course Reason for hospitalization: GI bleed Memory deficit Neuropathy Anxiety Alcohol abuse Anemia Elevated platelet count Lower extremity edema Hospital Course: 44 year old female with past medical history of hypertension presents to the hospital for generalized weakness and increased falls. Patient reported increased frequency of dark stools. H/H was noted to be lower than baseline. GI consulted and patient underwent an EGD and colonoscopy. Scopes showed a peptic ulcer which could explain the acute hemoglobin drop although there was no overt bleeding noted. Patient remains on oral Protonix. She is to follow up with GI in the outpatient setting and avoid NSAIDs. Given the macrocytic anemia with normal iron levels heme/onc was consulted for further evaluation. An anemia workup was performed and thus far no clear etiology is found. Patient started on iron and vit c supplementation and is to follow up in the heme/onc office in the outpatient setting. Patients H/H remained stable and she no longer endorsed nausea/vomiting, dark stools, rectal bleeding or abdominal pain at time of discharge. Given patients noted memory deficits, neuropathic symptoms and increased falls per family neurology was consulted. Brain MRI and C/T spine unremarkable. L spine MRI showed moderate degenerative spondylosis at L4-L5, with right neural foraminal narrowing and 6 mm anterolisthesis at this level. Patient started on gabapentin. Patient is to follow up with neurology in the outpatient setting for EMG nerve conduction study. Patient worked with therapy during admission and was able to ambulate 140 feet using a walker on 03/26. On 03/27 patient refused therapy. PT/OT was originally recommending placement for rehab however discussed possible placement with patient and she does not want to go to rehab for PT/OT at time of discharge. Patient to continue working with therapy in the outpatient setting, scripts given. Given patients anxiety, alcohol use and memory deficits pychiatry was consulted. Patient remains on thiamine and folic acid. Psychiatry started patient on prozac. Plan to follow up with psychiatry in the outpatient setting. Prior to discharge strongly encouraged patient to stop drinking alcohol as this is likely a contributing factor to all of her symptoms. She states understanding. Prior to discharge patient discussed alcohol cessation and therapy with [facility]. She plans to set up a meeting with them next week to further discuss her alcohol abuse. At time of discharge patient has no complaints denying chest pain, shortness a breath, palpitations, nausea/vomiting, abdominal pain, and dizziness/lightheadedness/weakness with ambulation. Patient discharged home with outpatient PT/OT. She is to follow up with her primary care provider in 1 week and the specialties as scheduled. Status at Discharge Functional status at discharge: independent ambulation Time Spent with Patient Time attestation: Total time spent providing and/or coordinating discharge services: Time spent: Greater than 30 minutes Exam Narrative: AF HR 100 RR 20 SpO2 99 BP 153/90 General: female in no acute respiratory distress who is nontoxic appearing, lying semi recumbent in bed. HEENT: Normocephalic. Atraumatic. Extraocular movement intact. Sclera clear and anicteric. No facial asymmetry. Chest: Lungs are clear to auscultation bilaterally. No wheezes or crackles. CV: Heart was regular rate and rhythm. S1-S2. No murmurs, gallops, or rubs. Abd: Abdomen was soft. Nontender. Nondistended. Positive bowel sounds. Ext: No clubbing, cyanosis, or edema. 2+ DP pulses bilaterally. Neuro: Patient is alert and oriented x3. Speech is clear. DS: Data Data Completed and Pending Completed studies during hospitalization: Lumbar spine MRI Thoracic spine MRI Cervical spine MRI Brain MRI Chest XR Pending studies at discharge: Pending at discharge 03/21/25 11:30 Surgical [PTH] Routine Labs on day of discharge: Labs from last 24 hours 03/27/25 03/25/25 03/22/25 04:31 04:54 16:52 Hct Hematology Comments Sodium 135 L Potassium 3.8 Chloride 107 Carbon Dioxide 22 Anion Gap 6 BUN 5 L Creatinine 0.80 Estim Creat Clear Calc 68 Estimated GFR > 60 Glucose 89 Calcium 9.4 Fatemeh Transferrin Receptr 28.8 H RBC Folate Hemolysate 247.0 RBC Folate Discharge Plan Discharge Attending physician on discharge: Humaira Leyva Consulting providers: Cornelio Golden; Marcos Ty; Dexter Thompson; Marlene Mobley Discharging Clinician: Marlene Mobley Anticipated Discharge Date/Time: 03/27/25 12:11 Patient Disposition: Home Activity: as tolerated Diet: as tolerated Discharge Instructions: Discharge disposition: Patient was admitted to the hospital for concern of GI bleed Evaluated by GI and found to have a peptic ulcer on scope Started on Protonix twice a day, attached is information on this medication Avoid NSAIDs including ibuprofen, Advil, Aleve, aspirin, ect. Eat well balanced meals and do not over hydrate Keep active Keep an eye on your stool, should your stool be black or dark purple, you should come back to the hospital Patient endorsed worsening neuropathy Evaluated by neurology Imaging unremarkable Continue gabapentin, attached is information on this medication Follow up with neurology Continue PT/OT, attached is outpatient scripts for therapy Patient evaluated by psychiatry for anxiety Started on fluoxetine daily, attached is information on this medication Continue diazepam as needed Follow up with psychiatry in the outpatient setting Patient evaluated by oncology for anemia Started on iron supplementation and vitamin C Follow up with oncology in the outpatient setting Strongly encourage alcohol cessation Continue thiamine and folic acid, attached is information on these medications Follow up with [facility] as planned Monitor blood pressures Take caution while standing, rising, or moving Change positions slowly taking a break between each position change If you standing feel dizzy sit back down and take a break Encouraged to continue with yearly vaccinations Return to the emergency department if he developed sudden shortness of breath, chest pain, nausea, vomiting, upset stomach or intractable diarrhea Return to the emergency department if you develop fever greater than 101.5 Follow-up with the primary care physician within 1-2 weeks Thank you for choosing [facility] for your healthcare needs Patient Instructions: Fluoxetine (By mouth), Thiamine (By mouth), Folic Acid (By mouth), Gabapentin (By mouth), Pantoprazole (By mouth), Peptic Ulcer (DC), Gastrointestinal Bleeding (DC), Diet for Stomach Ulcers and Gastritis (GEN), Alcohol Use Disorder (DC) Patient Language: Sinhala Stand Alone Forms: General Discharge Information Follow-up/Referrals: aMrcos Ty MD [Physician] - Call for Appointment Satya Fournier MD [Primary Care Provider] - 1 Week Cornelio Golden MD [Physician] - Call for Appointment Dexter Thompson MD [Physician] - Call for Appointment Dar Johnson MD [Physician] - Call for Appointment Discharge Medications: New ascorbic acid (vitamin C) [Vitamin C] 250 mg tablet 125 mg PO QAM Qty: 30 0RF polysaccharide iron complex 150 mg iron Capsule 150 mg PO DAILY@0800 Qty: 30 0RF fluoxetine 20 mg Tablet 20 mg PO DAILY Qty: 30 0RF folic acid 1 mg Tablet 1 mg PO DAILY Qty: 30 0RF gabapentin 100 mg Capsule 100 mg PO BID Qty: 60 0RF thiamine HCl (vitamin B1) [Vitamin B-1] 100 mg Tablet 100 mg PO QAM Qty: 30 0RF pantoprazole 40 mg Tablet,Delayed Release (Dr/Ec) 40 mg PO Q12HR Qty: 60 0RF Continued norethindrone-e.estradiol-iron [Blisovi 24 Fe] 1 mg-20 mcg (24)/75 mg (4) tablet 1 tablet PO DAILY hydrochlorothiazide 12.5 mg capsule See Rx Instructions .ROUTE .COMPLEX PRN (Reason: edema) Rx Instructions: TAKE 2 CAPSULES BY MOUTH EVERY DAY PRN; fluticasone propionate 50 mcg/actuation spray,suspension See Rx Instructions .ROUTE .COMPLEX PRN (Reason: allergy symptoms) Rx Instructions: SHAKE LIQUID AND USE 2 SPRAYS IN EACH NOSTRIL EVERY 12 HOURS PRN naproxen 500 mg tablet See Rx Instructions .ROUTE .COMPLEX PRN (Reason: pain) Rx Instructions: TAKE 1 TABLET BY MOUTH DAILY PRN; diazepam 5 mg tablet 5 mg PO BID PRN (Reason: anxiety) Qty: 30 2RF ondansetron HCl 4 mg tablet 4 mg PO Q6H PRN (Reason: nausea and vomiting) Qty: 30 0RF Other Ambulatory Orders: PT Outpatient Eval and Treat (ONCE) Timeframe: [id number] Location: Determined by Patient Ordered By: Marlene Mobley Date of admission: 03/21/25 16:10 Primary Care Provider: Satya Fournier Admitting Provider: Sunday Sage Attending physician on admission: Sunday Sage Condition: Stable Hospitalist MIPS Heart Failure (Exclusion) Patient has history of Heart Transplant or Left Ventricular Assistive Device?: No IF YES, STOP HERE Heart Failure (Qualifier) Patient has current or prior documentation of LVEF less than or equal to 40%, or mod/servere depressed LVSF?: No IF NO, STOP HERE
== END 2025-03-27 14:32 | disposition home or self-care (01) | DRG 379 ==
LOC: ANHED 19:04 → ANH2MED 19:08
PROVIDERS: Internal Medicine Gastroenterology; Internal Medicine Hematology & Oncology; Nurse Practitioner; Student in an Organized Health Care Education/Training Program; Admitting Provider Internal Medicine; Emergency Provider Emergency Medicine; PCP Emergency Medicine; Visit Provider Student in an Organized Health Care Education/Training Program
PROC: 0DJ08ZZ Inspection of Upper Intestinal Tract, Via Natural or Artificial Opening Endoscopic (ICD-10-PCS; CPT 45378; principal; 2025-03-21 14:00)
DX: K25.4 Chronic or unspecified gastric ulcer with hemorrhage (principal); T39.315A Adverse effect of propionic acid derivatives, initial encounter; F10.26 Alcohol dependence with alcohol-induced persisting amnestic disorder; G62.9 Polyneuropathy, unspecified; D53.9 Nutritional anemia, unspecified; G54.0 Brachial plexus disorders; I10 Essential (primary) hypertension; I95.9 Hypotension, unspecified; R79.89 Other specified abnormal findings of blood chemistry; R60.0 Localized edema; F41.9 Anxiety disorder, unspecified; I34.1 Nonrheumatic mitral (valve) prolapse; Z87.891 Personal history of nicotine dependence
CPT/HCPCS: 36415; 70553; 71046; 72156; 72157; 72158; 80048; 80053; 80307; 81001; 81003; 82077; 82140; 82607; 82728; 82746; 82747; 82948; 83540; 83550; 83735; 83921; 84238; 84443; 84484; 85014; 85018; 85025; 85027; 87081; 87493; 88305; 88342; 93005; 96361; 96365; 96375; 97110; 97112; 97116; 97163; 97165; 97530; 97535; 99285; A9270; A9577; C8929; G0378; J1938; J2003; J2470; J2704; J3475; J7030; J7040; J7120; Q9957

== ENCOUNTER 2025-05-09 12:50 | Outpatient (CLI) | payer BC, SELFPAY ==
--- OUTSIDE RECORDS SUMMARY | 2025-05-09 11:20 | XMS_ITS | Clinical Summary ---
Author Organization [facility] Address [address] [place] [address] Phone Care Team Providers Care Operator Assistant I Cementing Name Role Phone Satya Fournier MD Primary Care Provider [phone] Allergies No known active allergies Medications naproxen [...] on file Legal Sex Female 4:14 PM FUNCTIONAL CONSULTANT Gender Identity Not on file Sexual Orientation Not on file Last Filed Vital Signs Vital Sign Reading Time Taken Comments Blood Pressure 142/95 10/08/2019 3:30 PM FUNCTIONAL CONSULTANT Pulse 98 10/08/2019 3:30 PM FUNCTIONAL CONSULTANT Temperature 36.8 C (98.3 F) 10/08/2019 3:30 PM FUNCTIONAL CONSULTANT Respiratory Rate - - Oxygen Saturation 98% 10/08/2019 3:30 PM FUNCTIONAL CONSULTANT Inhaled Oxygen Concentration - - Weight - - Height - - Body Mass Index - - Plan of Treatment Health Maintenance Due Date Last Done Comments Hepatitis C Virus (HCV) Screening 1979 TdaP Immunization 1979 Hepatitis B Immunization (1 of 3 - 19+ 3-dose series) 1998 Pap Smear 2000 Human Papillomavirus (HPV) Immunization (1 - 3-dose SCDM series) 2006 Cervical Cancer Screening (CCS) 2009 HPV/Cotest 2009 SARS-COV-2 Immunization ( season) 2024 06/06/2021, 11/21/2020, 10/31/2020 Cologuard 2024 Colonoscopy 2024 Colorectal Cancer Screening 2024 Immunochemical Fecal Occult Blood 2024 Influenza Immunization (#1) 05/06/202505/06, 07/27/2013 Respiratory Syncytial Virus (RSV) Immunization (Adult) (1 - 1-dose 75+ series) 2054 Meningococcal Immunization (ACWY) Aged Out No longer eligible b ased on patient's age to complete this topic Pneumococcal Immunization Combined Aged Out No longer eligible b ased on patient's age to complete this topic Rotavirus Immunization Aged Out No lo nger eligible based on patient's age to complete this topic Insurance [facility] Care Teams Operator Assistant I Cementing Relationship Specialty Start Date End Date Satya Fournier MD [address] [place] [address] PCP - General Internal Medicine 07/11/19
--- NOTE | 2025-05-09 11:45 | NEURO_ITS ---
Clinical note: Patient 44-year-old with complaints of paresthesias in both lower limbs as well as weakness and difficulty in walking and complaints of pain in the lower back for last 2 months. Please refer to the clinic notes for details of examination. The reports of EMG nerve can study are given below. no history of diabetes mellitus. Patient her surgery in the lumbar spine in 2020 or 2021. There is history of drinking alcohol. Summary of findings: 1. Left peroneal motor distal latency and amplitude were normal however conduction velocity was mildly decreased. Right peroneal motor as well as left and right tibial motor distal latency, amplitude and conduction velocities were within normal limits. 2. Left and right medial plantar and sural sensory were absent. 3. Left and right tibial H reflexes were absent. 4. EMG examination was performed with various muscles examined as shown below. Chronic denervation changes and decreased motor unit recruitment were noted in several muscles including both rectus femoris and left adductor longus and both ileopsoas muscles. The proximal muscles raise possibility of myopathic pattern. Distal muscles such as gastrocnemius and tibialis anterior showed decreased recruitment with chronic denervation changes also noted. Paraspinal muscles were not examined since the patient has had a surgeon the lumbar spine. Impression: 1. 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 Significant abnormalities were noted in EMG examination as shown below. The findings in proximal muscles raise possibility of a myopathic pattern. However changes were not noted in the tensor fascial tessy and gluteus jessa. Paraspinal muscles could not be examined since the patient has had a surgeon the lumbar spine. Decreased recruitment in the muscles below the knee could result from peripheral neuropathy but could also be residual finding from lumbosacral radiculopathy for which the patient has had a surgery. Clinical and radiographic correlation are recommended. The patient history of chronic alcoholism however clinical correlation and if necessary further studies for myopathy may be considered. Estella Gudino MD, FAAN, FAANEM Neurology/ Electrodiagnostic Medicine Nerve Conduction Studies Motor Nerve Results ? Latency Amplitude F-Lat Segment Distance CV Comment Site (ms) (mV) (ms) (cm) (m/s) Left Peroneal (EDB) Motor Ankle 3.9 2.9 Bel Fib Head 11.6 1.76 Bel Fib Head-Ankle 290 38 Pop Fossa 14.0 1.72 Pop Fossa-Bel Fib Head 80 33 Right Peroneal (EDB) Motor Ankle 4.1 3.9 Bel Fib Head 10.8 3.8 Bel Fib Head-Ankle 275 41 Pop Fossa 12.7 3.7 Pop Fossa-Bel Fib Head 80 42 Left Tibial (AHB) Motor Ankle 5.2 7.7 Knee 15.8 4.3 Knee-Ankle 410 39 Right Tibial (AHB) Motor Ankle 3.5 8.8 Knee 14.7 7.0 Knee-Ankle 400 36 Sensory Nerve Results ? Latency (Peak) Amplitude (P-P) Segment Distance CV Comment Site (ms) (?V) (cm) (m/s) Left Medial Plantar (Ortho) Sensory Great Toe-Med Mall NR NR Great Toe-Med Mall 100 NR Right Medial Plantar (Ortho) Sensory Great Toe-Med Mall NR NR Great Toe-Med Mall 105 NR Left Sural Sensory Calf-Lat Mall NR NR Calf-Lat Mall 120 NR Right Sural Sensory Calf-Lat Mall NR NR Calf-Lat Mall 120 NR H-Reflex Results ? M-Lat H Lat H Peak-Peak Amp M Peak-Peak Amp H-M Lat Site (ms) (ms) mV mV (ms) Left Tibial H-Reflex Pop Fossa - NR - - NR Right Tibial H-Reflex Pop Fossa 5.5 - - 1.06 - Electromyography ?Side Muscle Nerve Ins Act Fibs Psw Amp Dur Recrt Comment Right BicepsFemS Sciatic Nml Nml Nml Nml Nml Nml Right Semimembranosus Sciatic Nml Nml Nml Nml Nml Nml Right AntTibialis Dp Br Fibular Nml Nml Nml Nml Nml Nml Right Gastroc Tibial Nml 2+ 2+ Nml Nml Reduced Right VastusMed Femoral Nml 3+ 2+ Nml Nml Reduced Right RectFemoris Femoral Nml 2+ 2+ Nml Nml Nml Right GluteusMax InfGluteal Nml Nml Nml Nml Nml Nml Right TensorFascLat SupGluteal Nml Nml Nml Nml Nml Nml Left BicepsFemS Sciatic Nml Nml Nml Nml Nml Nml Left Semimembranosus Sciatic Nml Nml Nml Nml Nml Nml Left AntTibialis Dp Br Fibular Nml Nml Nml Incr >12ms +1 Left Gastroc Tibial Nml 2+ 2+ Incr Nml Reduced Left VastusMed Femoral Nml 2+ 2+ Incr >12ms +3 Left RectFemoris Femoral Nml 4+ 4+ N >12ms N Left GluteusMax InfGluteal Nml Nml Nml Nml Nml Nml Left TensorFascLat SupGluteal Nml Nml Nml Nml Nml Nml Left AdductorLong Obturator Nml 2+ 2+ Incr >12ms +2 Left Iliopsoas Femoral Nml 3+ 2+ Nml Nml N POLY Right AdductorLong Obturator Nml 1+ 1+ Nml Nml Nml Right Iliopsoas Femoral Nml 2+ 2+ Nml Nml Nml
--- OUTSIDE RECORDS SUMMARY | 2025-05-09 13:03 | XMS_ITS | Clinical Summary ---
Author Organization [facility] Address [address] [place] [address] Phone Care Team Providers Care Design Engineer Name Role Phone Satya Fournier MD Primary Care Provider [phone] Allergies No known active allergies Medications naproxen [...] on file Legal Sex Female 4:14 PM DOCUMENT MANAGEMENT SPECIALIST Gender Identity Not on file Sexual Orientation Not on file Last Filed Vital Signs Vital Sign Reading Time Taken Comments Blood Pressure 142/95 10/08/2019 3:30 PM DOCUMENT MANAGEMENT SPECIALIST Pulse 98 10/08/2019 3:30 PM DOCUMENT MANAGEMENT SPECIALIST Temperature 36.8 C (98.3 F) 10/08/2019 3:30 PM DOCUMENT MANAGEMENT SPECIALIST Respiratory Rate - - Oxygen Saturation 98% 10/08/2019 3:30 PM DOCUMENT MANAGEMENT SPECIALIST Inhaled Oxygen Concentration - - Weight - [...] patient's age to complete this topic Insurance [facility] Care Teams Design Engineer Relationship Specialty Start Date End Date Satya Fournier MD [address] [place] [address] PCP - General Internal Medicine 07/11/19
== END 2025-05-09 12:51 | disposition home or self-care (01) ==
PROVIDERS: PCP Emergency Medicine; Visit Provider Psychiatry & Neurology Neurology
DX: G62.9 Polyneuropathy, unspecified (principal); F10.26 Alcohol dependence with alcohol-induced persisting amnestic disorder
CPT/HCPCS: 95886; 95910

== ENCOUNTER 2025-05-10 14:03 | Outpatient (CLI) | payer BC, SELFPAY ==
--- OUTSIDE RECORDS SUMMARY | 2025-05-10 14:12 | XMS_ITS | Clinical Summary ---
Author Organization [facility] Address [address] [place] [address] Care Team Providers Care Sales Account Executive Name Role Phone Satya Fournier MD Primary Care Provider [phone] Allergies No known active allergies Medications No known medications Encounters Date Type Department Care Team Description 03/18/2025 Results Follow-Up [facility] [place] [address] [place] [address] Shelly Toney FNP VITAMIN B1 THIAMINE 03/12/2025 4:05 PM CDT - 03/12/2025 6:53 PM CDT Emergency [facility] [place] [address] [place] [address] Joseph Fulton PA Generalized Weakness Discharge Disposition: [...] of 3 - 19+ 3-dose series) 1998 HPV Vaccines (1 - 3-dose SCDM series) 2006 Cervical Cancer Screening Pap with HPV Testing (Age 30 to 64) Every 5 Years 2009 Cervical Cancer Screening with HPV 2009 Mammogram Screening 2019 DTaP, Tdap and Td Vaccines (2 - Td or Tdap) 05/20/2031 05/20/2021 COVID-19 Vaccine Completed 05/09/2024, , 05/29/2022, Additional history exists Meningococcal B Vaccine Aged Out No l [...] PM CDT) 03/12/2025 4:34 PM CDT [facility]ative [facility] - 03/13/2025 8:23 AM CDT [facility] Test Date: 2025-03-12 Pat Name: PAOLA PARIKH Department: 41 Room: [facility] Gender: Female Lean Sensei: [id number] : 1980 Requested By: JOSEPH FULTON Order Number: [id number] Reading MD: Charlie Stevne Measurements Intervals [place] Rate: 104 P: 71 FL: 170 QRS: 261 QRSD: 77 T: 71 [...] Procedure Note Charlie Steven MD - 03/13/2025 [facility] [address] [facility] Test Date: 2025-03-12 Pat Name: PAOLA PARIKH Department: 41 Room: 1 Gender: Female Lean Sensei: [id number] : 1980 Requested By: JOSEPH FULTON Order Number: [id number] Reading MD: Charlie Steven Measurements Intervals [place] Rate: 104 P: 71 FL: 170 QRS: 261 QRSD: 77 T: 71 [...] Joseph TOWNSEND ECG ORDERABLES Final Resu lt [facility] ([place] * (ABNORMAL) COMPREHENSIVE METABOLIC PANEL (03/12/2025 4:17 PM CDT) GLUCOSE 148(H) 70 - 99 MG/DL 03/12/2025 5:15 PM CDT [facility] BUN 3(L) 7 - 18 MG/DL 03/12/2025 5:15 PM CDT [facility] CREATININE S/P/B 1.02 0.55 - 1.02 MG/DL 03/12/2025 5:15 PM CDT [facility] SODIUM S/P/B 135(L) 136 - 145 MMOL/L 03/12/2025 5:15 PM CDT [facility] POTASSIUM S/P/B 3.0(LL) 3.5 - 5.1 MMOL/L 03/12/2025 5:15 PM CDT [facility] Comment: Critical Result(s) Called at: 17:13:58 on 03/12/2025 by: CARMEN HARRISON to and read back by:freeman zazueta CHLORIDE S/P/B 102 97 - 115 MMOL/L 03/12/2025 5:15 PM CDT [facility] CO2 23.4 21 - 32 MMOL/L 03/12/2025 5:15 PM CDT [facility] CALCIUM S/P/B 9.3 8.5 - 10.1 MG/DL 03/12/2025 5:15 PM CDT [facility] BILIRUBIN TOTAL S/P/B 0.4 0.2 - 1.2 MG/DL 03/12/2025 5:15 PM CDT [facility] Comment: THIS ASSAY IS NOT RECOMMENDED FOR PATIENTS UNDERGOING TREATMENT WITH ELTROMBOPAG DUE TO THE POTENTIAL FOR FALSELY ELEVATED RESULTS. TOTAL PROTEIN S/P/B 7.4 6.4 - 8.2 G/DL 03/12/2025 5:15 PM CDT [facility] ALBUMIN S/P/B 3.2(L) 3.4 - 5.0 G/DL 03/12/2025 5:15 PM CDT [facility] AST 26 15 - 37 U/L 03/12/2025 5:15 PM CDT [facility] ALT 30 14 - 55 U/L 03/12/2025 5:15 PM CDT [facility] ALKALINE PHOSPHATASE S/P/B 88 50 - 136 U/L 03/12/2025 5:15 PM CDT [facility] ANION GAP 9.6 2 - 10 MMOL/L 03/12/2025 5:15 PM CDT [facility] BUN CREATININE RATIO 2.9(L) 6 - 26 03/12/2025 5:15 PM CDT [facility] A/G RATIO 0.8(L) 1.0 - 2.0 RATIO 03/12/2025 5:15 PM CDT [facility] GFR ESTIMATE 69(L) >90 ML/MIN/1.7 3 M2 03/12/2025 5:15 PM CDT [facility] Comment: NOTE: eGFR is not calculated for patients <18 years of age or gender unknown. This is an estimated GFR calculation using the new CKD EPI creatinine equation without race and so does not require a correction factor for race. This estimated GFR should not be used for calculating drug doses. 03/12/2025 4:17 PM CDT us [facility] Final Resu lt [facility] [address] [place] [address], [place] [phone] * (ABNORMAL) CBC W/DIFF AUTOMATED (03/12/2025 4:17 PM CDT) WBC 5.95 4.5 - 11.0 x10'3/uL 03/12/2025 4:47 PM CDT [facility] RBC 3.85(L) 4.20 - 5.40 x10'6/uL 03/12/2025 4:47 PM CDT [facility] HGB 12.5 12.0 - 16.0 G/DL 03/12/2025 4:47 PM CDT [facility] HCT 35.8(L) 38.0 - 48.0 % 03/12/2025 4:47 PM CDT [facility] MCV 93.0 81.0 - 99.0 FL 03/12/2025 4:47 PM CDT [facility] MCH 32.5(H) 27.0 - 31.0 PG 03/12/2025 4:47 PM CDT [facility] MCHC 34.9 32.0 - 36.0 G/DL 03/12/2025 4:47 PM CDT [facility] RDW 12.4 11.5 - 14.5 % 03/12/2025 4:47 PM CDT [facility] PLT 548(H) 130 - 400 x10'3/uL 03/12/2025 4:47 PM CDT [facility] MPV 9.5 9.3 - 12.2 FL 03/12/2025 4:47 PM CDT [facility] DIFFERENTIAL TYPE AUTOMATED DIFFERENTIAL 03/12/2025 4:47 PM CDT [facility] NEUTROPHILS % 62.9 % 03/12/2025 4:47 PM CDT [facility] LYMPHOCYTES % 30.4 % 03/12/2025 4:47 PM CDT [facility] MONOCYTES % 4.9 % 03/12/2025 4:47 PM CDT [facility] EOSINOPHILS 0.7 % 03/12/2025 4:47 PM CDT [facility] BASOPHILS 0.8 % 03/12/2025 4:47 PM CDT [facility] IMMATURE GRANS % 0.3 % 03/12/20 4:47 PM CDT [facility] ABS. NEUTROPHILS 3.74 1.80 - 7.70 x10'3/uL 03/12/2025 4:47 PM CDT [facility] ABS. LYMPHOCYTES 1.81 1.00 - 4.80 x10'3/uL 03/12/2025 4:47 PM CDT [facility] ABS. MONOCYTES 0.29 0.24 - 0.86 x10'3/uL 03/12/2025 4:47 PM CDT [facility] ABS. EOSINOPHILS 0.04 0.04 - 0.36 x10'3/uL 03/12/2025 4:47 PM CDT [facility] ABS. BASOPHILS 0.05 0.01 - 0.08 x10'3/uL 03/12/2025 4:47 PM CDT [facility] ABS. IMMATURE GRANULOCYTES 0.02 0.00 - 0.49 x10'3/uL 03/12/2025 4:47 PM CDT [facility] 03/12/2025 4:17 PM CDT Joseph [facility] Final Resu lt [facility] [address] [place] [address], * (ABNORMAL) VITAMIN B1 THIAMINE (03/12/2025 4:17 PM CDT) VITAMIN B1 S/P/B <6(L) 8 - 30 nmol/L 03/18/2025 2:51 PM CDT [employer] JIM BONNER Comment: Vitamin supplementation within 24 hours prior to blood draw may affect the accuracy of the results. This test was developed and its analytical performance characteristics have been determined by [facility] [place], [place]. It has not been cleared or approved by the U.S. Food and Drug Administration. This assay has been validated pursuant to the CLIA regulations and is used for clinical purposes. Test Performed by [facility], [facility], [address] [place] [address] Maximino Clark M.D., Ph.D., Director of Laboratories , CLIA [id number] 03/12/2025 4:17 PM CDT Joseph [facility] Final Resu lt [employer] [place] [id number] [place], [place] , [place] [phone] * MAGNESIUM (03/12/2025 4:17 PM CDT) MAGNESIUM 1.8 1.8 - 2.4 MG/DL 03/12/2025 5:55 PM CDT [facility] 03/12/2025 4:17 PM CDT Joseph [facility] Final Resu lt [facility] [address] [place] [address], [place] [phone] * (ABNORMAL) ETHANOL (03/12/2025 4:17 PM CDT) ALCOHOL S/P/B 0.244(H) <0.003 G/DL 03/12/2025 5:15 PM CDT [facility] 03/12/2025 4:17 PM CDT Joseph [facility] Final Resu lt [facility] [address] [place] [address], [place] [phone] * DRUG SCREEN RAPID (03/12/2025 4:01 PM CDT) AMPHETAMINE (U) NEGATIVE NEGATIVE 4:28 PM CDT [facility] BARBITURATES SCREEN (U) NEGATIVE NEGATIVE 03/12/2025 4:28 PM CDT [facility] BENZODIAZEPINES SCREEN (U) NEGATIVE NEGATIVE 03/12/2025 4:28 PM CDT [facility] CANNABINOIDS SCREEN (U) NEGATIVE NEGATIVE 03/12/2025 4:28 PM CDT [facility] COCAINE METABOLITES (U) NEGATIVE NEGATIVE 03/12/2025 4:28 PM CDT [facility] METHADONE (U) NEGATIVE NEGATIVE 03/12/2025 4:28 PM CDT [facility] OPIATE SCREEN (U) NEGATIVE NEGATIVE 025 4:28 PM CDT [facility] PHENCYCLIDINE PCP (U) NEGATIVE NEGATIVE 03/12/2025 4:28 PM CDT [facility] Comment: NOTE: RESULTS OF THIS DRUG SCREEN SHOULD BE USED FOR MEDICAL PURPOSES ONLY AND NOT FOR LEGAL OR EMPLOYMENT PURPOSES. POSITIVE RESULTS ARE NOT CONFIRMED. MEDICATIONS CONTAINING EPHEDRINE MAY CAUSE FALSE POSITIVE AMPHETAMINE CALL [phone], LAB, TO REQUEST CONFIRMATION TESTING. IF CREATININE IS <40 mg/dL. RECOLLECTION IS SUGGESTED. AMPHETAMINE- 500 NG/ML BARBITURATE- 200 NG/ML BENZODIAZEPINES- 200 NG/ML THC- 50 NG/ML COCAINE- 150 NG/ML METHADONE- 300 NG/ML OPIATE- 300 MG/ML PCP- 25 NG/ML CREATININE (U) 47.6 28 - 217 MG/DL 03/12/2025 4:28 PM CDT [facility] URINE SPECIMEN / Unknown 03/12/2025 4:01 PM CDT us Joseph TOWNSEND URINE ORDERABLES Final Res ult [facility] [address] [place] [address], * URINALYSIS, AUTO, COMPLETE (03/12/2025 4:01 PM CDT) SPECIMEN TYPE URINE CLEAN CATCH 03/12/2025 4:02 PM CDT [facility] COLOR (U) LIGHT YELLOW 03/12/2025 4:20 PM CDT [facility] TRANSPARENCY CLEAR 03/12/2025 4:20 PM CDT [facility] SPECIFIC GRAVITY (U) 1.005 1.001 - 1.030 03/12/2025 4:20 PM CDT [facility] U PH 6.0 5.0 - 9.0 03/12/2025 4:20 PM CDT [facility] LEUKOCYTES (U) NEGATIVE NEGATIVE 03/12/2025 4:20 PM CDT [facility] NITRITES NEGATIVE NEGATIVE 03/12/2025 4:20 PM CDT [facility] PROTEIN RANDOM (U) NEGATIVE <30 MG/DL 03/12/2025 4:20 PM CDT [facility] GLUCOSE (U) NORMAL NORMAL MG/DL 03/12/2025 4:20 PM CDT [facility] KETONES MG/DL (U) NEGATIVE NEGATIVE MG/DL 03/12/2025 4:20 PM CDT [facility] UROBILINOGEN NORMAL NORMAL MG/DL 03/12/2025 4:20 PM CDT [facility] BILIRUBIN (U) NEGATIVE NEGATIVE MG/DL 03/12/2025 4:20 PM CDT [facility] BLOOD (U) NEGATIVE NEGATIVE 03/12/2025 4:20 PM CDT [facility] WBC/HPF 1 <6 /HPF 03/12/2025 4:20 PM CDT [facility] RBC/HPF <1 <6 /HPF 03/12/2025 4:20 PM CDT [facility] SQUAMOUS EPITHELIALS RARE /HPF 03/12/2025 4:20 PM CDT [facility] URINE SPECIMEN OBTAINED BY CLEAN CATCH PROCEDURE / Unknown 03/12/2025 4:01 PM CDT us Joseph TOWNSEND URINE ORDERABLES Final Res ult Performing Organization Address City/[facility]/ZIP Co de Phone Number [facility] [address] [place] [address], * (ABNORMAL) POCT glucose (03/12/2025 3:39 PM CDT) GLUCOSE POC 136(H) 70 - 99 mg/dL 03/12/2025 3:40 PM CDT [facility] 03/12/2025 3:39 PM CDT Attending Physician Emergency MD POCT ORDERABLES - DEVICE Final Result Performing Organization Address [facility] Co de Phone Number [facility] [address] [place] [phone], from Last 3 Months Insurance [facility] Care Teams Sales Account Executive Relationship Specialty Start Date End Date Satya Fournier MD [address] [place] [address] PCP - General INTERNAL MEDICINE 03/12/25
--- OUTSIDE RECORDS SUMMARY | 2025-05-10 14:12 | XMS_ITS | Clinical Summary ---
Author Organization [facility] Address [address] [place] [address] Phone Care Team Providers Care Trap Operator Name Role Phone Satya Fournier MD Primary Care Provider [phone] Allergies No known active allergies Medications naproxen [...] on file Legal Sex Female 4:14 PM GLASSWARE VERIFIER Gender Identity Not on file Sexual Orientation Not on file Last Filed Vital Signs Vital Sign Reading Time Taken Comments Blood Pressure 142/95 10/08/2019 3:30 PM GLASSWARE VERIFIER Pulse 98 10/08/2019 3:30 PM GLASSWARE VERIFIER Temperature 36.8 C (98.3 F) 10/08/2019 3:30 PM GLASSWARE VERIFIER Respiratory Rate - - Oxygen Saturation 98% 10/08/2019 3:30 PM GLASSWARE VERIFIER Inhaled Oxygen Concentration - - Weight - [...] patient's age to complete this topic Insurance [facility] Care Teams Trap Operator Relationship Specialty Start Date End Date Satya Fournier MD [address] [place] [address] PCP - General Internal Medicine 07/11/19
--- OUTSIDE RECORDS SUMMARY | 2025-05-10 14:12 | XMS_ITS | Encounter Summary ---
Author Organization [facility] Address [address] [place] [address] Care Team Providers Care Laundry Machine Tender Name Role Phone Satya Fournier MD Primary Care Provider [phone] Encounter Details Date Type Department Care Team (Late st Contact Info) Description 03/18/2025 Results Follow-Up [facility] [place] [address] Shelly Toney FNP [address] [place] [address] VITAMIN B1 THIAMINE Social History Tobacco Use [...] on filedocumented in this encounter Care Teams Laundry Machine Tender Relationship Specialty Start Date End Date Satya Fournier MD [address] [place] [address] PCP - General INTERNAL MEDICINE 03/12/25 documented as of this encounter
[2025-05-10 14:45] LABS: Creatine Kinase 180 U/L (30-135); Potassium 4.0 mmol/L (3.4-5.0)
[2025-05-10 14:54] LABS: Hemoglobin A1C 4.7 % (<5.7)
[2025-05-13 10:08] LABS: ANA by IFA Rfx Titer/Pattern Negative (.)
[2025-05-14 15:09] LABS: Immunoglobulin A, Qn 139 mg/dL (87-352); Immunoglobulin G, Qn 737 mg/dL (586-1602); Immunoglobulin M, Qn 187 mg/dL (26-217)
[2025-05-17 18:08] LABS: Vit. B1, Whole Blood 137.4 nmol/L (66.5-200.0)
== END 2025-05-10 14:04 | disposition home or self-care (01) ==
PROVIDERS: PCP Emergency Medicine; Visit Provider Psychiatry & Neurology Neurology
DX: G62.9 Polyneuropathy, unspecified (principal); F10.26 Alcohol dependence with alcohol-induced persisting amnestic disorder; E87.6 Hypokalemia
CPT/HCPCS: 36415; 82550; 82784; 83036; 83090; 84132; 84207; 84425; 86038; 86334

== ENCOUNTER 2025-07-01 11:00 | Outpatient (CLI) | payer BC, SELFPAY ==
--- OUTSIDE RECORDS SUMMARY | 2025-07-01 10:30 | XMS_ITS | Encounter Summary ---
Author Organization [facility] JOSE ALBERTO Olguin [facility] Address [address] [place] [address] Care Team Providers Care Parole Board Member Name Role Phone Unavailable Primary Care Provider Unavailabl e Reason for Visit * Reason Comments Establish Care Encounter Details Date Type Department Care Team (Late st Contact Info) Description 07/01/2025 10:30 AM CDT Office Visit [facility] Oncology and Hematology - [place] [address] [facility] [address] [place] [address] Marcos Ty MD [address] [facility] [address] [place] [address] Chronic anemia (Primary Dx) Social History Tobacco Use Types Packs/Day Years Used Date Smoking Tobacco: Former Cigarettes 0.5 10 1 - 07/01/2009 Smokeless Tobacco: Never Tobacco Cessation:Counseling Given: Not Answered Alcohol Use Standard Drinks/Week Comments Not Currently 0 (1 standard drink = 0.6 oz pure alcohol) stopped 4 months ago, drinking 2 glasses of wine a night before that Comments Unknown Sex and Gender Information Value Date Recorded Sex Assigned at Not on file Legal Sex Female 10:17 AM CDT Gender Identity Not on file Sexual Orientation Not on file documented as of this encounter Last Filed Vital Signs Vital Sign Reading Time Taken Comments Blood Pressure 102/81 07/01/2025 10:17 AM CDT Pulse 107 07/01/2025 10:17 AM CDT Temperature 36.3 C (97.3 F) 07/01/2025 10:17 AM CDT Respiratory Rate 15 07/01/2025 10:17 AM CDT Oxygen Saturation 96% 07/01/2025 10:17 AM CDT Inhaled Oxygen Concentration - - Weight 53.8 kg (118 lb 9.6 oz) 07/01/2025 10:17 AM CDT Height 167.6 cm (5' 6) 07/01/2025 10:17 AM CDT Body Mass Index 19.14 07/01/2025 10:17 AM CDT documented in this encounter Progress Notes * Marcos Ty MD - 07/01/2025 10:54 AM CDT Hematology-oncology consult Note Requesting Physician Estella Gudino MD Primary Care Physician No primary care provider on file. Problem list There is no problem list on file for this patient. Previous TREATMENT ? Measurable Disease ? Reason for Visit Elvia Muir is a 44 y.o. female who was referred for consultation for anemia. 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 She was admitted to the hospital on March 19 with weakness and found to have hemoglobin of 9.7. Patient had EGD and colonoscopy done on March 21, 2025 that showed chronic gastric ulcer and normal colonoscopy. She was started on iron supplement that she took it for 1 month and did not get any refills on it. She denies any melena hematochezia. Denies any excessive tiredness and fatigue. She denies being a vegetarian. Denies having any previous stomach surgeries. She used to weigh 160 pound but started GLP-1 inhibitor and lost significant amount of weight. She is not taking any GLP-1 inhibitor at this time. Denies any chest pain and shortness of breath. No other new complaints. Past Medical History No past medical history on file. Chronic gastric ulcer Alcohol abuse Neuropathy and myopathy secondary to alcohol abuse Anxiety Surgical History Past Surgical History: Procedure Laterality Date HX BACK SURGERY Medications Current Outpatient Medications Medication Sig Dispense Refill amitriptyline (ELAVIL) 25 mg tablet Take 25 mg by mouth daily at bedtime. DULoxetine (CYMBALTA) 60 mg Capsule, Delayed Release(E.C.) Take 60 mg by mouth daily. gabapentin (NEURONTIN) 300 mg capsule Take 300 mg by mouth 3 times daily. gabapentin (NEURONTIN) 100 mg capsule Take 300 mg by mouth 3 times daily. No current facility-administered medications for this visit. Allergies No Known Allergies Immunizations: Immunization History Administered Date(s) Administered (COMRINATY)(12YR UP) COVID-19 VACCINE, MRNA (PF)30 MCG/0.3 ML, IM SYRINGE 05/23/2023, 05/09/2024 (PFIZER JOANNE)(12 YR UP PRIMARY SERIES) COVID-19 VACCINE - EMERGENCY USE AUTHORIZATION, MRNA, JOANNE(PF) 30 MCG/0.3 ML IM SUSP 12/08/2021 (PFIZER)(12 YR UP) COVID-19 VACCINE - EMERGENCY USE AUTHORIZATION, MRNA, [id number](PF) 30 MCG/0.3 MLIM SUSP 10/31/2020, 11/21/2020, 06/06/2021 (Pfizer Bivalent)(12 Yr Up) COVID-19 Vaccine - Emergency Use Authorization, MRNA, Lnp-S(Pf) 30 Mcg/0.3 Ml Susp 05/29/2022 Family History Family History Problem Relation Name Age of Onset Heart Disease Father No Known Problems Mother Heart Disease Sister Social History Social History Tobacco Use Smoking status: Former Current packs/day: 0.00 Average packs/day: 0.5 packs/day for 10.0 years (5.0 ttl pk-yrs) Types: Cigarettes Start date: 07/01/1999 Quit date: 07/01/2009 Years since quittin.0 Smokeless tobacco: Never Substance Use Topics Alcohol use: Not Currently Comment: stopped 4 months ago, drinking 2 glasses of wine a night before that Review of Systems Constitutional: Patient did not mention fever; no night sweats; no anorexia; no weight loss; no fatique NEENT: Patient did not mention headache; no change in vision; no change in hearing; no sore throat;no dysphagia Respiratory: Patient did not mention shortness of breath; no pleuritic chest pain; no cough; no hemoptysis Cardiac: Patient did not mention cardiac-like chest pain; no palpitations; no orthopnea; no PND; noDOE Breasts: Patient did not mention tenderness; no masses GI: Patient did not mention abdominal pain; no nausea; no vomiting; no diarrhea; no hematochezia; no melena : Patient did not mention dysuria; no frequency; no hesitancy; no hematuria INTERNAL RECRUITER: Musculosketetal: Patient did not mention bone pain; no arthralgia; no joint swelling; no myalgia; Skin: Patient did not mention pruritis; no rash; no petechiae; no ecchymoses Endocrine: Patient did not mention polydipsia; no polyuria; no unusual weight gain Neuro: Patient did not mention headache; no change in vision; no sensory changes; no muscle weakness; no confusion; no seizures Psych: Patient did not mention anxiety; no depression; Physical Exam Vitals: As per nursing note Constitutional: Well developed, well nourished, no acute distress, non-toxic appearance Teeth and gum. No signs of infection or swelling. Eyes: PERRL, conjunctiva normal HEENT: Atraumatic, external ears normal, nose normal, oropharynx moist, no pharyngeal exudates. no sinus tenderness Neck- normal range of motion, no tenderness, supple Respiratory: No respiratory distress, normal breath sounds, no rales, no wheezing Cardiovascular: Normal rate, normal rhythm, no murmurs, no gallops, no rubs GI: Soft, nondistended, normal bowel sounds, nontender, no splenomegaly, no hepatomegaly, no mass, no rebound, no guarding : No costovertebral angle tenderness Musculoskeletal: No edema, no tenderness, no deformities. Back- no tenderness Integument: Well hydrated, no rash, Digits and nails inspection normal Lymphatic: No lymphadenopathy noted Neurologic: Alert & oriented x 3, CN 2-12 normal, normal motor function, normal sensory function, no focal deficits noted Psychiatric: Speech and behavior appropriate ? labs No results found for this or any previous visit (from the past 24 hours). Labs from March 26 showed WBC 7.8 hemoglobin 9.9 MCV 102 platelets 626,000 creatinine 0.8 Pathology ? Imaging & Other Studies Performance Status? Assessment / Plan: ? Chronic anemia. Patient is a 44-year-old female with history of alcohol abuse, myopathy and neuropathy secondary to alcohol abuse, hypertension and anxiety was admitted to the hospital on March 19, 2025 with generalized weakness and found to have anemia. Patient had EGD done that showed chronic gastric ulcer. Colonoscopy was normal. She denies any melena hematochezia. She denies any further menstrual bleeding as she has been on oral contraceptive for menstrual cessation. Her last menstrual bleeding was more than 5 years ago. She denies being a vegetarian. She denies having any previous stomachsurgeries. She has lost significant amount of weight while she was on GLP-1 inhibitor. I will orderthe workup for anemia that will include CBC, CMP, iron profile, soluble transferrin receptor, vitamin B12 level and methylmalonic acid level. She is not taking any further iron or B12 supplement at this time. I will discuss the labs with her next week. I have answered all the questions to patient'sand her satisfaction. Anxiety and neuropathy. Patient is on gabapentin and Cymbalta. Alcohol abuse. Patient has quit drinking 15 years ago. Thank you very much for allowing me to participate in Elvia Muir's evaluation and management. Please feel free to contact if I can be of any further assistance in your patient???s care requiringhematology or oncology evaluation. Sincerely, ? ? Marcos Ty M.D. cell TOBACCO COUNSELING She is not a tobacco/nicotine user. Marcos Ty MD ,07/01/2025 10:54 AM ? Total time spent 60 minutes, two third of the total time spent counseling patient [id number]. CC:?Estella Gudino MD documented in this encounter Plan of Treatment Upcoming Encounters Date Type Department Care Team (Late st Contact Info) Description 07/09/2025 4:30 PM PRE WAVE ASSEMBLER Telephone Check Up [facility] Oncology and Hematology [facility] [address] [facility] [address] [place] [address] Marcos Ty MD [address] [facility] [address] [place] [address] Scheduled Orders Name Type Priority Associated Diagnoses Orde r Schedule CBC WITH DIFFERENTIAL Lab Stat Chronic anemia Expected: 07/01/2025, Expires: 07/01/2026 COMPREHENSIVE METABOLIC PANEL Lab Stat Chronic anemia Expected: 07/01/2025, Expires: 07/01/2026 FERRITIN Lab Routine Chronic anemia Expected: 07/01/2025, Expires: 07/01/2026 IRON, TIBC, AND PERCENT SATURATION Lab Routine Chronic anemia Expected: 07/01/2025, Expires: 07/01/2026 METHYLMALONIC ACID Lab Routine Chronic anemia Expected: 07/01/2025, Expires: 07/01/2026 TRANSFERRIN RECEPTOR TFR SOLUBLE Lab Routine Chronic anemia Expected: 07/01/2025, Expires: 07/01/2026 VITAMIN B12 AND FOLATE Lab Routine Chronic anemia Expected: 07/01/2025, Expires: 07/01/2026 documented as of this encounter Visit Diagnoses Diagnosis Chronic anemia- Primary Anemia, unspecified documented in this encounter
[2025-07-01 11:13] LABS: Hematocrit 41.3 % (37.0-47.0); Hemoglobin 12.9 g/dL (12.0-15.0); Immature Granulocyte Percent A 0.2 % (0-0.5); Lymphocytes Absolute Auto 2.94 K/mm3 (0.9-3.2); Mean Corpuscular HGB Conc 31.2 g/dl (32-36); Mean Corpuscular Hemoglobin 29.5 pg (26-34); Mean Corpuscular Volume 94.5 fl (80-100); Nucleated Red Blood Cells Absolute Auto 0.000 K/mm3 (0.0-0.012); Nucleated Red Blood Cells Perc 0.0 % (0.0-0.2); Platelet Count Result 621 k/mm3 (150-375); Red Blood Count 4.37 M/mm3 (4.2-5.4); White Blood Count 9.7 K/mm3 (4.5-10.0)
--- OUTSIDE RECORDS SUMMARY | 2025-07-01 12:36 | XMS_ITS | Clinical Summary ---
Author Organization [facility] Address [address] [place] [address] Care Team Providers Care Grief Counsellor Name Role Phone MercyPhilip moralesanda February CASTINGS TRIMMER-METHODS TIME ANALYST Primary Care Provid er Source Comments [facility],non-owned Affiliates and Associated Physician Practices is amultiple site organization consisting of ambulatory clinics and hospital sitesin [place], [place], [place] and [place]. This disclosure is being madepursuant to the Care Everywhere program and may not contain all information available regarding this patient. Last updated 18.[facility] Health Encounters Date Type Department Care Team Description 06/24/2025 Travel from Last 3 Months Social History Tobacco Use Types Packs/Day Years Used Date Smoking Tobacco: Never Assessed Comments Unknown Sex and Gender Information Value Date Recorded Sex Assigned at Not on file Legal Sex Female 11:14 AM CDT Gender Identity Not on file Sexual Orientation Not on file Plan of Treatment Upcoming Encounters Date Type Department Care Team (Late st Contact Info) Description 02/06/2026 10:00 AM CDT Office Visit [facility] - Neurology [address] [place] [phone] Amber Fong MD [address] [place] [address] [place] [phone] Health Maintenance Due Date Last Done Comments COLOGUARD (AGES 45-75) - COL ON CA SCREENING 1979 COLON MONITORING 1979 COLONOSCOPY - COLON CA SCREENING 1979 CT COLONOGRAPHY - COLON CA SCREENING 1979 Colorectal Cancer Screening 1979 FIT - COLON CA SCREENING 1979 FLEX SIG - COLON CA SCREENING 1979 LIPID TESTING 1979 MAMMOGRAM 1979 HIV SCREENING 1994 HEPATITIS C SCREENING 08/07/1997 DTAP/TDAP/TD VACCINES (1 - Tdap) 1998 HEPATITIS B VACCINE (1 of 3 - 19+ 3-dose series) 1998 PAP SMEAR 2000 HPV VACCINE (1 - 3-dose SCDM series) 2006 DEPRESSION SCREENING 09/05/2024 COVID-19 VACCINE (1 - 2023-2 5 season) 2025 INFLUENZA VACCINE (#1) 2025 ZOSTER VACCINE (1 of 2) 2029 HIB VACCINE Aged Out No longer eligi ble based on patient's age to complete this topic MENINGOCOCCAL (Group B) VACC INE SHARED DECISION-MAKING Aged Out No longer eligibl e based on patient's age to complete this topic MENINGOCOCCAL GROUPS A/C/Y/W VACCINE Aged Out No longer eligible b ased on patient's age to complete this topic PNEUMOCOCCAL VACCINE Aged Out No long er eligible based on patient's age to complete this topic Insurance [facility] Care Teams Grief Counsellor Relationship Specialty Start Date End Date Elvia Madrid February, CASTINGS TRIMMER-METHODS TIME ANALYST [address] [place] [phone] PCP - General Nurse Practitioner 06/13/25
--- OUTSIDE RECORDS SUMMARY | 2025-07-01 12:36 | XMS_ITS | Clinical Summary ---
Author Organization [facility] Luis ware Tere Address [address] [place] [address] Care Team Providers Care Gerontological Nurse Practitioner Name Role Phone Unavailable Primary Care Provider Unavailabl e Allergies No known active allergies Medications amitriptyline (ELAVIL) 25 mg tablet Take 25 mg by mouth daily at bedtime. Active DULoxetine (CYMBALTA) 60 mg Capsule, Delayed Release(E.C.) Take 60 mg by mouth daily. Active gabapentin (NEURONTIN) 300 mg capsule Take 300 mg by mouth 3 times daily. Active gabapentin (NEURONTIN) 100 mg capsule Take 300 mg by mouth 3 times daily. Active Active Problems No known active problems Encounters Date Type Department Care Team Description 07/01/2025 10:30 AM CDT Office Visit [facility] Oncology and Hematology - [place] [address] [phone] Marcos Ty MD Chronic anemia (Primary Dx) from Last 3 Months Family History Medical History Relation Name Comments Heart Disease Father No Known Problems Mother Heart Disease Sister Relation Name Status Comments Father Alive Mother Sister Alive Social History Tobacco Use Types Packs/Day Years [...] Mass Index 19.14 07/01/2025 10:17 AM CDT Plan of Treatment Upcoming Encounters Date Type Department Care Team (Late st Contact Info) Description 07/09/2025 4:30 PM MATERIALS BRANCH CHIEF Telephone Check Up [facility] Oncology and Hematology [facility] [address] [facility] [address] [place] [address] Marcos Ty MD [address] [facility] [address] [place] [address] Health Maintenance Due Date Last Done Comments HEPATITIS B VACCINES (1 of 3 - 19+ 3-dose series) 1998 HPV/Cotest (21-29) 2000 HPV VACCINES (1 - 3-dose SCD M series) 2006 CERVICAL CANCER SCREENING 2009 HPV/Cotest (30-65) 2009 PAP SMEAR 2009 BREAST CANCER SCREENING 2019 COLORECTAL SCREENING 2024 Colorectal Cancer Screening 2024 FIT-DNA Q 3 years 2024 FIT/FOBT Q 1 year 2024 Flex Sig/CT Colonography Q 5 years 2024 INFLUENZA VACCINE (#1) 2025 4, 05/23/2023, 05/16/2022, Additional history exists DTAP/TDAP/TD VACCINES (2 - T d or Tdap) 05/20/2031 05/20/2021 COVID-19 Vaccine Completed 05/09/2024, , 05/29/2022, Additional history exists Preventative Visit- Commercial Completed 0 06/04/2025, 04/30/2024, 04/21/2023, Additional history exists Insurance [employer] [facility]
--- OUTSIDE RECORDS SUMMARY | 2025-07-01 12:37 | XMS_ITS | Clinical Summary ---
Author Organization [facility] Address [address] [place] [address] Phone Care Team Providers Care Supervisor Pipe Finishing Name Role Phone Satya Fournier MD Primary Care Provider [phone] Allergies No known active allergies Medications naproxen [...] on file Legal Sex Female 4:14 PM AIRCONDITIONING ENGINEER Gender Identity Not on file Sexual Orientation Not on file Last Filed Vital Signs Vital Sign Reading Time Taken Comments Blood Pressure 142/95 10/08/2019 3:30 PM AIRCONDITIONING ENGINEER Pulse 98 10/08/2019 3:30 PM AIRCONDITIONING ENGINEER Temperature 36.8 C (98.3 F) 10/08/2019 3:30 PM AIRCONDITIONING ENGINEER Respiratory Rate - - Oxygen Saturation 98% 10/08/2019 3:30 PM AIRCONDITIONING ENGINEER Inhaled Oxygen Concentration - - Weight - [...] Cervical Cancer Screening (CCS) 2009 HPV/Cotest 2009 Cologuard 2024 Colonoscopy 2024 Colorectal Cancer Screening 2024 Immunochemical Fecal Occult Blood 2024 Influenza Immunization (#1) 05/06/202505/06, 07/27/2013 SARS-COV-2 Immunization ( season) 2025 06/06/2021, 11/21/2020, 10/31/2020 Respiratory Syncytial Virus (RSV) Immunization (Adult) (1 - 1-dose 75+ series) 2054 Meningococcal Immunization (ACWY) Aged Out No longer eligible b ased on patient's age to complete this topic Pneumococcal Immunization Combined Aged Out No longer eligible b ased on patient's age to complete this topic Rotavirus Immunization Aged Out No lo nger eligible based on patient's age to complete this topic Insurance [facility] Care Teams Supervisor Pipe Finishing Relationship Specialty Start Date End Date Satya Fournier MD [address] [place] [address] PCP - General Internal Medicine 07/11/19
[2025-07-01 14:33] LABS: Alanine Aminotransferase 22 U/L (6-35); Albumin Level 4.6 g/dL (3.5-5.1); Alkaline Phosphatase 48 U/L (38-126); Anion Gap 10 mmol/L (4-12); Aspartate Amino Transferase 41 U/L (14-36); Bilirubin,Total 0.6 mg/dL (0.2-1.3); Blood Urea Nitrogen 8 mg/dL (7-17); Calcium 9.8 mg/dL (8.4-10.2); Carbon Dioxide 24 mmol/L (22-30); Chloride 105 mmol/L (98-107); Estimated Glomerular Filt Rate 53; Glucose 95 mg/dL (65-110); Potassium 4.1 mmol/L (3.4-5.0); Sodium 139 mmol/L (137-145); Total Protein 8.2 g/dL (6.3-8.2)
[2025-07-01 14:58] LABS: Iron 118 ug/dL (37-170)
[2025-07-01 15:07] LABS: Percent Iron Saturation 36 % (20-50)
[2025-07-01 15:34] LABS: Ferritin 65.30 ng/mL (6.24-137)
[2025-07-01 15:44] LABS: Vitamin B12 648.0 pg/mL (239-931)
== END 2025-07-01 11:01 | disposition home or self-care (01) ==
LOC: ANHLAB 11:00
PROVIDERS: PCP Emergency Medicine; Visit Provider Internal Medicine Hematology & Oncology
DX: D64.9 Anemia, unspecified (principal)
CPT/HCPCS: 36415; 80053; 82607; 82728; 82746; 83540; 83550; 83921; 84238; 85025

== ENCOUNTER 2025-07-04 01:29 | Day surgery (SDC) | payer BC, SELFPAY ==
[2025-06-24 11:53] VITALS: BMI 18.1
--- OUTSIDE RECORDS SUMMARY | 2025-07-04 01:32 | XMS_ITS | Data Portability ---
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 no clear evidence of abnormalities [...] pain with urination. 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 will continue OCPs for amenorrhea discussed urology for possible interstitial cystitis as a possibility wished her good luck with all her other workup Not available 06/04/2025 17:00:31 Plan of Treatment Reminders Order Date Submit Date Provider Last Modified By Organization Details Last Modified Time Details Appointments ANNUAL 30 2025 03:00P M Moises Hadley MD Not available Not available Not available Lab cytology report, thin prep, smear or scraping, cervical or vaginal 2024 025 [facility] [address], [place], [address], 06/07/2025 16:34:18 urinalysi s, dipstick 2023 024 In-Office Order, Internal Use Only DO Not Attach Compendium DO Not Attach Compendium, Do Not Delete/merge, [id number] 04/30/2024 16:21:06 cytology report, thin prep, smear or scraping, cervical or vaginal 2023 024 [facility], [facility], [place], [address], 05/09/2024 07:15:03 cytology report, thin prep, smear or scraping, cervical or vaginal 2022 023 [facility] [address] [facility], [address], [place], [address], 04/26/2023 16:13:33 cytology report, thin prep, smear or scraping, cervical or vaginal 2021 022 [facility], [address] [place] [address], [address], [place], [address], 04/16/2022 16:11:57 cytology report, thin prep, smear or scraping, cervical or vaginal 2020 021 [facility], [address] [facility], [place], [address], 04/08/2021 16:12:56 Referral None recorded. Procedures None recorded. Surgeries None recorded. Imaging MAMMO, screening , digital, bilateral 2024 025 [facility], [facility] [address], [place], [address], 07/03/2025 08:00:51 MAMMO, screening , digital, bilateral 2023 024 [facility], [address] [place] [address] [address], [place], [address], 07/16/2024 15:13:11 MAMMO, screening , digital, bilateral 2022 023 [facility], [address] [place] [address] [address], [place], [address], 05/13/2023 12:19:06 MAMMO, screening , digital, bilateral 2021 022 [facility], [address] [place] [address] [address], [place], [address], 04/27/2022 09:43:04 MAMMO, screening , digital, bilateral 2020 021 [facility], [address] [place] [address] [address], [place], [address], 04/22/2021 09:32:32 Medication Orders Blisovi 24 Fe 1 mg-20 mcg (24)/75 mg (4) tablet 2024 025 [facility] #[id number], [address] [place], [address], 06/04/2025 16:44:12 estradiol 0.01% (0.1 mg/gram) vaginal cream 2023 024 [facility] #2510, [address] [place], [address], 04/30/2024 17:27:51 oxybutyni n chloride ER 10 mg tablet,ex tended release 24 hr 2023 024 [facility]armacy #2510, [address] [place], [address], 05/28/2024 13:44:17 Blisovi 24 Fe 1 mg-20 mcg (24)/75 mg (4) tablet 2023 024 [facility] #2510, [address] [place], [address], 04/30/2024 16:21:07 Blisovi 24 Fe 1 mg-20 mcg (24)/75 mg (4) tablet 2022 023 [facility] #2510, [address] [place], [address], 04/21/2023 16:34:48 Blisovi 24 Fe 1 mg-20 mcg (24)/75 mg (4) tablet 2021 022 [id number] [address] [place], [address], 04/12/2022 17:12:31 Patient TargetsNo targets recorded. Patient Instructions Encounter Date Encounter Id Patient Instructions Last Modified By Organization Details Last Modified Time 04/06/2021 [id number] learning about breast cancer screening gturner Not available 04/06/2021 16:39:49 04/12/2022 [id number] learning about breast cancer screening Not available 04/12/2022 17:01:43 04/21/2023 [id number] learning about breast cancer screening er7 Not available 04/21/2023 16:34:46 04/30/2024 [id number] learning about breast cancer screening Not available 04/30/2024 16:21:03 06/04/2025 [id number] mammogram: about this test Not available 06/04/2025 16:44:08 Reason for Referral None Reported. Results Created Date Observation Date Name Description Value Unit Range Abnormal Flag Note LastModifiedBy Organization Detail LastModifiedTime 04/06/2004/08/2021 IGP, RFX APTIM A HPV ASCU diagnosis: Commen t NEGAT MIKE FOR INTRA EPITH ELIAL LESIO N OR JAISON LEAL . Not Available [facility] ([facility]) [address] [place], [address], 04/08/2021 16:12:56 04/06/20 21 04/08/2021 IGP, RFX APTIM A HPV ASCU specimen adequacy: Jaycee murillo Satis facto ry for evalu ation . Endoc ervic al and/o r squam ous metap lasti c cells (endo cervi mary compo nent) are prese nt. Not Available [facility] ([facility]) [address] [place], [address], 04/08/2021 16:12:56 04/06/20 21 04/08/2021 IGP, RFX APTIM A HPV ASCU clinician provided ICD10: Jaycee murillo Z01.4 19 Not Available [facility] ([facility]) [address] [place], [address], 04/08/2021 16:12:56 04/06/20 21 04/08/2021 IGP, RFX APTIM A HPV ASCU performed by: Adrián Sy (ASCP ) Not Available [facility] ([facility]) [address] [place], [address], 04/08/2021 16:12:56 04/06/20 21 04/08/2021 IGP, RFX APTIM A HPV ASCU . . Not Available [facility] ([facility]) [address] [place], [address], 04/08/2021 16:12:56 04/06/20 21 04/08/2021 IGP, RFX APTIM A HPV ASCU note: Jaycee murlilo The Pap smear is a scree sorin [...] ts do occur . Not Available [facility] ([facility]) [address] [facility], [place], [address], 04/08/2021 16:12:56 04/06/20 21 04/08/2021 IGP, RFX APTIM A HPV ASCU test methodology: Commen t This liqui d based ThinP rep(R ) pap test was scree mary with the use of an image guide d systshoiab m. Not Available [facility] ([facility]) [address] [facility], [place], [address], 04/08/2021 16:12:56 04/06/20 21 04/08/2021 IGP, RFX APTIM A HPV ASCU . Commen t The HPV DNA refle x crite nimisha were not met with this speci men resul t there fore, no HPV testi ng was perfo rmed. Not Available [facility] ([facility]) [address] [facility], [place], [address], 04/08/2021 16:12:56 04/12/20 22 04/15/2022 IGP, RFX APTIM A HPV ASCU diagnosis: Commen t abnormal EPITH ELIAL CELL ABNOR MALIT Y. ATYPI MARY SQUAM OUS CELLS OF UNDET ERMIN ED SIGNI FICAN CE (ASC- US). Not Available [facility] ([facility]) [address] [facility], [place], [address], 04/16/2022 16:11:57 04/12/20 22 04/15/2022 IGP, RFX APTIM A HPV ASCU specimen adequacy: Commen t Satis facto ry for evalu ation . Endoc ervic al and/o r squam ous metap lasti c cells (endo cervi mary compo nent) are prese nt. Not Available [facility] ([facility]) [address] [facility], [place], [address], 04/16/2022 16:11:57 04/12/20 22 04/15/2022 IGP, RFX APTIM A HPV ASCU clinician provided ICD10: Jaycee murillo Z01.4 19 Not Available [facility] ([facility]) [address] [place], [address], 04/16/2022 16:11:57 04/12/20 22 04/15/2022 IGP, RFX APTIM A HPV ASCU performed by: Jaycee Lee , Cytot suni murillo (ASCP ) Not Available [facility] ([facility]) [address] [place], [address], 04/16/2022 16:11:57 04/12/20 22 04/15/2022 IGP, RFX APTIM A HPV ASCU electronical ly signed by: Jaycee Toney MD, Patho kindra t Not Available [facility] ([facility]) [address] [place], [address], 04/16/2022 16:11:57 04/12/20 22 04/15/2022 IGP, RFX APTIM A HPV ASCU . . Not Available [facility] ([facility]) [address] [place], [address], 04/16/2022 16:11:57 04/12/20 22 04/15/2022 IGP, RFX APTIM A HPV ASCU pathologist provided ICD10: Jaycee murillo R87.6 10 Not Available [facility] ([facility]) [address] [place], [address], 04/16/2022 16:11:57 04/12/20 22 04/15/2022 IGP, RFX [...] ts do occur . Not Available [facility] ([facility]) [address] [place], [address], 04/16/2022 16:11:57 04/12/20 22 04/15/2022 IGP, RFX APTIM A HPV ASCU test methodology: Commen t This liqui d based ThinP rep(R ) pap test was taylor hernandez with the use of an image guide becky valente. Not Available [facility] ([facility]) [address] [place], [address], 04/16/2022 16:11:57 04/12/20 22 04/15/2022 IGP, RFX APTIM A HPV ASCU . Commen t See below for HPV testi ng resul ts. Not Available [facility] ([facility]) [address] [place], [address], 04/16/2022 16:11:57 04/12/20 22 04/16/2022 IGP, RFX APTIM A HPV ASCU HPV aptima Negati ve negati ve This nucle ic acid ampli ficat ion test detec ts fourt een high- risk HPV types (16,1 8,31, 33,35 ,39,4 5,51, 52,56 ,58,5 9,66, 68) witho ut diffe renti ation . Not Available [facility] ([facility]) [address] [place], [address], 04/16/2022 16:11:57 04/21/20 23 04/26/2023 IGP, RFX APTIM A HPV ASCU diagnosis: Commen t NEGAT MIKE FOR INTRA EPITH ELIAL LESIO N OR MALIG ELVIS . Not Available [facility] ([facility]) [address] [place], [address], 04/26/2023 16:13:33 04/21/20 23 04/26/2023 IGP, RFX APTIM A HPV ASCU specimen adequacy: Jaycee murillo Satis facto ry for evalu ation . Endoc ervic al and/o r squam ous metap lasti c cells (endo cervi mary compo nent) are prese nt. Not Available [facility] ([facility]) [address] [place], [address], 04/26/2023 16:13:33 04/21/20 23 04/26/2023 IGP, RFX APTIM A HPV ASCU clinician provided ICD10: Jaycee murillo Z01.4 19 Not Available [facility] ([facility]) [address] [place], [address], 04/26/2023 16:13:33 04/21/20 23 04/26/2023 IGP, RFX APTIM A HPV ASCU performed by: Adrián Martinez (ASCP ) Not Available [facility] ([facility]) [address] [place], [address], 04/26/2023 16:13:33 04/21/20 23 04/26/2023 IGP, RFX APTIM A HPV ASCU . . Not Available [facility] ([facility]) [address] [place], [address], 04/26/2023 16:13:33 04/21/20 23 04/26/2023 IGP, RFX [...] ts do occur . Not Available [facility] ([facility]) [address] [facility], [place], [address], 04/26/2023 16:13:33 04/21/20 23 04/26/2023 IGP, RFX APTIM A HPV ASCU test methodology: Commen t This liqui d based ThinP rep(R ) pap test was scree mary with the use of an image guide becky valente. Not Available [facility] ([facility]) [address] [facility], [place], [address], 04/26/2023 16:13:33 04/21/20 23 04/26/2023 IGP, RFX APTIM A HPV ASCU . Commen t The HPV DNA refle x crite nimisha were not met with this speci men resul t there fore, no HPV testi ng was perfo rmed. Not Available [facility] ([facility]) [address] [facility], [place], [address], 04/26/2023 16:13:33 04/30/20 24 05/04/2024 IGP, RFX APTIM A HPV ASCU diagnosis: COMMEN T abnormal EPITH ELIAL CELL ABNOR MALIT Y. ATYPI MARY SQUAM OUS CELLS OF UNDET ERMIN ED SIGNI FICAN CE (ASC- US). Not Available [facility] ([facility]) [address] [facility], [place], [address], 05/09/2024 07:15:03 04/30/20 24 05/04/2024 IGP, RFX APTIM A HPV ASCU specimen adequacy: COMMEN T Satis facto ry for evalu ation . Endoc ervic al and/o r squam ous metap lasti c cells (endo cervi mary compo nent) are prese nt. Not Available [facility] ([facility]) [address] [facility], [place], [address], 05/09/2024 07:15:03 04/30/20 24 05/04/2024 IGP, RFX APTIM A HPV ASCU clinician provided ICD10: JAYCEE Murillo Z01.4 19 Not Available [facility] ([facility]) [address] [place], [address], 05/09/2024 07:15:03 04/30/20 24 05/04/2024 IGP, RFX APTIM A HPV ASCU performed by: JAYCEE li Willi ams, Cytot echno logis t (ASCP ) Not Available [facility] ([facility]) [address] [place], [address], 05/09/2024 07:15:03 04/30/20 24 05/04/2024 IGP, RFX APTIM A HPV ASCU electronical ly signed by: JAYCEE Toney MD, Patho logis t Not Available [facility] ([facility]) [address] [place], [address], 05/09/2024 07:15:03 04/30/20 24 05/04/2024 IGP, RFX APTIM A HPV ASCU . . Not Available [facility] ([facility]) [address] [place], [address], 05/09/2024 07:15:03 04/30/20 24 05/04/2024 IGP, RFX APTIM A HPV ASCU pathologist provided ICD10: JAYCEE Murillo R87.6 10 Not Available [facility] ([facility]) [address] [place], [address], 05/09/2024 07:15:03 04/30/20 24 05/04/2024 IGP, RFX APTIM A HPV ASCU note: JAYCEE Murillo The Pap smear is a scree sorin [...] ts do occur . Not Available [facility] ([facility]) [address] [facility], [place], [address], 05/09/2024 07:15:03 04/30/20 24 05/04/2024 IGP, RFX APTIM A HPV ASCU test methodology: COMMEN T This liqui d based ThinP rep(R ) pap test was taylor hernandez with the use of an image guide becky valente. Not Available [facility] ([facility]) [address] [facility], [place], [address], 05/09/2024 07:15:03 04/30/20 24 05/04/2024 IGP, RFX APTIM A HPV ASCU . COMMEN T See below for HPV testi ng resul ts. Not Available [facility] ([facility]) [address] [facility], [place], [address], 05/09/2024 07:15:03 04/30/20 24 05/08/2024 HPV APTIM A HPV aptima Negati ve negati ve This nucle ic acid ampli ficat ion test detec ts fourt een high- risk HPV types (16,1 8,31, 33,35 ,39,4 5,51, 52,56 ,58,5 9,66, 68) witho ut diffe renti ation . Not Available [facility] ([facility]) [address] [facility], [place], [address], 05/09/2024 07:15:04 04/30/20 24 04/30/2024 urina lysis , dipst ick Leukocytes Negati ve Not Available In-Office Order Internal Use Only DO Not Attach Compendium DO Not Attach Compendium, Do Not Delete/merge, [id number] 04/30/2024 16:16:42 04/30/20 24 04/30/2024 urina lysis , dipst ick Nitrite negati ve Not Available In-Office Order Internal Use Only DO Not Attach Compendium DO Not Attach Compendium, Do Not Delete/merge, 04/30/2024 16:16:42 04/30/2004/30/2024 urina lysis , dipst ick Urobilinogen .2 Not Available In-Of fice Order Internal Use Only DO Not Attach Compendium DO Not Attach Compendium, Do Not Delete/merge, [id number] 04/30/2024 16:16:42 04/30/2004/30/2024 urina lysis , dipst ick Protein Negati ve Not Available In-Office Order Internal Use Only DO Not Attach Compendium DO Not Attach Compendium, Do Not Delete/merge, 04/30/2024 16:16:42 04/30/2004/30/2024 urina lysis , dipst ick pH 5.5 Not Available In-Office Order Internal Use Only DO Not Attach Compendium DO Not Attach Compendium, Do Not Delete/merge, 04/30/2024 16:16:42 04/30/20 24 04/30/2024 urina lysis , dipst ick Blood Negati ve Not Available In-Office Order Internal Use Only DO Not Attach Compendium DO Not Attach Compendium, Do Not Delete/merge, 04/30/2024 16:16:42 04/30/20 24 04/30/2024 urina lysis , dipst ick Specific [place] 1.025 Not Available In-Off ice Order Internal Use Only DO Not Attach Compendium DO Not Attach Compendium, Do Not Delete/merge, [id number] 04/30/2024 16:16:42 04/30/20 24 04/30/2024 urina lysis , dipst ick Ketone Negati ve Not Available In-Office Order Internal Use Only DO Not Attach Compendium DO Not Attach Compendium, Do Not Delete/merge, 04/30/2024 16:16:42 04/30/20 24 04/30/2024 urina lysis , dipst ick Bilirubin Negati ve Not Available In-Office Order Internal Use Only DO Not Attach Compendium DO Not Attach Compendium, Do Not Delete/merge, [id number] 04/30/2024 16:16:42 04/30/20 24 04/30/2024 urina lysis , dipst ick Glucose Negati ve Not Available In-Office Order Internal Use Only DO Not Attach Compendium DO Not Attach Compendium, Do Not Delete/merge, [id number] 04/30/2024 16:16:42 03/12/2003/12/2025 Compr ehens mike metab olic 1999 panel - Serum or Plasm a glucose [mass/volume ] in serum or plasma 148 text: 70 - 99 mg/dL high Not Available Not Available 05/01/2025 17:03:17 03/12/2003/12/2025 Compr ehens mike metab olic 1999 panel - Serum or Plasm a urea nitrogen [mass/volume ] in serum or plasma 3 text: 7 - 18 mg/dL low Not Available Not Available 05/01/2025 17:03:17 03/12/2003/12/2025 Compr ehens mike metab olic 1999 panel - Serum or Plasm a creatinine [mass/volume ] in serum or plasma 1.02 text: 0.55 - 1.02 mg/dL Not Available Not Available 05/01/2025 17:03:17 03/12/20 25 03/12/2025 Compr ehens mike metab olic 1999 panel - Serum or Plasm a sodium [moles/volum e] in serum or plasma 135 text: 136 - 145 mmol/L low Not Available Not Available 05/01/2025 17:03:17 03/12/20 25 03/12/2025 Compr ehens mike metab olic 2000 panel - Serum or Plasm a potassium [moles/volum e] in serum or plasma 3 text: 3.5 - 5.1 mmol/L critical low Criti mary murillo(s) Mitzi pena at: 17:13 :58 on 03/12 by: CHAS HARRISON to and read back by:kathy aguirre Not Available Not Available 05/01/2025 17:03:17 03/12/2003/12/2025 Compr ehens mike metab olic 2000 panel - Serum or Plasm a chloride [moles/volum e] in serum or plasma 102 text: 97 - 115 mmol/L Not Available Not Available 05/01/2025 17:03:17 03/12/20 25 03/12/2025 Compr ehens mike metab olic 1999 panel - Serum or Plasm a carbon dioxide, total [moles/volum e] in serum or plasma 23.4 text: 21 - 32 mmol/L Not Available Not Available 05/01/2025 17:03:17 03/12/20 25 03/12/2025 Compr ehens mike metab olic 2000 panel - Serum or Plasm a calcium [mass/volume ] in serum or plasma 9.3 text: 8.5 - 10.1 mg/dL Not Available Not Available 05/01/2025 17:03:17 03/12/20 25 03/12/2025 Compr ehens mike metab olic 2000 panel - Serum or Plasm a bilirubin.to gilma [mass/volume ] in serum or plasma 0.4 text: 0.2 - 1.2 mg/dL THIS ASSAY IS NOT RECOM LAURA D FOR PATIE NTS UNDER GOING TREAT MENT WITH ELTRO MBOPA G DUE TO THE POTEN TIAL FOR FALSE LY ELEVA GABRIELA RESUL TS. Not Available Not Available 05/01/2025 17:03:17 03/12/20 25 03/12/2025 Compr ehens mike metab olic 2000 panel - Serum or Plasm a protein [mass/volume ] in serum or plasma 7.4 text: 6.4 - 8.2 g/dL Not Available Not Available 05/01/2025 17:03:17 03/12/2003/12/2025 Compr ehens mike metab olic 2000 panel - Serum or Plasm a albumin [mass/volume ] in serum or plasma 3.2 text: 3.4 - 5.0 g/dL low Not Available Not Available 05/01/2025 17:03:17 03/12/2003/12/2025 Compr ehens mike metab olic 2000 panel - Serum or Plasm a aspartate aminotransfe rase [enzymatic activity/vol ume] in serum or plasma 26 U/L low: 15U/Lh igh: 37U/L Not Available Not Available 05/01/2025 17:03:17 03/12/20 25 03/12/2025 Compr ehens mike metab olic 2000 panel - Serum or Plasm a alanine aminotransfe rase [enzymatic activity/vol ume] in serum or plasma 30 U/L low: 14U/Lh igh: 55U/L Not Available Not Available 05/01/2025 17:03:17 03/12/2003/12/2025 Compr Test.tvens mike [employer] olic 1999 panel - Serum or Plasm a alkaline phosphatase [enzymatic activity/vol ume] in serum or plasma 88 U/L low: 50U/Lh igh: 136U/L Not Available Not Available 05/01/2025 17:03:17 03/12/2003/12/2025 Compr Test.tvens mike [employer] olic 1999 panel - Serum or Plasm a anion gap in serum or plasma by calculation 9.6 text: 2 - 10 mmol/L Not Available Not Available 05/01/2025 17:03:17 03/12/2003/12/2025 Compr Test.tvens mike metab olic 1999 panel - Serum or Plasm a urea nitrogen/cre atinine [mass ratio] in serum or plasma 2.9 low: 6high: 26 low Not Available Not Available 05/01/2025 17:03:17 03/12/2003/12/2025 Compr Test.tvens mike metab olic 2000 panel - Serum or Plasm a albumin/glob ulin [mass ratio] in serum or plasma 0.8 text: 1.0 - 2.0 ratio low Not Available Not Available 05/01/2025 17:03:17 03/12/2003/12/2025 Compr [employer] olic 2000 panel - Serum or Plasm a glomerular filtration rate [volume rate/area] in serum, plasma or blood by creatinine-b ased formula (CKD-epi 2020)/1.73 sq M 69 text: >90 mL/min /1.73 M2 low NOTE: eGFR is not calcu lated for patie nts <18 years of age or gende r unkno wn. This is an estim ated GFR calcu latio n using the new CKD EPI creat inine equat ion witho ut race and so does not requi re a corre ction facto r for race. This estim ated GFR shoul d not be used for calcu latin g drug doses . Not Available Not Available 05/01/2025 17:03:17 03/12/2003/12/2025 Compr [employer] olic 2000 panel - Serum or Plasm a interpretati on and review of laboratory results Abnorm al Not Available Not Available 17:03:17 03/12/2003/12/2025 CBC W Auto Diffe renti al panel - Blood leukocytes [#/volume] in blood by automated count 5.95 text: 4.5 - 11.0 x10'3/ uL Not Available Not Available 05/01/2025 17:03:17 03/12/2003/12/2025 CBC W Auto Diffe renti al panel - Blood erythrocytes [#/volume] in blood by automated count 3.85 text: 4.20 - 5.40 x10'6/ uL low Not Available Not Available 05/01/2025 17:03:03/12/2003/12/2025 CBC W Auto Diffe renti al panel - Blood hemoglobin [mass/volume ] in blood 12.5 text: 12.0 - 16.0 g/dL Not Available Not Available 05/01/2025 17:03:17 03/12/2003/12/2025 CBC W Auto Diffe renti al panel - Blood hematocrit [volume fraction] of blood by calculation 35.8 % low: 38%hig h: 48% low Not Available Not Available 05/01/2025 17:03:03/12/2003/12/2025 CBC W Auto Diffe libia al panel - Blood MCV [entitic mean volume] in red blood cells 93 text: 81.0 - 99.0 fL Not Available Not Available 05/01/2025 17:03:17 03/12/2003/12/2025 CBC W Auto Diffe renti al panel - Blood MCH [entitic mass] 32.5 pg low: 27pghi gh: 31pg high Not Available Not Available 05/01/2025 17:03:17 03/12/2003/12/2025 CBC W Auto Diffe renti al panel - Blood MCHC [entitic mass/volume] in red blood cells 34.9 text: 32.0 - 36.0 g/dL Not Available Not Available 05/01/2025 17:03:17 03/12/2003/12/2025 CBC W Auto Diffe renti al panel - Blood RDW 12.4 % low: 11.5%h igh: 14.5% Not Available Not Available 05/01/2025 17:03:17 03/12/20 25 03/12/2025 CBC W Auto Diffe renti al panel - Blood platelets [#/volume] in blood 548 text: 130 - 400 x10'3/ uL high Not Available Not Available 05/01/2025 17:03:17 03/12/20 25 03/12/2025 CBC W Auto Diffe renti al panel - Blood platelet [entitic mean volume] in blood 9.5 text: 9.3 - 12.2 fL Not Available Not Available 05/01/2025 17:03:17 03/12/20 25 03/12/2025 CBC W Auto Diffe renti al panel - Blood differential cell count method - blood AUTOMA GABRIELA DIFFER ENTIAL Not Available Not Available 17:03:17 03/12/20 25 03/12/2025 CBC W Auto Diffe renti al panel - Blood neutrophils/ leukocytes in blood by automated count 62.9 % Not Available Not Available 04/06 17:03:17 03/12/20 25 03/12/2025 CBC W Auto Diffe renti al panel - Blood lymphocytes/ leukocytes in blood by automated count 30.4 % Not Available Not Available 04/06 17:03:17 03/12/20 25 03/12/2025 CBC W Auto Diffe renti al panel - Blood monocytes/le ukocytes in blood by automated count 4.9 % Not Available Not Available 04/06 17:03:17 03/12/20 25 03/12/2025 CBC W Auto Diffe renti al panel - Blood eosinophils/ leukocytes in blood by automated count 0.7 % Not Available Not Available 04/06 17:03:17 03/12/20 25 03/12/2025 CBC W Auto Diffe renti al panel - Blood basophils/le ukocytes in blood by automated count 0.8 % Not Available Not Available 04/06 17:03:17 03/12/20 25 03/12/2025 CBC W Auto Diffe renti al panel - Blood immature granulocytes /leukocytes in blood by automated count 0.3 % Not Available Not Available 04/06 17:03:17 03/12/2003/12/2025 CBC W Auto Diffe renti al panel - Blood neutrophils [#/volume] in blood 3.74 text: 1.80 - 7.70 x10'3/ uL Not Available Not Available 05/01/2025 17:03:17 03/12/2003/12/2025 CBC W Auto Diffe renti al panel - Blood lymphocytes [#/volume] in blood 1.81 text: 1.00 - 4.80 x10'3/ uL Not Available Not Available 05/01/2025 17:03:17 03/12/2003/12/2025 CBC W Auto Diffe renti al panel - Blood monocytes [#/volume] in blood 0.29 text: 0.24 - 0.86 x10'3/ uL Not Available Not Available 05/01/2025 17:03:17 03/12/2003/12/2025 CBC W Auto Diffe renti al panel - Blood eosinophils [#/volume] in blood 0.04 text: 0.04 - 0.36 x10'3/ uL Not Available Not Available 05/01/2025 17:03:17 03/12/2003/12/2025 CBC W Auto Diffe renti al panel - Blood basophils [#/volume] in blood 0.05 text: 0.01 - 0.08 x10'3/ uL Not Available Not Available 05/01/2025 17:03:17 03/12/2003/12/2025 CBC W Auto Diffe renti al panel - Blood immature granulocytes [#/volume] in blood 0.02 text: 0.00 - 0.49 x10'3/ uL Not Available Not Available 05/01/2025 17:03:17 03/12/2003/12/2025 CBC W Auto Diffe renti al panel - Blood interpretati on and review of laboratory results Abnorm al Not Available Not Available 17:03:17 03/12/2003/18/2025 Ana ine [Mole s/vol ume] in Serum or Plasm a thiamine [moles/volum e] in serum or plasma low: 8nmol/ Lhigh: 30nmol /L low Vitam in suppl ement ation withi n 24 hours prior to blood draw may affec t the accur acy of the resul ts. This test was devel oped and its keisha tical perfo rmanc e audrey cteri stics have been deter mined by [facility] [place] [place]. It has not been clear ed or appro majo by the U.S. Food and Drug Admin istra tion. This assay has been valid ated pursu ant to the CLIA regul ation s and is used for clini mary purpo ses. Test Perfo rmed by [employer] [place], [facility], [address] [facility] , [place], [place] Eulalia Clark M.D., Ph.D. , [facility] atori es [phone], CLIA [id number] Not Available Not Available 05/01/2025 17:03:17 03/12/2003/18/2025 Ana ine [Mole s/vol ume] in Serum or Plasm a interpretati on and review of laboratory results Abnorm al Not Available Not Available 17:03:17 03/12/2003/12/2025 Magne sium [Mass /volu me] in Serum or Plasm a magnesium [mass/volume ] in serum or plasma 1.8 text: 1.8 - 2.4 mg/dL Not Available Not Available 05/01/2025 17:03:17 03/12/2003/12/2025 Flaquito ol [Pres ence] in Serum or Plasm a ethanol [presence] in serum or plasma 0.244 text: <0.003 g/dL high Not Available Not Available 05/01/2025 17:03:17 03/12/2003/12/2025 Flaquito ol [Pres ence] in Serum or Plasm a interpretati on and review of laboratory results Abnorm al Not Available Not Available 17:03:17 03/12/20 25 03/12/2025 Drugs of abuse panel - Urine by Taylor n metho d amphetamine [presence] in urine by screen method NEGATI VE text: negati ve Not Available Not Available 05/01/2025 17:03:17 03/12/20 25 03/12/2025 Drugs of abuse panel - Urine by Scree n metho d barbiturate screen present [identifier] in urine NEGATI VE text: negati ve Not Available Not Available 05/01/2025 17:03:17 03/12/20 25 03/12/2025 Drugs of abuse panel - Urine by Scree n metho d benzodiazepi zeeshan [presence] in urine by screen method NEGATI VE text: negati ve Not Available Not Available 05/01/2025 17:03:17 03/12/2003/12/2025 Drugs of abuse panel - Urine by Scree n metho d cannabinoids [presence] in urine by screen method NEGATI VE text: negati ve Not Available Not Available 05/01/2025 17:03:17 03/12/20 25 03/12/2025 Drugs of abuse panel - Urine by Scree n metho d cocaine [presence] in urine by screen method NEGATI VE text: negati ve Not Available Not Available 05/01/2025 17:03:17 03/12/20 25 03/12/2025 Drugs of abuse panel - Urine by Scree n metho d methadone [presence] in urine NEGATI VE text: negati ve Not Available Not Available 05/01/2025 17:03:17 03/12/20 25 03/12/2025 Drugs of abuse panel - Urine by Scree n metho d opiates [presence] in urine NEGATI VE text: negati ve Not Available Not Available 05/01/2025 17:03:17 03/12/20 25 03/12/2025 Drugs of abuse panel - Urine by Scree n metho d phencyclidin e [presence] in urine NEGATI VE text: negati ve NOTE: RESUL TS OF THIS DRUG SCREE N SHOUL D BE USED FOR MEDIC AL PURPO SES ONLY AND NOT FOR LEGAL OR EMPLO YMENT PURPO SES. POSIT MIKE RESUL TS ARE NOT CONFI RMED. MEDIC ATION S CONTA INING EPHED RINE MAY CAUSE FALSE POSIT MIKE AMPHE TAMIN E CALL [phone], LAB, TO REQUE ST CONFI RMATI ON TESTI NG. IF CREAT ININE IS <40 mg/dL . RECOL LECTI ON IS ARIK GUTIERREZBecky. AMPHE TAMIN E- 500 NG/ML DANIEL TURAT E- 200 NG/ML BENZO DIAZE PINES - 200 NG/ML THC- 50 NG/ML COCAI NE- 150 NG/ML METHA DONE- 300 NG/ML OPIAT E- 300 MG/ML PCP- 25 NG/ML Not Available Not Available 05/01/2025 17:03:17 03/12/2003/12/2025 Drugs of abuse panel - Urine by Taylor pena creatinine [mass/volume ] in urine 47.6 text: 28 - 217 mg/dL Not Available Not Available 05/01/2025 17:03:17 03/12/2003/12/2025 Urina lysis compl ete panel - Urine collection method - specimen URINE CLEAN CATCH Not Available Not Available 17:03:17 03/12/20 25 03/12/2025 Urina lysis compl ete panel - Urine color of urine LIGHT YELLOW Not Available Not Available 17:03:17 03/12/20 25 03/12/2025 Urina lysis compl ete panel - Urine clarity of urine CLEAR Not Available Not Available 04/06 17:03:17 03/12/2003/12/2025 Urina lysis compl ete panel - Urine specific gravity of urine 1.005 low: 1.001h igh: 1.03 Not Available Not Available 05/01/2025 17:03:17 03/12/2003/12/2025 Urina lysis compl ete panel - Urine pH of urine 6 low: 5high: 9 Not Available Not Available 05/01/2025 17:03:17 03/12/2003/12/2025 Urina lysis compl ete panel - Urine leukocytes [#/volume] in urine by test strip NEGATI VE text: negati ve Not Available Not Available 05/01/2025 17:03:17 03/12/20 25 03/12/2025 Urina lysis compl ete panel - Urine nitrite [presence] in urine NEGATI VE text: negati ve Not Available Not Available 05/01/2025 17:03:17 03/12/2003/12/2025 Urina lysis compl ete panel - Urine protein [mass/volume ] in urine by test strip NEGATI VE text: <30 mg/dL Not Available Not Available 05/01/2025 17:03:17 03/12/2003/12/2025 Urina lysis compl ete panel - Urine glucose [mass/volume ] in urine NORMAL text: normal mg/dL Not Available Not Available 05/01/2025 17:03:17 03/12/20 25 03/12/2025 Urina lysis compl ete panel - Urine ketones [mass/volume ] in urine by test strip NEGATI VE text: negati ve mg/dL Not Available Not Available 05/01/2025 17:03:17 03/12/2003/12/2025 Urina lysis compl ete panel - Urine urobilinogen [units/volum e] in urine by test strip NORMAL text: normal mg/dL Not Available Not Available 05/01/2025 17:03:17 03/12/20 25 03/12/2025 Urina lysis compl ete panel - Urine bilirubin.to gilma [mass/volume ] in urine NEGATI VE text: negati ve mg/dL Not Available Not Available 05/01/2025 17:03:17 03/12/2003/12/2025 Urina lysis compl ete panel - Urine erythrocytes [#/volume] in urine by automated test strip NEGATI VE text: negati ve Not Available Not Available 05/01/2025 17:03:17 03/12/2003/12/2025 Urina lysis compl ete panel - Urine leukocytes [#/area] in urine sediment by microscopy high power field 1 text: <6 /hpf Not Available Not Available 05/01/2025 17:03:17 03/12/20 25 03/12/2025 Urina lysis compl ete panel - Urine erythrocytes [#/area] in urine sediment by microscopy high power field <1 text: <6 /hpf Not Available Not Available 05/01/2025 17:03:17 03/12/20 25 03/12/2025 Urina lysis compl ete panel - Urine epithelial cells.squamo us [#/area] in urine sediment by microscopy high power field RARE text: /hpf Not Available Not Available 05/01/2025 17:03:17 03/12/20 25 03/12/2025 Gluco se [Mass /volu me] in Blood by Autom ated test strip glucose [mass/volume ] in blood by automated test strip 136 mg/dL low: 70mg/d Lhigh: 99mg/d L high Not Available Not Available 05/01/2025 17:03:17 03/12/20 25 03/12/2025 Gluco se [Mass /volu me] in Blood by Autom ated test strip interpretati on and review of laboratory results Abnorm al Not Available Not Available 17:03:17 06/04/20 25 06/07/2025 IGP, RFX APTIM A HPV ASCU diagnosis: JAYCEE MCKEON FOR INTRA EPITH ELIAL AR August OR JAISON LEAL . Not Available [facility] ([facility]) [address] [place], [address], 06/07/2025 16:34:18 06/04/20 25 06/07/2025 IGP, RFX APTIM A HPV ASCU specimen adequacy: JAYCEE T Satis facto laina for evalu ation . Endoc ervic al and/o r squam ous metap lasti c cells (endo cervi mary compo nent) are prese nt. Not Available [facility] ([facility]) [address] [facility], [place], [address], 06/07/2025 16:34:18 06/04/20 25 06/07/2025 IGP, RFX APTIM A HPV ASCU clinician provided ICD10: JAYCEE Murillo Z01.4 19 Not Available [facility] ([facility]) [address] [place], [address], 06/07/2025 16:34:18 06/04/20 25 06/07/2025 IGP, RFX APTIM A HPV ASCU performed by: JAYCEE George , Cytol ogist Not Available [facility] ([facility]) [address] [place], [address], 06/07/2025 16:34:18 06/04/20 25 06/07/2025 IGP, RFX APTIM A HPV ASCU . . Not Available [facility] ([facility]) [address] [place], [address], 06/07/2025 16:34:18 06/04/20 25 06/07/2025 IGP, RFX APTIM A HPV ASCU note: COMMEN T The Pap smear is a scree sorin test jeremi hernandez to aid in the detec tion of rudy ligna nt and malig nant condi tions of the uteri ne cervi x. It is not a diagn ostic proce dure and shoul d not be used as the sole means of detec ting cervi mary cance r. Both false -posi tive and false -nega tive repor ts do occur . Not Available [facility] ([facility]) [address] [facility], [place], [address], 06/07/2025 16:34:18 06/04/20 25 06/07/2025 IGP, RFX APTIM A HPV ASCU test methodology: COMMEN T This liqui d based ThinP rep(R ) pap test was taylor hernandez with the use of an image guide becky systshoaib valente. Not Available [facility] ([facility]) [address] [place], [address], 06/07/2025 16:34:18 06/04/20 25 06/07/2025 IGP, RFX APTIM A HPV ASCU . COMMEN T The HPV DNA refle x crite nimisha were not met with this speci men resul t there fore, no HPV testi ng was perfo rmed. Not Available [facility] ([facility]) [address] [place], [address], 06/07/2025 16:34:18 05/19/20 21 05/18/2021 MAMMO , taylor rowell, digit al, bilat eral No observ ation record ed. [facility] [address], [place], [address], 05/19/2021 10:59:06 06/30/2006/29/2022 MAMMO , taylor rowell, digit al, bilat eral No observ ation record ed. [facility] [address], [place], [address], 06/30/2022 17:19:38 08/11/20 23 08/09/2023 MAMMO , taylor funesg, digit al, bilat eral No observ ation record ed. [place] [id number] [facility] [address], [place], [address], 08/25/2023 16:11:57 Result Notes None recorded. Problems No Known Problems Procedures Surgical History Date Name Laterality Status Provider Name and Address Organization Details Recorded Time 5 Date of Last Pap Smear completed PRABHA Roca [place] - [facility] 06/07/2025 16:40:58 3 Most Recent Mammogram completed PRABHA Roca [place] - [facility] 08/11/2023 15:02:15 Imaging Results None recorded. Procedure Notes None recorded. Medical Equipment None Reported. Allergies Allergen ID Allergen Name Allergen Category Reaction Reaction Severity Criticality Documentation Date Start Date Code Code System Note Provider Name and Address Organization Details Recorded Time 19720111 Product containin g estrogen receptor agonist (product) medicatio n Not available Not available Not available 06/04/2025 80939 003 SNOMED Can't remem tha react ion PRABHA Roca [facility], [place] - [facility] 5 16:38:46 Medications Name Sig Start Date Stop Date [...] Not Available Not Available No t Available polysacchar gerardo iron complex 150 mg iron capsule TAKE 1 CAPSULE BY MOUTH DAILY AT 0800 active Not Available Not Available No t Available ondansetron HCl 4 mg tablet TAKE 1 TABLET BY MOUTH EVERY 6 HOURS NEEDED FOR NAUSEA OR VOMITING active Not Available Not Available No t Available prednisone 20 mg tablet TAKE 1 TABLET BY MOUTH [...] Not Available Not Available No t Available amitriptyli ne 25 mg tablet TAKE 1 TABLET BY MOUTH EVERY DAY AT BEDTIME active Not Available Not Available No t Available cephalexin 500 mg capsule 04/03 completed Not Available Not Available Not Available pantoprazol e 40 mg tablet,chepe yed release TAKE 1 TABLET BY MOUTH EVERY 12 HOURS active Not Available Not Available No t Available fluoxetine 20 mg tablet TAKE 1 TABLET BY MOUTH DAILY active Not Available Not Available No t Available hydrochloro thiazide 12.5 mg capsule TAKE 2 CAPSULES BY MOUTH EVERY DAY active Not Available Not Available No t Available gabapentin 300 mg capsule TAKE 1 CAPSULE BY MOUTH THREE TIMES DAILY active Not Available Not Available No t Available sertraline 25 mg tablet 04/03 completed Not Available Not Available Not Available folic acid 1 mg tablet TAKE 1 TABLET BY MOUTH DAILY active Not Available Not Available No t Available gabapentin 100 mg capsule TAKE 3 CAPSULES BY MOUTH THREE TIMES DAILY active Not Available Not Available No t Available estradiol 0.01% (0.1 mg/gram) vaginal cream [...] Not Available Not Available No t Available amoxicillin 875 mg-potassiu m clavulanate 125 mg tablet TAKE 1 TABLET BY MOUTH EVERY 12 HOURS active Not Available Not Available No t Available Microgestin 1/20 (21) 1 mg-20 mcg tablet 04/03 completed Not Available Not Available Not Available nitrofurant oin monohydrate /macrocryst als 100 mg capsule TAKE 1 CAPSULE BY MOUTH EVERY 12 HOURS FOR 7 DAYS active Not Available Not Available No t Available duloxetine 30 mg capsule,del ayed release 04/03 completed Not Available Not Available Not Available duloxetine 60 mg capsule,del ayed release TAKE 1 CAPSULE BY MOUTH DAILY active Not Available Not Available No t Available Vitamin B-1 (mononitrat e) 100 mg tablet TAKE 1 TABLET BY MOUTH EVERY MORNING active Not Available Not Available No t Available Virtussin AC 10 mg-100 mg/5 mL oral liquid 04/03 completed Not Available Not Available Not Available potassium chloride ER 20 mEq tablet,exte nded release active Not Available Not Available Not Available Blisovi 24 Fe 1 mg-20 mcg (24)/75 mg (4) tablet TAKE 1 TABLET BY MOUTH EVERY DAY *START A NEW PACK ON DAY 25 OF CYCLE EACH MONTH* 2024 active Not Available Not Available Not Avai lable Flucelvax Quad (PF) 60 mcg (15 mcg x 4)/0.5 mL IM syringe 04/03 completed Not Available Not Available Not Available ID NOW COVID-19 Test Kit DIRECTED active Not Available Not Available No t Available COVID-19 At-Home Test kit FOLLOW INSTRUCTI ONS INCLUDED WITH THE PACKAGE. active Not Available Not Available No t Available Zepbound 10 mg/0.5 mL subcutaneou s pen injector INJECT 1 PEN (10 MG) UNDER THE SKIN ONCE A WEEK active Not Available Not Available No t Available Zepbound 7.5 mg/0.5 mL subcutaneou s pen injector 7.5 MG (0.5 ML) SUBCUTANE OUSLY WEEKLY active Not Available Not Available No t Available Vitals Date Recorded Body weight Systolic And Diastolic Provider Name and Address Organization Details Last Updated DateTime 04/06/2021 52390.14 g 118/70 mm[Hg] Marlin Devlin Jeannine [facility] 04/06/2021 16:35:17 Date Recorded Body height Body mass index (BMI) Body weight Systolic And Diastolic Provider Name and Address Organization Details Last Updated DateTime 04/12/2022 167.64 cm 23.6 kg/m2 62515.63 g 114/70 mm[Hg] PRABHA Roca [facility] 04/12/2022 16:53:44 Date Recorded Body height Body mass index (BMI) Body weight Systolic And Diastolic Provider Name and Address Organization Details Last Updated DateTime 04/21/2023 167.64 cm 24.5 kg/m2 17394.04 g 134/90 mm[Hg] PRABHA Roca [facility] 04/21/2023 16:26:17 Date Recorded Body height Body mass index (BMI) Body weight Systolic And Diastolic Provider Name and Address Organization Details Last Updated DateTime 04/30/2024 167.64 cm 26.1 kg/m2 91154.96 g 129/88 mm[Hg] Marlin Devlin Jeannine [place] - [facility] 04/30/2024 16:15:12 Date Recorded Body height Body mass index (BMI) Body weight Systolic And Diastolic Provider Name and Address Organization Details Last Updated DateTime 06/04/2025 167.64 cm 18.3 kg/m2 30704.37 g 153/83 mm[Hg] PRABHA Roca [place] - [facility] 06/04/2025 16:36:27 Social History Question Answer Notes LastModified by Organizat ion Details LastModified Time Tobacco Smoking Status Former Smoker Quit 2008 PRABHA [place], [place] - [facility] 04/12/2022 16:55:50 In The [...] Date Of Your Most Recent Tobacco Screening? 06/04/2025 Information not available 06/04/2025 How Many Children Do You Have? 0 [id number] Information not available 07/08/2020 What Is Your Current Pack Years? [id number] ars Information not available 04/12/2022 What Is Your Relationship Status? [id number] Information not available 07/08/2020 At What Age [...] STIs/STDs Y Date of Last Pap Smear 06/04/2025 Sexual Problems? N Current Control Method BCPs Most Recent Mammogram 08/09/2023 LMP Definite Obstetrics History GPAL:G 0 P 0 0 0 0 Immunizations Vaccine Type Date Status Note Provider Nam e and Address Organization Details Recorded Time Influenza, MDCK, quadrivalent, PF 9 completed PRABHA [place] [facility] 04/21/2023 16:18:20 COVID-19, mRNA, LNP-S, PF, 30 mcg/0.3 mL dose 1 completed Marlin Devlin, RMA [place] [facility] 04/21/2023 16:18:20 COVID-19, mRNA, LNP-S, PF, 30 mcg/0.3 mL dose 1 completed Malrin Quita, [place] [facility] 04/21/2023 16:18:20 COVID-19, mRNA, LNP-S, PF, 30 mcg/0.3 mL dose 1 completed Marlin Quita, [place] [facility] 04/21/2023 16:18:20 COVID-19, mRNA, LNP-S, PF, 30 mcg/0.3 mL dose, sarabjit-sucrose 2 completed Marlin Devlin, [place] [facility] 04/21/2023 16:18:20 COVID-19, mRNA, LNP-S, bivalent, PF, 30 mcg/0.3 mL dose 2 completed Marlin Devlin, [place] [facility] 04/21/2023 16:18:21 Tdap 1 completed Marlin Devlin, [place] [facility] 04/21/2023 16:18:21 Influenza, split virus, trivalent, preservative 3 completed Marlin Devlin, [place] [facility] 04/21/2023 16:18:21 Influenza, split virus, quadrivalent, PF 2 completed Marlin Deviln, [place] [facility] 04/21/2023 16:18:21 Influenza, split virus, quadrivalent, PF 0 completed Marlin Devlin, [place] [facility] 04/21/2023 16:18:21 Influenza, split virus, quadrivalent, PF 1 completed Marlin Devlin, [place] [facility] 04/21/2023 16:18:21 Influenza, split virus, quadrivalent, PF 3 completed Not Available [facility] 06/04/2025 16:22:22 COVID-19, mRNA, LNP-S, PF, sarabjit-sucrose, 30 mcg/0.3 mL 3 completed Not Available [facility] 06/04/2025 16:22:22 Influenza, MDCK, trivalent, PF 4 completed Not Available [facility] 06/04/2025 16:22:22 COVID-19, mRNA, LNP-S, PF, sarabjit-sucrose, 30 mcg/0.3 mL 4 completed Not Available [facility] 06/04/2025 16:22:22 Past Encounters Encounter ID Performer Location Encounter Start Date Encounter Closed Date Diagnosis/Indication Diagnosis SNOMED-CT Code Diagnosis ICD10 Code Diagnosis IMO Codes Diagnosis Note [id number] MD [place]la [place] [address]) [address] [facility] [place] [address] 12/12/2014 16:16:27 12/12/2014 17:49:00 Gynecologic examination [id number] MD Karla [place] [address]) [address] [facility] [place] [address] 12/16/2015 16:28:40 12/17/2015 10:26:51 Gynecologic examination 81957598 Z01.961 [id number] MD [place]la [place] [address]) [address] [facility] [place] [address] 12/21/2016 16:26:54 12/22/2016 14:52:14 Gynecologic examination 08943267 Z01.335 [id number] MD [place]la [place] [address]) [address] [facility] [place] [address] 04/18/2017 16:40:21 04/19/2017 10:41:34 Irregular periods 65027622 N92.6 [id number] MD Karla [place] [address]) [address] [facility] [place] [address] 12/22/2017 16:36:22 12/23/2017 13:01:57 Gynecologic examination 60650600 Z01.632 [id number] Moises Hadley MD [place] [address] OB [address] [facility] [place] [address] 12/28/2018 16:16:37 12/29/2018 09:45:59 Gynecologic examination 10329510 Z01.269 [id number] MD Karla Lauren [address] [place] [address] [address] [place] [address] 04/03/2020 16:15:05 04/04/2020 11:11:52 Gynecologic examination 57744516 Z01.419 Screening for malignant neoplasm of breast 132991054 Z12.39 Contracept ion care management 800711294 Z30.9 [id number] MD Karla Lauren 14 OB [address] [facility] [place] [address] 04/06/2021 16:12:11 04/07/2021 07:16:51 Gynecologic examination 51719328 Z01.419 Screening for malignant neoplasm of breast 639478396 Z12.39 [id number] MD Karla Lauren 14 OB [address] [facility] [place] [address] 04/12/2022 16:13:00 04/13/2022 07:44:38 Gynecologic examination 09354665 Z01.419 Screening for malignant neoplasm of breast 200877818 Z12.39 Contracept ion care management 371306571 Z30.9 [id number] MD Karla Lauren [address] [place] [address] [place] [address] 04/21/2023 16:04:58 04/26/2023 14:40:54 Contraception care management 549104713 Z30.9 Gynecologi c examination 08023200 Z01.419 Screening for malignant neoplasm of breast 841502362 Z12.39 [id number] MD Karla Lauren 14 OB [address] [facility] [address] [place] [address] 04/30/2024 15:56:41 05/01/2024 11:24:32 Contraception care management 713201229 Z30.9 At [facility] risk of urinary tract infection 948403037 Z91.89 Gynecologi c examination 87686540 Z01.419 Screening for malignant neoplasm of breast 197147512 Z12.39 Overactive urinary bladder 595032339 N32.81 Dyspareunia 21548365 N94 .10 [id number] MD Karla Lauren OB [address] [facility] [address] [place] [address] 06/04/2025 16:18:46 06/05/2025 12:03:36 Contraception care management 843872952 Z30.9 Depression screening positive 3159188563 14125 Z13.31 [id number] Gynecologi c examination 27665979 Z01.773 [id number] Screening mammography 24 250816 Z12.31 [id number] Health Concerns Section Related Observation LastModified by Organization Detai ls LastModified Time None Recorded Concern Status LastModified by Organization Details LastModified Time None Recorded Advance Directives Directive None Recorded Payers Insurance Date Sequence Insurance Name Policy Number Policy Shukla Covered Member ID Shukla Member ID Guarantor Name 03/31/2023 1 [employer] [id number] Elvia Muir [id number] Elvia Muir 06/05/2025 1 [place] [id number] Elvia Muir [id number] Elvia Muir Notes Date Note Type Note Provider Name and Address Organization Details Recorded Time 1 text/html Annual GYNReported by PatientGenitourinary symptomsFor menstrual cycle, patient reportsnormal menses. For urinary symptoms, patient reportsno hematuriaandno incontinence. For vulva, patient reportsno genital lesion. For vagina, patient reportsnormal vaginal discharge.Breast symptomsFor breast, patient reportsno breast pain,no breast lump, andno nipple discharge.ContraceptionFo r current contraception, patient reportsoral contraceptives.Endocrine symptomsFor sexual complaints, patient reportsno sexual complaints,no pain during intercourse, andnormal libido. For menopausal symptoms, patient reportsno menopausal symptomsandnormal vaginal lubrication.Psychological symptomsFor psychological symptoms, patient reportsno depression,no anxiety, andno pmdd.ROS as noted in the HPI Moises Hadley MD Attn: Accounting,[address] [place], [address], [facility] 04/06/2021 16:49:56 2 text/html Annual GYNReported by PatientGenitourinary symptomsFor urinary symptoms, patient reportsno hematuriaandno incontinence. For vulva, patient reportsno genital lesion. For vagina, patient reportsnormal vaginal discharge. For menstrual cycle, (no period with continuous pills).Breast symptomsFor breast, patient reportsno breast pain,no breast lump, andno nipple discharge.ContraceptionFo r current contraception, patient reportsoral contraceptives.Endocrine symptomsFor sexual complaints, patient reportsno sexual complaints,no pain during intercourse, andnormal libido. For menopausal symptoms, patient reportsno menopausal symptomsandnormal vaginal lubrication.Psychological symptomsFor psychological symptoms, patient reportsno depression,no anxiety, andno pmdd.ROS as noted in the HPI Moises Hadley MD Attn: Accounting,[address] [place], [address], [facility] 04/12/2022 17:13:12 3 text/html Annual GYNReported by PatientGenitourinary symptomsFor urinary symptoms, patient reportsno hematuriaandno incontinence. For vulva, patient reportsno genital lesion. For vagina, patient reportsnormal vaginal discharge. For menstrual cycle, (no period with continuous pills).Breast symptomsFor breast, patient reportsno breast pain,no breast lump, andno nipple discharge.ContraceptionFo r current contraception, patient reportsoral contraceptives.Endocrine symptomsFor sexual complaints, patient reportsno sexual complaints,no pain during intercourse, andnormal libido. For menopausal symptoms, patient reportsno menopausal symptomsandnormal vaginal lubrication.Psychological symptomsFor psychological symptoms, patient reportsno depression,no anxiety, andno pmdd.ROS as noted in the HPI L4-L5 back surgery since we saw her last, worked great!doing well with OCPs Hometicae last year was a hit!Cabo this year, I recommended Maddi Hadley MD Attn: Accounting,[address] [place], [address], [facility] 04/21/2023 16:49:12 4 text/html Annual GYNReported by PatientGenitourinary symptomsFor urinary symptoms, patient reportsno hematuriaandno incontinence. For vulva, patient reportsno genital lesion. For vagina, patient reportsnormal vaginal discharge. For menstrual cycle, (no period with continuous pills).Breast symptomsFor breast, patient reportsno breast pain,no breast lump, andno nipple discharge.ContraceptionFo r current contraception, patient reportsoral contraceptives.Endocrine symptomsFor sexual complaints, patient reportsno sexual complaints,no pain during intercourse, andnormal libido. For menopausal symptoms, patient reportsno menopausal symptomsandnormal vaginal lubrication.Psychological symptomsFor psychological symptoms, patient reportsno depression,no anxiety, andno pmdd.ROS as noted in the HPI Here with today. Long talk centered around [...] was worried could inhibit her libido.) Moises Hadley MD Attn: Accounting, [place], [address], [facility] 04/30/2024 17:28:14 5 text/html Annual GYNReported by PatientGenitourinary symptomsFor urinary symptoms, patient reportsno hematuriaandno incontinence. For vulva, patient reportsno genital lesion. For vagina, patient reportsnormal vaginal discharge. For menstrual cycle, (no period with continuous pills).Breast symptomsFor breast, patient reportsno breast pain,no breast lump, andno nipple discharge.ContraceptionFo r current contraception, patient reportsoral contraceptives.Endocrine symptomsFor sexual complaints, patient reportsno sexual complaints,no pain during intercourse, andnormal libido. For menopausal symptoms, patient reportsno menopausal symptomsandnormal vaginal lubrication.Psychological symptomsFor psychological symptoms, patient reportsno depression,no anxiety, andno pmdd.ROS as noted in the HPI 50 lb wt loss with zepbound since seen last Also some issues with alcoholism issues: neuropathy / brain /muscle weaknessdario says she has WKS and has no short term memory when seen last in 2023 discussed trial of overactive bladder meds and estrogen cream for dyspareunia. doing well with continuous OCPs Moises Hadley MD Attn: Accounting, [place], [address], [place] [facility] 06/04/2025 17:01:02 OBGyn Episode No OBEpisode recorded.
--- OUTSIDE RECORDS SUMMARY | 2025-07-04 01:33 | XMS_ITS | Encounter Summary ---
Author Organization [facility] Address [address] [place] [address] Care Team Providers Care Salesperson Shoes Name Role Phone Unavailable Primary Care Provider Unavailabl e Encounter Details Date Type Department Care Team (Late Contact Info) Description 07/02/2025 Orders Only [facility]3] Oncology [facility] [address] [place] [address] Marcos Ty MD [address] [place] [address] Social History Tobacco Use Types Packs/Day Years Used Date Smoking Tobacco: Former Cigarettes 0.5 10 1 - 07/01/2009 Smokeless Tobacco: Never Alcohol Use Standard Drinks/Week Comments Not Currently [...] as of this encounter Plan of Treatment Upcoming Encounters Date Type Department Care Team (Late st Contact Info) Description 07/09/2025 4:30 PM FORESTRY ENGINEER Telephone Check Up [facility]3] Oncology [facility] [address] [place] [address] Marcos Ty MD [address] [place] [address] documented as of this encounter Procedures Procedure Name Priority Date/Time Associated Diagnosis Comments COMPREHENSIVE METABOLIC PANEL Routine 07/01/2025 12:11 PM CDT CBC WITH AUTODIFFERENTIAL Routine 2024 11:50 AM CDT documented in this encounter Results * COMPREHENSIVE METABOLIC PANEL (07/01/2025 12:11 PM CDT) Blood us Marcos Ty MD CHEMISTRY ORDERABLES Final Resu lt * CBC WITH AUTODIFFERENTIAL (07/01/2025 11:50 AM CDT) Blood us Marcos Ty MD HEMATOLOGY ORDERABLES Final Res ult documented in this encounter Visit Diagnoses Not on filedocumented in this encounter
--- OUTSIDE RECORDS SUMMARY | 2025-07-04 01:33 | XMS_ITS | Clinical Summary ---
Author Organization [facility] Address [address] [place] [address] Care Team Providers Care Marketing Assistant Retail Division Name Role Phone Satya Fournier MD Primary Care Provider Allergies No known active allergies Medications No known medications Social History Tobacco Use Types Packs/Day Years [...] Screening with HPV 2009 Mammogram Screening 2019 COVID-19 Vaccine ( season) 2025 05/09/2024, 05/23/2023, 05/29/2022, Additional history exists Influenza Adult (#1) 2025 05/09/2024, 05/23/2023, 05/16/2022, Additional history exists DTaP, Tdap and Td Vaccines (2 - Td or Tdap) 05/20/2031 05/20/2021 Hepatitis A Vaccines Aged Out No long er eligible based [...] patient's age to complete this topic Insurance [facility] Care Teams Marketing Assistant Retail Division Relationship Specialty Start Date End Date Satya Fournier MD [address] [place] [address] PCP - General INTERNAL MEDICINE 03/12/25
--- OUTSIDE RECORDS SUMMARY | 2025-07-04 01:33 | XMS_ITS | Clinical Summary ---
Author Organization [facility] Address [address] [place] [address] Phone Care Team Providers Care Hide Dyer Name Role Phone Satya Fournier MD Primary Care Provider [phone] Allergies No known active allergies Medications naproxen [...] on file Legal Sex Female 4:14 PM REGULATORY AFFAIRS SPECIALIST Gender Identity Not on file Sexual Orientation Not on file Last Filed Vital Signs Vital Sign Reading Time Taken Comments Blood Pressure 142/95 10/08/2019 3:30 PM REGULATORY AFFAIRS SPECIALIST Pulse 98 10/08/2019 3:30 PM REGULATORY AFFAIRS SPECIALIST Temperature 36.8 C (98.3 F) 10/08/2019 3:30 PM REGULATORY AFFAIRS SPECIALIST Respiratory Rate - - Oxygen Saturation 98% 10/08/2019 3:30 PM REGULATORY AFFAIRS SPECIALIST Inhaled Oxygen Concentration - - Weight [...] patient's age to complete this topic Insurance [facility] Care Teams Hide Dyer Relationship Specialty Start Date End Date Satya Fournier MD [address] [place] [address] PCP - General Internal Medicine 07/11/19
--- OUTSIDE RECORDS SUMMARY | 2025-07-04 01:33 | XMS_ITS | Encounter Summary ---
Author Organization [facility] Address [address] [place] [address] Care Team Providers Care Template Layout Worker Name Role Phone Unavailable Primary Care Provider Unavailabl e Encounter Details Date Type Department Care Team (Late st Contact Info) Description 07/02/2025 External Device Data STL ABSTRACTION Provider, Abstract NO ADDRESS ON FILE Social History Tobacco Use Types Packs/Day Years [...] st Contact Info) Description 07/09/2025 4:30 PM MAILROOM ASSOCIATE Telephone Check Up [facility] Oncology and Hematology - [place] [address] [facility] [address] [place] [address] Marcos Ty MD [address] [facility] [address] [place] [address] documented as of this encounter Visit Diagnoses Not on filedocumented in this encounter
--- OUTSIDE RECORDS SUMMARY | 2025-07-04 01:33 | XMS_ITS | Clinical Summary ---
Author Organization [facility] Address [address] [facility] [place] [address] Care Team Providers Care Lpn Care Manager Name Role Phone MercyElvia morales February ELECTRON BEAM PHOTO MASK TECHNICIAN-LINING SETTER Primary Care Provid er Source Comments [facility],non-owned Affiliates and Associated Physician Practices is amultiple site organization consisting of ambulatory clinics and hospital sitesin [place], [place]. This disclosure is being madepursuant to the Care Everywhere program and may not contain all information available regarding this patient. Last updated 18.[facility] Health Encounters Date Type Department Care Team [...] Office Visit [facility] - Neurology [address] [place] [phone] Amber Fong MD [address] [place] [address] [place] [phone] Health Maintenance Due Date Last Done Comments [...] patient's age to complete this topic Insurance [facility] Care Teams Lpn Care Manager Relationship Specialty Start Date End Date Elvia Madrid February, ELECTRON BEAM PHOTO MASK TECHNICIAN-LINING SETTER [address] [place] [phone] PCP - General Nurse Practitioner 06/13/25
--- OUTSIDE RECORDS SUMMARY | 2025-07-04 01:33 | XMS_ITS | Clinical Summary ---
Author Organization [facility] Luis ware Tere Address [address] [place] [address] Care Team Providers Care Bioassayist Name Role Phone Unavailable Primary Care Provider [...] Encounters Date Type Department Care Team Description 07/02/2025 External Device Data STL ABSTRACTION Provider, Abstract 07/02/2025 External Device Data STL ABSTRACTION Provider, Abstract 07/02/2025 Orders Only [facility] Oncology [facility] [address] [place] [address] Marcos Ty MD 07/01/2025 10:30 AM CDT Office Visit [facility] Oncology [facility] [address] [place] [address] Marcos Ty MD Chronic anemia (Primary Dx) [...] st Contact Info) Description 07/09/2025 4:30 PM CURTAIN FRAMER Telephone Check Up [facility] Oncology and Hematology - [place] [address] [facility] [address] [place] [address] Marcos Ty MD [address] [facility] [address] [place] [address] Health Maintenance Due Date Last [...] 5 years 2024 INFLUENZA VACCINE (#1) 2025 , 05/23/2023, 05/16/2022, Additional history exists DTAP/TDAP/TD VACCINES (2 - T d or Tdap) 05/20/2031 05/20/2021 COVID-19 Vaccine Completed 05/09/2024, , 05/29/2022, Additional history exists Procedures Procedure Name Priority Date/Time Associated Diagnosis Comments COMPREHENSIVE METABOLIC PANEL Routine 07/01/2025 12:11 PM CDT CBC WITH AUTODIFFERENTIAL Routine 2024 11:50 AM CDT from Last 3 Months Results * COMPREHENSIVE METABOLIC PANEL (07/01/2025 12:11 PM CDT) Blood us Marcos Ty MD CHEMISTRY ORDERABLES Final Resu lt * CBC WITH AUTODIFFERENTIAL (07/01/2025 11:50 AM CDT) Blood us Marcos Ty MD HEMATOLOGY ORDERABLES Final Res ult from Last 3 Months Insurance BCBS OUT OF STATE
--- OUTSIDE RECORDS SUMMARY | 2025-07-04 01:33 | XMS_ITS | Encounter Summary ---
Author Organization [facility] Address [address] [place] [address] Care Team Providers Care Machine Scallop Cutter Name Role Phone Unavailable Primary Care Provider [...] st Contact Info) Description 07/09/2025 4:30 PM CALIBRATION SPECIALIST Telephone Check Up [facility] Oncology and Hematology - [place] [address] [facility] [address] [place] [address] Marcos Ty MD [address] [facility] [address] [place] [address] documented as of this encounter Visit Diagnoses Not on filedocumented in this encounter
[2025-07-04 06:22] VITALS: BP 113/77; PULSE 86; RESP 18; TEMP 36.5; O2SAT 100; BMI 19.3
[2025-07-04 06:26] LABS: BEDSIDEPREGUCG Negative (Negative)
[2025-07-04] MEDS: SIMETHICONE ORAL SUSPENSION 20 MG/0.3 ML 30 ML BOTTLE 1.8 ML PO (06:33)
[2025-07-04] MEDS: LACTATED RINGERS 1,000 ML 150 ML IV CONT (06:35)
--- NOTE | 2025-07-04 06:55 | WPDANESEPPF ---
Anes - Initial Pre Proc Eval Procedure: Operation Date: 07/04/25 07:30 Proposed Procedures p Esophagogastroduodenoscopy EGD - Dar Johnson MD Date/Time: 07/04/25 06:55 Surgeon: Dar Johnson MD Pre Op Diagnosis: Gastric Ulcer Patient Data Age: 44 Gender: F Height: 1.68 m Weight: 54.4 kg Last Vital Signs Temp 36.5 C 07/04/25 06:22 Pulse 86 07/04/25 06:22 Resp 18 07/04/25 06:22 BP 113/77 07/04/25 06:22 Pulse Ox 100 07/04/25 06:22 O2 Del Method Room Air 07/04/25 06:22 Allergies Allergy/AdvReac Type Severity Reaction Status Date / Time Estrogens AdvReac Mild Migraine Verified 07/04/25 06:21 Home Medications ?Medication ?Instructions ?Recorded ?Confirmed ?Type norethindrone 1 mg-ethinyl 1 tablet PO DAILY 10/26/19 07/04/25 History estradiol 20 mcg (24)-iron 75 mg (4) tablet (Blisovi 24 Fe) fluticasone propionate 50 See Rx Instructions .Route 03/19/25 06/24/25 History mcg/actuation nasal .COMPLEX PRN allergy symptoms spray,suspension hydrochlorothiazide 12.5 mg capsule See Rx Instructions .Route 03/19/25 06/24/25 History .COMPLEX PRN edema thiamine HCl (vitamin B1) 100 mg 100 mg PO QAM #30 tabs 03/27/25 07/04/25 Rx tablet (Vitamin B-1) diazepam 5 mg tablet 5 mg PO BID PRN anxiety #30 tabs 03/29/25 06/24/25 Rx amitriptyline 25 mg tablet 25 mg PO QHS #90 tabs 04/24/25 07/04/25 Rx duloxetine 60 mg capsule,delayed 60 mg PO DAILY #60 caps 04/24/25 07/04/25 Rx release folic acid 1 mg tablet 1 mg PO DAILY #90 tabs 04/24/25 07/04/25 Rx mecobalamin (vitamin B12) 500 mcg 500 mcg PO DAILY 04/24/25 07/04/25 History chewable tablet DYNAMIC BRAIN 1 cap BYMOUTH DAILY 06/24/25 07/04/25 History multivit with 1 tablet PO BID 06/24/25 07/04/25 History xge-[id number]-LF-#190herbal 18 mg iron-800 mcg-150 mg tablet (Vitamin D3 Complete) omega 3-bfv-bwa-fish oil 900 cap PO DAILY 06/24/25 History mg-1,400 mg capsule,delayed release (Fish Oil) phenazopyridine 95 mg tablet (Azo 95 mg PO DAILY PRN URINE 06/24/25 07/04/25 History Urinary Pain Relief) gabapentin 100 mg capsule 300 mg (3 x 100 mg) PO TID #60 caps 06/25/25 07/04/25 Rx Laboratory Tests 07/04/25 06:22 POC Urine HCG, Qual Negative (Negative) Patient hx anesthesia problems: none Family hx anesthesia problems: none Results Review: All pre-operative results and documents have been reviewed as part of the pre-operative evaluation. 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 Myopathy Peripheral neuropathy Anxiety Weight loss Low folic acid Acute anemia Mass of finger of right hand Ganglion cyst of dorsum of right wrist Thoracic outlet syndrome Abnormal deposits of lipid Hyperglycemia HTN (hypertension) off medications as of 03/19/25 Surgical History Surgical History History of tonsillectomy Status post lumbar surgery Family History Family History Other Family history of lung cancer Pulmonary fibrosis Social History Social History Smoking packs per day: 0.5 Smoking cigarettes per day: 10.0 Years smoked: 10 Smoking pack-years: 5.00 Smoking status: Former smoker Tobacco type: cigarettes Smoking end date: 09/05/07 Alcohol intake: former Drinks per week: 25 Alcohol use details: sober 03/2025 Substance use: never Substance use type: does not use Current Housing: Decline to Answer Concerned About Future Housing: Decline to Answer Difficulty Paying Gas/Electric Bills: Decline to Answer Difficulty Paying for Meds: Decline to Answer Currently Unemployed: Decline to Answer Education: Decline to Answer Difficulty w/ Childcare or Family Care: Decline to Answer Living arrangements: with family Spiritual care concerns: No Anes - Eval Final PreProcedure Day of Procedure 07/04/25 06:55 Patient weight: normal Heart: regular rate and rhythm Lungs: clear to auscultation Airway: Mallampati scale class II Neurological: alert and oriented Last oral intake: >/= 8 hours ASA classification: III Emergent: no Anesthetic plan: proceed Anesthesia type and monitoring: general GIVS and standard monitoring Results Review: All pre-operative results and documents have been reviewed as part of the pre-operative evaluation. Informed Consent: The patient's anesthetic plan and its attendant risks and benefits were discussed with the patient/family/POA. Questions were solicited and answers provided to the satisfaction of the patient/family/POA.
--- NOTE | 2025-07-04 07:33 | PM.IMHP ---
H&P: HPI History of Present Illness Date/Time: 07/04/25 07:33 Chief Complaint: Peptic ulcer disease Narrative: Patient with a diagnosis of large antral ulcer in March this year, secondary to NSAIDs. She completed treatment with pantoprazole and is now for follow-up EGD to document healing of the ulcer. 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 Myopathy Peripheral neuropathy Anxiety Weight loss Low folic acid Acute anemia Mass of finger of right hand Ganglion cyst of dorsum of right wrist Thoracic outlet syndrome Abnormal deposits of lipid Hyperglycemia HTN (hypertension) off medications as of 03/19/25 Surgical History Surgical History History of tonsillectomy Status post lumbar surgery Family History Family History Other Family history of lung cancer Pulmonary fibrosis Social History Social History Smoking packs per day: 0.5 Smoking cigarettes per day: 10.0 Years smoked: 10 Smoking pack-years: 5.00 Smoking status: Former smoker Tobacco type: cigarettes Smoking end date: 09/05/07 Alcohol intake: former Drinks per week: 25 Alcohol use details: sober 03/2025 Substance use: never Substance use type: does not use Current Housing: Decline to Answer Concerned About Future Housing: Decline to Answer Difficulty Paying Gas/Electric Bills: Decline to Answer Difficulty Paying for Meds: Decline to Answer Currently Unemployed: Decline to Answer Education: Decline to Answer Difficulty w/ Childcare or Family Care: Decline to Answer Living arrangements: with family Spiritual care concerns: No Meds Home Medications and Allergies Home Medications ?Medication ?Instructions ?Recorded ?Confirmed ?Type norethindrone 1 mg-ethinyl 1 tablet PO DAILY 10/26/19 07/04/25 History estradiol 20 mcg (24)-iron 75 mg (4) tablet (Blisovi 24 Fe) fluticasone propionate 50 See Rx Instructions .Route 03/19/25 06/24/25 History mcg/actuation nasal .COMPLEX PRN allergy symptoms spray,suspension hydrochlorothiazide 12.5 mg capsule See Rx Instructions .Route 03/19/25 06/24/25 History .COMPLEX PRN edema thiamine HCl (vitamin B1) 100 mg 100 mg PO QAM #30 tabs 03/27/25 07/04/25 Rx tablet (Vitamin B-1) diazepam 5 mg tablet 5 mg PO BID PRN anxiety #30 tabs 03/29/25 06/24/25 Rx amitriptyline 25 mg tablet 25 mg PO QHS #90 tabs 04/24/25 07/04/25 Rx duloxetine 60 mg capsule,delayed 60 mg PO DAILY #60 caps 04/24/25 07/04/25 Rx release folic acid 1 mg tablet 1 mg PO DAILY #90 tabs 04/24/25 07/04/25 Rx mecobalamin (vitamin B12) 500 mcg 500 mcg PO DAILY 04/24/25 07/04/25 History chewable tablet DYNAMIC BRAIN 1 cap BYMOUTH DAILY 06/24/25 07/04/25 History multivit with 1 tablet PO BID 06/24/25 07/04/25 History wbl-rbxj-QP-#190herbal 18 mg iron-800 mcg-150 mg tablet (Vitamin D3 Complete) omega 0-oxh-fjf-fish oil 900 cap PO DAILY 06/24/25 History mg-1,400 mg capsule,delayed release (Fish Oil) phenazopyridine 95 mg tablet (Azo 95 mg PO DAILY PRN URINE 06/24/25 07/04/25 History Urinary Pain Relief) gabapentin 100 mg capsule 300 mg (3 x 100 mg) PO TID #60 caps 06/25/25 07/04/25 Rx Allergies Allergy/AdvReac Type Severity Reaction Status Date / Time Estrogens AdvReac Mild Migraine Verified 07/04/25 06:21 Vital Signs Vital Signs - 24 hr 07/04/25 06:22 Temperature 97.7 F Pulse Rate 86 Respiratory Rate 18 Blood Pressure 113/77 Pulse Oximetry 100 Oxygen Delivery Room Air Exam Const: General: cooperative and healthy appearing Resp: Effort & Inspection: normal respiratory effort and able to speak in complete sentences Auscultation: clear to auscultation bilaterally Cardio: Rate: regular rate Rhythm: regular rhythm GI: Inspection: normal to inspection GI Palp: No No hepatosplenomegaly present Auscultation: normal bowel sounds Rectal Exam: deferred Skin: General skin exam: normal color Psych: Appearance: grossly normal Mental Status: mental status grossly normal Assessment and Plan Assessment and plan (1) Gastric ulcer due to nonsteroidal anti-inflammatory drug (NSAID): Code(s): K25.9 - Gastric ulcer, unspecified as acute or chronic, without hemorrhage or perforation; T39.395A - Adverse effect of other nonsteroidal anti-inflammatory drugs [NSAID], initial encounter Status: Acute Assessment and Plan: The patient is deemed a good candidate for the procedure. Consent signed. Will proceed.
--- NOTE | 2025-07-04 07:40 | S_PTH ---
PATIENT: Elvia Muir LOC: [facility] U#:[id number] AGE/SX: 44/F ROOM: RE07/04/[address]: Dar Johnson MD : 1980 BED: DIS: 07/04/2025 SPEC #: [id number] RECD: 07/04/25 10:22 STATUS: JANA REQ #: [id number] JOSE: 07/04/25 07:[address]: Dar Johnson DEPT: [facility] Surgical RECD BY: Alejandra Carranza ENTERED: 07/04/25 10:22 SP TYPE: Surgical OTHR DR: Elvia [place], [address] Tissues: A - Gastric Biopsy B - Gastric Biopsy Procedures: Hematoxylin and Eosin Stain Gross and Microscopic Level 4
[2025-07-04 07:45] VITALS: BP 102/70; PULSE 80; RESP 20; O2SAT 100
[2025-07-04 07:55] VITALS: BP 109/73; PULSE 85; RESP 22; O2SAT 100
[2025-07-04 08:05] VITALS: BP 112/74; PULSE 87; RESP 16; O2SAT 99
== END 2025-07-04 08:10 | disposition home or self-care (01) ==
PROVIDERS: Anesthesiology; PCP Nurse Practitioner; Referring Provider Internal Medicine Gastroenterology; Visit Provider Internal Medicine Gastroenterology
PROC: 0DJ08ZZ Inspection of Upper Intestinal Tract, Via Natural or Artificial Opening Endoscopic (ICD-10-PCS; CPT 43239; principal; 2025-07-04 07:30)
DX: Z09 Encounter for follow-up examination after completed treatment for conditions other than malignant neoplasm (principal); Z87.11 Personal history of peptic ulcer disease
CPT/HCPCS: 43239; 88305; J2003; J2704; J7120